=== PATIENT | female | born 1965 | race Caucasian/White ===

== ENCOUNTER 2016-04-16 12:09 | Emergency (ER) | payer MEDICAID ==
[~2016-04-16] VITALS: Ht 170.2 cm; Wt 92.0 kg
[~2016-04-16 12:09] MED LIST: ATEN50TA PO; ATOR20TA15 PO; CYCL25CA4 PO; DRON5CAP PO; LOSA25TA PO; MAGN400T2 PO; METF500T PO; METO5TAB PO; MYCO500T PO; ONDA1TAB17 PO; PANT40TA3 PO; PRED5TAB PO
[2016-04-16 12:17] VITALS: BP 141/94; PULSE 60; RESP 18; TEMP 97.4; O2SAT 96
[2016-04-16 13:40] LABS: BLOOD, URINE TRACE (NEG); GLUCOSE,URINE NEG (NEG); KETONE, URINE NEG (NEG); NITRITE,URINE NEG (NEG); PH, URINE 5.5 (5.0-8.5)
[2016-04-16 13:42] LABS: URINE COLOR YELLOW (YELLW/STRAW)
[2016-04-16 13:50] LABS: BACTERIA, URINE OCC /hpf; COMMENT (UR) CULT NOT INDICATED; CULTURE IF INDICATED CULT NOT INDICATED; MUCUS URINE OCC /lpf (OCC); RBC, URINE 0-3 /hpf (0-3); SQUAMOUS EPITHELIAL CELL URINE > 8 /hpf (0-5); WBC, URINE 0-2 /hpf (0-5)
[2016-04-16] MEDS ORDERED: SODIUM CHLOR 0.9% 1000 ML INJ 1,000 ML IV SCH (14:55)
[2016-04-16] MEDS ORDERED: ONDANSETRON HCL 4 MG/2 ML VIAL IVP ONE (15:00)
[2016-04-16] MEDS ORDERED: MORPHINE SULFATE 4 MG/ML INJ IV PUSH ONE (15:00)
[2016-04-16] MEDS ORDERED: SODIUM CHLORIDE 0.9% FLUSH 5 ML FLUSH IVF PRN (15:00)
--- NOTE | 2016-04-16 15:04 | PD ---
HPI Chief Complaint: Flank/Kidney Pain Time Seen by Provider: 14:47 Travel History International Travel<30 days: No Contact w/Intl Traveler<30days: No Traveled to known affect area: No History of Present Illness HPI 50-year-old female complains of right flank pain. Patient states the pain started last night. Patient states the pain sharp stabbing pain constant pain started the right flank area radiation to right upper quadrant of the abdomen. Patient denies any fever chills. Patient denies any coughing congestion. Patient states that she has intermittent nausea vomiting since last night. Patient denies dysuria or frequency. Patient denies any vaginal discharge or bleeding. Patient status post hysterectomy. Patient has history of renal failure status post kidney transplant, diabetes, GERD, anxiety panic attack, dyslipidemia, hypertension, lupus and gastroparesis. PFSH Past Medical History Arthritis: Yes Autoimmune Disease: Yes (LUPUS) Anxiety: Yes (PANIC ATTACKS) Depression: No Heart Rhythm Problems: No Cancer: Yes (SKIN) Cardiovascular Problems: No High Cholesterol: Yes Chemotherapy: No Chest Pain: No Congestive Heart Failure: No Cerebrovascular Accident: No Diabetes: Yes Patient Takes Glucophage: Yes Diminished Hearing: No Endocrine: Yes Gastrointestinal Disorders: Yes (GASTROPORESIS) GERD: Yes Genitourinary: Yes (KIDNEY TRANSPLANT: MAY [birth year] 1989 ON R SIDE. ) Headaches: No Hepatitis: No Hiatal Hernia: Yes Hypertension: Yes Immune Disorder: Yes Implanted Vascular Access Dvce: Yes (LUE shunt) Kidney Stones: Yes Medical other: No Musculoskeletal: Yes Neurologic: Yes Psychiatric: Yes Reproductive: No Respiratory: No Immunizations Current: Yes Migraines: Yes Radiation Therapy: No Renal Failure: Yes Seizures: No Thyroid Disease: No Ulcer: No Influenza Vaccination: No PNEUMOCCOCAL Vaccine (Year): 2 ?: Not Menopausal: Yes : 2 Para: 1 Miscarriage: 1 Past Surgical History Abdominal Surgery: Yes (INGUINAL HERNIA: RIGHT, GALLBLADDER REMOVED) AICD: No Arteriovenous Shunt: Yes (LEFT ARM FOR DIALYSIS IN 1989- NON FUNCTIONAL) Body Medical Devices: NONE Cardiac Surgery: No Section: Yes Cholecystectomy: Yes Ear Surgery: No Endocrine Surgery: No Eye Surgery: No Genitourinary Surgery: Yes (RKIDNEY TRANSPLANT / LEFT DIALYSIS SHUNT) Gynecologic Surgery: Yes (C SECTIONHYSTERECTOMY ) Hysterectomy: Yes Joint Replacement: No Neurologic Surgery: No Oral Surgery: No Pacemaker: No Thoracic Surgery: No Other Surgery: Yes (SKIN CANCER REMOVED RT THIGH 09/18) Social History Alcohol Use: No Tobacco Use: Yes (1 ppd) Substance Use: No Allergies-Medications (Allergen,Severity, Reaction): Coded Allergies: Adhesives (Verified Allergy, Severe, HIVES, 04/16/16) DISOLVABLE SUTURE MATERAL Levaquin (Verified Allergy, Intermediate, HIVES/ITCHING, 04/16/16) Keflex (Verified Adverse Reaction, Intermediate, HIVES/VOMITING, 04/16/16) Procardia (Verified Adverse Reaction, Intermediate, VOMITING, 04/16/16) *MDRO Multi-Drug Resistant Organism (Verified Adverse Reaction, Unknown, ) 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 MRSA PCR Screens negative 10/29/14 and 11/16/14. Uncoded Allergies: suture material (Adverse Reaction, Severe, SKIN INFECTION, 06/14/15) PT STATES DISSOLVING ONES [place] NOT DISSOLVE AND HAVE TO BE PHYSICALLY REMOVED Reported Meds & Prescriptions Reported Meds & Active Scripts Active Ondansetron (Ondansetron HCl) 8 Mg Tab 4 Mg PO TID Atorvastatin (Atorvastatin Calcium) 20 Mg Tab 20 Mg PO HS Metoclopramide (Metoclopramide HCl) 5 Mg Tab 5 Mg PO TIDAC Losartan (Losartan Potassium) 25 Mg Tab 25 Mg PO DAILY Metformin (Metformin HCl) 500 Mg Tab 500 Mg PO BIDPC With meals Pantoprazole (Pantoprazole Sodium) 40 Mg Tab 40 Mg PO DAILY Reported Dronabinol 5 Mg Cap 5 Mg PO BID Cyclosporine 25 Mg Cap 50 Mg PO BID Mycophenolate (Mycophenolate Mofetil) 500 Mg Tab 1,000 Mg PO BID Prednisone 5 Mg Tab 5 Mg PO DAILY Atenolol 50 Mg Tab 50 Mg PO DAILY Review of Systems General / Constitutional: No: Fever Eyes: No: Visual changes HENT: No: Headaches Cardiovascular: No: Chest Pain or Discomfort Respiratory: No: Shortness of Breath Gastrointestinal: Positive: Abdominal Pain Genitourinary: No: Dysuria Musculoskeletal: No: Pain Skin: No Rash Neurologic: No: Weakness Psychiatric: No: Depression Endocrine: No: Polydipsia Hematologic/Lymphatic: No: Easy Bruising Physical Exam Narrative GENERAL: Well-nourished, well-developed patient. SKIN: Warm and dry. HEAD: Normocephalic. EYES: No scleral icterus. No injection or drainage. NECK: Supple, trachea midline. No JVD or lymphadenopathy. CARDIOVASCULAR: Regular rate and rhythm without murmurs, gallops, or rubs. RESPIRATORY: Breath sounds equal bilaterally. No accessory muscle use. GASTROINTESTINAL: Abdomen soft, nondistended. Patient has moderate tenderness on palpation right upper quadrant of the abdomen. No rebound tenderness. No mass. MUSCULOSKELETAL: No cyanosis, or edema. BACK: Patient has moderate tenderness on palpation right flank area and right low quadrant of the abdomen. No rebound tenderness. No mass. Neurologic exam normal. Data Data Last Documented VS Vital Signs Date Time Temp Pulse Resp B/P Pulse Ox O2 Delivery O2 Flow Rate FiO2 04/16/16 16:34 96 Room Air 04/16/16 12:17 97.4 60 18 141/94 Orders Urinalysis - C+S If Indicated (04/16/16 13:15) Ed Urine Pregnancytest Poc (04/16/16 13:15) Complete Blood Count With Diff (04/16/16 14:55) Comprehensive Metabolic Panel (04/16/16 14:55) Lipase (04/16/16 14:55) Prothrombin Time / Inr (Pt) (04/16/16 14:55) Act Partial Throm Time (Ptt) (04/16/16 14:55) Ct Abd/Pel W/O Iv Contrast (04/16/16 14:55) Iv Access Insert/Monitor (04/16/16 14:55) Ecg Monitoring (04/16/16 14:55) Oximetry (04/16/16 14:55) Morphine Inj (Morphine Inj) (04/16/16 15:00) Ondansetron Inj (Zofran Inj) (04/16/16 15:00) Sodium Chlor 0.9% 1000 Ml Inj (Ns 1000 M (04/16/16 14:55) Sodium Chloride 0.9% Flush (Ns Flush) (04/16/16 15:00) Labs Laboratory Tests Test 04/16/16 04/16/16 13:16 15:14 Urine Color YELLOW Urine Turbidity HAZY Urine pH 5.5 Urine Specific [place] 1.017 Urine Protein NEG mg/dL Urine Glucose (UA) NEG mg/dL Urine Ketones NEG mg/dL Urine Occult Blood TRACE Urine Nitrite NEG Urine Bilirubin NEG Urine Leukocyte Esterase NEG Urine RBC 0-3 /hpf Urine WBC 0-2 /hpf Urine Squamous Epithelial > 8 /hpf Cells Urine Bacteria OCC /hpf Urine Mucus OCC /lpf Microscopic Urinalysis Comment CULT NOT INDICATED White Blood Count 7.9 TH/MM3 Red Blood Count 5.42 MIL/MM3 Hemoglobin 16.6 GM/DL Hematocrit 48.9 % Mean Corpuscular Volume 90.2 FL Mean Corpuscular Hemoglobin 30.7 PG Mean Corpuscular Hemoglobin 34.0 % Concent Red Cell Distribution Width 13.6 % Platelet Count 148 TH/MM3 Mean Platelet Volume 10.4 FL Neutrophils (%) (Auto) 60.0 % Lymphocytes (%) (Auto) 25.4 % Monocytes (%) (Auto) 10.7 % Eosinophils (%) (Auto) 3.2 % Basophils (%) (Auto) 0.7 % Neutrophils # (Auto) 4.7 TH/MM3 Lymphocytes # (Auto) 2.0 TH/MM3 Monocytes # (Auto) 0.8 TH/MM3 Eosinophils # (Auto) 0.3 TH/MM3 Basophils # (Auto) 0.1 TH/MM3 CBC Comment DIFF FINAL Differential Comment Prothrombin Time 10.7 SEC Prothromb Time International 1.0 RATIO Ratio Activated Partial 28.4 SEC Thromboplast Time Sodium Level 144 MEQ/L Potassium Level 3.6 MEQ/L Chloride Level 109 MEQ/L Carbon Dioxide Level 25.0 MEQ/L Anion Gap 10 MEQ/L Blood Urea Nitrogen 14 MG/DL Creatinine 1.20 MG/DL Estimat Glomerular Filtration 48 ML/MIN Rate Random Glucose 83 MG/DL Calcium Level 9.0 MG/DL Total Bilirubin 2.5 MG/DL Aspartate Amino Transf 17 U/L (AST/SGOT) Alanine Aminotransferase 18 U/L (ALT/SGPT) Alkaline Phosphatase 113 U/L Total Protein 7.0 GM/DL Albumin 3.3 GM/DL Lipase 51 U/L [facility] Medical Decision Making Medical Screen Exam Complete: Yes Emergency Medical Condition: Yes Interpretation(s) 1614 p.m. CBC within normal limit. Creatinine 1.2. Total bili 2.5. UA is negative. 1632 PM. Differential Diagnosis Differential diagnosis including musculoskeletal, nephrolithiasis, pyelonephritis, cholecystitis, colitis. Narrative Course 50-year-old female with right flank pain with radiation to right upper quadrant abdominal pain. Normal saline solution 1 25 cc an hour. Morphine 2 mg IV. Zofran 4 mg IV. I discussed with radiologist Dr. Richard about her results of CT. Patient had ultrasound kidney in the past which show hydronephrosis of the transplanted kidney in the past. Nothing new. Diagnosis Primary Impression: Right flank pain Patient Instructions: General Instructions Additional Instructions: Flexeril as needed for pain. Follow-up with personal physician. Return if persistent problem or worse. Med/Other Pt SpecificInfo: Prescription(s) given Scripts Cyclobenzaprine (Flexeril)10 Mg Tab10 Mg PO TID #60 TAB Ref 0 Prov:Carlton Bernard MD 04/16/16 Disposition: 01 DISCHARGE HOME Condition: Stable Carlton Bernard MD Apr 16, 2016 15:03
[2016-04-16 15:23] LABS: AUTOMATED NEUTROPHIL # 4.7 TH/MM3 (1.8-7.7); BASOPHIL # 0.1 TH/MM3 (0-0.2); BASOPHIL % 0.7 % (0.0-2.0); EOSINOPHIL # 0.3 TH/MM3 (0-0.4); EOSINOPHIL % 3.2 % (0.0-4.0); HEMATOCRIT 48.9 % (35.0-46.0); HEMO FLAGS DIFF FINAL; LYMPH % 25.4 % (9.0-44.0); MEAN CELL VOLUME 90.2 FL (80.0-100.0); MEAN CORPUSCULAR HEMOGLOBIN 30.7 PG (27.0-34.0); MONO % 10.7 % (0.0-8.0); PLATELET COUNT 148 TH/MM3 (150-450); RED BLOOD COUNT 5.42 MIL/MM3 (4.00-5.30); RED CELL DISTRIBUTION WIDTH 13.6 % (11.6-17.2); WHITE BLOOD COUNT 7.9 TH/MM3 (4.0-11.0)
[2016-04-16 15:31] LABS: CHLORIDE 109 MEQ/L (98-107); POTASSIUM 3.6 MEQ/L (3.5-5.1); SODIUM (NA) 144 MEQ/L (136-145)
[2016-04-16 15:35] LABS: ANION GAP 10 MEQ/L (5-15); BLOOD UREA NITROGEN 14 MG/DL (7-18)
[2016-04-16 15:38] LABS: ALT (GPT) 18 U/L (10-53); AST (GOT) 17 U/L (15-37); GLOMERULAR FILTRATION RATE 48 ML/MIN (>89)
[2016-04-16 15:39] LABS: TOTAL BILIRUBIN ADULT 2.5 MG/DL (0.2-1.0)
[2016-04-16 15:41] LABS: ALKALINE PHOSPHATASE 113 U/L (45-117)
[2016-04-16 15:43] LABS: APTT (PATIENT) 28.4 SEC (24.3-30.1); PROTHROMBIN TIME - PATIENT 10.7 SEC (9.8-11.6)
--- NOTE | 2016-04-16 16:15 | RADHPO ---
EXAM DATE/TIME: 04/16/2016 15:20 [facility] COMPARISON: CT ABDOMEN & PELVIS W/O CONTRAST, September 11, 2015, 13:59. INDICATIONS: Right flank pain. ORAL CONTRAST: No oral contrast ingested. RADIATION DOSE: 27.50 CTDIvol (mGy) MEDICAL HISTORY: Hypertension. Diabetes mellitus type 2. Lupus. SURGICAL HISTORY: Cholecystectomy. Tubal ligation. ENCOUNTER: Initial ACUITY: 1 day PAIN SCALE: 4/10 LOCATION: Right flank TECHNIQUE: Volumetric scanning of the abdomen and pelvis was performed. Using automated exposure control and adjustment of the mA and/or kV according to patient size, radiation dose was kept as low as reasonably achievable to obtain optimal diagnostic quality images. FINDINGS: Lung bases are clear. There is mild fatty replacement to the spleen. Liver is unremarkable. Surgic al clips are seen in the gallbladder fossa. Pancreas is unremarkable. Kidneys are small and shrunken. There is a renal transplant in the right lower quadrant without stone. There is a small emily-pelvic cyst evident. There is mild dilatation to the proximal ureter. CONCLUSION: 1. Right lower quadrant transplant without stone. 2. There is a 2 cm renal cyst evident. 3. There is mild dilatation of the proximal collecting system stable in the interval. 4. No other abnormality is appreciated. Krunal Richard MD FACR on April 16, 2016 at 16:03 Board Certified Radiologist. This report was verified electronically.
[2016-04-16 16:34] VITALS: O2SAT 96
[2016-04-16] MEDS ORDERED: CYCL1TAB29 PO (16:52)
[2016-04-16 17:06] VITALS: BP 135/78
[2016-05-25] MEDS ORDERED: ATOR20TA15 PO ×2 (14:04→15:35)
[2016-08-02] MEDS ORDERED: PROM12.54 PO (10:27)
[2016-08-02] MEDS ORDERED: WHEEMIS3 (10:53)
[2016-08-02] MEDS ORDERED: CLON.1 PO (11:04)
[2016-08-02] MEDS ORDERED: CLON0.1T PO (11:07)
[2016-08-17] MEDS ORDERED: ATOR10TA15 PO (11:07)
[2016-08-17] MEDS ORDERED: LOSA50TA PO (11:07)
== END 2016-04-16 17:11 | disposition home or self-care (01) ==
LOC: PHED 12:09
DX: R10.11 Right upper quadrant pain (principal); N28.1 Cyst of kidney, acquired; E78.00 Pure hypercholesterolemia, unspecified; E11.9 Type 2 diabetes mellitus without complications; I10 Essential (primary) hypertension; Z87.442 Personal history of urinary calculi; F17.210 Nicotine dependence, cigarettes, uncomplicated
CPT/HCPCS: 74176; 80053; 81001; 83690; 84703; 85025; 85610; 85730; 96361; 96374; 96375; 99284; J2270; J2405; J7030

== ENCOUNTER 2016-06-25 16:35 | Emergency (ER) | payer MEDICAID ==
[~2016-06-25] VITALS: Ht 170.2 cm; Wt 97.0 kg
[~2016-06-25 16:35] MED LIST changes: +CYCL1TAB29 PO; -MAGN400T2 PO
[2016-06-25 16:50] VITALS: BP 150/111; PULSE 66; RESP 16; TEMP 97.9; O2SAT 97
[2016-06-25] MEDS ORDERED: SODIUM CHLORIDE 0.9% FLUSH 10 ML FLUSH IV FLUSH PRN (17:00)
[2016-06-25] MEDS ORDERED: MAGN400T2 PO (17:04)
[2016-06-25 17:19] VITALS: O2SAT 96
[2016-06-25 17:21] LABS: AUTOMATED NEUTROPHIL # 4.3 TH/MM3 (1.8-7.7); BASOPHIL # 0.1 TH/MM3 (0-0.2); BASOPHIL % 0.7 % (0.0-2.0); EOSINOPHIL # 0.7 TH/MM3 (0-0.4); EOSINOPHIL % 8.2 % (0.0-4.0); HEMATOCRIT 48.2 % (35.0-46.0); HEMO FLAGS DIFF FINAL; LYMPH % 32.9 % (9.0-44.0); LYMPHOCYTE # 2.8 TH/MM3 (1.0-4.8); MEAN CELL VOLUME 90.6 FL (80.0-100.0); MEAN CORPUSCULAR HEMOGLOBIN 30.2 PG (27.0-34.0); MEAN CORPUSCULAR HGB CONC 33.4 % (32.0-36.0); MONO % 7.4 % (0.0-8.0); NEUT % 50.8 % (16.0-70.0); PLATELET COUNT 159 TH/MM3 (150-450); RED BLOOD COUNT 5.32 MIL/MM3 (4.00-5.30); RED CELL DISTRIBUTION WIDTH 13.5 % (11.6-17.2); WHITE BLOOD COUNT 8.5 TH/MM3 (4.0-11.0)
[2016-06-25 17:30] LABS: CHLORIDE 108 MEQ/L (98-107); POTASSIUM 3.9 MEQ/L (3.5-5.1); SODIUM (NA) 141 MEQ/L (136-145)
[2016-06-25] MEDS ORDERED: oxyCODONE/ACETAMINOPHEN 5 MG/325 MG TAB PO ONE (17:30)
[2016-06-25 17:34] LABS: ANION GAP 9 MEQ/L (5-15); BLOOD UREA NITROGEN 21 MG/DL (7-18)
[2016-06-25 17:37] LABS: ALT (GPT) 22 U/L (10-53); AST (GOT) 18 U/L (15-37); GLOMERULAR FILTRATION RATE 44 ML/MIN (>89)
[2016-06-25 17:38] LABS: TOTAL BILIRUBIN ADULT 1.7 MG/DL (0.2-1.0)
[2016-06-25 17:39] LABS: ALKALINE PHOSPHATASE 103 U/L (45-117)
--- NOTE | 2016-06-25 17:48 | PD ---
HPI Chief Complaint: Flank/Kidney Pain Time Seen by Provider: 17:19 Travel History International Travel<30 days: No Contact w/Intl Traveler<30days: No Traveled to known affect area: No History of Present Illness HPI 50-year-old female with a history of end-stage renal disease had been on dialysis in the past status post kidney transplant to the right side presents emergency Department with left lower back pain. Patient states she has a history of kidney stones but denies any dysuria. Patient states the pain radiates down into her buttock and left leg. Denies any saddle anesthesia denies. States worse when she is walking. States pain is been present for the past 4 days initially started as an aching pain but now has become sharp and fairly intense. PFSH Past Medical History Arthritis: Yes Autoimmune Disease: Yes (LUPUS) Anxiety: Yes (PANIC ATTACKS) Depression: No Heart Rhythm Problems: No Cancer: Yes (SKIN) Cardiovascular Problems: Yes (htn on meds) High Cholesterol: Yes Chemotherapy: No Chest Pain: No Congestive Heart Failure: No Cerebrovascular Accident: No Diabetes: Yes (type 2) Patient Takes Glucophage: Yes Diminished Hearing: No Endocrine: Yes Gastrointestinal Disorders: Yes (GASTROPORESIS) GERD: Yes Genitourinary: Yes (KIDNEY TRANSPLANT: MAY 13, 1987 ON R SIDE. ) Headaches: No Hepatitis: No Hiatal Hernia: Yes Hypertension: Yes Immune Disorder: Yes Implanted Vascular Access Dvce: Yes (LUE shunt) Kidney Stones: Yes Musculoskeletal: Yes Neurologic: Yes Psychiatric: Yes Reproductive: No Respiratory: No Immunizations Current: Yes Migraines: Yes Radiation Therapy: No Renal Failure: Yes Seizures: No Thyroid Disease: No Ulcer: No PNEUMOCCOCAL Vaccine (Year): 2 ?: Not Menopausal: Yes : 2 Para: 1 Miscarriage: 1 Past Surgical History Abdominal Surgery: Yes (INGUINAL HERNIA: RIGHT, GALLBLADDER REMOVED) AICD: No Arteriovenous Shunt: Yes (LEFT ARM FOR DIALYSIS IN 1989- NON FUNCTIONAL) Body Medical Devices: NONE Cardiac Surgery: No Section: Yes Cholecystectomy: Yes Ear Surgery: No Endocrine Surgery: No Eye Surgery: No Genitourinary Surgery: Yes (RKIDNEY TRANSPLANT / LEFT DIALYSIS SHUNT) Gynecologic Surgery: Yes (C SECTIONHYSTERECTOMY ) Hysterectomy: Yes Joint Replacement: No Neurologic Surgery: No Oral Surgery: No Pacemaker: No Thoracic Surgery: No Other Surgery: Yes (SKIN CANCER REMOVED RT THIGH 09/18) Social History Alcohol Use: No Tobacco Use: Yes (3-4 CIG/DAY) Substance Use: No Allergies-Medications (Allergen,Severity, Reaction): Coded Allergies: Adhesives (Verified Allergy, Severe, HIVES, 06/25/16) DISOLVABLE SUTURE MATERAL Levaquin (Verified Allergy, Intermediate, HIVES/ITCHING, 06/25/16) Keflex (Verified Adverse Reaction, Intermediate, HIVES/VOMITING, 06/25/16) Procardia (Verified Adverse Reaction, Intermediate, VOMITING, 06/25/16) *MDRO Multi-Drug Resistant Organism (Verified Adverse Reaction, Unknown, ) 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 MRSA PCR Screens negative 10/29/14 and 11/16/14. Uncoded Allergies: suture material (Adverse Reaction, Severe, SKIN INFECTION, 06/25/16) PT STATES DISSOLVING ONES [place] NOT DISSOLVE AND HAVE TO BE PHYSICALLY REMOVED. Reported Meds & Prescriptions Reported Meds & Active Scripts Active Ultram (Tramadol HCl) 50 Mg Tab 50 Mg PO Q6H PRN Atorvastatin (Atorvastatin Calcium) 20 Mg Tab 20 Mg PO HS Metoclopramide (Metoclopramide HCl) 5 Mg Tab 5 Mg PO TIDAC Losartan (Losartan Potassium) 25 Mg Tab 25 Mg PO DAILY Metformin (Metformin HCl) 500 Mg Tab 500 Mg PO BIDPC With meals Pantoprazole (Pantoprazole Sodium) 40 Mg Tab 40 Mg PO DAILY Reported Magnesium Oxide 400 Mg Tab 400 Mg PO BID Cyclosporine 25 Mg Cap 50 Mg PO BID Mycophenolate (Mycophenolate Mofetil) 500 Mg Tab 1,000 Mg PO BID Prednisone 5 Mg Tab 5 Mg PO DAILY Atenolol 50 Mg Tab 50 Mg PO DAILY Review of Systems Except as stated in HPI: all other systems reviewed are Neg Physical Exam Narrative GENERAL: Well-developed well-nourished, morbidly obese, appears somewhat uncomfortable. SKIN: Focused skin assessment warm/dry. HEAD: Atraumatic. Normocephalic. EYES: Pupils equal and round. No scleral icterus. No injection or drainage. ENT: No nasal bleeding or discharge. Mucous membranes pink and moist. NECK: Trachea midline. No JVD. CARDIOVASCULAR: Regular rate and rhythm. No murmur appreciated. RESPIRATORY: No accessory muscle use. Clear to auscultation. Breath sounds equal bilaterally. GASTROINTESTINAL: Abdomen soft, non-tender, nondistended. Hepatic and splenic margins not palpable. No CVA tenderness. No tenderness over the graft site. MUSCULOSKELETAL: No obvious deformities. No clubbing. No cyanosis. No edema. There is some tenderness to the left sacroiliac joint as well as the left buttock. No bruising no lacerations nor abrasions. There is no midline tenderness, CVA tenderness negative. Straight leg raise is positive. NEUROLOGICAL: Awake and alert. No obvious cranial nerve deficits. Motor grossly within normal limits. Normal speech. PSYCHIATRIC: Appropriate mood and affect; insight and judgment normal. Data Data Last Documented VS Vital Signs Date Time Temp Pulse Resp B/P Pulse Ox O2 Delivery O2 Flow Rate FiO2 06/25/16 19:38 70 18 97 06/25/16 19:29 132/80 Room Air 06/25/16 16:50 97.9 Orders Urinalysis - C+S If Indicated (06/25/16 16:57) Complete Blood Count With Diff (06/25/16 16:57) Comprehensive Metabolic Panel (06/25/16 16:57) Lipase (06/25/16 16:57) Iv Access Insert/Monitor (06/25/16 16:57) Ecg Monitoring (06/25/16 16:57) Oximetry (06/25/16 16:57) Sodium Chloride 0.9% Flush (Ns Flush) (06/25/16 17:00) Oxycodone-Acetamin 5-325 Mg (Percocet (06/25/16 17:30) Spine, Lumbar - Ltd (Ap & Lat) (06/25/16 ) Pelvis, Ap Only (Routine) (06/25/16 ) Labs Laboratory Tests Test 06/25/16 06/25/16 17:05 18:05 White Blood Count 8.5 TH/MM3 Red Blood Count 5.32 MIL/MM3 Hemoglobin 16.1 GM/DL Hematocrit 48.2 % Mean Corpuscular Volume 90.6 FL Mean Corpuscular Hemoglobin 30.2 PG Mean Corpuscular Hemoglobin 33.4 % Concent Red Cell Distribution Width 13.5 % Platelet Count 159 TH/MM3 Mean Platelet Volume 10.2 FL Neutrophils (%) (Auto) 50.8 % Lymphocytes (%) (Auto) 32.9 % Monocytes (%) (Auto) 7.4 % Eosinophils (%) (Auto) 8.2 % Basophils (%) (Auto) 0.7 % Neutrophils # (Auto) 4.3 TH/MM3 Lymphocytes # (Auto) 2.8 TH/MM3 Monocytes # (Auto) 0.6 TH/MM3 Eosinophils # (Auto) 0.7 TH/MM3 Basophils # (Auto) 0.1 TH/MM3 CBC Comment DIFF FINAL Differential Comment Sodium Level 141 MEQ/L Potassium Level 3.9 MEQ/L Chloride Level 108 MEQ/L Carbon Dioxide Level 24.0 MEQ/L Anion Gap 9 MEQ/L Blood Urea Nitrogen 21 MG/DL Creatinine 1.30 MG/DL Estimat Glomerular Filtration 44 ML/MIN Rate Random Glucose 88 MG/DL Calcium Level 9.0 MG/DL Total Bilirubin 1.7 MG/DL Aspartate Amino Transf 18 U/L (AST/SGOT) Alanine Aminotransferase 22 U/L (ALT/SGPT) Alkaline Phosphatase 103 U/L Total Protein 7.1 GM/DL Albumin 3.2 GM/DL Lipase 71 U/L Urine Color YELLOW Urine Turbidity CLEAR Urine pH 5.5 Urine Specific [place] 1.011 Urine Protein NEG mg/dL Urine Glucose (UA) NEG mg/dL Urine Ketones NEG mg/dL Urine Occult Blood NEG Urine Nitrite NEG Urine Bilirubin NEG Urine Leukocyte Esterase NEG Urine RBC 0-3 /hpf Urine WBC 0-2 /hpf Urine Squamous Epithelial 6-8 /hpf Cells Microscopic Urinalysis Comment CULT NOT INDICATED MDM Medical Decision Making Medical Screen Exam Complete: Yes Emergency Medical Condition: Yes Differential Diagnosis Low back pain, sacroiliitis, sciatica, degenerative distress disease, hip arthritis. Narrative Course Patient was roomed in the emergency department, she appears well. Her physical exam is strongly suggestive of musculoskeletal is cause of her pain. X-rays revealed multiple degenerative changes: Last 24 hours Impressions Pelvis X-Ray 06/25/16 0000 Signed Impressions: Service Date/Time: Saturday, June 25, 2016 18:19 - CONCLUSION: Intact pelvis. Severe left hip osteoarthritis. Seamus Maria MD Lumbar Spine X-Ray 06/25/16 0000 Signed Impressions: Service Date/Time: Saturday, June 25, 2016 18:21 - CONCLUSION: Degenerative disc disease, moderate at L1/L2 and severe at L2/L3. Grade 1 degenerative retrolisthesis at L2/L3. No fracture or acute appearing malalignment. Seamus Maria MD Labs show minimally elevated hemoglobin 16.1, otherwise counts within normal limits, patient's creatinine is 1.3 Which appears to be baseline. Mild hypoalbuminemia, mild hyperbilirubinemia. UA negative. Overall my impression of this patient is that her pain is from muscular skeletal cause and not from a kidney or internal cause. She was given Percocet and on revisit she is much more comfortable appearing. Discussed my impression with the patient symptomatically management and follow-up with her primary care physician and she is comfortable with this plan. Diagnosis Primary Impression: Back pain Qualified Code: M54.42 - Acute left-sided low back pain with left-sided sciatica Additional Instructions: Follow-up the primary care physician as well as your project scheduler. Med/Other Pt SpecificInfo: Prescription(s) given Scripts Tramadol (Ultram)50 Mg Tab50 Mg PO Q6H PRN (PAIN) #15 TAB Ref 0 Prov:Conrado Mckeon MD 06/25/16 Disposition: 01 DISCHARGE HOME Condition: Stable Conrado Mckeon MD Jun 25, 2016 17:48
[2016-06-25 18:13] VITALS: BP 138/82; PULSE 63; RESP 20; O2SAT 97
[2016-06-25 18:20] LABS: BLOOD, URINE NEG (NEG); GLUCOSE,URINE NEG (NEG); KETONE, URINE NEG (NEG); NITRITE,URINE NEG (NEG); PH, URINE 5.5 (5.0-8.5)
[2016-06-25 18:23] LABS: URINE COLOR YELLOW (YELLW/STRAW)
[2016-06-25 18:24] LABS: RBC, URINE 0-3 /hpf (0-3); WBC, URINE 0-2 /hpf (0-5)
[2016-06-25 18:25] LABS: COMMENT (UR) CULT NOT INDICATED; CULTURE IF INDICATED CULT NOT INDICATED
--- NOTE | 2016-06-25 18:48 | RADHPO ---
EXAM DATE/TIME: 06/25/2016 18:19 [facility] COMPARISON: No previous studies available for comparison. INDICATIONS : Lower back pain, no injury. MEDICAL HISTORY : None. SURGICAL HISTORY : Hysterectomy. ENCOUNTER: Initial ACUITY: 1 day PAIN SCORE: 10/10 LOCATION: Left lower back FINDINGS: The bony pelvis is intact and has normal morphology. There is severe osteoarthritis of the left hip. Right hip within normal limits. CONCLUSION: Intact pelvis. Severe left hip osteoarthritis. Seamus Maria MD on June 25, 2016 at 18:46 Board Certified Radiologist. This report was verified electronically.
--- NOTE | 2016-06-25 18:51 | RADHPO ---
EXAM DATE/TIME: 06/25/2016 18:21 [facility] COMPARISON: CT ABDOMEN & PELVIS W/O CONTRAST, April 16, 2016, 15:20. CHEST SINGLE AP, July 24, 2011, 16:28. INDICATIONS : Lower back pain, no injury. MEDICAL HISTORY : None. SURGICAL HISTORY : Hysterectomy. ENCOUNTER: Initial ACUITY: 1 day PAIN SCORE: 10/10 LOCATION: Left lower back FINDINGS: There is severe disc space narrowing, vacuum phenomena and chronic endplate changes with grade 1 dege nerative appearing retrolisthesis at L2/L3. Presence of vacuum phenomena mitigates against discitis. Moderate degenerative disc changes are seen at L1/L2. L3/L4, L4/L5 and L5/S1 discs have normal height . No fracture or acute appearing malalignment. CONCLUSION: Degenerative disc disease, moderate at L1/L2 and severe at L2/L3. Grade 1 degenerative retrolisthesis at L2/L3. No fracture or acute appearing malalignment. Seamus Maria MD on June 25, 2016 at 18:47 Board Certified Radiologist. This report was verified electronically.
[2016-06-25] MEDS ORDERED: ULTR50TA5 PO (19:09)
[2016-06-25 19:29] VITALS: BP 132/80; PULSE 66; RESP 18; O2SAT 97
[2016-08-02] MEDS ORDERED: PROM12.54 PO (10:27)
[2016-08-02] MEDS ORDERED: WHEEMIS3 (10:53)
[2016-08-02] MEDS ORDERED: CLON.1 PO (11:04)
[2016-08-02] MEDS ORDERED: CLON0.1T PO (11:07)
[2016-08-17] MEDS ORDERED: LOSA50TA PO (11:07)
[2016-08-17] MEDS ORDERED: ATOR10TA15 PO (11:07)
== END 2016-06-25 19:39 | disposition home or self-care (01) ==
LOC: PHED 16:35
DX: M54.9 Dorsalgia, unspecified (principal); E11.22 Type 2 diabetes mellitus with diabetic chronic kidney disease; I12.9 Hypertensive chronic kidney disease with stage 1 through stage 4 chronic kidney disease, or unspecified chronic kidney disease; E78.00 Pure hypercholesterolemia, unspecified; M32.9 Systemic lupus erythematosus, unspecified; Z79.4 Long term (current) use of insulin; Z94.0 Kidney transplant status; Z87.442 Personal history of urinary calculi
CPT/HCPCS: 72100; 72170; 80053; 81001; 83690; 85025; 99283

== ENCOUNTER 2016-06-26 23:28 | Emergency (ER) | payer MEDICAID ==
[~2016-06-26] VITALS: Ht 171.4 cm; Wt 96.5 kg
[~2016-06-26 23:28] MED LIST changes: -CYCL1TAB29 PO; -DRON5CAP PO; +MAGN400T2 PO; -ONDA1TAB17 PO; +ULTR50TA5 PO
[2016-06-26 23:45] VITALS: BP 141/104; PULSE 64; RESP 18; TEMP 98.2; O2SAT 98
[2016-06-27 02:41] LABS: BLOOD, URINE TRACE (NEG); GLUCOSE,URINE NEG (NEG); KETONE, URINE NEG (NEG); NITRITE,URINE NEG (NEG); PH, URINE 5.5 (5.0-8.5)
[2016-06-27 02:53] LABS: BACTERIA, URINE OCC /hpf; METHOD OF COLLECTION CLEAN CATCH; SQUAMOUS EPITHELIAL CELL URINE > 8 /hpf (0-5); URINE COLOR YELLOW (YELLW/STRAW); WBC, URINE 0-2 /hpf (0-5)
[2016-06-27 02:54] LABS: RBC, URINE 0-3 /hpf (0-3)
[2016-06-27 02:56] LABS: COMMENT (UR) CULT NOT INDICATED; CULTURE IF INDICATED CULT NOT INDICATED
[2016-06-27] MEDS ORDERED: SODIUM CHLOR 0.9% 1000 ML INJ 1,000 ML IV ONE (03:56)
[2016-06-27] MEDS ORDERED: SODIUM CHLORIDE 0.9% FLUSH 10 ML FLUSH IVF PRN (04:00)
[2016-06-27] MEDS ORDERED: oxyCODONE/ACETAMINOPHEN 5 MG/325 MG TAB PO ONE (04:00)
--- NOTE | 2016-06-27 04:02 | PD ---
HPI Chief Complaint: Flank/Kidney Pain Time Seen by Provider: 03:42 Travel History International Travel<30 days: No Contact w/Intl Traveler<30days: No Traveled to known affect area: No History of Present Illness HPI The patient is a 50-year-old female that complains of left flank pain for 12 hours. She is kidney transplant patient of [facility]. She is followed by Miguel Armendariz. She has a history of kidney stones as well as urinary tract infections. The pain is in her [place] kidney on the left. Her transplanted kidney is in her right pelvis. She denies any fever. She states her last CAT scan was about 2 years ago. She still has a shot but she does not get dialysis. Apparently, her renal insufficiency is very close to needing dialysis. She is on prednisone, cyclosporine and mycophenolate because of the transplanted kidney. She states that Dr. Miguel Armendariz often writes her Septra DS when she has a urine infection. PFSH Past Medical History Arthritis: Yes Autoimmune Disease: Yes (LUPUS) Anxiety: Yes (PANIC ATTACKS) Depression: No Heart Rhythm Problems: No Cancer: Yes (SKIN) Cardiovascular Problems: Yes (HTN) High Cholesterol: Yes Chemotherapy: No Chest Pain: No Congestive Heart Failure: No Cerebrovascular Accident: No Diabetes: Yes (TYPE 2) Patient Takes Glucophage: Yes (06/26/16) Diminished Hearing: No Endocrine: Yes Gastrointestinal Disorders: Yes (GASTROPORESIS) GERD: Yes Genitourinary: Yes (KIDNEY TRANSPLANT: [birth year] 1989 ON R SIDE. ) Headaches: No Hepatitis: No Hiatal Hernia: Yes Hypertension: Yes Immune Disorder: Yes Implanted Vascular Access Dvce: Yes (LUE SHUNT) Kidney Stones: Yes Musculoskeletal: Yes Neurologic: Yes Psychiatric: Yes Reproductive: No Respiratory: No Immunizations Current: Yes Migraines: Yes Radiation Therapy: No Renal Failure: Yes Seizures: No Thyroid Disease: No Ulcer: No Influenza Vaccination: No PNEUMOCCOCAL Vaccine (Year): 2 ?: Not Menopausal: Yes : 2 Para: 1 Miscarriage: 1 Past Surgical History Abdominal Surgery: Yes (INGUINAL HERNIA: RIGHT, GALLBLADDER REMOVED) AICD: No Arteriovenous Shunt: Yes (LEFT ARM FOR DIALYSIS IN 1989- NON FUNCTIONAL) Body Medical Devices: NONE Cardiac Surgery: No Section: Yes Cholecystectomy: Yes Ear Surgery: No Endocrine Surgery: No Eye Surgery: No Genitourinary Surgery: Yes (RKIDNEY TRANSPLANT / LEFT DIALYSIS SHUNT) Gynecologic Surgery: Yes (C SECTIONHYSTERECTOMY ) Hysterectomy: Yes Joint Replacement: No Neurologic Surgery: No Oral Surgery: No Pacemaker: No Thoracic Surgery: No Other Surgery: Yes (SKIN CANCER REMOVED RT THIGH 09/18) Social History Alcohol Use: No Tobacco Use: Yes (3-4 CIG/DAY) Substance Use: No Allergies-Medications (Allergen,Severity, Reaction): Coded Allergies: Adhesives (Verified Allergy, Severe, HIVES, 06/25/16) DISOLVABLE SUTURE MATERAL Levaquin (Verified Allergy, Intermediate, HIVES/ITCHING, 06/25/16) Keflex (Verified Adverse Reaction, Intermediate, HIVES/VOMITING, 06/25/16) Procardia (Verified Adverse Reaction, Intermediate, VOMITING, 06/25/16) *MDRO Multi-Drug Resistant Organism (Verified Adverse Reaction, Unknown, ) 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 MRSA PCR Screens negative 10/29/14 and 11/16/14. Uncoded Allergies: suture material (Adverse Reaction, Severe, SKIN INFECTION, 06/25/16) PT STATES DISSOLVING ONES [place] NOT DISSOLVE AND HAVE TO BE PHYSICALLY REMOVED. Reported Meds & Prescriptions Reported Meds & Active Scripts Active Bactrim DS (Sulfamethoxazole-Trimethoprim) 800-160 Mg Tab 1 Tab PO BID Ultram (Tramadol HCl) 50 Mg Tab 50 Mg PO Q6H PRN Atorvastatin (Atorvastatin Calcium) 20 Mg Tab 20 Mg PO HS Metoclopramide (Metoclopramide HCl) 5 Mg Tab 5 Mg PO TIDAC Losartan (Losartan Potassium) 25 Mg Tab 25 Mg PO DAILY Metformin (Metformin HCl) 500 Mg Tab 500 Mg PO BIDPC With meals Pantoprazole (Pantoprazole Sodium) 40 Mg Tab 40 Mg PO DAILY Reported Magnesium Oxide 400 Mg Tab 400 Mg PO BID Cyclosporine 25 Mg Cap 50 Mg PO BID Mycophenolate (Mycophenolate Mofetil) 500 Mg Tab 1,000 Mg PO BID Prednisone 5 Mg Tab 5 Mg PO DAILY Atenolol 50 Mg Tab 50 Mg PO DAILY Review of Systems Except as stated in HPI: all other systems reviewed are Neg Physical Exam Narrative GENERAL: The patient is alert, oriented 3 in moderate apparent distress with her left flank pain. Her vital signs show blood pressure 141/104 but otherwise normal. SKIN: Focused skin assessment warm/dry. HEAD: Atraumatic. Normocephalic. EYES: Pupils equal and round. No scleral icterus. No injection or drainage. ENT: No nasal bleeding or discharge. Mucous membranes pink and moist. NECK: Trachea midline. No JVD. CARDIOVASCULAR: Regular rate and rhythm. No murmur appreciated. RESPIRATORY: No accessory muscle use. Clear to auscultation. Breath sounds equal bilaterally. GASTROINTESTINAL: Abdomen soft, with tenderness to direct palpation over the left flank, nondistended. Hepatic and splenic margins not palpable. No guarding or rebound is present and there is no tenderness over the right kidney in the pelvis. MUSCULOSKELETAL: No obvious deformities. No clubbing. No cyanosis. No edema. NEUROLOGICAL: Awake and alert. No obvious cranial nerve deficits. Motor grossly within normal limits. Normal speech. PSYCHIATRIC: Appropriate mood and affect; insight and judgment normal. Data Data Last Documented VS Vital Signs Date Time Temp Pulse Resp B/P Pulse Ox O2 Delivery O2 Flow Rate FiO2 06/26/16 23:45 98.2 64 18 141/104 98 Room Air Orders Urinalysis - C+S If Indicated (06/27/16 02:03) Complete Blood Count With Diff (06/27/16 03:56) Comprehensive Metabolic Panel (06/27/16 03:56) Ct Abd/Pel W/O Iv Contrast (06/27/16 03:56) Ecg Monitoring (06/27/16 03:56) Iv Access Insert/Monitor (06/27/16 03:56) Oxycodone-Acetamin 5-325 Mg (Percocet (06/27/16 04:00) Sodium Chloride 0.9% Flush (Ns Flush) (06/27/16 04:00) Sodium Chlor 0.9% 1000 Ml Inj (Ns 1000 M (06/27/16 03:56) Sulfamet-Trimeth Ds 800-160 Mg (Bactrim (06/27/16 05:00) Labs Laboratory Tests Test 06/27/16 06/27/16 02:36 04:30 Urine Collection Type CLEAN CATCH Urine Color YELLOW Urine Turbidity CLEAR Urine pH 5.5 Urine Specific [place] 1.015 Urine Protein NEG mg/dL Urine Glucose (UA) NEG mg/dL Urine Ketones NEG mg/dL Urine Occult Blood TRACE Urine Nitrite NEG Urine Bilirubin NEG Urine Leukocyte Esterase NEG Urine RBC 0-3 /hpf Urine WBC 0-2 /hpf Urine Squamous Epithelial > 8 /hpf Cells Urine Amorphous Sediment SMALL Urine Bacteria OCC /hpf Microscopic Urinalysis Comment CULT NOT INDICATED White Blood Count 8.9 TH/MM3 Red Blood Count 5.24 MIL/MM3 Hemoglobin 15.6 GM/DL Hematocrit 47.9 % Mean Corpuscular Volume 91.4 FL Mean Corpuscular Hemoglobin 29.7 PG Mean Corpuscular Hemoglobin 32.5 % Concent Red Cell Distribution Width 14.3 % Platelet Count 188 TH/MM3 Mean Platelet Volume 10.9 FL Neutrophils (%) (Auto) 71.0 % Lymphocytes (%) (Auto) 17.7 % Monocytes (%) (Auto) 5.8 % Eosinophils (%) (Auto) 5.2 % Basophils (%) (Auto) 0.3 % Neutrophils # (Auto) 6.3 TH/MM3 Lymphocytes # (Auto) 1.6 TH/MM3 Monocytes # (Auto) 0.5 TH/MM3 Eosinophils # (Auto) 0.5 TH/MM3 Basophils # (Auto) 0.0 TH/MM3 CBC Comment DIFF FINAL Differential Comment Sodium Level 142 MEQ/L Potassium Level 4.4 MEQ/L Chloride Level 109 MEQ/L Carbon Dioxide Level 22.9 MEQ/L Anion Gap 10 MEQ/L Blood Urea Nitrogen 29 MG/DL Creatinine 1.20 MG/DL Estimat Glomerular Filtration 48 ML/MIN Rate Random Glucose 128 MG/DL Calcium Level 8.7 MG/DL Total Bilirubin 1.6 MG/DL Aspartate Amino Transf 14 U/L (AST/SGOT) Alanine Aminotransferase 27 U/L (ALT/SGPT) Alkaline Phosphatase 101 U/L Total Protein 7.1 GM/DL Albumin 3.3 GM/DL [facility] Medical Decision Making Medical Screen Exam Complete: Yes Emergency Medical Condition: Yes Medical Record Reviewed: Yes Interpretation(s) The urine shows trace occult blood with 0-3 red cells and 0-2 white cells and occasional bacteria and culture is not indicated. The CT abdomen pelvis shows no acute findings to explain the patient's pain. The [place] kidneys are atrophic and the patient is status post cholecystectomy. The complete metabolic profile shows a BUN of 29, creatinine 1.2, GFR 48 and total bilirubin of 1.6 and albumin of 3.3. The creatinine is about the same as previous values within the last 6 months. The CBC shows a hemoglobin of 15.6 and hematocrit of 47.9 with 71 percent neutrophils. Differential Diagnosis Pyelonephritis, rejection of [place] kidneys, cystitis, nephrolithiasis in the right [place] kidney, abdominal pain etiology undetermined Narrative Course It is possible that the patient, because of her immunosuppression, that she may not show expected number of white cells in the urine. Impression: Possible urinary tract infection Plan: The patient will be given Septra DS for 7 days and follow-up with Dr. Miguel Armendariz. Physician Communication Physician Communication As we discussed, follow-up with Dr. Miguel Armendariz. The antibiotic is one tablet twice daily for 7 days. Diagnosis Primary Impression: UTI (urinary tract infection) Additional Instructions: As we discussed, follow-up with Dr. Miguel Armendariz and give these values to him for his records. The Septra DDS is one tablet twice daily for 7 days. Med/Other Pt SpecificInfo: Prescription(s) given Scripts Sulfamethoxazole-Trimethoprim (Bactrim DS)800-160 Mg Tab1 Tab PO BID #14 TAB Ref 0 Prov:Chirag Damon MD 06/27/16 Disposition: 01 DISCHARGE HOME Condition: Stable Chirag Damon MD Jun 27, 2016 04:02
--- NOTE | 2016-06-27 04:40 | RADHPO ---
EXAM DATE/TIME: 06/27/2016 04:03 [place] COMPARISON: CT ABDOMEN & PELVIS W/O CONTRAST, April 16, 2016, 15:20. INDICATIONS : Right flank pain. ORAL CONTRAST: No oral contrast ingested. RADIATION DOSE: 21.01 CTDIvol (mGy) MEDICAL HISTORY : Hernia, inguinal. Renal failure, chronic. Gastroesophageal reflux disease.Diabetes. Hypertension. SURGICAL HISTORY : Inguinal hernia repair. Cholecystectomy. section.Hysterectomy. Right renal transplant. ENCOUNTER: Initial ACUITY: 1 day PAIN SCALE: 7/10 LOCATION: Right flank TECHNIQUE: Volumetric scanning of the abdomen and pelvis was performed. Using automated exposure control and ad justment of the mA and/or kV according to patient size, radiation dose was kept as low as reasonably achievable to obtain optimal diagnostic quality images. FINDINGS: LOWER LUNGS: The visualized lower lungs are clear. LIVER: Homogeneous density without lesion. There is no dilation of the biliary tree. Cholecystectomy clips. SPLEEN: Normal size without lesion. PANCREAS: Within normal limits. KIDNEYS: Atrophic [place] kidneys with a right renal transplant. Benign cysts of the right kidney. Extrarenal p bryan. ADRENAL GLANDS: Within normal limits. VASCULAR: There is no aortic aneurysm. BOWEL/MESENTERY: The stomach, small bowel, and colon demonstrate no acute abnormality. There is no free intraperitone al air or fluid. ABDOMINAL WALL: Within normal limits. RETROPERITONEUM: There is no lymphadenopathy. BLADDER: No wall thickening or mass. Tiny amount of air in the bladder may be related to recent catheterizatio n. REPRODUCTIVE: Within normal limits. INGUINAL: There is no lymphadenopathy or hernia. MUSCULOSKELETAL: Within normal limits for patient age. CONCLUSION: Atrophic [place] kidneys bilaterally. Right-sided renal transplant. No etiology for abdominal pain is identified. Status post cholecystectomy. Scott Ann MD on June 27, 2016 at 4:35 Board Certified Radiologist. This report was verified electronically.
[2016-06-27] MEDS ORDERED: BACT800T5 PO (04:55)
[2016-06-27 04:56] LABS: CHLORIDE 109 MEQ/L (98-107); POTASSIUM 4.4 MEQ/L (3.5-5.1); SODIUM (NA) 142 MEQ/L (136-145)
[2016-06-27 04:59] LABS: AUTOMATED NEUTROPHIL # 6.3 TH/MM3 (1.8-7.7); BASOPHIL % 0.3 % (0.0-2.0); EOSINOPHIL # 0.5 TH/MM3 (0-0.4); EOSINOPHIL % 5.2 % (0.0-4.0); HEMATOCRIT 47.9 % (35.0-46.0); HEMO FLAGS DIFF FINAL; LYMPH % 17.7 % (9.0-44.0); LYMPHOCYTE # 1.6 TH/MM3 (1.0-4.8); MEAN CELL VOLUME 91.4 FL (80.0-100.0); MEAN CORPUSCULAR HEMOGLOBIN 29.7 PG (27.0-34.0); MEAN CORPUSCULAR HGB CONC 32.5 % (32.0-36.0); MONO % 5.8 % (0.0-8.0); PLATELET COUNT 188 TH/MM3 (150-450); RED BLOOD COUNT 5.24 MIL/MM3 (4.00-5.30); RED CELL DISTRIBUTION WIDTH 14.3 % (11.6-17.2); WHITE BLOOD COUNT 8.9 TH/MM3 (4.0-11.0)
[2016-06-27 05:00] LABS: ANION GAP 10 MEQ/L (5-15); BICARBONATE 22.9 MEQ/L (21.0-32.0); BLOOD UREA NITROGEN 29 MG/DL (7-18)
[2016-06-27] MEDS ORDERED: SULFAMETHOXAZOLE-TRIMETHOPRIM DS 800-160 MG TAB PO ONE (05:00)
[2016-06-27 05:03] LABS: ALT (GPT) 27 U/L (10-53); AST (GOT) 14 U/L (15-37); GLOMERULAR FILTRATION RATE 48 ML/MIN (>89)
[2016-06-27 05:05] LABS: TOTAL BILIRUBIN ADULT 1.6 MG/DL (0.2-1.0)
[2016-06-27 05:06] LABS: ALKALINE PHOSPHATASE 101 U/L (45-117)
[2016-06-27] MEDS ORDERED: ZOFR4TAB PO (05:18)
[2016-06-27] MEDS ORDERED: SODIUM CHLOR 0.9% 1000 ML INJ 1,000 ML IV SCH (05:30)
[2016-06-27] MEDS ORDERED: ONDANSETRON HCL 4 MG/2 ML VIAL IV ONE (05:30)
[2016-06-27 05:35] VITALS: BP 137/72; PULSE 60; RESP 18; O2SAT 97
[2016-06-27 07:10] VITALS: BP 125/77
[2016-08-02] MEDS ORDERED: PROM12.54 PO (10:27)
[2016-08-02] MEDS ORDERED: WHEEMIS3 (10:53)
[2016-08-02] MEDS ORDERED: CLON.1 PO (11:04)
[2016-08-02] MEDS ORDERED: CLON0.1T PO (11:07)
[2016-08-17] MEDS ORDERED: ATOR10TA15 PO (11:07)
[2016-08-17] MEDS ORDERED: LOSA50TA PO (11:07)
== END 2016-06-27 07:18 | disposition home or self-care (01) ==
LOC: PHED 23:28
DX: N39.0 Urinary tract infection, site not specified (principal); Z94.0 Kidney transplant status; N28.9 Disorder of kidney and ureter, unspecified; M32.9 Systemic lupus erythematosus, unspecified; I10 Essential (primary) hypertension; E78.00 Pure hypercholesterolemia, unspecified; E11.9 Type 2 diabetes mellitus without complications; K21.9 Gastro-esophageal reflux disease without esophagitis
CPT/HCPCS: 74176; 80053; 81001; 85025; 96361; 96374; 99284; J2405; J7030

== ENCOUNTER 2016-06-30 20:58 | Emergency (ER) | payer MEDICAID ==
[~2016-06-30] VITALS: Ht 170.2 cm; Wt 96.4 kg
[~2016-06-30 20:58] MED LIST changes: +BACT800T5 PO; +ZOFR4TAB PO
[2016-06-30 21:05] VITALS: BP 123/79; PULSE 65; RESP 18; O2SAT 95
[2016-06-30] MEDS ORDERED: SODIUM CHLORIDE 0.9% FLUSH 10 ML FLUSH IV FLUSH PRN (22:00)
[2016-06-30] MEDS ORDERED: ONDANSETRON HCL 4 MG/2 ML VIAL IVP ONE (22:00)
[2016-06-30] MEDS ORDERED: HYDROmorphone HCL PF 2 MG/ML VIAL IVS ONE (22:00)
--- NOTE | 2016-06-30 22:15 | PD ---
HPI Chief Complaint: Pain: Acute or Chronic Time Seen by Provider: 21:54 Travel History International Travel<30 days: No Contact w/Intl Traveler<30days: No Traveled to known affect area: No History of Present Illness HPI 50-year-old female with history of renal failure status post renal transplant here with complaint of left-sided flank pain radiating in the abdomen. Patient was seen here on 06/26/16 with similar symptoms. At that time she had laboratory work including urinalysis that was questionable for possible infection and she was treated with Bactrim. CT scan was negative. Patient states that the flank pain has continued, she's having worsening pain and left lower quadrant of the abdomen. She has been compliant with her Bactrim. No nausea, vomiting, fevers or chills. Her urinary habits and bowel habits have been normal. Patient denies any history of pancreatitis or hepatobiliary pathology. Renal failure was due to describe stricture of the ureter per patient. Her graft is in the right lower quadrant of the abdomen and she has not had any pain within this region. PFSH Past Medical History Arthritis: Yes Autoimmune Disease: Yes (LUPUS) Anxiety: Yes (PANIC ATTACKS) Depression: No Heart Rhythm Problems: No Cancer: Yes (SKIN) Cardiovascular Problems: Yes (HTN) High Cholesterol: Yes Chemotherapy: No Chest Pain: No Congestive Heart Failure: No Cerebrovascular Accident: No Diabetes: Yes (TYPE 2) Patient Takes Glucophage: Yes (metformin ) Diminished Hearing: No Endocrine: Yes Gastrointestinal Disorders: Yes (GASTROPORESIS) GERD: Yes Genitourinary: Yes (KIDNEY TRANSPLANT: MAY 13, 1987 ON R SIDE. ) Headaches: No Hepatitis: No Hiatal Hernia: Yes Hypertension: Yes Immune Disorder: Yes Implanted Vascular Access Dvce: Yes (LUE SHUNT) Kidney Stones: Yes Musculoskeletal: Yes Neurologic: Yes Psychiatric: Yes Reproductive: No Respiratory: No Immunizations Current: Yes Migraines: Yes Radiation Therapy: No Renal Failure: Yes Seizures: No Thyroid Disease: No Ulcer: No PNEUMOCCOCAL Vaccine (Year): 2 ?: Not Menopausal: Yes : 2 Para: 1 Miscarriage: 1 Past Surgical History Abdominal Surgery: Yes (INGUINAL HERNIA: RIGHT, GALLBLADDER REMOVED) AICD: No Arteriovenous Shunt: Yes (LEFT ARM FOR DIALYSIS IN 1989- NON FUNCTIONAL) Body Medical Devices: NONE Cardiac Surgery: No Section: Yes Cholecystectomy: Yes Ear Surgery: No Endocrine Surgery: No Eye Surgery: No Genitourinary Surgery: Yes (RKIDNEY TRANSPLANT / LEFT DIALYSIS SHUNT) Gynecologic Surgery: Yes (C SECTIONHYSTERECTOMY ) Hysterectomy: Yes Joint Replacement: No Neurologic Surgery: No Oral Surgery: No Pacemaker: No Thoracic Surgery: No Other Surgery: Yes (SKIN CANCER REMOVED RT THIGH 09/18) Social History Alcohol Use: No Tobacco Use: Yes (3-4 CIG/DAY) Substance Use: No Allergies-Medications (Allergen,Severity, Reaction): Coded Allergies: Adhesives (Verified Allergy, Severe, HIVES, 06/25/16) DISOLVABLE SUTURE MATERAL Levaquin (Verified Allergy, Intermediate, HIVES/ITCHING, 06/25/16) Keflex (Verified Adverse Reaction, Intermediate, HIVES/VOMITING, 06/25/16) Procardia (Verified Adverse Reaction, Intermediate, VOMITING, 06/25/16) *MDRO Multi-Drug Resistant Organism (Verified Adverse Reaction, Unknown, ) 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 MRSA PCR Screens negative 10/29/14 and 11/16/14. Uncoded Allergies: suture material (Adverse Reaction, Severe, SKIN INFECTION, 06/25/16) PT STATES DISSOLVING ONES [place] NOT DISSOLVE AND HAVE TO BE PHYSICALLY REMOVED. Reported Meds & Prescriptions Reported Meds & Active Scripts Active Zofran (Ondansetron HCl) 4 Mg Tab 4 Mg PO Q6HR PRN Bactrim DS (Sulfamethoxazole-Trimethoprim) 800-160 Mg Tab 1 Tab PO BID Ultram (Tramadol HCl) 50 Mg Tab 50 Mg PO Q6H PRN Atorvastatin (Atorvastatin Calcium) 20 Mg Tab 20 Mg PO HS Metoclopramide (Metoclopramide HCl) 5 Mg Tab 5 Mg PO TIDAC Losartan (Losartan Potassium) 25 Mg Tab 25 Mg PO DAILY Metformin (Metformin HCl) 500 Mg Tab 500 Mg PO BIDPC With meals Reported Prednisone 10 Mg Tab 10 Mg PO DAILY Magnesium Oxide 400 Mg Tab 400 Mg PO BID Cyclosporine 25 Mg Cap 75 Mg PO BID Mycophenolate (Mycophenolate Mofetil) 500 Mg Tab 500 Mg PO BID Atenolol 50 Mg Tab 50 Mg PO DAILY Review of Systems Except as stated in HPI: all other systems reviewed are Neg Physical Exam Narrative GENERAL: Well-appearing adult female appearing older than stated age in mild distress SKIN: Focused skin assessment warm/dry. HEAD: Normocephalic. EYES: No scleral icterus. No injection or drainage. ENT: Mucous membranes pink and moist. NECK: Supple CARDIOVASCULAR: Regular rate and rhythm. No murmur appreciated. RESPIRATORY: No accessory muscle use. Clear to auscultation. Breath sounds equal bilaterally. GASTROINTESTINAL: Abdomen soft, obese, left-sided CVA tenderness and diffuse left-sided abdominal tenderness to palpation without rebound or guarding. Right lower quadrant renal graft without tenderness to palpation MUSCULOSKELETAL: Normal gait NEUROLOGICAL: Awake and alert. Motor grossly within normal limits. Normal speech. PSYCHIATRIC: Appropriate mood and affect; insight and judgment normal. Data Data Last Documented VS Vital Signs Date Time Temp Pulse Resp B/P Pulse Ox O2 Delivery O2 Flow Rate FiO2 06/30/16 22:42 97.9 06/30/16 21:05 65 18 123/79 95 Orders Complete Blood Count With Diff (06/30/16 21:59) Comprehensive Metabolic Panel (06/30/16 21:59) Lipase (06/30/16 21:59) Ua Includes Microscopic (06/30/16 21:59) Iv Access Insert/Monitor (06/30/16 21:59) Ecg Monitoring (06/30/16 21:59) Oximetry (06/30/16 21:59) Hydromorphone Pf Inj (Dilaudid Pf Inj) (06/30/16 22:00) Ondansetron Inj (Zofran Inj) (06/30/16 22:00) Sodium Chloride 0.9% Flush (Ns Flush) (06/30/16 22:00) Urine Culture (06/30/16 21:59) Ondansetron Inj (Zofran Inj) (06/30/16 22:30) Hydromorphone Pf Inj (Dilaudid Pf Inj) (06/30/16 22:30) Labs Laboratory Tests Test 06/30/16 06/30/16 22:25 23:41 Urine Color YELLOW Urine Turbidity CLEAR Urine pH 5.5 Urine Specific [place] 1.016 Urine Protein NEG mg/dL Urine Glucose (UA) NEG mg/dL Urine Ketones NEG mg/dL Urine Occult Blood NEG Urine Nitrite NEG Urine Bilirubin NEG Urine Urobilinogen LESS THAN 2.0 MG/DL Urine Leukocyte Esterase NEG Urine RBC 1 /hpf Urine WBC 1 /hpf Urine Squamous Epithelial 3 /hpf Cells Urine Bacteria RARE /hpf Sodium Level 139 MEQ/L Potassium Level 4.1 MEQ/L Chloride Level 105 MEQ/L Carbon Dioxide Level 25.9 MEQ/L Anion Gap 8 MEQ/L Blood Urea Nitrogen 15 MG/DL Creatinine 1.40 MG/DL Estimat Glomerular Filtration 40 ML/MIN Rate Random Glucose 85 MG/DL Calcium Level 9.1 MG/DL Total Bilirubin 1.8 MG/DL Aspartate Amino Transf 22 U/L (AST/SGOT) Alanine Aminotransferase 19 U/L (ALT/SGPT) Alkaline Phosphatase 98 U/L Total Protein 7.0 GM/DL Albumin 3.5 GM/DL Lipase 60 U/L White Blood Count 8.3 TH/MM3 Red Blood Count 5.00 MIL/MM3 Hemoglobin 15.4 GM/DL Hematocrit 45.7 % Mean Corpuscular Volume 91.3 FL Mean Corpuscular Hemoglobin 30.7 PG Mean Corpuscular Hemoglobin 33.6 % Concent Red Cell Distribution Width 14.6 % Platelet Count 153 TH/MM3 Mean Platelet Volume 10.2 FL Neutrophils (%) (Auto) 56.7 % Lymphocytes (%) (Auto) 26.0 % Monocytes (%) (Auto) 8.2 % Eosinophils (%) (Auto) 8.5 % Basophils (%) (Auto) 0.6 % Neutrophils # (Auto) 4.7 TH/MM3 Lymphocytes # (Auto) 2.2 TH/MM3 Monocytes # (Auto) 0.7 TH/MM3 Eosinophils # (Auto) 0.7 TH/MM3 Basophils # (Auto) 0.1 TH/MM3 CBC Comment DIFF FINAL Differential Comment MDM Medical Decision Making Medical Screen Exam Complete: Yes Emergency Medical Condition: Yes Medical Record Reviewed: Yes Differential Diagnosis 50-year-old female with history of renal failure status post transplant here with left-sided flank pain radiating to left abdomen. Differential includes UTI /pyelonephritis, ureterolithiasis, musculoskeletal back pain, pancreatitis, diverticulitis, and less likely hepatobiliary pathology. Per chart review patient was seen here also on 06/25 at that time with complaint of pain in the low back, had negative imaging for any fracture and has since had a CT scan as well without any evidence of fracture. Narrative Course patient placed on monitor, IV established and blood obtained. She was given 1 mg Dilaudid, 4 mg Zofran. CBC, CMP, lipase, UA/UC obtained and notable for baseline renal insufficiency. Only rare bacteria. We'll send for culture. Patient has had repeat CT scan imaging of the abdomen and pelvis and I do not think she warrants this to be repeated. That improved and will be discharged home. Diagnosis Primary Impression: Left flank pain Additional Impression: Left lateral abdominal pain Referrals: Primary Care Physician call for appointment Additional Instructions: Tylenol as needed for pain. Follow-up with primary care provider symptoms persist. CT scan from previous ER visit was normal. Laboratory and urine sample today were normal. Med/Other Pt SpecificInfo: No Change to Meds Disposition: 01 DISCHARGE HOME Condition: Stable Char Hook MD Jun 30, 2016 22:15
[2016-06-30] MEDS ORDERED: HYDROmorphone HCL PF 1 MG/ML VIAL IM ONE (22:30)
[2016-06-30] MEDS ORDERED: ONDANSETRON HCL 4 MG/2 ML VIAL IM ONE (22:30)
[2016-06-30 22:42] VITALS: TEMP 97.9
[2016-06-30] MEDS ORDERED: PRED10 PO (22:43)
[2016-06-30 23:16] LABS: BACTERIA, URINE RARE /hpf; BLOOD, URINE NEG (NEG); GLUCOSE,URINE NEG (NEG); KETONE, URINE NEG (NEG); NITRITE,URINE NEG (NEG); PH, URINE 5.5 (5.0-8.5); SQUAMOUS EPITHELIAL CELL URINE 3 /hpf (0-5); URINE COLOR YELLOW (YELLW/STRAW)
[2016-06-30 23:47] LABS: AUTOMATED NEUTROPHIL # 4.7 TH/MM3 (1.8-7.7); BASOPHIL # 0.1 TH/MM3 (0-0.2); BASOPHIL % 0.6 % (0.0-2.0); EOSINOPHIL # 0.7 TH/MM3 (0-0.4); EOSINOPHIL % 8.5 % (0.0-4.0); HEMATOCRIT 45.7 % (35.0-46.0); HEMO FLAGS DIFF FINAL; LYMPHOCYTE # 2.2 TH/MM3 (1.0-4.8); MEAN CELL VOLUME 91.3 FL (80.0-100.0); MEAN CORPUSCULAR HEMOGLOBIN 30.7 PG (27.0-34.0); MEAN CORPUSCULAR HGB CONC 33.6 % (32.0-36.0); MONO % 8.2 % (0.0-8.0); NEUT % 56.7 % (16.0-70.0); PLATELET COUNT 153 TH/MM3 (150-450); RED CELL DISTRIBUTION WIDTH 14.6 % (11.6-17.2); WHITE BLOOD COUNT 8.3 TH/MM3 (4.0-11.0)
[2016-06-30 23:56] LABS: ALKALINE PHOSPHATASE 98 U/L (45-117); TOTAL BILIRUBIN ADULT 1.8 MG/DL (0.2-1.0)
[2016-07-01 00:04] LABS: ALT (GPT) 19 U/L (10-53); ANION GAP 8 MEQ/L (5-15); AST (GOT) 22 U/L (15-37); BICARBONATE 25.9 MEQ/L (21.0-32.0); BLOOD UREA NITROGEN 15 MG/DL (7-18); CHLORIDE 105 MEQ/L (98-107); GLOMERULAR FILTRATION RATE 40 ML/MIN (>89); POTASSIUM 4.1 MEQ/L (3.5-5.1); SODIUM (NA) 139 MEQ/L (136-145)
[2016-07-02] MEDS ORDERED: METF500T PO (19:39)
[2016-07-02] MEDS ORDERED: ALBUAER3 INH (19:41)
[2016-07-02] MEDS ORDERED: PRED50 PO (21:03)
[2016-07-02] MEDS ORDERED: PERC5TAB12 PO (21:03)
[2016-08-02] MEDS ORDERED: PROM12.54 PO (10:27)
[2016-08-02] MEDS ORDERED: WHEEMIS3 (10:53)
[2016-08-02] MEDS ORDERED: CLON.1 PO (11:04)
[2016-08-02] MEDS ORDERED: CLON0.1T PO (11:07)
[2016-08-17] MEDS ORDERED: ATOR10TA15 PO (11:07)
[2016-08-17] MEDS ORDERED: LOSA50TA PO (11:07)
== END 2016-07-01 01:09 | disposition home or self-care (01) ==
LOC: NEPD 20:58
DX: R10.32 Left lower quadrant pain (principal); R10.9 Unspecified abdominal pain; E11.9 Type 2 diabetes mellitus without complications; I10 Essential (primary) hypertension; N19 Unspecified kidney failure; E78.00 Pure hypercholesterolemia, unspecified; Z94.0 Kidney transplant status; Z72.0 Tobacco use; Z79.84 Long term (current) use of oral hypoglycemic drugs; Z87.39 Personal history of other diseases of the musculoskeletal system and connective tissue; Z86.2 Personal history of diseases of the blood and blood-forming organs and certain disorders involving the immune mechanism; Z86.59 Personal history of other mental and behavioral disorders; Z86.79 Personal history of other diseases of the circulatory system; Z87.19 Personal history of other diseases of the digestive system; Z87.448 Personal history of other diseases of urinary system; Z86.69 Personal history of other diseases of the nervous system and sense organs; Z85.828 Personal history of other malignant neoplasm of skin
CPT/HCPCS: 80053; 81001; 83690; 85025; 87086; 96372; 99284; J1170; J2405

== ENCOUNTER 2016-07-02 19:12 | Emergency (ER) | payer MEDICAID ==
[~2016-07-02] VITALS: Ht 170.2 cm; Wt 99.0 kg
[~2016-07-02 19:12] MED LIST changes: -PANT40TA3 PO; +PRED10 PO; -PRED5TAB PO
[2016-07-02 19:22] VITALS: BP 158/101; PULSE 55; RESP 18; TEMP 97.7; O2SAT 96
[2016-07-02] MEDS ORDERED: METF500T PO (19:39)
[2016-07-02] MEDS ORDERED: ALBUAER3 INH (19:41)
[2016-07-02] MEDS ORDERED: oxyCODONE/ACETAMINOPHEN 5 MG/325 MG TAB PO ONE (21:00)
[2016-07-02] MEDS ORDERED: predniSONE 20 MG TAB PO ONE (21:00)
--- NOTE | 2016-07-02 21:02 | PD ---
HPI Chief Complaint: Pain: Acute or Chronic Time Seen by Provider: 19:55 Travel History International Travel<30 days: No Contact w/Intl Traveler<30days: No Traveled to known affect area: No History of Present Illness HPI 50-year-old female with history of renal failure in the past status post renal transplant on the right emergency department for the fourth time in 2 weeks for left hip and flank pain. Patient has had full workups for this in the past 2 weeks including x-rays of the back and pelvis and CT scan. Patient has no fever, chills, nausea, vomiting, or other abdominal symptoms. She states she is moving her bowels. It is worse with ambulation and bearing weight in the left hip. Patient states she called her primary care physician today he states that she needed to come to emergency department. Patient is on prednisone 10 mg twice a day for her renal transplant. She is unable to take NSAIDs. She was given Percocet on the which helped, but when she ran out she had pain that recurred. She was then given tramadol on her subsequent visits without much improvement. 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 She has multiple allergies including Keflex, Levaquin, Procardia, suture material, adhesives, and she has a history of MRSA. Patient is unable to take NSAIDs due to her renal transplant history. PFSH Past Medical History Arthritis: Yes Autoimmune Disease: Yes (LUPUS) Anxiety: Yes (PANIC ATTACKS) Depression: No Heart Rhythm Problems: No Cancer: Yes (SKIN) Cardiovascular Problems: Yes (HTN) High Cholesterol: Yes Chemotherapy: No Chest Pain: No Congestive Heart Failure: No Cerebrovascular Accident: No Diabetes: Yes Patient Takes Glucophage: Yes ([id number]) Diminished Hearing: No Endocrine: Yes Gastrointestinal Disorders: Yes (GASTROPORESIS) GERD: Yes Genitourinary: Yes (KIDNEY TRANSPLANT: MAY [birth year] 1989 ON R SIDE. ) Headaches: No Hepatitis: No Hiatal Hernia: Yes Hypertension: Yes Immune Disorder: Yes Implanted Vascular Access Dvce: Yes (LUE SHUNT port) Kidney Stones: Yes Musculoskeletal: Yes Neurologic: Yes Psychiatric: Yes Reproductive: No Respiratory: No Immunizations Current: Yes Migraines: Yes Radiation Therapy: No Renal Failure: Yes Seizures: No Thyroid Disease: No Ulcer: No Tetanus Vaccination: < 5 Years Influenza Vaccination: No PNEUMOCCOCAL Vaccine (Year): 2 ?: Not Menopausal: Yes : 2 Para: 1 Miscarriage: 1 Tubal Ligation: Yes Past Surgical History Abdominal Surgery: Yes (INGUINAL HERNIA: RIGHT, GALLBLADDER REMOVED) AICD: No Arteriovenous Shunt: Yes (LEFT ARM FOR DIALYSIS IN 1989- NON FUNCTIONAL) Body Medical Devices: port fistula Cardiac Surgery: No Section: Yes Cholecystectomy: Yes Ear Surgery: No Endocrine Surgery: No Eye Surgery: No Genitourinary Surgery: Yes (RKIDNEY TRANSPLANT / LEFT DIALYSIS SHUNT) Gynecologic Surgery: Yes (C SECTIONHYSTERECTOMY ) Hysterectomy: Yes Joint Replacement: No Neurologic Surgery: No Oral Surgery: No Pacemaker: No Thoracic Surgery: No Other Surgery: Yes (SKIN CANCER REMOVED RT THIGH 09/18) Social History Alcohol Use: No Tobacco Use: Yes (5 cigs daily) Substance Use: No Allergies-Medications (Allergen,Severity, Reaction): Coded Allergies: Adhesives (Verified Allergy, Severe, HIVES, 07/02/16) DISOLVABLE SUTURE MATERAL Levaquin (Verified Allergy, Intermediate, HIVES/ITCHING, 07/02/16) Keflex (Verified Adverse Reaction, Intermediate, HIVES/VOMITING, 07/02/16) Procardia (Verified Adverse Reaction, Intermediate, VOMITING, 07/02/16) *MDRO Multi-Drug Resistant Organism (Verified Adverse Reaction, Unknown, ) 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 MRSA PCR Screens negative 10/29/14 and 11/16/14. Uncoded Allergies: suture material (Adverse Reaction, Severe, SKIN INFECTION, 06/25/16) PT STATES DISSOLVING ONES [place] NOT DISSOLVE AND HAVE TO BE PHYSICALLY REMOVED. Reported Meds & Prescriptions Reported Meds & Active Scripts Active Percocet (Oxycodone-Acetaminophen) 5-325 mg Tab 1-2 Tab PO Q6H PRN Prednisone 50 Mg Tab 50 Mg PO DAILY Bactrim DS (Sulfamethoxazole-Trimethoprim) 800-160 Mg Tab 1 Tab PO BID Ultram (Tramadol HCl) 50 Mg Tab 50 Mg PO Q6H PRN Metoclopramide (Metoclopramide HCl) 5 Mg Tab 5 Mg PO TIDAC Losartan (Losartan Potassium) 25 Mg Tab 25 Mg PO DAILY Reported Proair Hfa 8.5 GM Inh (Albuterol Sulfate) 90 Mcg/Act Aer 2 Puff INH Q4-6H PRN 108 mcg/actuation Metformin (Metformin HCl) 500 Mg Tab 500 Mg PO DAILY With a meal Prednisone 10 Mg Tab 10 Mg PO DAILY Magnesium Oxide 400 Mg Tab 400 Mg PO BID Cyclosporine 25 Mg Cap 75 Mg PO BID Mycophenolate (Mycophenolate Mofetil) 500 Mg Tab 500 Mg PO BID Atenolol 50 Mg Tab 50 Mg PO DAILY Review of Systems Except as stated in HPI: all other systems reviewed are Neg General / Constitutional: No: Fever Eyes: No: Visual changes HENT: No: Headaches Cardiovascular: No: Chest Pain or Discomfort Respiratory: No: Shortness of Breath Gastrointestinal: No: Abdominal Pain Genitourinary: No: Dysuria Musculoskeletal: Positive: Arthralgias, Limited ROM, Pain (see history present illness.) Skin: No Rash Neurologic: No: Weakness Psychiatric: No: Depression Endocrine: No: Polydipsia Hematologic/Lymphatic: No: Easy Bruising Physical Exam Narrative GENERAL: Patient appears in no obvious distress. SKIN: Warm and dry. Patient has dry appearing skin. Normal turgor. Eyes of infection. HEAD: Atraumatic. Normocephalic. EYES: Pupils equal and round. No scleral icterus. No injection or drainage. ENT: No nasal bleeding or discharge. Mucous membranes pink and moist. Pharynx is clear. Airway is patent. NECK: Trachea midline. Neck is supple nontender. CARDIOVASCULAR: Regular rate and rhythm. RESPIRATORY: No accessory muscle use. Clear to auscultation. Breath sounds equal bilaterally. GASTROINTESTINAL: Abdomen soft, non-tender, nondistended. Hepatic and splenic margins not palpable. No CVA tenderness. MUSCULOSKELETAL: Extremities without clubbing, cyanosis, or edema. No obvious deformities. Pain is localized to the left lateral hip trochanter and sacroiliac region. She has no straight leg raise pain suggestive of sciatica. Patient has limited rotation of the left hip consistent with her history of arthritis. Movement of the left hip in this manner reproduces the pain that the patient is here for. NEUROLOGICAL: Awake and alert. No obvious cranial nerve deficits. Motor grossly within normal limits. Five out of 5 muscle strength in the arms and legs. Normal speech. PSYCHIATRIC: Appropriate mood and affect; insight and judgment normal. Data Data Last Documented VS Vital Signs Date Time Temp Pulse Resp B/P Pulse Ox O2 Delivery O2 Flow Rate FiO2 07/02/16 19:22 97.7 55 18 158/101 96 Orders Oxycodone-Acetamin 5-325 Mg (Percocet (07/02/16 21:00) Prednisone (Deltasone) (07/02/16 21:00) [facility] Medical Decision Making Medical Screen Exam Complete: Yes Emergency Medical Condition: Yes Medical Record Reviewed: Yes Differential Diagnosis Recurrent hip pain. Osteoarthritis. Sacroiliitis. Narrative Course Patient is felt to be medically stable at time of exam. Patient is reviewed with and examined with Dr. Trevizo who feels further medical workup was not warranted as the patient has no acute findings significantly different from her previous 3 visits. Is felt the patient is suffering from severe osteoarthritis of the left hip and sacroiliitis. Patient is given 60 mg prednisone by mouth now, as well as one Percocet 5/325. Patient will be continued on prednisone 50 mg daily for 5 days. Patient is given a prescription for Percocet 5/325 one every 6 hours when necessary pain #20. Is felt the patient requires orthopedic evaluation, and follow-up with her primary care physician for further pain medication. Diagnosis Primary Impression: Unilateral primary osteoarthritis, left hip Additional Impressions: Sacroiliitis History of kidney transplant Referrals: Orthopaedic Surgeon Primary Care Physician Patient Instructions: Arthritis (ED), General Instructions, Narcotic given in the ED, Sacroiliitis (ED) Additional Instructions: Patient is reviewed with and examined with Dr. Trevizo who feels further medical workup was not warranted as the patient has no acute findings significantly different from her previous 3 visits. Is felt the patient is suffering from severe osteoarthritis of the left hip and sacroiliitis. Patient is given 60 mg prednisone by mouth now, as well as one Percocet 5/325. Patient will be continued on prednisone 50 mg daily for 5 days. Patient is given a prescription for Percocet 5/325 one every 6 hours when necessary pain #20. Is felt the patient requires orthopedic evaluation, and follow-up with her primary care physician for further pain medication. Scripts Oxycodone-Acetaminophen (Percocet)5-325 mg Tab1-2 Tab PO Q6H PRN (PAIN) #20 TAB Ref 0 Prov:Sherry Trevizo MD 07/02/16 Prednisone 50 Mg Tab50 Mg PO DAILY #5 TAB Ref 0 Prov:Sherry Trevizo MD 07/02/16 Disposition: 01 DISCHARGE HOME Condition: Stable Bimal Nicholas Jul 02, 2016 21:02
[2016-07-02] MEDS ORDERED: PRED50 PO (21:03)
[2016-07-02] MEDS ORDERED: PERC5TAB12 PO (21:03)
[2016-08-02] MEDS ORDERED: PROM12.54 PO (10:27)
[2016-08-02] MEDS ORDERED: WHEEMIS3 (10:53)
[2016-08-02] MEDS ORDERED: CLON.1 PO (11:04)
[2016-08-02] MEDS ORDERED: CLON0.1T PO (11:07)
[2016-08-17] MEDS ORDERED: LOSA50TA PO (11:07)
[2016-08-17] MEDS ORDERED: ATOR10TA15 PO (11:07)
== END 2016-07-02 21:41 | disposition home or self-care (01) ==
LOC: PHEFT 19:12
DX: M16.12 Unilateral primary osteoarthritis, left hip (principal); R10.9 Unspecified abdominal pain; M46.1 Sacroiliitis, not elsewhere classified; Z94.0 Kidney transplant status; E11.9 Type 2 diabetes mellitus without complications; I10 Essential (primary) hypertension; Z72.0 Tobacco use
CPT/HCPCS: 99283; J7512

== ENCOUNTER 2016-07-08 16:25 | Emergency (ER) | payer MEDICAID ==
[~2016-07-08] VITALS: Ht 170.2 cm; Wt 99.0 kg
[~2016-07-08 16:25] MED LIST changes: +ALBUAER3 INH; -ATOR20TA15 PO; +PERC5TAB12 PO; +PRED50 PO; -ZOFR4TAB PO
[2016-07-08 16:41] VITALS: BP 178/126; PULSE 60; RESP 17; TEMP 97.7; O2SAT 98
[2016-07-08] MEDS ORDERED: SODIUM CHLOR 0.9% 1000 ML INJ 1,000 ML IV SCH (18:05)
[2016-07-08] MEDS ORDERED: PANT40TA3 PO (18:06)
[2016-07-08] MEDS ORDERED: BACT800T5 PO (18:06)
[2016-07-08 18:14] VITALS: O2SAT 98
[2016-07-08] MEDS ORDERED: SODIUM CHLORIDE 0.9% FLUSH 10 ML FLUSH IV FLUSH PRN (18:15)
[2016-07-08] MEDS ORDERED: ONDANSETRON HCL 4 MG/2 ML VIAL IVP ONE (18:15)
[2016-07-08 18:23] LABS: BLOOD, URINE NEG (NEG); GLUCOSE,URINE NEG (NEG); KETONE, URINE NEG (NEG)
[2016-07-08 18:24] LABS: NITRITE,URINE POS (NEG)
--- NOTE | 2016-07-08 18:39 | PD ---
HPI Chief Complaint: Abdominal Pain Time Seen by Provider: 17:59 Travel History International Travel<30 days: No Contact w/Intl Traveler<30days: No Traveled to known affect area: No History of Present Illness HPI 50-year-old female has had several days of nausea vomiting diarrhea. She has pain radiates in the left flank to the left groin. It's worse with palpation. It's constant. She's been here 4 times last 30 days or essentially same complaint. She states that today's presentation is new because there is some radiation to the suprapubic abdomen. PFSH Past Medical History Arthritis: Yes Autoimmune Disease: Yes (LUPUS) Anxiety: Yes (PANIC ATTACKS) Depression: No Heart Rhythm Problems: No Cancer: Yes (SKIN) Cardiovascular Problems: Yes (HTN) High Cholesterol: Yes Chemotherapy: No Chest Pain: No Congestive Heart Failure: No Cerebrovascular Accident: No Diabetes: Yes Patient Takes Glucophage: Yes Diminished Hearing: No Endocrine: Yes Gastrointestinal Disorders: Yes (GASTROPORESIS) GERD: Yes Genitourinary: Yes (KIDNEY TRANSPLANT: MAY 13, 1987 ON R SIDE. 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 Menopausal: Yes : 2 Para: 1 Miscarriage: 1 Tubal Ligation: Yes Past Surgical History Abdominal Surgery: Yes (INGUINAL HERNIA: RIGHT, GALLBLADDER REMOVED) AICD: No Arteriovenous Shunt: Yes (LEFT ARM FOR DIALYSIS IN 1989- NON FUNCTIONAL) Body Medical Devices: port fistula Cardiac Surgery: No Section: Yes Cholecystectomy: Yes Ear Surgery: No Endocrine Surgery: No Eye Surgery: No Genitourinary Surgery: Yes (RKIDNEY TRANSPLANT / LEFT DIALYSIS SHUNT) Gynecologic Surgery: Yes (C SECTIONHYSTERECTOMY ) Hysterectomy: Yes Joint Replacement: No Neurologic Surgery: No Oral Surgery: No Pacemaker: No Thoracic Surgery: No Other Surgery: Yes (SKIN CANCER REMOVED RT THIGH 09/18) Social History Alcohol Use: No Tobacco Use: Yes (5 cigs daily) Substance Use: No Allergies-Medications (Allergen,Severity, Reaction): Coded Allergies: Adhesives (Verified Allergy, Severe, HIVES, 07/08/16) DISOLVABLE SUTURE MATERAL Levaquin (Verified Allergy, Intermediate, HIVES/ITCHING, 07/08/16) Keflex (Verified Adverse Reaction, Intermediate, HIVES/VOMITING, 07/08/16) Procardia (Verified Adverse Reaction, Intermediate, VOMITING, 07/08/16) *MDRO Multi-Drug Resistant Organism (Verified Adverse Reaction, Unknown, ) 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 MRSA PCR Screens negative 10/29/14 and 11/16/14. Uncoded Allergies: suture material (Adverse Reaction, Severe, SKIN INFECTION, 06/25/16) PT STATES DISSOLVING ONES [place] NOT DISSOLVE AND HAVE TO BE PHYSICALLY REMOVED. Reported Meds & Prescriptions Reported Meds & Active Scripts Active Phenergan Supp (Promethazine HCl) 25 Mg Supp 25 Mg RECTAL Q6H PRN Phenergan (Promethazine HCl) 25 Mg Tab 25 Mg PO Q6H PRN Macrobid (Nitrofurantoin Monoh/Nitrofur Macro) 100 Mg Cap 100 Mg PO BID 5 Days Bactrim DS (Sulfamethoxazole-Trimethoprim) 800-160 Mg Tab 1 Tab PO BID Ultram (Tramadol HCl) 50 Mg Tab 50 Mg PO Q6H PRN Metoclopramide (Metoclopramide HCl) 5 Mg Tab 5 Mg PO TIDAC Losartan (Losartan Potassium) 25 Mg Tab 25 Mg PO DAILY Reported Bactrim DS (Sulfamethoxazole-Trimethoprim) 800-160 Mg Tab 0.5 Tab PO MOWEFR Pantoprazole (Pantoprazole Sodium) 40 Mg Tab 40 Mg PO DAILY Proair Hfa 8.5 GM Inh (Albuterol Sulfate) 90 Mcg/Act Aer 2 Puff INH Q4-6H PRN 108 mcg/actuation Metformin (Metformin HCl) 500 Mg Tab 500 Mg PO DAILY With a meal Prednisone 10 Mg Tab 10 Mg PO DAILY Magnesium Oxide 400 Mg Tab 400 Mg PO BID Cyclosporine 25 Mg Cap 75 Mg PO BID Mycophenolate (Mycophenolate Mofetil) 500 Mg Tab 500 Mg PO BID Atenolol 50 Mg Tab 50 Mg PO DAILY Review of Systems Except as stated in HPI: all other systems reviewed are Neg Physical Exam Narrative GENERAL: 50 yo F, WNWD, NAD SKIN: Warm and dry. HEAD: Atraumatic. Normocephalic. EYES: Pupils equal and round. No scleral icterus. No injection or drainage. ENT: No nasal bleeding or discharge. Mucous membranes pink and moist. NECK: Trachea midline. No JVD. CARDIOVASCULAR: Regular rate and rhythm. RESPIRATORY: No accessory muscle use. Clear to auscultation. Breath sounds equal bilaterally. GASTROINTESTINAL: Soft. Diffuse nonspecific TTP. MUSCULOSKELETAL: Extremities without clubbing, cyanosis, or edema. No obvious deformities. NEUROLOGICAL: Awake and alert. No obvious cranial nerve deficits. Motor grossly within normal limits. Five out of 5 muscle strength in the arms and legs. Normal speech. PSYCHIATRIC: Appropriate mood and affect; insight and judgment normal. Data Data Last Documented VS Vital Signs Date Time Temp Pulse Resp B/P Pulse Ox O2 Delivery O2 Flow Rate FiO2 07/08/16 19:11 98.0 65 20 173/100 98 07/08/16 18:14 Room Air VS reviewed Orders Complete Blood Count With Diff (07/08/16 18:05) Comprehensive Metabolic Panel (07/08/16 18:05) Lipase (07/08/16 18:05) Urinalysis - C+S If Indicated (07/08/16 18:05) Iv Access Insert/Monitor (07/08/16 18:05) Ecg Monitoring (07/08/16 18:05) Oximetry (07/08/16 18:05) Ondansetron Inj (Zofran Inj) (07/08/16 18:15) Sodium Chlor 0.9% 1000 Ml Inj (Ns 1000 M (07/08/16 18:05) Sodium Chloride 0.9% Flush (Ns Flush) (07/08/16 18:15) Ed Urine Pregnancytest Poc (07/08/16 18:15) Nitrofurantoin Monohyd Macrocr (Macrobid (07/08/16 19:00) Urine Culture (07/08/16 18:10) Labs Laboratory Tests Test 07/08/16 07/08/16 18:10 18:20 Urine Collection Type CLEAN CATCH Urine Color YELLOW Urine Turbidity SLIGHT Urine pH 6.0 Urine Specific [place] 1.018 Urine Protein NEG mg/dL Urine Glucose (UA) NEG mg/dL Urine Ketones NEG mg/dL Urine Occult Blood NEG Urine Nitrite POS Urine Bilirubin NEG Urine Leukocyte Esterase NEG Urine WBC 9-14 /hpf Urine Squamous Epithelial > 8 /hpf Cells Urine Amorphous Sediment MOD Urine Bacteria MOD /hpf Microscopic Urinalysis Comment CULTURE INDICATED Urine Collection Time 1810 White Blood Count 8.1 TH/MM3 Red Blood Count 5.56 MIL/MM3 Hemoglobin 16.5 GM/DL Hematocrit 50.9 % Mean Corpuscular Volume 91.5 FL Mean Corpuscular Hemoglobin 29.6 PG Mean Corpuscular Hemoglobin 32.3 % Concent Red Cell Distribution Width 14.2 % Platelet Count 148 TH/MM3 Mean Platelet Volume 10.5 FL Neutrophils (%) (Auto) 63.3 % Lymphocytes (%) (Auto) 26.6 % Monocytes (%) (Auto) 7.9 % Eosinophils (%) (Auto) 2.0 % Basophils (%) (Auto) 0.2 % Neutrophils # (Auto) 5.1 TH/MM3 Lymphocytes # (Auto) 2.2 TH/MM3 Monocytes # (Auto) 0.6 TH/MM3 Eosinophils # (Auto) 0.2 TH/MM3 Basophils # (Auto) 0.0 TH/MM3 CBC Comment DIFF FINAL Differential Comment Sodium Level 144 MEQ/L Potassium Level 3.9 MEQ/L Chloride Level 105 MEQ/L Carbon Dioxide Level 30.5 MEQ/L Anion Gap 9 MEQ/L Blood Urea Nitrogen 28 MG/DL Creatinine 1.40 MG/DL Estimat Glomerular Filtration 40 ML/MIN Rate Random Glucose 96 MG/DL Calcium Level 8.7 MG/DL Total Bilirubin 1.8 MG/DL Aspartate Amino Transf 28 U/L (AST/SGOT) Alanine Aminotransferase 36 U/L (ALT/SGPT) Alkaline Phosphatase 97 U/L Total Protein 6.7 GM/DL Albumin 3.2 GM/DL Lipase 84 U/L [facility] Medical Decision Making Medical Screen Exam Complete: Yes Emergency Medical Condition: Yes Medical Record Reviewed: Yes Differential Diagnosis Constipation, Gastritis, Acute Cholecystitis, Biliary Colic, Pancreatitis, DANIELS , Hepatitis, Bowel Obstruction, Cystitis, Mesenteric Ischemia, AAA, Appendicitis , Renal Stone/Hydronephrosis, GERD, perforated viscous Narrative Course Prior microbiology isolates sensitive to Macrobid. Procedures Procedure Narrative Aseptic technique, linear probe, right antecubital fossa, 20-gauge IV placed with good flush. She tolerated well. Diagnosis Primary Impression: Cystitis Referrals: Yanique Alfonso MD 2 days Additional Instructions: You have a choice when it comes to health care, and we are glad that you chose [facility]. Hopefully, we have met your expectations on today's visit. You are welcome to return to [facility] at any time, as we are committed to meeting the health care needs of our community. Med/Other Pt SpecificInfo: Prescription(s) given Scripts Promethazine Supp (Phenergan Supp)25 Mg Supp25 Mg RECTAL Q6H PRN (NAUSEA OR VOMITING) #10 SUPP Ref 0 Prov:Baltazar Reyes MD 07/08/16 Promethazine (Phenergan)25 Mg Tab25 Mg PO Q6H PRN (Nausea/Vomiting) #10 TAB Ref 0 Prov:Baltazar Reyes MD 07/08/16 Nitrofurantoin Monohydrate Macrocrystals (Macrobid)100 Mg [id number] Mg PO BID 5 Days Ref 0 Prov:Baltazar Reyes MD 07/08/16 Disposition: 01 DISCHARGE HOME Condition: Stable Baltazar Reyes MD Jul 08, 2016 18:39
[2016-07-08 18:42] LABS: AUTOMATED NEUTROPHIL # 5.1 TH/MM3 (1.8-7.7); BASOPHIL % 0.2 % (0.0-2.0); EOSINOPHIL # 0.2 TH/MM3 (0-0.4); HEMATOCRIT 50.9 % (35.0-46.0); HEMO FLAGS DIFF FINAL; LYMPH % 26.6 % (9.0-44.0); LYMPHOCYTE # 2.2 TH/MM3 (1.0-4.8); MEAN CELL VOLUME 91.5 FL (80.0-100.0); MEAN CORPUSCULAR HEMOGLOBIN 29.6 PG (27.0-34.0); MEAN CORPUSCULAR HGB CONC 32.3 % (32.0-36.0); MONO % 7.9 % (0.0-8.0); NEUT % 63.3 % (16.0-70.0); PLATELET COUNT 148 TH/MM3 (150-450); RED BLOOD COUNT 5.56 MIL/MM3 (4.00-5.30); RED CELL DISTRIBUTION WIDTH 14.2 % (11.6-17.2); WHITE BLOOD COUNT 8.1 TH/MM3 (4.0-11.0)
[2016-07-08 18:49] LABS: METHOD OF COLLECTION CLEAN CATCH; URINE COLOR YELLOW (YELLW/STRAW)
[2016-07-08 18:50] LABS: CHLORIDE 105 MEQ/L (98-107); POTASSIUM 3.9 MEQ/L (3.5-5.1); SODIUM (NA) 144 MEQ/L (136-145)
[2016-07-08 18:50] LABS: BACTERIA, URINE MOD /hpf; COMMENT (UR) CULTURE INDICATED; CULTURE IF INDICATED CULTURE INDICATED; SQUAMOUS EPITHELIAL CELL URINE > 8 /hpf (0-5)
[2016-07-08 18:54] LABS: ANION GAP 9 MEQ/L (5-15); BICARBONATE 30.5 MEQ/L (21.0-32.0); BLOOD UREA NITROGEN 28 MG/DL (7-18)
[2016-07-08 18:57] LABS: ALT (GPT) 36 U/L (10-53); AST (GOT) 28 U/L (15-37); GLOMERULAR FILTRATION RATE 40 ML/MIN (>89)
[2016-07-08 18:58] LABS: TOTAL BILIRUBIN ADULT 1.8 MG/DL (0.2-1.0)
[2016-07-08 18:59] LABS: ALKALINE PHOSPHATASE 97 U/L (45-117)
[2016-07-08] MEDS ORDERED: NITROFURANTOIN MONOHYD MACROCR 100 MG CAP PO ONE (19:00)
[2016-07-08] MEDS ORDERED: PROM25TA5 PO (19:06)
[2016-07-08] MEDS ORDERED: PROM1SUP7 RECTAL (19:06)
[2016-07-08] MEDS ORDERED: MACR100C2 PO (19:06)
[2016-07-08 19:11] VITALS: BP 173/100; TEMP 98
[2016-08-02] MEDS ORDERED: PROM12.54 PO (10:27)
[2016-08-02] MEDS ORDERED: WHEEMIS3 (10:53)
[2016-08-02] MEDS ORDERED: CLON.1 PO (11:04)
[2016-08-02] MEDS ORDERED: CLON0.1T PO (11:07)
[2016-08-17] MEDS ORDERED: LOSA50TA PO (11:07)
[2016-08-17] MEDS ORDERED: ATOR10TA15 PO (11:07)
== END 2016-07-08 19:36 | disposition home or self-care (01) ==
LOC: PHED 16:25
DX: N30.90 Cystitis, unspecified without hematuria (principal); I12.9 Hypertensive chronic kidney disease with stage 1 through stage 4 chronic kidney disease, or unspecified chronic kidney disease; E11.22 Type 2 diabetes mellitus with diabetic chronic kidney disease; B95.1 Streptococcus, group B, as the cause of diseases classified elsewhere; N18.9 Chronic kidney disease, unspecified; E78.00 Pure hypercholesterolemia, unspecified; M32.9 Systemic lupus erythematosus, unspecified; M19.90 Unspecified osteoarthritis, unspecified site; Z99.2 Dependence on renal dialysis; Z94.0 Kidney transplant status; Z79.4 Long term (current) use of insulin
CPT/HCPCS: 80053; 81001; 83690; 84703; 85025; 86403; 87086; 96361; 96374; 99284; J2405; J7030

== ENCOUNTER 2016-07-10 10:51 | Emergency (ER) | payer MEDICAID ==
[~2016-07-10] VITALS: Ht 170.2 cm; Wt 99.0 kg
[~2016-07-10 10:51] MED LIST changes: +MACR100C2 PO; +PANT40TA3 PO; -PERC5TAB12 PO; -PRED50 PO; +PROM1SUP7 RECTAL; +PROM25TA5 PO
--- NOTE | 2016-07-10 10:59 | PD ---
HPI Chief Complaint: Abdominal Pain Time Seen by Provider: 10:59 Travel History International Travel<30 days: No Contact w/Intl Traveler<30days: No Traveled to known affect area: No History of Present Illness HPI 50-year-old female the emergency room with severe lower abdominal pain. She has been in the ER multiple times for abdominal pain and other complaints. She was here 2 weeks ago for abdominal pain when workup including CAT scan was done and everything was within normal limit. Patient is holding an emesis bag and retching loudly there is no vomitus in the bag. She is extremely anxious and crying in pain. Vital signs were suggestive of hypertension. Difficult to get much more history out of this patient. [facility] Past Medical History Narrative Medical List of her past medical, surgical, social and family history was reviewed from the nursing note. Arthritis: Yes Autoimmune Disease: Yes (LUPUS) Anxiety: Yes (PANIC ATTACKS) Depression: No Heart Rhythm Problems: No Cancer: Yes (SKIN) Cardiovascular Problems: Yes (HTN) High Cholesterol: Yes Chemotherapy: No Chest Pain: No Congestive Heart Failure: No Cerebrovascular Accident: No Diabetes: Yes Diminished Hearing: No Endocrine: Yes Gastrointestinal Disorders: Yes (GASTROPORESIS) GERD: Yes Genitourinary: Yes (KIDNEY TRANSPLANT: MAY [birth year] 1989 ON R SIDE. ) Headaches: No Hepatitis: No Hiatal Hernia: Yes Hypertension: Yes Immune Disorder: Yes Implanted Vascular Access Dvce: Yes (LUE SHUNT port) Kidney Stones: Yes Musculoskeletal: Yes Neurologic: Yes Psychiatric: Yes Reproductive: No Respiratory: No Immunizations Current: Yes Migraines: Yes Radiation Therapy: No Renal Failure: Yes Seizures: No Thyroid Disease: No Ulcer: No PNEUMOCCOCAL Vaccine (Year): 2 Menopausal: Yes : 2 Para: 1 Miscarriage: 1 Tubal Ligation: Yes Past Surgical History Abdominal Surgery: Yes (INGUINAL HERNIA: RIGHT, GALLBLADDER REMOVED) AICD: No Arteriovenous Shunt: Yes (LEFT ARM FOR DIALYSIS IN 1989- NON FUNCTIONAL) Body Medical Devices: port fistula Cardiac Surgery: No Section: Yes Cholecystectomy: Yes Ear Surgery: No Endocrine Surgery: No Eye Surgery: No Genitourinary Surgery: Yes (RKIDNEY TRANSPLANT / LEFT DIALYSIS SHUNT) Gynecologic Surgery: Yes (C SECTIONHYSTERECTOMY ) Hysterectomy: Yes Joint Replacement: No Neurologic Surgery: No Oral Surgery: No Pacemaker: No Thoracic Surgery: No Other Surgery: Yes (SKIN CANCER REMOVED RT THIGH 09/18) Social History Alcohol Use: No Tobacco Use: Yes (5 cigs daily) Substance Use: No Allergies-Medications (Allergen,Severity, Reaction): Coded Allergies: Adhesives (Verified Allergy, Severe, HIVES, 07/08/16) DISOLVABLE SUTURE MATERAL Levaquin (Verified Allergy, Intermediate, HIVES/ITCHING, 07/08/16) Keflex (Verified Adverse Reaction, Intermediate, HIVES/VOMITING, 07/08/16) Procardia (Verified Adverse Reaction, Intermediate, VOMITING, 07/08/16) *MDRO Multi-Drug Resistant Organism (Verified Adverse Reaction, Unknown, ) 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 MRSA PCR Screens negative 10/29/14 and 11/16/14. Uncoded Allergies: suture material (Adverse Reaction, Severe, SKIN INFECTION, 06/25/16) PT STATES DISSOLVING ONES [place] NOT DISSOLVE AND HAVE TO BE PHYSICALLY REMOVED. Comments List of her allergies reviewed from the nursing note. Reported Meds & Prescriptions Reported Meds & Active Scripts Active Zofran Odt (Ondansetron Odt) 4 Mg Tab 4 Mg SL Q6HR PRN Macrobid (Nitrofurantoin Monoh/Nitrofur Macro) 100 Mg Cap 100 Mg PO BID 5 Days Phenergan Supp (Promethazine HCl) 25 Mg Supp 25 Mg RECTAL Q6H PRN Phenergan (Promethazine HCl) 25 Mg Tab 25 Mg PO Q6H PRN Macrobid (Nitrofurantoin Monoh/Nitrofur Macro) 100 Mg Cap 100 Mg PO BID 5 Days Bactrim DS (Sulfamethoxazole-Trimethoprim) 800-160 Mg Tab 1 Tab PO BID Ultram (Tramadol HCl) 50 Mg Tab 50 Mg PO Q6H PRN Metoclopramide (Metoclopramide HCl) 5 Mg Tab 5 Mg PO TIDAC Losartan (Losartan Potassium) 25 Mg Tab 25 Mg PO DAILY Reported Bactrim DS (Sulfamethoxazole-Trimethoprim) 800-160 Mg Tab 0.5 Tab PO MOWEFR Pantoprazole (Pantoprazole Sodium) 40 Mg Tab 40 Mg PO DAILY Proair Hfa 8.5 GM Inh (Albuterol Sulfate) 90 Mcg/Act Aer 2 Puff INH Q4-6H PRN 108 mcg/actuation Metformin (Metformin HCl) 500 Mg Tab 500 Mg PO DAILY With a meal Prednisone 10 Mg Tab 10 Mg PO DAILY Magnesium Oxide 400 Mg Tab 400 Mg PO BID Cyclosporine 25 Mg Cap 75 Mg PO BID Mycophenolate (Mycophenolate Mofetil) 500 Mg Tab 500 Mg PO BID Atenolol 50 Mg Tab 50 Mg PO DAILY Narrative Medication List of her home medications reviewed from the nursing note. Review of Systems Except as stated in HPI: all other systems reviewed are Neg Physical Exam Narrative GENERAL: Awake, alert, obese, extremely anxious, moderate distress SKIN: Focused skin assessment warm/dry. Skin of keratosis and acanthosis HEAD: Atraumatic. Normocephalic. EYES: Pupils equal and round. No scleral icterus. No injection or drainage. ENT: No nasal bleeding or discharge. Mucous membranes pink and moist. NECK: Trachea midline. No JVD. CARDIOVASCULAR: Regular rate and rhythm. No murmur appreciated. RESPIRATORY: No accessory muscle use. Clear to auscultation. Breath sounds equal bilaterally. GASTROINTESTINAL: Abdomen soft, non-tender, nondistended. Hepatic and splenic margins not palpable. MUSCULOSKELETAL: No obvious deformities. No clubbing. No cyanosis. No edema. NEUROLOGICAL: Awake and alert. No obvious cranial nerve deficits. Motor grossly within normal limits. Normal speech. PSYCHIATRIC: Appropriate mood and affect; insight and judgment normal. Data Data Last Documented VS Vital Signs Date Time Temp Pulse Resp B/P Pulse Ox O2 Delivery O2 Flow Rate FiO2 07/10/16 12:40 64 153/88 100 07/10/16 11:54 18 Room Air 07/10/16 11:03 98.1 Orders Complete Blood Count With Diff (07/10/16 11:11) Comprehensive Metabolic Panel (07/10/16 11:11) Lipase (07/10/16 11:11) Urinalysis - C+S If Indicated (07/10/16 11:11) Ct Abd/Pel W/O Iv Contrast (07/10/16 11:11) Iv Access Insert/Monitor (07/10/16 11:11) Ecg Monitoring (07/10/16 11:11) Oximetry (07/10/16 11:11) Sodium Chloride 0.9% Flush (Ns Flush) (07/10/16 11:15) Ondansetron Inj (Zofran Inj) (07/10/16 11:15) Ketorolac Inj (Toradol Inj) (07/10/16 11:15) Urine Culture (07/10/16 11:20) ^ Other Nursing Orders (07/10/16 12:03) Labs Laboratory Tests Test 07/10/16 07/10/16 11:20 11:26 Urine Collection Type CLEAN CATCH Urine Color YELLOW Urine Turbidity CLEAR Urine pH 5.5 Urine Specific [place] 1.025 Urine Protein NEG mg/dL Urine Glucose (UA) NEG mg/dL Urine Ketones NEG mg/dL Urine Occult Blood TRACE Urine Nitrite NEG Urine Bilirubin NEG Urine Leukocyte Esterase NEG Urine RBC 0-3 /hpf Urine WBC 3-5 /hpf Urine Squamous Epithelial > 8 /hpf Cells Urine Bacteria MOD /hpf Microscopic Urinalysis Comment CULTURE INDICATED Urine Collection Time 11:20 White Blood Count 7.8 TH/MM3 Red Blood Count 5.73 MIL/MM3 Hemoglobin 17.0 GM/DL Hematocrit 53.2 % Mean Corpuscular Volume 92.7 FL Mean Corpuscular Hemoglobin 29.7 PG Mean Corpuscular Hemoglobin 32.0 % Concent Red Cell Distribution Width 14.9 % Platelet Count 139 TH/MM3 Mean Platelet Volume 10.7 FL Neutrophils (%) (Auto) 63.4 % Lymphocytes (%) (Auto) 23.4 % Monocytes (%) (Auto) 7.3 % Eosinophils (%) (Auto) 5.4 % Basophils (%) (Auto) 0.5 % Neutrophils # (Auto) 5.0 TH/MM3 Lymphocytes # (Auto) 1.8 TH/MM3 Monocytes # (Auto) 0.6 TH/MM3 Eosinophils # (Auto) 0.4 TH/MM3 Basophils # (Auto) 0.0 TH/MM3 CBC Comment DIFF FINAL Differential Comment Sodium Level 145 MEQ/L Potassium Level 4.0 MEQ/L Chloride Level 107 MEQ/L Carbon Dioxide Level 26.5 MEQ/L Anion Gap 12 MEQ/L Blood Urea Nitrogen 26 MG/DL Creatinine 1.30 MG/DL Estimat Glomerular Filtration 44 ML/MIN Rate Random Glucose 97 MG/DL Calcium Level 8.7 MG/DL Total Bilirubin 1.9 MG/DL Aspartate Amino Transf 37 U/L (AST/SGOT) Alanine Aminotransferase 64 U/L (ALT/SGPT) Alkaline Phosphatase 121 U/L Total Protein 6.8 GM/DL Albumin 3.2 GM/DL Lipase 136 U/L [facility] Medical Decision Making Medical Screen Exam Complete: Yes Emergency Medical Condition: Yes Medical Record Reviewed: Yes Differential Diagnosis UTI, renal colic, abdominal pain NOS Narrative Course 12:07 PM patient is dehydrated to some extent. I was told by the nurses that she has history of difficult stick and often requires ultrasound-guided IVs. I asked the nurse to send blood work and ordered IM pain medication and nausea medicine. Blood work came back and is suggestive of hemoconcentration with elevated hemoglobin. Renal function is slightly off but unchanged from the last one. I've ordered for by mouth fluid. Patient will be discharged home otherwise. CT scan did not show any cause for acute abdominal pain. Procedures EKG Prior to Arrival: No Diagnosis Primary Impression: acute on chronic abdominal pain Additional Impression: Cystitis Referrals: Primary Care Physician 2 days Additional Instructions: Please return to the ER if the condition worsens or any other concerns. Otherwise follow-up with your primary care. Take the medications as per the prescription direction. Med/Other Pt SpecificInfo: Prescription(s) given Scripts Ondansetron Odt (Zofran Odt)4 Mg Tab4 Mg SL Q6HR PRN (Nausea/Vomiting) #15 TAB Ref 0 Prov:Pravin Barrow MD 07/10/16 Nitrofurantoin Monohydrate Macrocrystals (Macrobid)100 Mg [id number] Mg PO BID 5 Days Ref 0 Prov:Pravin Barrow MD 07/10/16 Disposition: 01 DISCHARGE HOME Condition: Stable Pravin Barrow MD July 10, 2016 10:59
[2016-07-10 11:03] VITALS: BP 220/107; PULSE 76; RESP 20; TEMP 98.1; O2SAT 100
[2016-07-10] MEDS ORDERED: ONDANSETRON HCL 4 MG/2 ML VIAL IM ONE (11:15)
[2016-07-10] MEDS ORDERED: KETOROLAC TROMETHAMINE 60 MG/2 ML (IM) VIAL IM ONE (11:15)
[2016-07-10] MEDS ORDERED: SODIUM CHLORIDE 0.9% FLUSH 10 ML FLUSH IV FLUSH PRN (11:15)
[2016-07-10 11:24] LABS: BLOOD, URINE TRACE (NEG); GLUCOSE,URINE NEG (NEG); KETONE, URINE NEG (NEG); NITRITE,URINE NEG (NEG); PH, URINE 5.5 (5.0-8.5)
[2016-07-10 11:29] LABS: METHOD OF COLLECTION CLEAN CATCH
[2016-07-10 11:30] LABS: BACTERIA, URINE MOD /hpf; COMMENT (UR) CULTURE INDICATED; CULTURE IF INDICATED CULTURE INDICATED; RBC, URINE 0-3 /hpf (0-3); SQUAMOUS EPITHELIAL CELL URINE > 8 /hpf (0-5); URINE COLOR YELLOW (YELLW/STRAW)
[2016-07-10 11:37] LABS: BASOPHIL % 0.5 % (0.0-2.0); EOSINOPHIL # 0.4 TH/MM3 (0-0.4); EOSINOPHIL % 5.4 % (0.0-4.0); HEMATOCRIT 53.2 % (35.0-46.0); HEMO FLAGS DIFF FINAL; LYMPH % 23.4 % (9.0-44.0); LYMPHOCYTE # 1.8 TH/MM3 (1.0-4.8); MEAN CELL VOLUME 92.7 FL (80.0-100.0); MEAN CORPUSCULAR HEMOGLOBIN 29.7 PG (27.0-34.0); MONO % 7.3 % (0.0-8.0); NEUT % 63.4 % (16.0-70.0); PLATELET COUNT 139 TH/MM3 (150-450); RED BLOOD COUNT 5.73 MIL/MM3 (4.00-5.30); RED CELL DISTRIBUTION WIDTH 14.9 % (11.6-17.2); WHITE BLOOD COUNT 7.8 TH/MM3 (4.0-11.0)
[2016-07-10 11:43] LABS: CHLORIDE 107 MEQ/L (98-107); SODIUM (NA) 145 MEQ/L (136-145)
[2016-07-10 11:47] LABS: ANION GAP 12 MEQ/L (5-15); BICARBONATE 26.5 MEQ/L (21.0-32.0); BLOOD UREA NITROGEN 26 MG/DL (7-18)
[2016-07-10 11:50] LABS: ALT (GPT) 64 U/L (10-53); AST (GOT) 37 U/L (15-37); GLOMERULAR FILTRATION RATE 44 ML/MIN (>89)
[2016-07-10 11:51] LABS: TOTAL BILIRUBIN ADULT 1.9 MG/DL (0.2-1.0)
[2016-07-10 11:53] VITALS: BP 170/107; PULSE 70; RESP 16; O2SAT 98
[2016-07-10 11:53] LABS: ALKALINE PHOSPHATASE 121 U/L (45-117)
[2016-07-10 11:54] VITALS: RESP 18; O2SAT 98
--- NOTE | 2016-07-10 11:56 | RADHPO ---
EXAM DATE/TIME: 07/10/2016 11:34 [place] COMPARISON: CT ABDOMEN & PELVIS W/O CONTRAST, June 27, 2016, 4:03. INDICATIONS : Left lower abdominal pain with nausea and vomiting. ORAL CONTRAST: No oral contrast ingested. RADIATION DOSE: 25.21 CTDIvol (mGy) MEDICAL HISTORY : Gastroesophageal reflux disease. Lupus. Hypertension.Diabetes. hiatal hernia. SURGICAL HISTORY : section. Hysterectomy.Kidney transplant ENCOUNTER: Initial ACUITY: 2 days PAIN SCALE: 10/10 LOCATION: Left lower quadrant TECHNIQUE: Volumetric scanning of the abdomen and pelvis was performed. Using automated exposure control and ad justment of the mA and/or kV according to patient size, radiation dose was kept as low as reasonably achievable to obtain optimal diagnostic quality images. FINDINGS: LOWER LUNGS: The visualized lower lungs are clear. LIVER: Homogeneous density without lesion. There is no dilation of the biliary tree. Gallbladder is surgica lly absent. SPLEEN: Normal size without lesion. PANCREAS: Within normal limits. KIDNEYS: The [place] kidneys are extremely atrophic. A right renal transplant is observed. This contains a 1.9 cm cyst involving the lower pleural. No hydronephrosis. No perinephric fluid collection. ADRENAL GLANDS: Within normal limits. VASCULAR: There is no aortic aneurysm. BOWEL/MESENTERY: The stomach, small bowel, and colon demonstrate no acute abnormality. There is no free intraperitone al air or fluid. ABDOMINAL WALL: Within normal limits. RETROPERITONEUM: There is no lymphadenopathy. BLADDER: No wall thickening or mass. REPRODUCTIVE: Within normal limits. INGUINAL: There is no lymphadenopathy or hernia. MUSCULOSKELETAL: Within normal limits for patient age. CONCLUSION: 1. No acute abnormality. 2. Atrophic [place] kidneys with right renal transplant. 3. Prior cholecystectomy. Denton Zapata Jr., MD on July 10, 2016 at 11:51 Board Certified Radiologist. This report was verified electronically.
[2016-07-10] MEDS ORDERED: MACR100C2 PO (12:09)
[2016-07-10] MEDS ORDERED: ZOFR4TAB3 SL (12:10)
[2016-07-10 12:40] VITALS: BP 153/88; PULSE 64; O2SAT 100
[2016-08-02] MEDS ORDERED: PROM12.54 PO (10:27)
[2016-08-02] MEDS ORDERED: WHEEMIS3 (10:53)
[2016-08-02] MEDS ORDERED: CLON.1 PO (11:04)
[2016-08-02] MEDS ORDERED: CLON0.1T PO (11:07)
[2016-08-17] MEDS ORDERED: ATOR10TA15 PO (11:07)
[2016-08-17] MEDS ORDERED: LOSA50TA PO (11:07)
== END 2016-07-10 13:11 | disposition home or self-care (01) ==
LOC: PHED 10:51
DX: R10.9 Unspecified abdominal pain (principal); N30.90 Cystitis, unspecified without hematuria; M32.9 Systemic lupus erythematosus, unspecified; N18.9 Chronic kidney disease, unspecified; E11.22 Type 2 diabetes mellitus with diabetic chronic kidney disease; E86.0 Dehydration; I12.9 Hypertensive chronic kidney disease with stage 1 through stage 4 chronic kidney disease, or unspecified chronic kidney disease; F41.0 Panic disorder [episodic paroxysmal anxiety]; E78.00 Pure hypercholesterolemia, unspecified; Z94.0 Kidney transplant status; Z99.2 Dependence on renal dialysis; Z79.4 Long term (current) use of insulin
CPT/HCPCS: 74176; 80053; 81001; 83690; 85025; 87086; 96372; 99284; J1885; J2405

== ENCOUNTER 2016-07-19 10:03 | Emergency (ER) | payer MEDICAID ==
[~2016-07-19] VITALS: Ht 170.2 cm; Wt 94.5 kg
[~2016-07-19 10:03] MED LIST changes: -BACT800T5 PO; -MACR100C2 PO; -PANT40TA3 PO; -ULTR50TA5 PO; +ZOFR4TAB3 SL
[2016-07-19 10:08] VITALS: BP 157/120; PULSE 65; RESP 16; TEMP 97.9; O2SAT 99
[2016-07-19 10:35] VITALS: BP 188/77; PULSE 61; RESP 18; O2SAT 99
[2016-07-19] MEDS ORDERED: LOSA25TA PO (11:09)
[2016-07-19] MEDS ORDERED: SODIUM CHLORIDE 0.9% FLUSH 10 ML FLUSH IV FLUSH PRN (11:15)
[2016-07-19] MEDS ORDERED: HYDROmorphone HCL PF 1 MG/ML VIAL IVS ONE (11:15)
[2016-07-19] MEDS ORDERED: ONDANSETRON HCL 4 MG/2 ML VIAL IVP ONE (11:15)
[2016-07-19 11:59] VITALS: BP 183/87; PULSE 60; RESP 20; O2SAT 99
[2016-07-19 11:59] LABS: BLOOD, URINE TRACE (NEG); GLUCOSE,URINE NEG (NEG); KETONE, URINE NEG (NEG); NITRITE,URINE NEG (NEG); PH, URINE 5.5 (5.0-8.5)
[2016-07-19 12:01] LABS: AUTOMATED NEUTROPHIL # 5.6 TH/MM3 (1.8-7.7); BASOPHIL # 0.2 TH/MM3 (0-0.2); BASOPHIL % 2.5 % (0.0-2.0); EOSINOPHIL # 0.5 TH/MM3 (0-0.4); EOSINOPHIL % 5.4 % (0.0-4.0); HEMATOCRIT 52.4 % (35.0-46.0); HEMO FLAGS DIFF FINAL; LYMPH % 23.2 % (9.0-44.0); LYMPHOCYTE # 2.1 TH/MM3 (1.0-4.8); MEAN CELL VOLUME 91.3 FL (80.0-100.0); MEAN CORPUSCULAR HEMOGLOBIN 30.9 PG (27.0-34.0); MEAN CORPUSCULAR HGB CONC 33.9 % (32.0-36.0); MONO % 6.8 % (0.0-8.0); NEUT % 62.1 % (16.0-70.0); PLATELET COUNT 160 TH/MM3 (150-450); RED BLOOD COUNT 5.74 MIL/MM3 (4.00-5.30); RED CELL DISTRIBUTION WIDTH 13.8 % (11.6-17.2)
[2016-07-19 12:13] LABS: METHOD OF COLLECTION CLEAN CATCH; URINE COLOR YELLOW (YELLW/STRAW)
[2016-07-19 12:14] LABS: BACTERIA, URINE OCC /hpf; COMMENT (UR) CULTURE INDICATED; CULTURE IF INDICATED CULTURE INDICATED; RBC, URINE 0-3 /hpf (0-3); SQUAMOUS EPITHELIAL CELL URINE > 8 /hpf (0-5)
[2016-07-19] MEDS ORDERED: HYDROmorphone HCL PF 1 MG/ML VIAL IM ONE (12:15)
[2016-07-19] MEDS ORDERED: ONDANSETRON HCL 4 MG/2 ML VIAL IM ONE (12:15)
[2016-07-19 12:19] LABS: CHLORIDE 113 MEQ/L (98-107); POTASSIUM 4.2 MEQ/L (3.5-5.1); SODIUM (NA) 146 MEQ/L (136-145)
[2016-07-19 12:23] LABS: ANION GAP 11 MEQ/L (5-15); BICARBONATE 22.3 MEQ/L (21.0-32.0); BLOOD UREA NITROGEN 30 MG/DL (7-18)
[2016-07-19 12:26] LABS: ALT (GPT) 21 U/L (10-53); AST (GOT) 16 U/L (15-37); GLOMERULAR FILTRATION RATE 37 ML/MIN (>89)
[2016-07-19 12:28] LABS: TOTAL BILIRUBIN ADULT 1.7 MG/DL (0.2-1.0)
[2016-07-19 12:29] LABS: ALKALINE PHOSPHATASE 113 U/L (45-117)
[2016-07-19 12:49] VITALS: BP 152/88; PULSE 66; RESP 18; O2SAT 100
[2016-07-19] MEDS ORDERED: MACR100C2 PO (13:04)
[2016-07-19] MEDS ORDERED: PROM25TA5 PO (13:04)
[2016-07-19] MEDS ORDERED: DICY10 PO (13:04)
--- NOTE | 2016-07-19 13:04 | PD ---
HPI Chief Complaint: Hypertension Time Seen by Provider: 11:03 Travel History International Travel<30 days: No Contact w/Intl Traveler<30days: No Traveled to known affect area: No History of Present Illness HPI 50-year-old female with history of multiple medical issues, status post renal transplant, history of gastroparesis and chronic abdominal pains, seen several days ago for abdominal pain with negative CAT scan, presents to the ER today for ongoing abdominal pain which she states is the same for 3 weeks now and has not changed. She still having intermittent vomiting. She states that she is here because her blood pressures have been elevated today 290 systolic. She states that she had been seen a primary care physician clinic yesterday and had been given a dose of blood pressure medications for elevated blood pressure and then released. She denies any chest pains, trouble breathing, headaches, neurological symptoms, or any other issues. She states her abdominal pain is just an 8 out of 10 currently. Modifying Factors: None Associated Signs & Symptoms: Nausea intermittently vomiting, abdominal pain, elevated blood pressures Risk Factors: History of chronic abdominal pains, renal transplant, hypertension PFSH Past Medical History Arthritis: Yes Autoimmune Disease: Yes (LUPUS) Anxiety: Yes (PANIC ATTACKS) Depression: No Heart Rhythm Problems: No Cancer: Yes (SKIN) Cardiovascular Problems: Yes (HTN) High Cholesterol: Yes Chemotherapy: No Chest Pain: No Congestive Heart Failure: No Cerebrovascular Accident: No Diabetes: Yes Patient Takes Glucophage: Yes Diminished Hearing: No Endocrine: Yes Gastrointestinal Disorders: Yes (GASTROPORESIS) GERD: Yes Genitourinary: Yes (KIDNEY TRANSPLANT: MAY 13, 1987 ON R SIDE. ) Headaches: No Hepatitis: No Hiatal Hernia: Yes Hypertension: Yes Immune Disorder: Yes Implanted Vascular Access Dvce: Yes (LUE SHUNT port) Kidney Stones: Yes Musculoskeletal: Yes Neurologic: Yes Psychiatric: Yes Reproductive: No Respiratory: No Immunizations Current: Yes Migraines: Yes Radiation Therapy: No Renal Failure: Yes Seizures: No Thyroid Disease: No Ulcer: No Tetanus Vaccination: < 5 Years Influenza Vaccination: No PNEUMOCCOCAL Vaccine (Year): 2 ?: Not Menopausal: Yes : 2 Para: 1 Miscarriage: 1 Tubal Ligation: Yes Past Surgical History Abdominal Surgery: Yes (INGUINAL HERNIA: RIGHT, GALLBLADDER REMOVED) AICD: No Arteriovenous Shunt: Yes (LEFT ARM FOR DIALYSIS IN 1989- NON FUNCTIONAL) Body Medical Devices: port fistula Cardiac Surgery: No Section: Yes Cholecystectomy: Yes Ear Surgery: No Endocrine Surgery: No Eye Surgery: No Genitourinary Surgery: Yes (RKIDNEY TRANSPLANT / LEFT DIALYSIS SHUNT) Gynecologic Surgery: Yes (C SECTIONHYSTERECTOMY ) Hysterectomy: Yes Joint Replacement: No Neurologic Surgery: No Oral Surgery: No Pacemaker: No Thoracic Surgery: No Other Surgery: Yes (SKIN CANCER REMOVED RT THIGH 09/18) Social History Alcohol Use: No Tobacco Use: Yes (5 cigs daily) Substance Use: No Allergies-Medications (Allergen,Severity, Reaction): Coded Allergies: Adhesives (Verified Allergy, Severe, HIVES, 07/19/16) DISOLVABLE SUTURE MATERAL Levaquin (Verified Allergy, Intermediate, HIVES/ITCHING, 07/19/16) Keflex (Verified Adverse Reaction, Intermediate, HIVES/VOMITING, 07/19/16) Procardia (Verified Adverse Reaction, Intermediate, VOMITING, 07/19/16) *MDRO Multi-Drug Resistant Organism (Verified Adverse Reaction, Unknown, ) 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 MRSA PCR Screens negative 10/29/14 and 11/16/14. Uncoded Allergies: suture material (Adverse Reaction, Severe, SKIN INFECTION, 07/19/16) PT STATES DISSOLVING ONES [place] NOT DISSOLVE AND HAVE TO BE PHYSICALLY REMOVED.. Reported Meds & Prescriptions Reported Meds & Active Scripts Active Zofran Odt (Ondansetron Odt) 4 Mg Tab 4 Mg SL Q6HR PRN Phenergan Supp (Promethazine HCl) 25 Mg Supp 25 Mg RECTAL Q6H PRN Phenergan (Promethazine HCl) 25 Mg Tab 25 Mg PO Q6H PRN Metoclopramide (Metoclopramide HCl) 5 Mg Tab 5 Mg PO TIDAC Reported Losartan (Losartan Potassium) 25 Mg Tab 50 Mg PO DAILY Metformin (Metformin HCl) 500 Mg Tab 500 Mg PO HS With a meal Prednisone 10 Mg Tab 10 Mg PO HS Magnesium Oxide 400 Mg Tab 400 Mg PO BID Cyclosporine 25 Mg Cap 75 Mg PO BID Mycophenolate (Mycophenolate Mofetil) 500 Mg Tab 500 Mg PO BID Atenolol 50 Mg Tab 50 Mg PO HS Review of Systems Except as stated in HPI: all other systems reviewed are Neg Physical Exam Narrative GENERAL: Middle age well-developed female patient currently in mild distress. Awake and oriented 3. SKIN: Focused skin assessment warm/dry. HEAD: Atraumatic. Normocephalic. EYES: Pupils equal and round. No scleral icterus. No injection or drainage. ENT: No nasal bleeding or discharge. Mucous membranes pink and moist. NECK: Trachea midline. No JVD. CARDIOVASCULAR: Regular rate and rhythm. No murmur appreciated. RESPIRATORY: No accessory muscle use. Clear to auscultation. Breath sounds equal bilaterally. GASTROINTESTINAL: Abdomen soft, mild left lower quadrant tenderness without guarding or rebound, nondistended. Hepatic and splenic margins not palpable. MUSCULOSKELETAL: No obvious deformities. No clubbing. No cyanosis. No edema. NEUROLOGICAL: Awake and alert. No obvious cranial nerve deficits. Motor grossly within normal limits. Normal speech. PSYCHIATRIC: Appropriate mood and affect; insight and judgment normal. Data Data Last Documented VS Vital Signs Date Time Temp Pulse Resp B/P Pulse Ox O2 Delivery O2 Flow Rate FiO2 07/19/16 12:49 18 07/19/16 12:49 66 152/88 100 Room Air 07/19/16 10:08 97.9 Orders Complete Blood Count With Diff (07/19/16 11:03) Comprehensive Metabolic Panel (07/19/16 11:03) Lipase (07/19/16 11:03) Urinalysis - C+S If Indicated (07/19/16 11:03) Iv Access Insert/Monitor (07/19/16 11:03) Ecg Monitoring (07/19/16 11:03) Oximetry (07/19/16 11:03) Ondansetron Inj (Zofran Inj) (07/19/16 11:15) Sodium Chloride 0.9% Flush (Ns Flush) (07/19/16 11:15) Hydromorphone Pf Inj (Dilaudid Pf Inj) (07/19/16 11:15) Hydromorphone Pf Inj (Dilaudid Pf Inj) (07/19/16 12:15) Ondansetron Inj (Zofran Inj) (07/19/16 12:15) Urine Culture (07/19/16 11:50) Labs Laboratory Tests Test 07/19/16 07/19/16 11:45 11:50 White Blood Count 9.0 TH/MM3 Red Blood Count 5.74 MIL/MM3 Hemoglobin 17.8 GM/DL Hematocrit 52.4 % Mean Corpuscular Volume 91.3 FL Mean Corpuscular Hemoglobin 30.9 PG Mean Corpuscular Hemoglobin 33.9 % Concent Red Cell Distribution Width 13.8 % Platelet Count 160 TH/MM3 Mean Platelet Volume 10.7 FL Neutrophils (%) (Auto) 62.1 % Lymphocytes (%) (Auto) 23.2 % Monocytes (%) (Auto) 6.8 % Eosinophils (%) (Auto) 5.4 % Basophils (%) (Auto) 2.5 % Neutrophils # (Auto) 5.6 TH/MM3 Lymphocytes # (Auto) 2.1 TH/MM3 Monocytes # (Auto) 0.6 TH/MM3 Eosinophils # (Auto) 0.5 TH/MM3 Basophils # (Auto) 0.2 TH/MM3 CBC Comment DIFF FINAL Differential Comment Sodium Level 146 MEQ/L Potassium Level 4.2 MEQ/L Chloride Level 113 MEQ/L Carbon Dioxide Level 22.3 MEQ/L Anion Gap 11 MEQ/L Blood Urea Nitrogen 30 MG/DL Creatinine 1.50 MG/DL Estimat Glomerular Filtration 37 ML/MIN Rate Random Glucose 83 MG/DL Calcium Level 9.6 MG/DL Total Bilirubin 1.7 MG/DL Aspartate Amino Transf 16 U/L (AST/SGOT) Alanine Aminotransferase 21 U/L (ALT/SGPT) Alkaline Phosphatase 113 U/L Total Protein 7.3 GM/DL Albumin 3.7 GM/DL Lipase 258 U/L Urine Collection Type CLEAN CATCH Urine Color YELLOW Urine Turbidity CLEAR Urine pH 5.5 Urine Specific [place] 1.017 Urine Protein TRACE mg/dL Urine Glucose (UA) NEG mg/dL Urine Ketones NEG mg/dL Urine Occult Blood TRACE Urine Nitrite NEG Urine Bilirubin NEG Urine Leukocyte Esterase NEG Urine RBC 0-3 /hpf Urine WBC 9-14 /hpf Urine Squamous Epithelial > 8 /hpf Cells Urine Bacteria OCC /hpf Microscopic Urinalysis Comment CULTURE INDICATED Urine Collection Time 11:50 MDM Medical Decision Making Medical Screen Exam Complete: Yes Emergency Medical Condition: Yes Medical Record Reviewed: Yes Interpretation(s) Laboratory Tests Test 07/19/16 07/19/16 11:45 11:50 Red Blood Count 5.74 MIL/MM3 (4.00-5.30) Hemoglobin 17.8 GM/DL (11.6-15.3) Hematocrit 52.4 % (35.0-46.0) Eosinophils (%) (Auto) 5.4 % (0.0-4.0) Basophils (%) (Auto) 2.5 % (0.0-2.0) Eosinophils # (Auto) 0.5 TH/MM3 (0-0.4) Sodium Level 146 MEQ/L (136-145) Chloride Level 113 MEQ/L (98-107) Blood Urea Nitrogen 30 MG/DL (7-18) Creatinine 1.50 MG/DL (0.50-1.00) Estimat Glomerular Filtration 37 ML/MIN (>89) Rate Total Bilirubin 1.7 MG/DL (0.2-1.0) Urine Occult Blood TRACE (NEG) Urine WBC 9-14 /hpf (0-5) Urine Squamous Epithelial > 8 /hpf (0-5) Cells Urine Bacteria OCC /hpf (NONE) Differential Diagnosis Nausea, vomiting, abdominal pains, elevated blood pressureshypertensive urgency versus pain related hypertension versus anxiety versus chronic hypertension which is poorly controlled versus electrolyte abnormalities versus dehydration versus acute intra-abdominal processes. Narrative Course Patient states that the abdominal pain has not changed. She had a workup done recently which is unremarkable. She is mildly tender left lower quadrant. She has had a cholecystectomy at this point and her lab work shows no signs of acute dehydration, metabolic issues, or other signs of acute processes. She has no leukocytosis. She does have a UA which may be causing some symptoms. My plan would be to treat her UTI. She was given pain medication and nausea medications in the ER. On reevaluation at 1 PM, her blood pressure had improved on its own. Patient had taken her own morning medications. At this point, my plan would be to release the patient would follow-up to primary care physician for chronic hypertension treatment. We will give her some symptomatic treatment for abdominal pains. Return for any worsening in symptoms as necessary. The plan has discussed with her and she states understanding. Diagnosis Primary Impression: Urinary tract infection Additional Impressions: Chronic abdominal pain Hypertension Med/Other Pt SpecificInfo: Prescription(s) given Scripts Promethazine (Phenergan)25 Mg Tab25 Mg PO Q6H PRN (Nausea/Vomiting) #10 TAB Ref 0 Prov:Maureen Campos MD 07/19/16 Nitrofurantoin Monohydrate Macrocrystals (Macrobid)100 Mg [id number] Mg PO BID 7 Days Ref 0 Prov:Maureen Campos MD 07/19/16 Dicyclomine (Bentyl)10 Mg Cap10 Mg PO TID PRN (Bowel Management) #15 CAP Ref 0 Prov:Maureen Campos MD 07/19/16 Disposition: 01 DISCHARGE HOME Condition: Stable Maureen Campos MD July 19, 2016 13:04
[2016-08-02] MEDS ORDERED: PROM12.54 PO (10:27)
[2016-08-02] MEDS ORDERED: WHEEMIS3 (10:53)
[2016-08-02] MEDS ORDERED: CLON.1 PO (11:04)
[2016-08-02] MEDS ORDERED: CLON0.1T PO (11:07)
[2016-08-17] MEDS ORDERED: LOSA50TA PO (11:07)
[2016-08-17] MEDS ORDERED: ATOR10TA15 PO (11:07)
== END 2016-07-19 13:17 | disposition home or self-care (01) ==
LOC: PHED 10:03
DX: N39.0 Urinary tract infection, site not specified (principal); R10.32 Left lower quadrant pain; I10 Essential (primary) hypertension; M32.9 Systemic lupus erythematosus, unspecified; K21.9 Gastro-esophageal reflux disease without esophagitis; E11.9 Type 2 diabetes mellitus without complications; F41.9 Anxiety disorder, unspecified; Z79.899 Other long term (current) drug therapy; Z94.0 Kidney transplant status
CPT/HCPCS: 80053; 81001; 83690; 85025; 87086; 96372; 99284; J1170; J2405

== ENCOUNTER 2016-07-23 13:02 | Emergency (ER) | payer MEDICAID ==
[~2016-07-23] VITALS: Ht 170.2 cm; Wt 96.5 kg
[~2016-07-23 13:02] MED LIST changes: -ALBUAER3 INH; +DICY10 PO; +MACR100C2 PO
[2016-07-23 13:06] VITALS: PULSE 115; RESP 20; TEMP 97.6; O2SAT 96
[2016-07-23] MEDS ORDERED: ONDANSETRON HCL 4 MG/2 ML VIAL IM ONE (13:45)
[2016-07-23] MEDS ORDERED: HYDROmorphone HCL PF 2 MG/ML VIAL IM ONE (13:45)
--- NOTE | 2016-07-23 13:59 | PD ---
HPI Chief Complaint: Flank/Kidney Pain Time Seen by Provider: 13:17 Travel History International Travel<30 days: No Contact w/Intl Traveler<30days: No Traveled to known affect area: No History of Present Illness HPI The patient was seen and examined in the presence of the nurse. At no point in time was I in the room without the nurse present. When into the room she is tearful and sobbing. This patient has chronic pain. She is come here approximately 7 times in the last month for the same thing. She has chronic left-sided pain over at least the last 8 months. She has chronic abdominal pain. She saw her primary physician 6 days ago and was referred to pain management but the referral has not happened yet. She was seen here 4 days ago and had extensive workup which was negative. No acute injury. No fever. She has history of renal transplant. Patient is wheelchair dependent for any distance due to chronic back pain. duration of symptoms is chronic over 8 months PFSH Past Medical History Arthritis: Yes Autoimmune Disease: Yes (LUPUS) Anxiety: Yes (PANIC ATTACKS) Depression: No Heart Rhythm Problems: No Cancer: Yes (SKIN) Cardiovascular Problems: Yes (HTN) High Cholesterol: Yes Chemotherapy: No Chest Pain: No Congestive Heart Failure: No Cerebrovascular Accident: No Diabetes: Yes Patient Takes Glucophage: No Diminished Hearing: No Endocrine: Yes Gastrointestinal Disorders: Yes (GASTROPORESIS) GERD: Yes Genitourinary: Yes (KIDNEY TRANSPLANT: MAY 13, 1987 ON R SIDE. ) Headaches: No Hepatitis: No Hiatal Hernia: Yes Hypertension: Yes Immune Disorder: Yes Implanted Vascular Access Dvce: Yes (LUE SHUNT port) Kidney Stones: Yes Musculoskeletal: Yes Neurologic: Yes Psychiatric: Yes Reproductive: No Respiratory: No Immunizations Current: Yes Migraines: Yes Radiation Therapy: No Renal Failure: Yes Seizures: No Thyroid Disease: No Ulcer: No PNEUMOCCOCAL Vaccine (Year): 2 ?: Not Menopausal: Yes : 2 Para: 1 Miscarriage: 1 Tubal Ligation: Yes Past Surgical History Abdominal Surgery: Yes (INGUINAL HERNIA: RIGHT, GALLBLADDER REMOVED) AICD: No Arteriovenous Shunt: Yes (LEFT ARM FOR DIALYSIS IN 1989- NON FUNCTIONAL) Body Medical Devices: port fistula Cardiac Surgery: No Section: Yes Cholecystectomy: Yes Ear Surgery: No Endocrine Surgery: No Eye Surgery: No Genitourinary Surgery: Yes (RKIDNEY TRANSPLANT / LEFT DIALYSIS SHUNT) Gynecologic Surgery: Yes (C SECTIONHYSTERECTOMY ) Hysterectomy: Yes Joint Replacement: No Neurologic Surgery: No Oral Surgery: No Pacemaker: No Thoracic Surgery: No Other Surgery: Yes (SKIN CANCER REMOVED RT THIGH 09/18) Social History Alcohol Use: No Tobacco Use: Yes (5 cigs daily) Substance Use: No Allergies-Medications (Allergen,Severity, Reaction): Coded Allergies: Adhesives (Verified Allergy, Severe, HIVES, 07/23/16) DISOLVABLE SUTURE MATERAL Levaquin (Verified Allergy, Intermediate, HIVES/ITCHING, 07/23/16) Keflex (Verified Adverse Reaction, Intermediate, HIVES/VOMITING, 07/23/16) Procardia (Verified Adverse Reaction, Intermediate, VOMITING, 07/23/16) *MDRO Multi-Drug Resistant Organism (Verified Adverse Reaction, Unknown, ) 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 MRSA PCR Screens negative 10/29/14 and 11/16/14. Uncoded Allergies: suture material (Adverse Reaction, Severe, SKIN INFECTION, 07/19/16) PT STATES DISSOLVING ONES [place]MON[place] NOT DISSOLVE AND HAVE TO BE PHYSICALLY REMOVED.. Reported Meds & Prescriptions Reported Meds & Active Scripts Active Phenergan (Promethazine HCl) 25 Mg Tab 25 Mg PO Q6H PRN Macrobid (Nitrofurantoin Monoh/Nitrofur Macro) 100 Mg Cap 100 Mg PO BID 7 Days Bentyl (Dicyclomine HCl) 10 Mg Cap 10 Mg PO TID PRN Zofran Odt (Ondansetron Odt) 4 Mg Tab 4 Mg SL Q6HR PRN Phenergan Supp (Promethazine HCl) 25 Mg Supp 25 Mg RECTAL Q6H PRN Phenergan (Promethazine HCl) 25 Mg Tab 25 Mg PO Q6H PRN Metoclopramide (Metoclopramide HCl) 5 Mg Tab 5 Mg PO TIDAC Reported Losartan (Losartan Potassium) 25 Mg Tab 50 Mg PO DAILY Metformin (Metformin HCl) 500 Mg Tab 500 Mg PO HS With a meal Prednisone 10 Mg Tab 10 Mg PO HS Magnesium Oxide 400 Mg Tab 400 Mg PO BID Cyclosporine 25 Mg Cap 75 Mg PO BID Mycophenolate (Mycophenolate Mofetil) 500 Mg Tab 500 Mg PO BID Atenolol 50 Mg Tab 50 Mg PO HS Review of Systems General / Constitutional: No: Fever HENT: No: Headaches Cardiovascular: No: Chest Pain or Discomfort (home brother) Respiratory: No: Cough Musculoskeletal: Positive: Pain Physical Exam Narrative Gen.: Disheveled female in a position moaning and crying and tearful She is very Challenging to evaluate Basically anywhere I touch she screams in pain. SKIN: Focused skin assessment reveals no rash or ulcers. Skin is warm and dry. Palpation shows no induration or nodules. GASTROINTESTINAL: Abdomen soft, but tender everywhere. Positive bowel sounds. No hepato-splenomegaly, or palpable masses. No guarding. Data Data Last Documented VS Vital Signs Date Time Temp Pulse Resp B/P Pulse Ox O2 Delivery O2 Flow Rate FiO2 07/23/16 13:06 97.6 115 20 96 Orders Ondansetron Inj (Zofran Inj) (07/23/16 13:45) Hydromorphone Pf Inj (Dilaudid Pf Inj) (07/23/16 13:45) MDM Medical Decision Making Medical Screen Exam Complete: Yes Emergency Medical Condition: Yes Medical Record Reviewed: Yes Differential Diagnosis Chronic pain syndrome, psychosis, narcotic withdrawal Narrative Course I have reviewed the patient's electronic medical record. Reviewed her visit from 4 days ago which was negative including urine culture and lab studies Patient is a 14 CTs of abdomen and pelvis since 2007 Last one was negative for any problem acutely Has noted, this patient is very challenging to take care of. She describes up and moans and cries and wants pain medicine. I put a lot of thought into what type of workup might be appropriate but I don't think repeating the same things over and over again is going to change any management. Her doctor would like to get her to pain management which seems appropriate at this time. I don't have any clinical suspicion of something truly emergent happening here. I think there are some emotional/psychiatric factors going on here. I gave her 1 injection of Dilaudid and Zofran for symptom relief I believe she should follow-up with her primary care physician and lead inspector and pain management physician. Possibly psychiatry evaluation would be helpful Diagnosis Primary Impression: Chronic abdominal pain Additional Impression: Back pain Qualified Code: M54.5 - Chronic low back pain without sciatica, unspecified back pain laterality Additional Instructions: The patient was advised to follow up with primary care physician and lead inspector and pain management referral Med/Other Pt SpecificInfo: Other Disposition: 01 DISCHARGE HOME Condition: Stable César Galan MD July 23, 2016 13:59
[2016-07-23 14:25] VITALS: BP 147/81; PULSE 94; RESP 16; O2SAT 94
[2016-08-02] MEDS ORDERED: PROM12.54 PO (10:27)
[2016-08-02] MEDS ORDERED: WHEEMIS3 (10:53)
[2016-08-02] MEDS ORDERED: CLON.1 PO (11:04)
[2016-08-02] MEDS ORDERED: CLON0.1T PO (11:07)
[2016-08-17] MEDS ORDERED: LOSA50TA PO (11:07)
[2016-08-17] MEDS ORDERED: ATOR10TA15 PO (11:07)
== END 2016-07-23 14:30 | disposition home or self-care (01) ==
LOC: PHED 13:02
DX: R10.9 Unspecified abdominal pain (principal); G89.29 Other chronic pain; M54.9 Dorsalgia, unspecified; E11.9 Type 2 diabetes mellitus without complications; I10 Essential (primary) hypertension; K21.9 Gastro-esophageal reflux disease without esophagitis; M32.9 Systemic lupus erythematosus, unspecified; M19.90 Unspecified osteoarthritis, unspecified site; F17.210 Nicotine dependence, cigarettes, uncomplicated
CPT/HCPCS: 96372; 99283; J1170; J2405

== ENCOUNTER 2016-07-27 12:01 | Emergency (ER) | payer MEDICAID ==
[~2016-07-27] VITALS: Ht 170.2 cm; Wt 95.9 kg
[2016-07-27 12:07] VITALS: BP 174/127; PULSE 103; RESP 20; O2SAT 96
[2016-07-27 13:00] LABS: AUTOMATED NEUTROPHIL # 5.1 TH/MM3 (1.8-7.7); BASOPHIL # 0.1 TH/MM3 (0-0.2); BASOPHIL % 0.7 % (0.0-2.0); EOSINOPHIL # 1.2 TH/MM3 (0-0.4); EOSINOPHIL % 12.9 % (0.0-4.0); HEMO FLAGS DIFF FINAL; LYMPH % 24.6 % (9.0-44.0); LYMPHOCYTE # 2.3 TH/MM3 (1.0-4.8); MEAN CELL VOLUME 91.5 FL (80.0-100.0); MEAN CORPUSCULAR HEMOGLOBIN 30.2 PG (27.0-34.0); MONO % 7.8 % (0.0-8.0); PLATELET COUNT 164 TH/MM3 (150-450); RED BLOOD COUNT 5.68 MIL/MM3 (4.00-5.30); RED CELL DISTRIBUTION WIDTH 14.3 % (11.6-17.2); WHITE BLOOD COUNT 9.4 TH/MM3 (4.0-11.0)
[2016-07-27] MEDS ORDERED: ONDANSETRON HCL 4 MG/2 ML VIAL IV ONE ×2 (13:00→14:15)
[2016-07-27 13:12] VITALS: BP 168/98; PULSE 94; RESP 18; TEMP 97.9; O2SAT 96
[2016-07-27 13:19] LABS: BICARBONATE 21.3 MEQ/L (21.0-32.0); POTASSIUM 3.2 MEQ/L (3.5-5.1)
--- NOTE | 2016-07-27 13:19 | PD ---
HPI Chief Complaint: Abdominal Pain Time Seen by Provider: 12:17 Travel History International Travel<30 days: No Contact w/Intl Traveler<30days: No Traveled to known affect area: No History of Present Illness HPI The patient was seen and examined in the presence of the nurse. This patient complains of abdominal pain. She has had chronic abdominal pain for 8-9 months. I saw her 4 days ago for the same thing. Had multiple extensive workups in this emergency room as well as from her physician. She is resistant of attempts of her primary physician to send her to pain management so she comes to the emergency room seeking a diagnosis. Complains of some nausea. No fever. Symptoms severity is moderate. It is chronic over 9 months. No alleviating factors PFSH Past Medical History Arthritis: Yes Autoimmune Disease: Yes (LUPUS) Anxiety: Yes (PANIC ATTACKS) Depression: No Heart Rhythm Problems: No Cancer: Yes (SKIN) Cardiovascular Problems: Yes (HTN) High Cholesterol: Yes Chemotherapy: No Chest Pain: No Congestive Heart Failure: No Cerebrovascular Accident: No Diabetes: Yes (METFORMIN) Patient Takes Glucophage: Yes Diminished Hearing: No Endocrine: Yes Gastrointestinal Disorders: Yes (GASTROPORESIS) GERD: Yes Genitourinary: Yes (KIDNEY TRANSPLANT: MAY 13, 1987 ON R SIDE. ) Headaches: No Hepatitis: No Hiatal Hernia: Yes Hypertension: Yes Immune Disorder: Yes Implanted Vascular Access Dvce: Yes (LUE SHUNT port) Kidney Stones: Yes Musculoskeletal: Yes Neurologic: Yes Psychiatric: Yes Reproductive: No Respiratory: No Immunizations Current: Yes Migraines: Yes Radiation Therapy: No Renal Failure: Yes Seizures: No Thyroid Disease: No Ulcer: No PNEUMOCCOCAL Vaccine (Year): 2 ?: Not Menopausal: Yes : 2 Para: 1 Miscarriage: 1 Tubal Ligation: Yes Past Surgical History Abdominal Surgery: Yes (INGUINAL HERNIA: RIGHT) AICD: No Arteriovenous Shunt: Yes (LEFT ARM FOR DIALYSIS IN 1989- NON FUNCTIONAL) Body Medical Devices: port fistula Cardiac Surgery: No Section: Yes Cholecystectomy: Yes Ear Surgery: No Endocrine Surgery: No Eye Surgery: No Genitourinary Surgery: Yes (KIDNEY TRANSPLANT / LEFT DIALYSIS SHUNT) Gynecologic Surgery: Yes Hysterectomy: Yes Joint Replacement: No Neurologic Surgery: No Oral Surgery: No Pacemaker: No Thoracic Surgery: No Other Surgery: Yes (SKIN CANCER REMOVED RT THIGH 09/18) Social History Alcohol Use: No Tobacco Use: Yes (5 cigs daily) Substance Use: No Allergies-Medications (Allergen,Severity, Reaction): Coded Allergies: Adhesives (Verified Allergy, Severe, HIVES, 07/27/16) DISOLVABLE SUTURE MATERAL Levaquin (Verified Allergy, Intermediate, HIVES/ITCHING, 07/27/16) Keflex (Verified Adverse Reaction, Intermediate, HIVES/VOMITING, 07/27/16) Procardia (Verified Adverse Reaction, Intermediate, VOMITING, 07/27/16) *MDRO Multi-Drug Resistant Organism (Verified Adverse Reaction, Unknown, ) 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 MRSA PCR Screens negative 10/29/14 and 11/16/14. Uncoded Allergies: suture material (Adverse Reaction, Severe, SKIN INFECTION, 07/19/16) PT STATES DISSOLVING ONES [place] NOT DISSOLVE AND HAVE TO BE PHYSICALLY REMOVED.. Reported Meds & Prescriptions Reported Meds & Active Scripts Active Phenergan (Promethazine HCl) 25 Mg Tab 25 Mg PO Q6H PRN Macrobid (Nitrofurantoin Monoh/Nitrofur Macro) 100 Mg Cap 100 Mg PO BID 7 Days Bentyl (Dicyclomine HCl) 10 Mg Cap 10 Mg PO TID PRN Zofran Odt (Ondansetron Odt) 4 Mg Tab 4 Mg SL Q6HR PRN Phenergan Supp (Promethazine HCl) 25 Mg Supp 25 Mg RECTAL Q6H PRN Phenergan (Promethazine HCl) 25 Mg Tab 25 Mg PO Q6H PRN Metoclopramide (Metoclopramide HCl) 5 Mg Tab 5 Mg PO TIDAC Reported Losartan (Losartan Potassium) 25 Mg Tab 50 Mg PO DAILY Metformin (Metformin HCl) 500 Mg Tab 500 Mg PO HS With a meal Prednisone 10 Mg Tab 10 Mg PO HS Magnesium Oxide 400 Mg Tab 400 Mg PO BID Cyclosporine 25 Mg Cap 75 Mg PO BID Mycophenolate (Mycophenolate Mofetil) 500 Mg Tab 500 Mg PO BID Atenolol 50 Mg Tab 50 Mg PO HS Review of Systems General / Constitutional: No: Fever Eyes: No: Visual changes HENT: No: Headaches Cardiovascular: No: Chest Pain or Discomfort Respiratory: No: Shortness of Breath Gastrointestinal: Positive: Nausea, Abdominal Pain Genitourinary: No: Dysuria Musculoskeletal: No: Pain Skin: No Rash Neurologic: No: Weakness Psychiatric: No: Depression Endocrine: No: Polydipsia Hematologic/Lymphatic: No: Easy Bruising Physical Exam Narrative GENERAL: Well-nourished, well-developed patient in no apparent distress. SKIN: Focused skin assessment reveals erythematous macular rash on the anterior chest without nodules. Skin is Warm and dry. HEAD: Atraumatic. Normocephalic. EYES: Pupils equal and round. No scleral icterus. No injection or drainage. ENT: No nasal bleeding or discharge. Mucous membranes pink and moist. NECK: Trachea midline. No JVD. CARDIOVASCULAR: Regular rate and rhythm. No murmur appreciated. RESPIRATORY: No accessory muscle use. Clear to auscultation. Breath sounds equal bilaterally. GASTROINTESTINAL: Abdomen soft, non-tender, nondistended. Hepatic and splenic margins not palpable. MUSCULOSKELETAL: No obvious deformities. No clubbing. No cyanosis. No edema. NEUROLOGICAL: Awake and alert. No obvious cranial nerve deficits. Motor grossly within normal limits. Normal speech. PSYCHIATRIC: Appropriate mood and affect; insight and judgment normal. Data Data Last Documented VS Vital Signs Date Time Temp Pulse Resp B/P Pulse Ox O2 Delivery O2 Flow Rate FiO2 07/27/16 14:55 111 18 168/80 97 Room Air 07/27/16 13:12 97.9 Orders Complete Blood Count With Diff (07/27/16 12:46) Basic Metabolic Panel (Bmp) (07/27/16 12:46) Iv Access Insert/Monitor (07/27/16 12:46) Ondansetron Inj (Zofran Inj) (07/27/16 13:00) Ondansetron Inj (Zofran Inj) (07/27/16 14:15) Prochlorperazine Inj (Compazine Inj) (07/27/16 14:15) Labs Laboratory Tests Test 07/27/16 07/27/16 12:40 12:46 Sodium Level 143 MEQ/L Potassium Level 3.2 MEQ/L Chloride Level 110 MEQ/L Carbon Dioxide Level 21.3 MEQ/L Anion Gap 12 MEQ/L Blood Urea Nitrogen 12 MG/DL Creatinine 1.20 MG/DL Estimat Glomerular Filtration 48 ML/MIN Rate Random Glucose 89 MG/DL Calcium Level 9.3 MG/DL White Blood Count 9.4 TH/MM3 Red Blood Count 5.68 MIL/MM3 Hemoglobin 17.2 GM/DL Hematocrit 52.0 % Mean Corpuscular Volume 91.5 FL Mean Corpuscular Hemoglobin 30.2 PG Mean Corpuscular Hemoglobin 33.0 % Concent Red Cell Distribution Width 14.3 % Platelet Count 164 TH/MM3 Mean Platelet Volume 10.7 FL Neutrophils (%) (Auto) 54.0 % Lymphocytes (%) (Auto) 24.6 % Monocytes (%) (Auto) 7.8 % Eosinophils (%) (Auto) 12.9 % Basophils (%) (Auto) 0.7 % Neutrophils # (Auto) 5.1 TH/MM3 Lymphocytes # (Auto) 2.3 TH/MM3 Monocytes # (Auto) 0.7 TH/MM3 Eosinophils # (Auto) 1.2 TH/MM3 Basophils # (Auto) 0.1 TH/MM3 CBC Comment DIFF FINAL Differential Comment MDM Medical Decision Making Medical Screen Exam Complete: Yes Emergency Medical Condition: Yes Medical Record Reviewed: Yes Differential Diagnosis Chronic abdominal pain, malingering, narcotic seeking behavior Narrative Course I have reviewed the patient's electronic medical record. Reviewed her visit from 4 days ago. Reviewed her last CT scan which was negative. IV placed CBC is normal Metabolic profile reasonably normal I gave her IV Zofran Her abdomen is soft and benign and nontender. No clinical suspicion of emergent intra-abdominal process. Gave her additional Zofran and Compazine for nausea Prescription for Phenergan provided Stable for outpatient follow-up. She says she has referral to GI Diagnosis Primary Impression: Chronic abdominal pain Additional Impression: Nausea vomiting and diarrhea Additional Instructions: The patient was advised to follow up with their physician and return if they worsen. The patient was warned about potential sedation for the medications they will receive on prescription. I have recommended clear liquids for 24 hours, then gradually advance as tolerated. Med/Other Pt SpecificInfo: Prescription(s) given Scripts Promethazine (Phenergan)25 Mg Tab25 Mg PO Q6H PRN (Nausea/Vomiting) #10 TAB Ref 0 Prov:César Galan MD 07/27/16 Disposition: 01 DISCHARGE HOME Condition: Stable César Galan MD July 27, 2016 13:19
[2016-07-27] MEDS ORDERED: PROCHLORPERAZINE INJ 10 MG/2 ML VIAL IV PUSH ONE (14:15)
[2016-07-27 14:55] VITALS: BP 168/80; PULSE 111; RESP 18; O2SAT 97
[2016-07-27] MEDS ORDERED: PROM25TA5 PO (14:56)
[2016-08-02] MEDS ORDERED: PROM12.54 PO (10:27)
[2016-08-02] MEDS ORDERED: WHEEMIS3 (10:53)
[2016-08-02] MEDS ORDERED: CLON.1 PO (11:04)
[2016-08-02] MEDS ORDERED: CLON0.1T PO (11:07)
[2016-08-17] MEDS ORDERED: ATOR10TA15 PO (11:07)
[2016-08-17] MEDS ORDERED: LOSA50TA PO (11:07)
== END 2016-07-27 15:31 | disposition home or self-care (01) ==
LOC: NEPE 12:01
DX: R10.9 Unspecified abdominal pain (principal); G89.29 Other chronic pain; R19.7 Diarrhea, unspecified; R11.2 Nausea with vomiting, unspecified; I10 Essential (primary) hypertension; E11.9 Type 2 diabetes mellitus without complications; Z72.0 Tobacco use
CPT/HCPCS: 80048; 85025; 96374; 96375; 96376; 99284; J0780; J2405

== ENCOUNTER 2016-09-12 07:59 | Observation (INO) | payer MEDICAID ==
[~2016-09-12] VITALS: Ht 170.2 cm; Wt 96.0 kg
[2016-09-12] VITALS (7 sets, daily range): BP systolic 106–185; BP diastolic 77–120; PULSE 66–84; RESP 16–18; TEMP 97.5–98.7; O2SAT 92–98
[~2016-09-12 07:59] MED LIST changes: +ATOR10TA15 PO; +CLON0.1T PO; -LOSA25TA PO; +LOSA50TA PO; -MACR100C2 PO; +PROM12.54 PO; -PROM25TA5 PO; +WHEEMIS3
[2016-09-12] MEDS ORDERED: SODIUM CHLOR 0.9% 1000 ML INJ 1,000 ML IV SCH (08:21)
--- NOTE | 2016-09-12 08:28 | PD ---
HPI Chief Complaint: Abdominal Pain Time Seen by Provider: 08:16 Travel History International Travel<30 days: No Contact w/Intl Traveler<30days: No Traveled to known affect area: No History of Present Illness HPI 50yo F presents to the ED with c/o lower abdominal pain for 3 days. States pain is constant, more on left lower abdomen and associated with NBNB vomiting. States she had episodes of gush of bright red blood from rectum yesterday and today. Denies any fever, chest pain, sob, dysuria, hematuria. Pt states she had endoscopy over 10 years ago and told she had gastritis. Never had colonoscopy and has not followed up with GI. Pt has history of chronic abdominal pain has per our record. Had renal transplant, , cholecystectomy. PFSH Past Medical History Arthritis: Yes Autoimmune Disease: Yes (LUPUS) Anxiety: Yes (PANIC ATTACKS) Depression: No Heart Rhythm Problems: No Cancer: Yes (SKIN) Cardiovascular Problems: Yes (HTN) High Cholesterol: Yes Chemotherapy: No Chest Pain: No Congestive Heart Failure: No Cerebrovascular Accident: No Diabetes: Yes Patient Takes Glucophage: Yes (METFORMIN 09/11/16) Diminished Hearing: No Endocrine: Yes Gastrointestinal Disorders: Yes (GASTROPORESIS) GERD: Yes Genitourinary: Yes (KIDNEY TRANSPLANT: MAY 13, 1989 ON R SIDE. ) Headaches: No Hepatitis: No Hiatal Hernia: Yes Hypertension: Yes Immune Disorder: Yes Implanted Vascular Access Dvce: Yes (LUE SHUNT port) Kidney Stones: Yes Musculoskeletal: Yes Neurologic: Yes Psychiatric: Yes Reproductive: No Respiratory: No Immunizations Current: Yes Migraines: Yes Radiation Therapy: No Renal Failure: Yes Seizures: No Thyroid Disease: No Ulcer: No PNEUMOCCOCAL Vaccine (Year): 2 ?: Not Menopausal: Yes : 2 Para: 1 Miscarriage: 1 Tubal Ligation: Yes Past Surgical History Abdominal Surgery: Yes (INGUINAL HERNIA: RIGHT) AICD: No Arteriovenous Shunt: Yes (LEFT ARM FOR DIALYSIS IN 1989- NON FUNCTIONAL) Body Medical Devices: AV SHUNT TO LEFT ARM Cardiac Surgery: No Section: Yes Cholecystectomy: Yes Ear Surgery: No Endocrine Surgery: No Eye Surgery: No Genitourinary Surgery: Yes (KIDNEY TRANSPLANT / LEFT DIALYSIS SHUNT) Gynecologic Surgery: Yes Hysterectomy: Yes Joint Replacement: No Neurologic Surgery: No Oral Surgery: No Pacemaker: No Thoracic Surgery: No Other Surgery: Yes (SKIN CANCER REMOVED RT THIGH 09/18) Social History Alcohol Use: No Tobacco Use: Yes (1/2 PPD) Substance Use: No Allergies-Medications (Allergen,Severity, Reaction): Coded Allergies: Adhesives (Verified Allergy, Severe, HIVES, 09/12/16) DISOLVABLE SUTURE MATERAL Levaquin (Verified Allergy, Intermediate, HIVES/ITCHING, 09/12/16) Keflex (Verified Adverse Reaction, Intermediate, HIVES/VOMITING, 09/12/16) Procardia (Verified Adverse Reaction, Intermediate, VOMITING, 09/12/16) *MDRO Multi-Drug Resistant Organism (Verified Adverse Reaction, Unknown, ) 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 MRSA PCR Screens negative 10/29/14 and 11/16/14. Uncoded Allergies: suture material (Adverse Reaction, Severe, SKIN INFECTION, 07/19/16) PT STATES DISSOLVING ONES [place]MON[place] NOT DISSOLVE AND HAVE TO BE PHYSICALLY REMOVED.. Reported Meds & Prescriptions Reported Meds & Active Scripts Active Losartan (Losartan Potassium) 50 Mg Tab 50 Mg PO DAILY Atorvastatin (Atorvastatin Calcium) 10 Mg Tab 10 Mg PO HS Clonidine (Clonidine HCl) 0.1 Mg Tab 0.1 Mg PO BID PRN Bentyl (Dicyclomine HCl) 10 Mg Cap 10 Mg PO TID PRN Zofran Odt (Ondansetron Odt) 4 Mg Tab 4 Mg SL Q6HR PRN Phenergan Supp (Promethazine HCl) 25 Mg Supp 25 Mg RECTAL Q6H PRN Metoclopramide (Metoclopramide HCl) 5 Mg Tab 5 Mg PO TIDAC Reported Promethazine (Promethazine HCl) 12.5 Mg Tab 25 Mg PO Q4H PRN Metformin (Metformin HCl) 500 Mg Tab 500 Mg PO HS With a meal Prednisone 10 Mg Tab 10 Mg PO HS Magnesium Oxide 400 Mg Tab 400 Mg PO BID Cyclosporine 25 Mg Cap 75 Mg PO BID Mycophenolate (Mycophenolate Mofetil) 500 Mg Tab 500 Mg PO BID Atenolol 50 Mg Tab 50 Mg PO HS Review of Systems Except as stated in HPI: all other systems reviewed are Neg Physical Exam Narrative GENERAL: 50yo F in moderate distress. SKIN: Focused skin assessment warm/dry. HEAD: Atraumatic. Normocephalic. CARDIOVASCULAR: Regular rate and rhythm. No murmur appreciated. RESPIRATORY: No accessory muscle use. Clear to auscultation. Breath sounds equal bilaterally. GASTROINTESTINAL: Abdomen soft, +TTP suprapubic and LLQ. No rebound tenderness or guarding. MUSCULOSKELETAL: No obvious deformities. No clubbing. No cyanosis. No edema. NEUROLOGICAL: Awake and alert. No obvious cranial nerve deficits. Motor grossly within normal limits. Normal speech. PSYCHIATRIC: Appropriate mood and affect; insight and judgment normal. Data Data Last Documented VS Vital Signs Date Time Temp Pulse Resp B/P Pulse Ox O2 Delivery O2 Flow Rate FiO2 09/12/16 11:30 78 16 132/77 97 Room Air 09/12/16 08:00 97.5 Orders Complete Blood Count With Diff (09/12/16 08:21) Comprehensive Metabolic Panel (09/12/16 08:21) Lipase (09/12/16 08:21) Prothrombin Time / Inr (Pt) (09/12/16 08:21) Act Partial Throm Time (Ptt) (09/12/16 08:21) Urinalysis - C+S If Indicated (09/12/16 08:21) Iv Access Insert/Monitor (09/12/16 08:21) Ecg Monitoring (09/12/16 08:21) Oximetry (09/12/16 08:21) Sodium Chlor 0.9% 1000 Ml Inj (Ns 1000 M (09/12/16 08:21) Sodium Chloride 0.9% Flush (Ns Flush) (09/12/16 08:30) Electrocardiogram (09/12/16 08:21) Bhcg Screen Qualitative (09/12/16 08:21) Ondansetron Inj (Zofran Inj) (09/12/16 08:30) Morphine Inj (Morphine Inj) (09/12/16 08:30) Type And Screen (09/12/16 08:21) Vascular Access Team Consult/P PRN (09/12/16 08:21) Vascular Poc Ultrasound (09/12/16 ) Pantoprazole Inj (Protonix Inj) (09/12/16 11:00) Pantoprazole Inj (Protonix Inj) (09/12/16 11:00) Consult Gastroenterology (09/12/16 ) Ct Abd/Pel W/O Iv Contrast (09/12/16 ) (Hub Use Only)Inp Phy Cons/Ref (09/12/16 ) Admit Order (Ed Use Only) (09/12/16 13:14) Labs Laboratory Tests Test 09/12/16 09/12/16 09:52 11:16 White Blood Count 6.5 TH/MM3 Red Blood Count 5.20 MIL/MM3 Hemoglobin 16.2 GM/DL Hematocrit 49.2 % Mean Corpuscular Volume 94.5 FL Mean Corpuscular Hemoglobin 31.1 PG Mean Corpuscular Hemoglobin 32.9 % Concent Red Cell Distribution Width 16.9 % Platelet Count 149 TH/MM3 Mean Platelet Volume 10.0 FL Neutrophils (%) (Auto) 55.3 % Lymphocytes (%) (Auto) 33.4 % Monocytes (%) (Auto) 10.2 % Eosinophils (%) (Auto) 0.6 % Basophils (%) (Auto) 0.5 % Neutrophils # (Auto) 3.6 TH/MM3 Lymphocytes # (Auto) 2.2 TH/MM3 Monocytes # (Auto) 0.7 TH/MM3 Eosinophils # (Auto) 0.0 TH/MM3 Basophils # (Auto) 0.0 TH/MM3 CBC Comment DIFF FINAL Differential Comment Prothrombin Time 10.2 SEC Prothromb Time International 0.9 RATIO Ratio Activated Partial 25.6 SEC Thromboplast Time Sodium Level 140 MEQ/L Potassium Level 3.9 MEQ/L Chloride Level 105 MEQ/L Carbon Dioxide Level 26.6 MEQ/L Anion Gap 8 MEQ/L Blood Urea Nitrogen 31 MG/DL Creatinine 1.06 MG/DL Estimat Glomerular Filtration 55 ML/MIN Rate Random Glucose 93 MG/DL Calcium Level 10.1 MG/DL Total Bilirubin 1.2 MG/DL Aspartate Amino Transf 20 U/L (AST/SGOT) Alanine Aminotransferase 33 U/L (ALT/SGPT) Alkaline Phosphatase 76 U/L Troponin I 0.07 NG/ML Total Protein 6.5 GM/DL Albumin 3.3 GM/DL Lipase 111 U/L Beta HCG, Qualitative 9 MIU/ML Blood Type O NEGATIVE Antibody Screen NEGATIVE Urine Color YELLOW Urine Turbidity CLEAR Urine pH 5.5 Urine Specific [place] 1.017 Urine Protein NEG mg/dL Urine Glucose (UA) NEG mg/dL Urine Ketones NEG mg/dL Urine Occult Blood TRACE Urine Nitrite NEG Urine Bilirubin NEG Urine Urobilinogen LESS THAN 2.0 MG/DL Urine Leukocyte Esterase NEG Urine RBC 1 /hpf Urine WBC LESS THAN 1 /hpf Urine Squamous Epithelial 1 /hpf Cells Urine Mucus FEW /lpf Microscopic Urinalysis Comment CULT NOT INDICATED MDM Medical Decision Making Medical Screen Exam Complete: Yes Emergency Medical Condition: Yes Interpretation(s) EKG: NSR 71bpm. Normal axis. TWI I, aVL. Differential Diagnosis Diverticulitis vs. cystitis vs. nephrolithiasis vs. chronic abdominal pain vs. IBS Narrative Course 50yo F with abdominal pain as well as episodes of bright red blood per rectum since yesterday. Pt had an episode of bleeding in the ED. It is bright red with small clot. Labs reviewed, no leukocytosis. H/H 16.2/49.2. BUN elevated at 31, likely secondary to GI bleed. bHCG is 9 but pt states she had hysterectomy, and has not had menstruation in 15 years. Pt states she followed up with Dr. rPado and had cancerous cyst in labia before. Will have pt follow up. UA showed no leukocyte. culture not indicated. I discussed with Dr. Kang who states pt can follow up as an outpatient. Pt given protonix. CTa/p showed stable CT compared to prior. No new or significant changes. Pt reevaluated at bedside and states she is uncomfortable with follow up as outpatient since she is actively bleeding. Pt is feeling generalized weakness and states she cant walk because of how weak she is. Discussed with resident physician and will admit for observation or GI bleed and monitor H/H. HemaPrompt Point of Care Internal Pos. & Neg. Controls: Passed Fecal Specimen Occult Blood: Positive Diagnosis Primary Impression: GI bleed Qualified Code: K92.2 - Gastrointestinal hemorrhage, unspecified gastrointestinal hemorrhage type Admitting Information Admitting Physician Requests: Observation Rabia Mosher DO Sep 12, 2016 08:28
[2016-09-12] MEDS ORDERED: MORPHINE SULFATE 4 MG/ML INJ IV PUSH ONE (08:30)
[2016-09-12] MEDS ORDERED: ONDANSETRON HCL 4 MG/2 ML VIAL IV PUSH ONE (08:30)
[2016-09-12] MEDS ORDERED: SODIUM CHLORIDE 0.9% FLUSH 10 ML FLUSH IV FLUSH PRN ×2 (08:30→13:45)
[2016-09-12 10:18] LABS: AUTOMATED NEUTROPHIL # 3.6 TH/MM3 (1.8-7.7); BASOPHIL % 0.5 % (0.0-2.0); EOSINOPHIL % 0.6 % (0.0-4.0); HEMATOCRIT 49.2 % (35.0-46.0); HEMO FLAGS DIFF FINAL; LYMPH % 33.4 % (9.0-44.0); LYMPHOCYTE # 2.2 TH/MM3 (1.0-4.8); MEAN CELL VOLUME 94.5 FL (80.0-100.0); MEAN CORPUSCULAR HEMOGLOBIN 31.1 PG (27.0-34.0); MEAN CORPUSCULAR HGB CONC 32.9 % (32.0-36.0); MONO % 10.2 % (0.0-8.0); NEUT % 55.3 % (16.0-70.0); PLATELET COUNT 149 TH/MM3 (150-450); RED CELL DISTRIBUTION WIDTH 16.9 % (11.6-17.2); WHITE BLOOD COUNT 6.5 TH/MM3 (4.0-11.0)
[2016-09-12 10:31] LABS: APTT (PATIENT) 25.6 SEC (24.3-30.1); INTERNATIONAL NORMALIZED RATIO 0.9 RATIO; PROTHROMBIN TIME - PATIENT 10.2 SEC (9.8-11.6)
[2016-09-12 10:38] LABS: ALT (GPT) 33 U/L (10-53)
[2016-09-12 10:39] LABS: ANION GAP 8 MEQ/L (5-15); AST (GOT) 20 U/L (15-37); BICARBONATE 26.6 MEQ/L (21.0-32.0); BLOOD UREA NITROGEN 31 MG/DL (7-18); CHLORIDE 105 MEQ/L (98-107); GLOMERULAR FILTRATION RATE 55 ML/MIN (>89); POTASSIUM 3.9 MEQ/L (3.5-5.1); SODIUM (NA) 140 MEQ/L (136-145)
[2016-09-12 10:43] LABS: ALKALINE PHOSPHATASE 76 U/L (45-117); TOTAL BILIRUBIN ADULT 1.2 MG/DL (0.2-1.0)
[2016-09-12 10:45] LABS: BHCG SCREEN QUALITATIVE 9 MIU/ML (0-5)
--- NOTE | 2016-09-12 10:53 | EKG ---
Date Performed: 09/12/2016 Time Performed: 08:31:26 PTAGE: 50 years EKG: Sinus rhythm LEFT VENTRICULAR HYPERTROPHY AND ST-T CHANGE ABNORMAL ECG PREVIOUS TRACING : 12/07/2014 05.24 DOCTOR: Scott Melgar Interpretating Date/Time 09/12/2016 10:52:22
[2016-09-12] MEDS ORDERED: PANTOPRAZOLE INJ 80 MG in SODIUM CHLORIDE 0.9% INJ 100 ML IV SCH (11:00)
[2016-09-12] MEDS ORDERED: PANTOPRAZOLE INJ 80 MG in SODIUM CHLORIDE 0.9% INJ 35 ML IV ONE (11:00)
--- NOTE | 2016-09-12 11:36 | RADRPT ---
EXAM DATE/TIME: 09/12/2016 11:02 [facility] COMPARISON: CT ABDOMEN & PELVIS W/O CONTRAST, July 10, 2016, 11:34. INDICATIONS : Rectal bleeding. ORAL CONTRAST: No oral contrast ingested. RADIATION DOSE: 16.78 CTDIvol (mGy) MEDICAL HISTORY : Cardiovascular disease. Hypertension. Renal failure, chronic. SURGICAL HISTORY : Renal transplant, hysterectomy ENCOUNTER: Initial ACUITY: 1 day PAIN SCALE: 3/10 LOCATION: pelvis TECHNIQUE: Volumetric scanning of the abdomen and pelvis was performed. Using automated exposure control and ad justment of the mA and/or kV according to patient size, radiation dose was kept as low as reasonably achievable to obtain optimal diagnostic quality images. DICOM format image data is available electro nically for review and comparison. The lack of IV contrast limits the diagnosis for certain organ pat hology. FINDINGS: LOWER LUNGS: The visualized lower lungs are clear. LIVER: Homogeneous density without lesion. There is no dilation of the biliary tree. No gallbladder, surgi hernesto removed. SPLEEN: Normal size without lesion. PANCREAS: Within normal limits. KIDNEYS: The kidneys are atrophic bilaterally. No hydronephrosis. No significant change. There is a stable rig ht transplanted pelvic kidney. There is a stable 2 cm cyst in the lower pole. No calcified renal ston es. No hydronephrosis. ADRENAL GLANDS: Within normal limits. VASCULAR: There is no aortic aneurysm. BOWEL/MESENTERY: The stomach, small bowel, and colon demonstrate no acute abnormality. There is no free intraperitone al air or fluid. No inflammatory changes are demonstrated. There stool in the colon. ABDOMINAL WALL: Within normal limits. RETROPERITONEUM: There is no lymphadenopathy. BLADDER: No wall thickening or mass. REPRODUCTIVE: Within normal limits. INGUINAL: There is no lymphadenopathy or hernia. MUSCULOSKELETAL: Within normal limits for patient age. No new or significant changes compared to the prior examination. CONCLUSION: 1. Stable CT scan of the abdomen/pelvis compared to the prior examination. No new or significant flood ges are demonstrated. 2. Status post cholecystectomy. 3. Stable right pelvic transplant kidney. Jeff Britton MD on September 12, 2016 at 11:28 Board Certified Radiologist. This report was verified electronically.
[2016-09-12 11:44] LABS: BLOOD, URINE TRACE (NEG); GLUCOSE,URINE NEG (NEG); KETONE, URINE NEG (NEG); MUCUS URINE FEW /lpf (OCC); NITRITE,URINE NEG (NEG); PH, URINE 5.5 (5.0-8.5); SQUAMOUS EPITHELIAL CELL URINE 1 /hpf (0-5); URINE COLOR YELLOW (YELLW/STRAW)
[2016-09-12 11:50] LABS: COMMENT (UR) CULT NOT INDICATED; CULTURE IF INDICATED CULT NOT INDICATED
[2016-09-12] MEDS: PANTOPRAZOLE INJ 80 MG in SODIUM CHLORIDE 0.9% INJ 100 ML IV SCH ×2 (13:25→23:30)
[2016-09-12] MEDS: SODIUM CHLORIDE 0.9% FLUSH 10 ML FLUSH IV FLUSH SCH ×2 (13:45→22:06)
[2016-09-12] MEDS ORDERED: ACETAMINOPHEN/HYDROcodone 325 MG/5 MG TAB PO ONE (14:15)
--- NOTE | 2016-09-12 14:16 | HHI.HP ---
[facility] Service Family Medicine Primary Care Physician Yanique Alfonso MD Admission Diagnosis GI bleed Diagnoses: Chief Complaint: GI bleed International Travel<30 Days: No Contact w/Intl Traveler<30days: No Known Affected Area: No History of Present Illness Patient is a 50 y/o F w/PMH of HTN, lupus, kidney transplant, and GERD who presents with lower GI bleed. Since 4 am this morning, patient noted her first incident of bright, red blood per rectum that occurred upon standing from bed. Patient denies diarrhea or melena. Endorses left, lower quadrant abdominal pain radiating to her lower back that has progressively worsening for 2 months. Is currently a stabbing, constant 9/10 pain. States her abdomen "feels hard." States the pain has improved with a glass of milk and/her tums in addition to her GERD medication. Pain is aggravated with spicy food and associated with nausea and vomiting of food. Follows with her PCP, who ordered an MRI of abdomen , which was done 6 days ago in [place]. Has not recieved results. No hx of MO, chest pain, shortness of breath, lightheaded. Does not take NSAIDs, blood thinner. Takes tylenol for pain. Had a cancerous cyst removed from her labia last year. Patient has never had a colonoscopy. Has a hx of lupus diagnosed 5/6 years ago. Has associated nausea and vomiting, stomach cramps. However, these new symptoms are different. Patient had a kidney transplant in 1989. Taking prednisone, cyclosporine, and mycophenolate since then for it. Has DM. Last sugar was 88. Takes metformin for it regularly. (Yenny Esquivel MD R1) Review of Systems Constitutional: DENIES: Fever, Dizziness, Change in appetite Endocrine: DENIES: Heat/cold intolerance, Polyuria, Polyphagia Eyes: DENIES: Vision loss, Photosensitivity, Double Vision Ears, nose, mouth, throat: DENIES: Hearing loss, Throat pain, Epistaxis Respiratory: DENIES: Cough, Hemoptysis, Shortness of breath Cardiovascular: DENIES: Chest pain, Palpitations, Syncope Gastrointestinal: COMPLAINS OF: Bloody stools, DENIES: Constipation, Diarrhea Genitourinary: DENIES: Abnormal vaginal bleeding, Urgency, Hematuria Musculoskeletal: COMPLAINS OF: Back pain, DENIES: Muscle aches, Stiffness Integumentary: DENIES: Abnormal pigmentation, Rash, Nail changes Hematologic/lymphatic: DENIES: Bruising Neurologic: DENIES: Headache, Paresthesias, Seizures Psychiatric: DENIES: Anxiety, Confusion, Depression (Yenny Esquivel MD R1) Past Family Social History Past Medical History HTN, lupus, diabetes, GERD, kidney transplant. Past Surgical History hysterectomy,1999 , 1984 cholecystectomy,1996 hernia repair, 1996 kidney transplant Reported Medications Atenolol, cyclosporine, dicyclomine, losartan, magnesium oxide, metformin, metoclopramide, mycophenolate, ondansetron, prednisone, promethazine. (Yenny Esquivel MD R1) Allergies: Coded Allergies: Adhesives (Verified Allergy, Severe, HIVES, 09/12/16) DISOLVABLE SUTURE MATERAL Levaquin (Verified Allergy, Intermediate, HIVES/ITCHING, 09/12/16) Keflex (Verified Adverse Reaction, Intermediate, HIVES/VOMITING, 09/12/16) Procardia (Verified Adverse Reaction, Intermediate, VOMITING, 09/12/16) *MDRO Multi-Drug Resistant Organism (Verified Adverse Reaction, Unknown, ) 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 MRSA PCR Screens negative 10/29/14 and 11/16/14. Uncoded Allergies: suture material (Adverse Reaction, Severe, SKIN INFECTION, 07/19/16) PT STATES DISSOLVING ONES [place] NOT DISSOLVE AND HAVE TO BE PHYSICALLY REMOVED.. Family History Dad: age 75, heart disease, polyps Mom: age 65, heart disease, HTN Social History Smoking for 3 pack years. No ETOH or drugs. (Yenny Esquivel MD R1) Physical Exam Vital Signs Vital Signs Date Time Temp Pulse Resp B/P Pulse Ox O2 Delivery O2 Flow Rate FiO2 09/12/16 11:30 78 16 132/77 97 Room Air 09/12/16 08:00 97.5 84 18 185/91 98 Room Air Physical Exam GENERAL: This is a obese, well-developed patient who appears in mild distress SKIN: seborrheic dermatitis observed on the flexor regions of the upper extremities. Cool and dry. HEAD: Atraumatic. Normocephalic. EYES: Pupils equal round and reactive. Extraocular motions intact. No scleral icterus. No injection or drainage. ENT: Throat without erythema, tonsillar hypertrophy or exudate. Uvula midline. Airway patent. NECK: Trachea midline. No JVD. CARDIOVASCULAR: Regular rate and rhythm without murmurs, gallops, or rubs. RESPIRATORY: Clear to auscultation. Breath sounds equal bilaterally. No wheezes , rales, or rhonchi. GASTROINTESTINAL: Abdomen soft and nondistended. No hepato-splenomegaly, or palpable masses. Tenderness to palpation in the left quadrants, significantly increased in the lower quadrant with firmness of the abdomen observed as well. MUSCULOSKELETAL: Extremities without clubbing, cyanosis, or edema. NEUROLOGICAL: Awake and alert. No focal deficits. Normal speech. Laboratory Laboratory Tests Test 09/12/16 09/12/16 09:52 11:16 White Blood Count 6.5 Red Blood Count 5.20 Hemoglobin 16.2 Hematocrit 49.2 Mean Corpuscular Volume 94.5 Mean Corpuscular Hemoglobin 31.1 Mean Corpuscular Hemoglobin 32.9 Concent Red Cell Distribution Width 16.9 Platelet Count 149 Mean Platelet Volume 10.0 Neutrophils (%) (Auto) 55.3 Lymphocytes (%) (Auto) 33.4 Monocytes (%) (Auto) 10.2 Eosinophils (%) (Auto) 0.6 Basophils (%) (Auto) 0.5 Neutrophils # (Auto) 3.6 Lymphocytes # (Auto) 2.2 Monocytes # (Auto) 0.7 Eosinophils # (Auto) 0.0 Basophils # (Auto) 0.0 CBC Comment DIFF FINAL Differential Comment Prothrombin Time 10.2 Prothromb Time International 0.9 Ratio Activated Partial 25.6 Thromboplast Time Sodium Level 140 Potassium Level 3.9 Chloride Level 105 Carbon Dioxide Level 26.6 Anion Gap 8 Blood Urea Nitrogen 31 Creatinine 1.06 Estimat Glomerular Filtration 55 Rate Random Glucose 93 Calcium Level 10.1 Total Bilirubin 1.2 Aspartate Amino Transf 20 (AST/SGOT) Alanine Aminotransferase 33 (ALT/SGPT) Alkaline Phosphatase 76 Total Protein 6.5 Albumin 3.3 Lipase 111 Beta HCG, Qualitative 9 Blood Type O NEGATIVE Antibody Screen NEGATIVE Urine Color YELLOW Urine Turbidity CLEAR Urine pH 5.5 Urine Specific [place] 1.017 Urine Protein NEG Urine Glucose (UA) NEG Urine Ketones NEG Urine Occult Blood TRACE Urine Nitrite NEG Urine Bilirubin NEG Urine Urobilinogen LESS THAN 2.0 Urine Leukocyte Esterase NEG Urine RBC 1 Urine WBC LESS THAN 1 Urine Squamous Epithelial 1 Cells Urine Mucus FEW Microscopic Urinalysis Comment CULT NOT INDICATED (Yenny Esquivel MD R1) Result Diagram: 09/12/16 0952 09/12/16 0952 Imaging Last Impressions Abdomen/Pelvis CT 09/12/16 0000 Signed Impressions: Service Date/Time: Monday, September 12, 2016 11:02 - CONCLUSION: 1. Stable CT scan of the abdomen/pelvis compared to the prior examination. No new or significant changes are demonstrated. 2. Status post cholecystectomy. 3. Stable right pelvic transplant kidney. Jeff Britton MD (Yenny Esquivel MD R1) Assessment and Plan Assessment and Plan Patient is a 50 y/o F w/PMH of HTN, GERD, lupus, DM, and hx of kidney transplant presents with bright red bleeding per rectum. Admitted for work-up of lower GI bleeding. Differential: diverticulosis v diverticulitis v colitis v cancer v PUD Code Status FULL Discussed Condition With Patient (Yenny Esquivel MD R1) Attending Attestation Patient seen and examined, discussed with resident team. I agree with assessment and management as documented and discussed with me. Corrected documentation: Patient is admitted under OBSERVATION. Please disregard attestation in resident H&P. Mercy Pena is a 50 yo lady with complicated medical history including renal transplant admitted for bright red blood per rectum starting early this morning. On exam, in addition, pt found to have bright red blood at rectum. Normal appearing vulva without lesions (exam performed with RN manager adult). Additional diagnosis: Thrombocytopenia: Mild. 149. Will monitor and transfuse if indicated. Appreciate GI, who recommended bleeding scan. Bleeding scan WNL. Anticipate scope in morning. Trend troponins / ekgs for abnormal ekg. Will hold off on medical management as patient asymptomatic (denies chest pain) and with GI bleeding (no antiplatelet therapy). (Geneva Russell MD) Problem List: (1) Acute lower gastrointestinal bleeding Status: Acute Plan: - bright red blood per rectum, likely due to lower GI bleeding. - vitals stable - first episode this morning. No prior episode since - hx of GERD - consulted GI - placed on clear liquid diet, NPO at midnight in anticipation for possible GI procedure - Protonix drip 40 mg IV - monitoring Hgb and Hct Q6H. If Hgb below 10 in active bleeding, will consider transfusion 2 units. (2) Chronic abdominal pain Status: Acute Plan: - patient describes LLQ pain as going on for months, 11/18. Seems to correlate w/patient's GERD sx - ordered dilaudid Q4H for pain - patient on clear liquid diet for now, NPO at midnight for GI procedure - consulted GI (3) SHELTON (acute kidney injury) Status: Acute Plan: - likely prerenal due to dehydration: BUN/Cr ratio >20. GFR 55, elevated hemoglobin of 16.2 - NS IV 140mls/hr maintenance fluids - will continue to monitor with CMP tomorrow (4) Abnormal ECG Status: Acute Plan: - on admission, ECG showed inverted T waves in leads 1 and Avl - trending troponins. 1st was 0.08. - Ordered repeat ECG, pending results - if ECG raises suspicion of MO, consider cardiac cath (patient w/ lower GI bleed, cannot take aspirin) (5) Lupus Status: Chronic Plan: - 5-6 year hx, symptoms controlled - continued patient home med mycophenolate - will assess as to whether patient is regularly following with rheumatology (6) Diabetes mellitus Status: Acute Plan: - controlled on Metformin. Last BG 88. - will discon't for now due to SHELTON - Novolog SSI (7) History of kidney transplant Status: Acute Plan: - done in - taking cyclosporine and prednisone since. - holding prednisone for now due to increased risk for PUD (8) Hypertension Status: Acute Plan: - last BP in the ED 140/90. Patient states she did not take her BP meds this morning - will continue home med (atenolol) - will continue to monitor vitals FEN: IVF Diet: NPO after midnight Code: FULL (Yenny Esquivel MD R1) Physician Certification 2 Midnight Certification Type: Admission for Inpatient Services Order for Inpatient Services The services are ordered in accordance with Medicare regulations or non- Medicare payer requirements, as applicable. In the case of services not specified as inpatient-only, they are appropriately provided as inpatient services in accordance with the 2-midnight benchmark. Estimated LOS (days): 2 days is the estimated time the patient will need to remain in the hospital, assuming treatment plan goals are met and no additional complications. Post-Hospital Plan: Home (Yenny Esquivel MD R1) Yenny Esquivel MD R1 Sep 12, 2016 14:16 Geneva Russell MD Sep 12, 2016 21:29
[2016-09-12] MEDS: SODIUM CHLOR 0.9% 1000 ML INJ 1,000 ML IV SCH ×3 (14:27→23:28)
[2016-09-12] MEDS ORDERED: MORPHINE SULFATE 4 MG/ML INJ IV PRN (14:45)
[2016-09-12] MEDS ORDERED: NALOXONE HCL 0.4 MG/ML AMP IV PRN (14:45)
[2016-09-12] MEDS ORDERED: ACETAMINOPHEN 325 MG TAB PO PRN (14:45)
[2016-09-12] MEDS ORDERED: LOSA50TA PO (14:59)
[2016-09-12] MEDS: cycloSPORINE 25 MG CAP PO SCH ×2 (15:00→22:04)
[2016-09-12] MEDS ORDERED: DICYCLOMINE HCL 10 MG CAP PO PRN (15:00)
--- NOTE | 2016-09-12 15:35 | PD.CONS ---
HPI History of Present Illness This is a 50 year old female w/ hx gastroparesis, HTN, lupus, DM, GERD, s/p kidney transplant who presented to ER for rectal bleeding, n/v, LLQ pain. Rectal bleeding started this morning and was profuse, bright red. She says she has been bleeding throughout the day, independently of stool. N/v started this morning as well. She is also having severe LLQ abd pain and she says firmness. The pain started 2 weeks ago, has worsened. The pain is constant, stabbing, burning, 9/10. Milk helps the pain. Spicy food exacerbates it. Never had this before. She admits weight gain of 11 lbs in 6 months, says her weight fluctuates. Denies change in bowel movements, constipation, diarrhea, weight loss, black tarry stools. Never colonoscopy. Has had EGD [address] Fortune , finding of GERD. She has mild nausea currently, tolerating sips vandana alysha currently. PFSH Past Medical History HTN Lupus DM gastroparesis s/p kidney transplant (congential kidney disorder) GERD Past Surgical History kidney transplant c- section hysterectomy cholecystectomy hernia repair Coded Allergies: Adhesives (Verified Allergy, Severe, HIVES, 09/12/16) DISOLVABLE SUTURE MATERAL Levaquin (Verified Allergy, Intermediate, HIVES/ITCHING, 09/12/16) Keflex (Verified Adverse Reaction, Intermediate, HIVES/VOMITING, 09/12/16) Procardia (Verified Adverse Reaction, Intermediate, VOMITING, 09/12/16) *MDRO Multi-Drug Resistant Organism (Verified Adverse Reaction, Unknown, ) 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 MRSA PCR Screens negative 10/29/14 and 11/16/14. Uncoded Allergies: suture material (Adverse Reaction, Severe, SKIN INFECTION, 07/19/16) PT STATES DISSOLVING ONES [place] NOT DISSOLVE AND HAVE TO BE PHYSICALLY REMOVED.. Family History HTN Social History no etoh smokes 4 cigarettes daily no drugs Review of Systems Constitutional: DENIES: Fever Eyes: DENIES: Blurred vision Ears, nose, mouth, throat: DENIES: Hearing loss Respiratory: DENIES: Cough Cardiovascular: DENIES: Chest pain Gastrointestinal: COMPLAINS OF: Abdominal pain, Bloody stools, Nausea, Vomiting , DENIES: Black stools, Constipation, Diarrhea, Hematemesis Genitourinary: DENIES: Hematuria Musculoskeletal: DENIES: Joint Swelling Integumentary: DENIES: Jaundice Hematologic/lymphatic: DENIES: Bruising Neurologic: DENIES: Headache Psychiatric: DENIES: Confusion GI Exam Vitals I&O Vital Signs Date Time Temp Pulse Resp B/P Pulse Ox O2 Delivery O2 Flow Rate FiO2 09/12/16 15:20 97.7 66 16 141/90 09/12/16 11:30 78 16 132/77 97 Room Air 09/12/16 08:00 97.5 84 18 185/91 98 Room Air I/O 09/11/16 09/11/16 09/11/16 09/12/16 09/12/16 09/12/16 07:00 15:00 23:00 07:00 15:00 23:00 # Voids 1 Imaging Last Impressions Abdomen/Pelvis CT 09/12/16 0000 Signed Impressions: Service Date/Time: Monday, September 12, 2016 11:02 - CONCLUSION: 1. Stable CT scan of the abdomen/pelvis compared to the prior examination. No new or significant changes are demonstrated. 2. Status post cholecystectomy. 3. Stable right pelvic transplant kidney. Jeff Britton MD Laboratory Test 09/12/16 09/12/16 09:52 11:16 White Blood Count 6.5 TH/MM3 Red Blood Count 5.20 MIL/MM3 Hemoglobin 16.2 GM/DL Hematocrit 49.2 % Mean Corpuscular Volume 94.5 FL Mean Corpuscular Hemoglobin 31.1 PG Mean Corpuscular Hemoglobin 32.9 % Concent Red Cell Distribution Width 16.9 % Platelet Count 149 TH/MM3 Mean Platelet Volume 10.0 FL Neutrophils (%) (Auto) 55.3 % Lymphocytes (%) (Auto) 33.4 % Monocytes (%) (Auto) 10.2 % Eosinophils (%) (Auto) 0.6 % Basophils (%) (Auto) 0.5 % Neutrophils # (Auto) 3.6 TH/MM3 Lymphocytes # (Auto) 2.2 TH/MM3 Monocytes # (Auto) 0.7 TH/MM3 Eosinophils # (Auto) 0.0 TH/MM3 Basophils # (Auto) 0.0 TH/MM3 CBC Comment DIFF FINAL Differential Comment Prothrombin Time 10.2 SEC Prothromb Time International 0.9 RATIO Ratio Activated Partial 25.6 SEC Thromboplast Time Sodium Level 140 MEQ/L Potassium Level 3.9 MEQ/L Chloride Level 105 MEQ/L Carbon Dioxide Level 26.6 MEQ/L Anion Gap 8 MEQ/L Blood Urea Nitrogen 31 MG/DL Creatinine 1.06 MG/DL Estimat Glomerular Filtration 55 ML/MIN Rate Random Glucose 93 MG/DL Calcium Level 10.1 MG/DL Total Bilirubin 1.2 MG/DL Aspartate Amino Transf 20 U/L (AST/SGOT) Alanine Aminotransferase 33 U/L (ALT/SGPT) Alkaline Phosphatase 76 U/L Total Protein 6.5 GM/DL Albumin 3.3 GM/DL Lipase 111 U/L Beta HCG, Qualitative 9 MIU/ML Blood Type O NEGATIVE Antibody Screen NEGATIVE Urine Color YELLOW Urine Turbidity CLEAR Urine pH 5.5 Urine Specific [place] 1.017 Urine Protein NEG mg/dL Urine Glucose (UA) NEG mg/dL Urine Ketones NEG mg/dL Urine Occult Blood TRACE Urine Nitrite NEG Urine Bilirubin NEG Urine Urobilinogen LESS THAN 2.0 MG/DL Urine Leukocyte Esterase NEG Urine RBC 1 /hpf Urine WBC LESS THAN 1 /hpf Urine Squamous Epithelial 1 /hpf Cells Urine Mucus FEW /lpf Microscopic Urinalysis Comment CULT NOT INDICATED Physical Examination HEENT: PERRL; normocephalic; atraumatic; no jaundice. CHEST: CTA CARDIAC: RRR ABDOMEN: dried blood and scant red blood visualized per rectum. Soft, obese, LLQ TTP; no hepatosplenomegaly; bowel sounds are present in all four quadrants. EXTREMITIES: No clubbing, cyanosis, or edema. SKIN: Normal; no rash; no jaundice. SOURCING INTERN: No focal deficits; alert and oriented times three. Assessment and Plan Plan ASSESSMENT - BRBPR - profuse bright red bleeding starting this morning and ongoing. No anemia currently. never had before. never had colonoscopy - n/v - onset this morning, non bloody. hx gastroparesis. - LLQ pain - unclear etiology, onset 2 weeks ago. milk alleviates, spicy food exacerbates. no indication of source from CT. PLAN - stat bleeding scan - tentatively EGD/colonoscopy saturday depending on bleeding scan - monitor HH - transfuse as necessary - clears - supportive care - further recommendations to follow This pt seen by myself and Dr Gomez and this note is written on his behalf Nicolasa Mathias Sep 12, 2016 15:35
[2016-09-12 16:34] LABS: HEMATOCRIT 48.5 % (35.0-46.0); REVIEW FLAG FINAL
--- NOTE | 2016-09-12 19:18 | RADRPT ---
EXAM DATE/TIME: 09/12/2016 16:41 [facility] COMPARISON: No previous studies available for comparison. INDICATIONS : Rectal bleeding for two days. DOSE: 21 mCi Tc99m Ultratag labeled red blood cells IV IMAGIN hrs MEDICAL HISTORY : Hypertension. Diabetes mellitus type 2. Gastroesophageal reflux disease. Lupus. SURGICAL HISTORY : Hysterectomy. Cholecystectomy. section. Kidney transplant and hernia repair. ENCOUNTER: Initial ACUITY: 2 days PAIN SCALE: 0/10 LOCATION: Abdomen. TECHNIQUE: Following the modified in vitro labeling of autologous red cells, dynamic continuous images were acqu ired for the specified interval. FINDINGS: BIODISTRIBUTION: There is a very good labeling of red cells without significant uptake in the gastric wall. There is good delineation of the blood pool of the spleen and abdominal vessels. BLEEDING: No episodes of active GI bleeding are observed during specified interval of continuous observation. CONCLUSION: Normal examination. Neville Townsend MD on September 12, 2016 at 19:12 Board Certified Radiologist. This report was verified electronically.
[2016-09-12] MEDS ORDERED: GLUCAGON 1 MG/ML VIAL OTHER PRN (20:00)
[2016-09-12] MEDS ORDERED: DEXTROSE 50% IN WATER 50 ML VIAL(D50) IV PRN (20:00)
[2016-09-12 20:23] LABS: REVIEW FLAG FINAL
[2016-09-12] MEDS: ATENOLOL 50 MG TAB PO SCH (21:00)
[2016-09-12] MEDS: INSULIN ASPART SUPPLEMENTAL SCALE SQ SCH (21:00)
[2016-09-12] MEDS: MYCOPHENOLATE MOFETIL 500 MG TAB PO SCH (22:05)
[2016-09-12] MEDS: MORPHINE SULFATE 4 MG/ML INJ IV PRN (22:33)
[2016-09-12] MEDS: ONDANSETRON HCL 4 MG/2 ML VIAL IV PRN (22:34)
[2016-09-13] VITALS (8 sets, daily range): BP systolic 87–157; BP diastolic 64–87; PULSE 66–89; RESP 18–20; TEMP 97.9–99.9; O2SAT 91–94
[2016-09-13] MEDS: SODIUM CHLOR 0.9% 1000 ML INJ 1,000 ML IV SCH ×2 (03:08→10:20)
[2016-09-13] MEDS: PANTOPRAZOLE INJ 80 MG in SODIUM CHLORIDE 0.9% INJ 100 ML IV SCH (03:08)
[2016-09-13 04:20] LABS: AUTOMATED NEUTROPHIL # 2.9 TH/MM3 (1.8-7.7); BASOPHIL % 0.3 % (0.0-2.0); EOSINOPHIL # 0.1 TH/MM3 (0-0.4); EOSINOPHIL % 1.3 % (0.0-4.0); HEMATOCRIT 48.1 % (35.0-46.0); HEMO FLAGS DIFF FINAL; LYMPH % 35.1 % (9.0-44.0); MEAN CORPUSCULAR HEMOGLOBIN 31.2 PG (27.0-34.0); MEAN CORPUSCULAR HGB CONC 32.9 % (32.0-36.0); MONO % 10.9 % (0.0-8.0); NEUT % 52.4 % (16.0-70.0); PLATELET COUNT 138 TH/MM3 (150-450); RED BLOOD COUNT 5.06 MIL/MM3 (4.00-5.30); RED CELL DISTRIBUTION WIDTH 16.6 % (11.6-17.2); WHITE BLOOD COUNT 5.6 TH/MM3 (4.0-11.0)
[2016-09-13 05:06] LABS: BICARBONATE 24.6 MEQ/L (21.0-32.0); POTASSIUM 4.1 MEQ/L (3.5-5.1)
[2016-09-13] MEDS: INSULIN ASPART SUPPLEMENTAL SCALE SQ SCH ×4 (07:00→19:34)
[2016-09-13] MEDS: ONDANSETRON HCL 4 MG/2 ML VIAL IV PRN ×2 (07:01→13:46)
[2016-09-13] MEDS: MYCOPHENOLATE MOFETIL 500 MG TAB PO SCH ×2 (07:57→19:32)
[2016-09-13] MEDS: SODIUM CHLORIDE 0.9% FLUSH 10 ML FLUSH IV FLUSH SCH ×2 (07:57→19:35)
[2016-09-13] MEDS: cycloSPORINE 25 MG CAP PO SCH ×2 (07:57→19:34)
--- NOTE | 2016-09-13 08:54 | HHI.GIFU ---
Subjective Remarks Patient reports ongoing lower abdominal pain. Less bleeding. Bleeding scan yesterday was negative. She will be prepped today for EGD and Colonoscopy tomorrow. Objective Vitals I&O Vital Signs Date Time Temp Pulse Resp B/P Pulse Ox O2 Delivery O2 Flow Rate FiO2 09/13/16 08:13 97.9 68 18 123/80 92 09/13/16 03:32 98.2 66 18 157/87 93 09/12/16 23:47 98.7 72 16 146/78 92 09/12/16 23:26 18 09/12/16 20:44 180/120 09/12/16 20:40 180/87 09/12/16 19:35 97.7 73 16 106/104 92 09/12/16 15:20 97.7 66 16 141/90 09/12/16 11:30 78 16 132/77 97 Room Air I/O 09/12/16 09/12/16 09/12/16 09/13/16 09/13/16 09/13/16 07:00 15:00 23:00 07:00 15:00 23:00 Intake Total 760 ml Output Total 450 ml 200 ml Balance 310 ml -200 ml Intake Oral 760 ml Output Urine Total 300 ml 200 ml Emesis 150 ml # Voids 1 5 1 # Bowel Movements 0 Laboratory Laboratory Tests Test 09/12/16 09/12/16 09/12/16 09/12/16 09:52 11:16 16:15 19:54 White Blood Count 6.5 Red Blood Count 5.20 Hemoglobin 16.2 15.8 15.3 Hematocrit 49.2 48.5 46.0 Mean Corpuscular Volume 94.5 Mean Corpuscular Hemoglobin 31.1 Mean Corpuscular Hemoglobin 32.9 Concent Red Cell Distribution Width 16.9 Platelet Count 149 Mean Platelet Volume 10.0 Neutrophils (%) (Auto) 55.3 Lymphocytes (%) (Auto) 33.4 Monocytes (%) (Auto) 10.2 Eosinophils (%) (Auto) 0.6 Basophils (%) (Auto) 0.5 Neutrophils # (Auto) 3.6 Lymphocytes # (Auto) 2.2 Monocytes # (Auto) 0.7 Eosinophils # (Auto) 0.0 Basophils # (Auto) 0.0 CBC Comment DIFF FINAL Differential Comment Prothrombin Time 10.2 Prothromb Time International 0.9 Ratio Activated Partial 25.6 Thromboplast Time Sodium Level 140 Potassium Level 3.9 Chloride Level 105 Carbon Dioxide Level 26.6 Anion Gap 8 Blood Urea Nitrogen 31 Creatinine 1.06 Estimat Glomerular Filtration 55 Rate Random Glucose 93 Calcium Level 10.1 Total Bilirubin 1.2 Aspartate Amino Transf 20 (AST/SGOT) Alanine Aminotransferase 33 (ALT/SGPT) Alkaline Phosphatase 76 Troponin I 0.07 0.08 Total Protein 6.5 Albumin 3.3 Lipase 111 Beta HCG, Qualitative 9 Blood Type O NEGATIVE Antibody Screen NEGATIVE Urine Color YELLOW Urine Turbidity CLEAR Urine pH 5.5 Urine Specific [place] 1.017 Urine Protein NEG Urine Glucose (UA) NEG Urine Ketones NEG Urine Occult Blood TRACE Urine Nitrite NEG Urine Bilirubin NEG Urine Urobilinogen LESS THAN 2.0 Urine Leukocyte Esterase NEG Urine RBC 1 Urine WBC LESS THAN 1 Urine Squamous Epithelial 1 Cells Urine Mucus FEW Microscopic Urinalysis Comment CULT NOT INDICATED Total Creatine Kinase 71 Test 09/13/16 04:10 White Blood Count 5.6 Red Blood Count 5.06 Hemoglobin 15.8 Hematocrit 48.1 Mean Corpuscular Volume 95.0 Mean Corpuscular Hemoglobin 31.2 Mean Corpuscular Hemoglobin 32.9 Concent Red Cell Distribution Width 16.6 Platelet Count 138 Mean Platelet Volume 9.3 Neutrophils (%) (Auto) 52.4 Lymphocytes (%) (Auto) 35.1 Monocytes (%) (Auto) 10.9 Eosinophils (%) (Auto) 1.3 Basophils (%) (Auto) 0.3 Neutrophils # (Auto) 2.9 Lymphocytes # (Auto) 2.0 Monocytes # (Auto) 0.6 Eosinophils # (Auto) 0.1 Basophils # (Auto) 0.0 CBC Comment DIFF FINAL Differential Comment Sodium Level 142 Potassium Level 4.1 Chloride Level 109 Carbon Dioxide Level 24.6 Anion Gap 8 Blood Urea Nitrogen 18 Creatinine 0.98 Estimat Glomerular Filtration 61 Rate Random Glucose 85 Calcium Level 8.2 Troponin I 0.08 Human Chorionic Gonadotropin, 7 Quant Physical Exam HEENT: Pupils round and reactive to light; normocephalic; atraumatic; no jaundice. Throat is clear. NECK: Neck is supple, no JVD, no lymphadenopathy. CHEST: Chest is clear to auscultation and percussion. CARDIAC: Regular rate and rhythm with no murmur gallop or rubs. ABDOMEN: Soft, nondistended, mildly tender; no hepatosplenomegaly; bowel sounds are present in all four quadrants. EXTREMITIES: No clubbing, cyanosis, or edema. SKIN: Normal; no rash; no jaundice. NURSING TECH: No focal deficits; alert and oriented times three. Assessment and Plan Plan ASSESSMENT - BRBPR - profuse bright red bleeding starting this morning and ongoing. No anemia currently. never had before. never had colonoscopy - n/v - onset this morning, non bloody. hx gastroparesis. - LLQ pain - unclear etiology, onset 2 weeks ago. milk alleviates, spicy food exacerbates. no indication of source from CT. PLAN - EGD and colonoscopy tomorrow. - Prep with miralax today - monitor HH - transfuse as necessary - clears - supportive care - further recommendations to follow This pt seen by myself and Dr Gomez and this note is written on his behalf Christophe Gomez MD Sep 13, 2016 08:54
[2016-09-13] MEDS ORDERED: PANTOPRAZOLE SODIUM 40 MG VIAL IV SCH (09:00)
[2016-09-13 09:05] LABS: HEMATOCRIT 47.2 % (35.0-46.0); REVIEW FLAG FINAL
--- NOTE | 2016-09-13 09:43 | HHI.FPPN ---
Subjective Remarks No acute events overnight. Except for some mild HTN with bp ranging from 123-157 /78-87 and low pulse ox ranging from 92-94% on RA, AFVSS overnight. Pt reports vomiting, abdominal pain overnight. Pt reports two episodes of vomiting since last night. She reports that her emesis was green, which she attributed to the medicine she is taking. She has eaten no food in two days. She reports only a little bleeding, not like it was yesterday. However, there is still BRBPR. She reports that the rectal bleeding comes out on its own, not when she is trying to have a BM. She reports abdominal pain of 5/10 severity still in LLQ. Discussed plan of care with patient. Pt met with GI Dr. Gomez this morning. EGD and colonoscopy planned for tomorrow. (Yahir Díaz MD R1) Objective Vitals Vital Signs Date Time Temp Pulse Resp B/P Pulse Ox O2 Delivery O2 Flow Rate FiO2 09/13/16 08:13 97.9 68 18 123/80 92 09/13/16 03:32 98.2 66 18 157/87 93 09/12/16 23:47 98.7 72 16 146/78 92 09/12/16 23:26 18 09/12/16 20:44 180/120 09/12/16 20:40 180/87 09/12/16 19:35 97.7 73 16 106/104 92 09/12/16 15:20 97.7 66 16 141/90 09/12/16 11:30 78 16 132/77 97 Room Air I/O 09/12/16 09/12/16 09/12/16 09/13/16 09/13/16 09/13/16 06:59 14:59 22:59 06:59 14:59 22:59 Intake Total 760 ml Output Total 450 ml 200 ml Balance 310 ml -200 ml Intake Oral 760 ml Output Urine Total 300 ml 200 ml Emesis 150 ml # Voids 1 5 1 # Bowel Movements 0 (Yahir Díaz MD R1) Result Diagram: 09/13/16 0818 09/13/16 0410 Imaging Last Impressions GI Bleed Scan Nuclear Medicine 09/12/16 1546 Signed Impressions: Service Date/Time: Monday, September 12, 2016 16:41 - CONCLUSION: Normal examination. Neville Townesnd MD Abdomen/Pelvis CT 09/12/16 0000 Signed Impressions: Service Date/Time: Monday, September 12, 2016 11:02 - CONCLUSION: 1. Stable CT scan of the abdomen/pelvis compared to the prior examination. No new or significant changes are demonstrated. 2. Status post cholecystectomy. 3. Stable right pelvic transplant kidney. Jeff Britton MD Objective Remarks GENERAL: This is a well-nourished, well-developed patient, in no apparent distress. SKIN: No rashes, ecchymoses or lesions. Cool and dry. HEAD: Atraumatic. Normocephalic. EYES: Pupils equal round and reactive. Extraocular motions intact. No scleral icterus. No injection or drainage. ENT: Nose without bleeding, purulent drainage or septal hematoma. Throat without erythema, tonsillar hypertrophy or exudate. Uvula midline. Airway patent. NECK: Trachea midline. No JVD or lymphadenopathy. Supple, nontender, no meningeal signs. CARDIOVASCULAR: Regular rate and rhythm without murmurs, gallops, or rubs. RESPIRATORY: Clear to auscultation. Breath sounds equal bilaterally. No wheezes , rales, or rhonchi. GASTROINTESTINAL: Abdomen obese. Absent bowel sounds. Abdomen tender to palpation of left side. Abdomen otherwise non-tender, nondistended. No guarding. MUSCULOSKELETAL: Extremities without clubbing, cyanosis, or edema. No joint tenderness, effusion, or edema noted. No calf tenderness. NEUROLOGICAL: Awake and alert. Cranial nerves II through XII intact. Motor and sensory grossly within normal limits. Five out of 5 muscle strength in all muscle groups. Normal speech. (Yahir Díaz MD R1) A/P Assessment and Plan Patient is a 50 y/o F w/PMH of HTN, GERD, lupus, DM, and hx of kidney transplant presents with bright red bleeding per rectum. Admitted for work-up of lower GI bleeding. Differential: diverticulosis v diverticulitis v colitis v cancer v PUD (Yahir Díaz MD R1) Attending Attestation Patient seen, examined, and discussed with resident team. I agree with assessment and management as documented and discussed with me. Pt reports continued mild Left sided abdominal pain. Continued BRBPR. Await scope, which will be tomorrow per GI. Hemoglobin stable. (Geneva Russell MD) Problem List: (1) Acute lower gastrointestinal bleeding Status: Acute Plan: - h/o GERD, SLE with GI sx's, no prior episodes of rectal bleeding. pt c/ o bright red blood per rectum, likely due to lower GI bleeding. occult stool +. bleeding scan, CT abdomen negative for acute pathology. - vitals stable, H&H stable. discontinued H&H monitoring because BRBPR is improved per patient. will monitor qd rather than q6h. - consulted GI: plan for bowel prep tonight and upper and lower endoscopy tomorrow - placed on clear liquid diet, NPO at midnight in anticipation for GI procedure tomorrow - Protonix drip stopped; transitioned to Protonix 40 mg IV bid - holding pt's home prednisone (2) Chronic abdominal pain Status: Acute Plan: - patient describes LLQ pain as going on for months, 11/18. not c/w SLE pain - ordered dilaudid Q4H for pain - patient on clear liquid diet for now, NPO at midnight for GI procedure tomorrow - consulted GI - in combination with bilious emesis and absent bowel sounds, will get abdominal x-ray today to rule out SBO. (3) SHELTON (acute kidney injury) Status: Acute Plan: - likely prerenal due to dehydration: BUN/Cr ratio >20. GFR 55, elevated hemoglobin of 16.2 c/w hemoconcentration and dehydration - NS IV 140mls/hr maintenance fluids - will continue to monitor with CMP tomorrow (4) Abnormal ECG Status: Resolved Plan: - on admission, ECG showed inverted T waves in leads 1 and Avl - Troponins trended: 0.07, 0.08, 0.08. EKG's reassuring. (5) Lupus Status: Chronic Plan: - 5-6 year hx, symptoms controlled - continued patient home med mycophenolate and cyclosporine - will assess as to whether patient is regularly following with rheumatology (6) Diabetes mellitus Status: Acute Plan: - controlled on Metformin. Last BG 88. - will discontinue metformin for now due to SHELTON and possible need for contrast study - Novolog SSI (7) History of kidney transplant Status: Acute Plan: - done in - taking cyclosporine, mycophenolate, and prednisone since. - holding prednisone for now due to increased risk for PUD (8) Hypertension Status: Acute Plan: Except for some mild HTN with bp ranging from 123-157/78-87, AFVSS overnight. - will continue home med (atenolol) - will continue to monitor vitals Fluids: IVF Electrolytes: CTM Nutrition/Diet: clear liquids, NPO after midnight Code: FULL DVT ppx: contraindicated because of suspected GI bleed GI ppx: Protonix as above (Yahir Díaz MD R1) Yahir Díaz MD R1 Sep 13, 2016 09:43 Geneva Russell MD Sep 13, 2016 15:06
[2016-09-13] MEDS: MORPHINE SULFATE 4 MG/ML INJ IV PRN ×2 (10:21→15:02)
[2016-09-13] MEDS ORDERED: POLYETHYLENE GLYCOL 17 GM PKG PO ONE (13:00)
--- NOTE | 2016-09-13 13:45 | RADRPT ---
EXAM DATE/TIME: 09/13/2016 13:27 [facility] COMPARISON: CT ABDOMEN & PELVIS W/O CONTRAST, September 12, 2016, 11:02. INDICATIONS : Abdominal pain for 4 months and rectal bleeding for 3 weeks. MEDICAL HISTORY : Gastroesophageal reflux disease. Gastroparesis. Diabetes mellitus type I. Cardiovascular disease. Hypertension. Renal failure, chronic. Lupus. SURGICAL HISTORY : Tubal ligation. Inguinal hernia repair. Cholecystectomy. Renal transplant. Hysterectomy. Dialysis marin nt. ENCOUNTER: Subsequent ACUITY: 3 weeks PAIN SCORE: 10/10 LOCATION: Bilateral abdomen. FINDINGS: Air and stool is noted in the colon. There is in general a paucity of small bowel gas. No significant air-fluid levels or dilated loops of bowel. Multiple phleboliths in the pelvis. Surgical clips in th e right upper quadrant. Degenerative changes of the lumbar spine and left hip. CONCLUSION: 1. Nonobstructive bowel gas pattern. Manan Correa MD on September 13, 2016 at 13:40 Board Certified Radiologist. This report was verified electronically.
[2016-09-13] MEDS: PANTOPRAZOLE SODIUM 40 MG VIAL IV PUSH SCH (13:47)
--- NOTE | 2016-09-13 18:06 | EKG ---
Date Performed: 09/12/2016 Time Performed: 21:43:59 PTAGE: 50 years EKG: Sinus rhythm WITH OCCASIONAL SUPRAVENTRICULAR PREMATURE COMPLEXES ST DEVIATION AND MODERATE T-WAVE ABNORMALITY, C ONSIDER LATERAL ISCHEMIA ABNORMAL ECG PREVIOUS TRACING : 09/12/2016 15.33 Compared to prior tracing no significant change DOCTOR: Lida Mckinnon Interpretating Date/Time 09/13/2016 18:05:57
--- NOTE | 2016-09-13 18:06 | EKG ---
Date Performed: 09/12/2016 Time Performed: 15:33:48 PTAGE: 50 years EKG: Sinus rhythm ST DEVIATION AND MODERATE T-WAVE ABNORMALITY, CONSIDER LATERAL ISCHEMIA ABNORMAL ECG PREVIOUS TRACING : 09/12/2016 08.31 Compared to prior tracing no significant change DOCTOR: Lida Mckinnon Interpretating Date/Time 09/13/2016 18:05:46
--- NOTE | 2016-09-13 18:07 | EKG ---
Date Performed: 09/13/2016 Time Performed: 01:46:26 PTAGE: 50 years EKG: Sinus rhythm LEFT VENTRICULAR HYPERTROPHY AND ST-T CHANGE ABNORMAL ECG PREVIOUS TRACING : 09/12/2016 21.43 Compared to prior tracing no significant change DOCTOR: Lida Mckinnon Interpretating Date/Time 09/13/2016 18:06:07
[2016-09-13] MEDS: ATENOLOL 50 MG TAB PO SCH (19:34)
[2016-09-14] MEDS: PANTOPRAZOLE SODIUM 40 MG VIAL IV PUSH SCH ×2 (00:06→16:23)
[2016-09-14] MEDS: SODIUM CHLOR 0.9% 1000 ML INJ 1,000 ML IV SCH ×4 (00:07→22:56)
[2016-09-14] MEDS: MORPHINE SULFATE 4 MG/ML INJ IV PRN ×4 (00:08→23:28)
[2016-09-14 03:42] VITALS: BP 126/77; PULSE 74; RESP 18; TEMP 98.1; O2SAT 92
[2016-09-14] MEDS: INSULIN ASPART SUPPLEMENTAL SCALE SQ SCH ×4 (05:39→21:00)
[2016-09-14 07:16] LABS: HEMATOCRIT 46.8 % (35.0-46.0); MEAN CELL VOLUME 94.8 FL (80.0-100.0); MEAN CORPUSCULAR HEMOGLOBIN 31.3 PG (27.0-34.0); PLATELET COUNT 132 TH/MM3 (150-450); RED BLOOD COUNT 4.93 MIL/MM3 (4.00-5.30); RED CELL DISTRIBUTION WIDTH 16.9 % (11.6-17.2); REVIEW FLAG FINAL; WHITE BLOOD COUNT 5.2 TH/MM3 (4.0-11.0)
[2016-09-14 07:19] LABS: BICARBONATE 25.4 MEQ/L (21.0-32.0); POTASSIUM 3.9 MEQ/L (3.5-5.1)
[2016-09-14 08:00] VITALS: BP 126/75; PULSE 64; RESP 20; TEMP 98.3; O2SAT 95
[2016-09-14] MEDS: SODIUM CHLORIDE 0.9% FLUSH 10 ML FLUSH IV FLUSH SCH ×2 (09:00→21:18)
[2016-09-14] MEDS: MYCOPHENOLATE MOFETIL 500 MG TAB PO SCH ×2 (09:00→21:16)
[2016-09-14] MEDS: cycloSPORINE 25 MG CAP PO SCH ×2 (09:00→21:45)
--- NOTE | 2016-09-14 12:36 | HHI.GIFU ---
Subjective Remarks Immediate postop note: EGD with biopsy and incomplete colonoscopy with biopsy Indication: Abdominal pain, blood in stool Meds: GET anesthesia Findings: Esophagus Normal Stomach: mild gastritis. Biopsy taken Duodenum: normal Colonoscopy incomplete due to poor prep. Solid stool present in left colon. Scope advanced to descending colon 50cm. Could not be advanced further. Small polyp at 30cm removed with cold forceps. Rectum: hemorrhoids. Objective Vitals I&O Vital Signs Date Time Temp Pulse Resp B/P Pulse Ox O2 Delivery O2 Flow Rate FiO2 09/14/16 08:00 98.3 64 20 126/75 95 09/14/16 07:47 17 09/14/16 03:42 98.1 74 18 126/77 92 09/13/16 23:43 98.4 68 18 117/69 91 09/13/16 22:48 93 09/13/16 20:31 98.3 71 18 120/71 92 09/13/16 18:09 97.9 89 18 119/71 92 09/13/16 17:32 99.9 84 20 87/64 92 I/O 09/13/16 09/13/16 09/13/16 09/14/16 09/14/16 09/14/16 07:00 15:00 23:00 07:00 15:00 23:00 Intake Total 900 ml Output Total 200 ml Balance -200 ml 900 ml IV Total 900 ml Output Urine Total 200 ml # Voids 1 Laboratory Laboratory Tests Test 09/14/16 06:18 White Blood Count 5.2 Red Blood Count 4.93 Hemoglobin 15.4 Hematocrit 46.8 Mean Corpuscular Volume 94.8 Mean Corpuscular Hemoglobin 31.3 Mean Corpuscular Hemoglobin 33.0 Concent Red Cell Distribution Width 16.9 Platelet Count 132 Mean Platelet Volume 9.9 Sodium Level 139 Potassium Level 3.9 Chloride Level 107 Carbon Dioxide Level 25.4 Anion Gap 7 Blood Urea Nitrogen 12 Creatinine 0.96 Estimat Glomerular Filtration 62 Rate Random Glucose 87 Calcium Level 8.7 Physical Exam HEENT: Pupils round and reactive to light; normocephalic; atraumatic; no jaundice. Throat is clear. NECK: Neck is supple, no JVD, no lymphadenopathy. CHEST: Chest is clear to auscultation and percussion. CARDIAC: Regular rate and rhythm with no murmur gallop or rubs. ABDOMEN: Soft, nondistended, mildly tender; no hepatosplenomegaly; bowel sounds are present in all four quadrants. EXTREMITIES: No clubbing, cyanosis, or edema. SKIN: Normal; no rash; no jaundice. PROCEDURE RN: No focal deficits; alert and oriented times three. Assessment and Plan Plan ASSESSMENT - BRBPR - profuse bright red bleeding starting this morning and ongoing. No anemia currently. never had before. never had colonoscopy - n/v - onset this morning, non bloody. hx gastroparesis. - LLQ pain - unclear etiology, onset 2 weeks ago. milk alleviates, spicy food exacerbates. no indication of source from CT. PLAN - EGD and colonoscopy on 09/14 showed mild gastritis. Single small polyp in colon at 30cm removed. Inadequate prep with solid stool present. Could not advance beyond descending colon - Re prep with miralax today - monitor HH - transfuse as necessary - clears - supportive care - Repeat colonoscopy tomorrow Christophe Gomez MD Sep 14, 2016 12:36
[2016-09-14] MEDS ORDERED: DO NOT ADM ANY ANTICOAGULANT DRUGS PRN (12:43)
[2016-09-14] MEDS ORDERED: PROPOFOL 200 MG/20 ML AMP IV ONE (13:31)
--- NOTE | 2016-09-14 14:10 | HHI.FPPN ---
Subjective Remarks No acute events overnight. Patient NPO since midnight for GI procedures today ( egd and colonoscopy). Continues to endorse abdominal pain but is satisfied with current pain meds. Reports a "little bit" of blood with wiping. No bowel movements however. Patient did not undergo bowel prep. Denies chest pain, shortness of breath, nausea/vomiting. (Yenny Esquivel MD R1) Objective Vitals Vital Signs Date Time Temp Pulse Resp B/P Pulse Ox O2 Delivery O2 Flow Rate FiO2 09/14/16 13:10 79 14 121/74 93 Room Air 09/14/16 12:55 79 14 120/73 93 Room Air 09/14/16 12:40 98.0 79 14 117/75 93 Room Air 09/14/16 08:00 98.3 64 20 126/75 95 09/14/16 07:47 17 09/14/16 03:42 98.1 74 18 126/77 92 09/13/16 23:43 98.4 68 18 117/69 91 09/13/16 22:48 93 09/13/16 20:31 98.3 71 18 120/71 92 09/13/16 18:09 97.9 89 18 119/71 92 09/13/16 17:32 99.9 84 20 87/64 92 I/O 09/13/16 09/13/16 09/13/16 09/14/16 09/14/16 09/14/16 07:00 15:00 23:00 07:00 15:00 23:00 Intake Total 900 ml 100 ml Output Total 200 ml 0 ml Balance -200 ml 900 ml 100 ml IV Total 900 ml Other 100 ml Output Urine Total 200 ml 0 ml Estimated Blood Loss 0 ml # Voids 1 (Yenny Esquivel MD R1) Result Diagram: 09/14/1618 09/14/1618 Other Results Objective Remarks GENERAL: This is a well-nourished, well-developed patient, in no apparent distress. SKIN: Appearance of seborrheic dermatitis on upper extremities. Cool and dry. HEAD: Atraumatic. Normocephalic. EYES: Extraocular motions intact. No scleral icterus. No injection or drainage. CARDIOVASCULAR: Regular rate and rhythm without murmurs, gallops, or rubs. RESPIRATORY: Clear to auscultation. Breath sounds equal bilaterally. No wheezes , rales, or rhonchi. GASTROINTESTINAL: Abdomen obese. Bowel sounds diminished. Abdomen tender to palpation of left side. Abdomen otherwise non-tender, nondistended. No guarding. MUSCULOSKELETAL: Extremities without clubbing, cyanosis, or edema. No joint tenderness, effusion, or edema noted. No calf tenderness. NEUROLOGICAL: Awake and alert. No focal deficits. (Yenny Esquivel MD R1) A/P Assessment and Plan Patient is a 50 y/o F w/PMH of HTN, GERD, lupus, DM, and hx of kidney transplant presents with bright red bleeding per rectum. Admitted for work-up of lower GI bleeding. Differential: diverticulosis v diverticulitis v colitis v cancer v PUD Discharge Planning D/C likely tomorrow. (Yenny Esquivel MD R1) Attending Attestation Patient seen and examined, discussed with resident team. I agree with assessment and management as documented and discussed with me. Pt seen in PACU after panendoscopy. She is sleepy but feels hungry. Discussed results of endoscopy and need for repeat colonoscopy tomorrow. Anticipate discharge tomorrow after colonoscopy. (Geneva Russell MD) Problem List: (1) Acute lower gastrointestinal bleeding Status: Acute Plan: - h/o GERD, SLE with GI sx's,IBS, no prior episodes of rectal bleeding. CT abdomen negative for acute pathology. Diff: internal hemorrhoids v gastric ulcer v colon cancer v diverticulosis/itis - vitals stable, hemoglobin stable - per GI: EGD showed mild gastritis. Complete colonoscopy compromised by incomplete bowel prep, single small polyp in colon (30 cm) was visualized at 30cm and removed - will resume home med prednisone - bowel prep repeated today with miralax, repeat colonoscopy scheduled for tomorrow - con't Protonix 40 mg IV bid - (2) Chronic abdominal pain Status: Acute Plan: - stable - hx of lupus w/abdominal pain and nausea may be contributory - patient satisfied with current pain medication regimen - abdominal CT and XR showed no abnormalities - bowel prep today for colonoscopy tomorrow (3) SHELTON (acute kidney injury) Status: Resolved Plan: - NS IV 140mls/hr maintenance fluids (4) Lupus Status: Chronic Plan: - 5-6 year hx, symptoms controlled - continued patient home med mycophenolate and cyclosporine (5) Diabetes mellitus Status: Chronic Plan: - controlled on Metformin. Last BG 88. - currently Novolog SSI - metformin d/c'd. Will resume on discharge (6) History of kidney transplant Status: Acute Plan: - done in - taking cyclosporine, mycophenolate - resumed prednisone today (7) Hypertension Status: Resolved Plan: - home med (atenolol) Fluids: IVF Electrolytes: CTM Nutrition/Diet: Bowel prep today. NPO after midnight Code: FULL DVT ppx: contraindicated because of suspected GI bleed GI ppx: Protonix as above (Yenny Esquivel MD R1) Yenny Esquivel MD R1 Sep 14, 2016 14:10 Geneva Russell MD Sep 14, 2016 20:14
[2016-09-14 15:12] VITALS: BP 149/95; PULSE 83; RESP 20; TEMP 98; O2SAT 91
[2016-09-14] MEDS ORDERED: POLYETHYLENE GLYCOL POWDER 255 GM BTL PO SCH (15:15)
[2016-09-14] MEDS ORDERED: POLYETHYLENE GLYCOL 17 GM PKG PO SCH (18:12)
[2016-09-14] MEDS: ONDANSETRON HCL 4 MG/2 ML VIAL IV PRN (18:21)
[2016-09-14] MEDS ORDERED: BISACODYL EC 5 MG TABEC PO ONE (19:00)
[2016-09-14 19:22] VITALS: O2SAT 95
[2016-09-14] MEDS ORDERED: PEG (High)/E-LYTE SOLN 4000 ML BTL PO ONE (21:00)
[2016-09-14] MEDS: ATENOLOL 50 MG TAB PO SCH (21:00)
[2016-09-14] MEDS ORDERED: POLYETHYLENE GLYCOL 17 GM PKG PO ONE (21:00)
[2016-09-14] MEDS: predniSONE 10 MG TAB PO SCH (21:17)
[2016-09-14 21:44] VITALS: BP 137/78; PULSE 98; RESP 20; TEMP 97.8; O2SAT 97
[2016-09-15] VITALS (7 sets, daily range): BP systolic 130–161; BP diastolic 80–97; PULSE 76–91; RESP 16–20; TEMP 98–99; O2SAT 92–96
[2016-09-15] MEDS: PANTOPRAZOLE SODIUM 40 MG VIAL IV PUSH SCH ×2 (01:31→15:41)
[2016-09-15] MEDS: ONDANSETRON HCL 4 MG/2 ML VIAL IV PRN ×3 (01:39→20:07)
[2016-09-15] MEDS: SODIUM CHLOR 0.9% 1000 ML INJ 1,000 ML IV SCH ×3 (05:52→20:08)
[2016-09-15] MEDS: INSULIN ASPART SUPPLEMENTAL SCALE SQ SCH ×4 (06:45→20:14)
[2016-09-15] MEDS: MYCOPHENOLATE MOFETIL 500 MG TAB PO SCH ×2 (09:20→20:07)
[2016-09-15] MEDS: ACETAMINOPHEN/HYDROcodone 325 MG/5 MG TAB PO PRN ×2 (09:20→22:08)
[2016-09-15] MEDS: cycloSPORINE 25 MG CAP PO SCH ×2 (09:20→20:07)
[2016-09-15] MEDS: SODIUM CHLORIDE 0.9% FLUSH 10 ML FLUSH IV FLUSH SCH ×2 (09:21→20:06)
--- NOTE | 2016-09-15 10:14 | HHI.FPPN ---
Subjective Remarks No acute events overnight. Afebrile and vital signs stable overnight. Patient complains of vomiting and abdominal pains morning. She reports that her abdominal pain is in the same location in the left lower quadrant. She also reports that the vomit is yellow. She reports excessively completing the bowel prep, which induced light brown bowel movements without any blood noted. She denied any bright red blood per rectum. She also reports acute worsening of her chronic low back pain. Patient also reports bright yellow urine without any associated dysuria or fever. (Yahir Díaz MD R1) Objective Vitals Vital Signs Date Time Temp Pulse Resp B/P Pulse Ox O2 Delivery O2 Flow Rate FiO2 09/15/16 08:00 98.3 86 20 142/85 93 09/15/16 04:55 98.3 84 17 130/84 93 09/15/16 02:17 98.0 87 18 135/80 96 09/14/16 21:44 97.8 98 20 137/78 97 09/14/16 19:22 95 21 09/14/16 18:35 22 09/14/16 15:12 98.0 83 20 149/95 91 09/14/16 13:10 79 14 121/74 93 Room Air 09/14/16 12:55 79 14 120/73 93 Room Air 09/14/16 12:40 98.0 79 14 117/75 93 Room Air I/O 09/14/16 09/14/16 09/14/16 09/15/16 09/15/16 09/15/16 07:00 15:00 23:00 07:00 15:00 23:00 Intake Total 100 ml 1650 ml Output Total 0 ml 2 ml Balance 100 ml 1648 ml Intake Oral 650 ml IV Total 1000 ml Other 100 ml Output Urine Total 0 ml Stool Total 2 ml Estimated Blood Loss 0 ml # Voids 1 2 (Yahir Díaz MD R1) Result Diagram: 09/14/16 0618 09/14/16 0618 Imaging Last Impressions Abdomen X-Ray 09/13/16 1257 Signed Impressions: Service Date/Time: September 13:27 - CONCLUSION: 1. Nonobstructive bowel gas pattern. Manan Correa MD GI Bleed Scan Nuclear Medicine 09/12/16 1546 Signed Impressions: Service Date/Time: Monday, September 12, 2016 16:41 - CONCLUSION: Normal examination. Neville Townsend MD Abdomen/Pelvis CT 09/12/16 0000 Signed Impressions: Service Date/Time: Monday, September 12, 2016 11:02 - CONCLUSION: 1. Stable CT scan of the abdomen/pelvis compared to the prior examination. No new or significant changes are demonstrated. 2. Status post cholecystectomy. 3. Stable right pelvic transplant kidney. Jeff Britton MD Objective Remarks GENERAL: This is a well-nourished, well-developed patient, in no apparent distress. SKIN: Appearance of seborrheic dermatitis on upper extremities. Cool and dry. HEAD: Atraumatic. Normocephalic. EYES: Extraocular motions intact. No scleral icterus. No injection or drainage. CARDIOVASCULAR: Regular rate and rhythm without murmurs, gallops, or rubs. RESPIRATORY: Clear to auscultation. Breath sounds equal bilaterally. No wheezes , rales, or rhonchi. GASTROINTESTINAL: Abdomen obese. Bowel sounds diminished. Abdomen tender to palpation of left side. Abdomen otherwise non-tender, nondistended. No guarding. MUSCULOSKELETAL: Extremities without clubbing, cyanosis, or edema. No joint tenderness, effusion, or edema noted. No calf tenderness. BACK: No CVA tenderness bilaterally. However, there is pain to palpation over the SI joints. NEUROLOGICAL: Awake and alert. No focal deficits. (Yahir Díaz MD R1) A/P Assessment and Plan Patient is a 50 y/o F w/PMH of HTN, GERD, lupus, DM, and hx of kidney transplant presents with bright red bleeding per rectum. Admitted for work-up of lower GI bleeding. Differential: diverticulosis v diverticulitis v colitis v cancer v PUD v hemorrhoids. Discharge Planning D/C likely tomorrow. (Yahir Díaz MD R1) Attending Attestation Patient seen and examined, discussed with Dr. Díaz. I agree with assessment and management as documented and discussed with me. Anticipate discharge today, pending results of colonoscopy. (Geneva Russell MD) Problem List: (1) Acute lower gastrointestinal bleeding Status: Acute Plan: - h/o GERD, SLE with GI sx's, IBS, no prior episodes of rectal bleeding. CT abdomen negative for acute pathology. Diff: internal hemorrhoids v gastric ulcer v colon cancer v diverticulosis/itis - vitals stable, hemoglobin stable - per GI: EGD showed mild gastritis. Complete colonoscopy compromised by incomplete bowel prep, single small polyp in colon (30 cm) was visualized at 30cm and removed. Patient completed another bowel prep last night. Planning for colonoscopy today. - will resume home medication prednisone - con't Protonix 40 mg IV bid - will d/c home on PPI with instructions to follow up with GI (2) Chronic abdominal pain Status: Acute Plan: abdominal pain stable since admission. - hx of lupus w/ abdominal pain and nausea may be contributory - patient satisfied with current pain medication regimen - abdominal CT and XR showed no abnormalities - will f/u colonoscopy today (3) Back pain Status: Acute Plan: Patient complains of back pain. Urinalysis negative for signs of infection Dilaudid 1 (4) SHELTON (acute kidney injury) Status: Resolved Plan: - NS IV at 140mls/hr maintenance fluids because patient NPO (5) Lupus Status: Chronic Plan: - 5-6 year hx, symptoms controlled - pt on immunosuppression (6) Diabetes mellitus Status: Chronic Plan: - controlled on Metformin. Last BG 88. - currently Novolog SSI - metformin d/c'd. Will resume on discharge (7) History of kidney transplant Status: Acute Plan: - done in - taking cyclosporine, mycophenolate, prednisone (8) Hypertension Status: Resolved Plan: - home med (atenolol) Fluids: IVF Electrolytes: CTM Nutrition/Diet: NPO for colonscopy, then advance as tolerated Code: FULL DVT ppx: SCD's, chemical ppx contraindicated because of suspected GI bleed GI ppx: Protonix as above (Yahir Díaz MD R1) Yahir Díaz MD R1 Sep 15, 2016 10:14 Geneva Russell MD Sep 15, 2016 14:25
[2016-09-15] MEDS ORDERED: HYDROmorphone HCL PF 1 MG/ML VIAL IV PUSH ONE (10:15)
[2016-09-15] MEDS ORDERED: PROT40TA PO (12:06)
--- NOTE | 2016-09-15 12:10 | HHI.DCPOC ---
Discharge Care Plan Diagnosis: (1) Left lateral abdominal pain (2) Nausea & vomiting (3) Gastritis Goals to Promote Your Health * To prevent worsening of your condition and complications, please take medications as prescribed and follow up with doctors as instructed. * To maintain your health at the optimal level, please lose weight. Directions to Meet Your Goals Take your medications as prescribed Follow your dietary instruction Follow activity as directed Keep your appointments as scheduled Take your immunizations and boosters as scheduled If your symptoms worsen call your PCP, if no PCP go to Urgent Care Center or Emergency Room Smoking is Dangerous to Your Health. Avoid second hand smoke Call the 24-hour hour crisis hotline for domestic abuse at Yahir Díaz MD R1 Sep 15, 2016 12:10
[2016-09-15] MEDS ORDERED: ZOFR4TAB3 SL (12:12)
[2016-09-15] MEDS ORDERED: HYDR-3516 PO (12:12)
[2016-09-15 12:50] LABS: BACTERIA, URINE OCC /hpf; BLOOD, URINE SMALL (NEG); COMMENT (UR) CULT NOT INDICATED; CULTURE IF INDICATED CULT NOT INDICATED; GLUCOSE,URINE NEG (NEG); KETONE, URINE 10 mg/dL (NEG); MUCUS URINE FEW /lpf (OCC); NITRITE,URINE NEG (NEG); SQUAMOUS EPITHELIAL CELL URINE 7 /hpf (0-5); URINE COLOR YELLOW (YELLW/STRAW)
[2016-09-15] MEDS ORDERED: PROPOFOL 200 MG/20 ML AMP IV ONE (13:44)
[2016-09-15] MEDS ORDERED: DO NOT ADM ANY ANTICOAGULANT DRUGS PRN (14:15)
--- NOTE | 2016-09-15 14:26 | GIPROC ---
[facility] [address] [facility]. [facility], [address] COLONOSCOPY PROCEDURE REPORT EXAM DATE: 09/15/2016 PATIENT NAME: Mercy Pena MR #: [id number] BIRTHDATE: 1965 ENDOSCOPIST: Nia Johnson MD ORDER #: [id number] STULL INSTALLER: Gm Frankel and Don Johnson STATUS: inpatient INDICATIONS: The patient is a 50 yr old female here for a colonoscopy due to gi bleeding PROCEDURE PERFORMED: Colonoscopy with polypectomy MEDICATIONS: Per Anesthesia and None. PREP QUALITY: 20 % obscured PREP TYPE:GoLytely ESTIMATED BLOOD LOSS: None CONSENT: The patient understands the risks and benefits of the procedure and understands that these risks include, but are not limited to: sedation, allergic reaction, infection, perforation and/or bleeding. Alternative means of evaluation and treatment include, among others: physical exam, x-rays, and/or surgical intervention. The patient elects to proceed with this endoscopic procedure. medical equipment was checked for proper function. Hand hygiene and appropriate measures for infection prevention was taken. After the risks, benefits and alternatives of the procedure were thoroughly explained, Informed consent was verified, confirmed and timeout was successfully executed by the treatment team. A digital exam perianal lesion, soft with small ulceration, possible previously thrombosed hemorrhoids, possible source of bleeding The Pentax [id number] endoscope was introduced through the anus and advanced to the cecum, which was identified by both the appendix and ileocecal valve. The instrument was then slowly withdrawn as the colon was fully examined. COLON FINDINGS: Two polyps hepatic flexure -5 mm, 9 mm-hot snare polypectomy with complete removal. Retroflexed views revealed internal hemorrhoids and Retroflexed views revealed medium internal hemorrhoids The scope was then completely withdrawn from the patient and the procedure terminated. PROCEDURE WITHDRAWAL TIME:8minutes ADVERSE EVENTS: There were no complications. IMPRESSIONS: 1. Two polyps hepatic flexure -5 mm, 9 mm-hot snare polypectomy with complete removal 2. Retroflexed views revealed internal hemorrhoids 3. Retroflexed views revealed medium internal hemorrhoids 4. Perianal lesion, soft with small ulceration, possible previously thrombosed hemorrhoids, possible source of bleeding RECOMMENDATIONS: 1. Await biopsy results. Biopsy results will not be ready for 7-10 days. If you don't hear from us in two weeks, call our office for results. 2. Benefiber 2 tsp daily 3. Avoid NSAIDS and Aspirin 4. Probiotics from any [facility] or health food store 5. Yearly rectal exams RECALL: Colonoscopy, pending biopsy results Nia Johnson MD eSigned: Nia Johnson MD 09/15/2016 2:26 PM cc:
[2016-09-15] MEDS ORDERED: WHEA1POW13 PO (14:47)
[2016-09-15] MEDS ORDERED: LACTCAP8 PO (14:47)
--- NOTE | 2016-09-15 19:53 | MR ---
cc: GENEVA BINGHAM MD,CHRISTOPHE Barajas JR., MD DATE: 09/14/2016. PROCEDURE PERFORMED: Esophagogastroduodenoscopy with biopsy and incomplete colonoscopy with biopsy. REFERRING PHYSICIAN: Dr. Geneva Bingham. ENDOSCOPIST: Christophe Gomez MD. INDICATIONS FOR THE PROCEDURE: Abdominal pain and blood in the stool. DESCRIPTION OF THE PROCEDURE IN DETAIL: After informed consent was obtained, the patient was placed in the supine position. General endotracheal anesthesia was administered. She was then turned up onto her left side. After adequate sedation was achieved, the Pentax videoscope was inserted in the oropharynx and advanced through the esophagus, stomach and duodenum. This was then slowly withdrawn examining the mucosal surfaces carefully. A retroflexed exam was performed in the fundus and cardia. Biopsies were obtained from the gastric antrum. The scope was then withdrawn slowly through the esophagus and the procedure was terminated. A colonoscopy was then performed. Digital rectal examination was normal. The Pentax videoscope was inserted in the anal canal and advanced through the colon reaching 250 cm which was probably in the descending colon. At that level, there was solid stool that prevented further passage of the scope. The scope was then withdrawn examining as carefully as possible with residual solid stool present. At 30 cm, there was a small polyp removed with cold forceps technique. A retroflexed exam was performed in the rectum demonstrating hemorrhoids. The scope was then straightened and pulled through the anal canal and the procedure was terminated. She tolerated the procedure well and was returned to the recovery area in good condition. FINDINGS: 1. The esophagus was normal. 2. The stomach showed mild gastritis and a biopsy was taken. 3. The duodenum was normal. 4. The colonoscopy was incomplete due to a poor prep. There was solid stool present in the left colon. 5. The scope could only be advanced to the descending colon at 50 cm. It could not be advanced to the right colon because of solid stool. 6. A small polyp at 30 cm was removed with cold forceps. 7. There was no blood present on the examination. 8. In the rectum, there were some internal hemorrhoids. IMPRESSION: 1. Mild gastritis. 2. Inadequate prep that did not allow passage of the scope to the cecum. 3. No blood seen on this examination. 4. Solid stool in the left colon. 5. No significant diverticulosis was seen. 6. Small polyp removed at 30 cm. 7. Hemorrhoids. RECOMMENDATIONS: 1. She should be re-prepped for colonoscopy tomorrow. 2. We will keep her on a clear liquid diet today. Christophe Gomez MD [facility] /12:53 PM /7:46 PM
[2016-09-15] MEDS: predniSONE 10 MG TAB PO SCH (20:07)
[2016-09-15] MEDS: ATENOLOL 50 MG TAB PO SCH (20:07)
[2016-09-16 00:31] VITALS: BP 143/93; PULSE 70; RESP 19; TEMP 98.2; O2SAT 91
[2016-09-16] MEDS: PANTOPRAZOLE SODIUM 40 MG VIAL IV PUSH SCH (01:00)
[2016-09-16] MEDS: SODIUM CHLOR 0.9% 1000 ML INJ 1,000 ML IV SCH (04:15)
[2016-09-16 05:18] VITALS: BP 145/78; PULSE 64; RESP 18; TEMP 97.9; O2SAT 94
[2016-09-16] MEDS: INSULIN ASPART SUPPLEMENTAL SCALE SQ SCH (05:45)
[2016-09-16 08:10] VITALS: BP 152/104; PULSE 73; RESP 19; TEMP 98; O2SAT 93
[2016-09-16] MEDS: MYCOPHENOLATE MOFETIL 500 MG TAB PO SCH (08:45)
[2016-09-16] MEDS: ONDANSETRON HCL 4 MG/2 ML VIAL IV PRN (08:45)
[2016-09-16] MEDS: cycloSPORINE 25 MG CAP PO SCH (08:45)
[2016-09-16] MEDS: SODIUM CHLORIDE 0.9% FLUSH 10 ML FLUSH IV FLUSH SCH (08:45)
--- NOTE | 2016-09-16 09:35 | HHI.FPPN ---
Subjective Remarks Patient is a 50 y/o F w/PMH of HTN, GERD, lupus, DM, and hx of kidney transplant presents with bright red bleeding per rectum. Admitted for work-up of lower GI bleeding. Patient states her pain is controlled w/current medications. Continued LLQ abdominal pain of stabbing quality and a low back pain that is tolerable. Endorses small episodes of emesis since yesterday. Was able to eat yesterday, no problems w/bowel movements or urination. Denies chest pain, shortness of breath, or constipation. Objective Vitals Vital Signs Date Time Temp Pulse Resp B/P Pulse Ox O2 Delivery O2 Flow Rate FiO2 09/16/16 08:10 98.0 73 19 152/104 93 09/16/16 05:18 97.9 64 18 145/78 94 09/16/16 00:31 98.2 70 19 143/93 91 09/15/16 19:51 93 09/15/16 19:22 99.0 91 16 160/83 93 09/15/16 15:53 98.4 76 18 147/89 92 09/15/16 14:50 72 16 133/84 96 09/15/16 14:30 70 12 130/73 98 Nasal Cannula 2 09/15/16 14:25 97.9 69 12 130/73 97 09/15/16 12:07 98.0 90 20 161/97 92 09/15/16 10:30 19 I/O 09/15/16 09/15/16 09/15/16 09/16/16 09/16/16 09/16/16 07:00 15:00 23:00 07:00 15:00 23:00 Intake Total 1650 ml 500 ml 1400 ml Output Total 2 ml 1150 ml Balance 1648 ml 500 ml 250 ml Intake Oral 650 ml 400 ml IV Total 1000 ml 1000 ml Other 500 ml Output Urine Total 1150 ml Stool Total 2 ml # Voids 2 5 Result Diagram: 09/14/1661709/14/16617 Objective Remarks GENERAL: This is a well-nourished, well-developed patient, in no apparent distress. SKIN: Appearance of seborrheic dermatitis on upper extremities. Cool and dry. HEAD: Atraumatic. Normocephalic. EYES: Extraocular motions intact. No scleral icterus. No injection or drainage. CARDIOVASCULAR: Regular rate and rhythm without murmurs, gallops, or rubs. RESPIRATORY: Clear to auscultation. Breath sounds equal bilaterally. No wheezes , rales, or rhonchi. GASTROINTESTINAL: Abdomen obese. No tenderness to palpation of left side. Site of past hernia repair was palpated. No lesions, nodules, protrusions from scar noted. No erythema, drainage, swelling, or tenderness to palpation noted. Abdomen otherwise nondistended. No guarding. MUSCULOSKELETAL: Extremities without clubbing, cyanosis, or edema. BACK: No CVA tenderness bilaterally. However, there is pain to palpation over the SI joints. NEUROLOGICAL: Awake and alert. No focal deficits. A/P Assessment and Plan Patient is a 50 y/o F w/PMH of HTN, GERD, lupus, DM, and hx of kidney transplant presents with bright red bleeding per rectum. Admitted for work-up of lower GI bleeding. CT abdomen negative for significant findings. Colonoscopy identified 3 polyps ( subsequently removed), internal hemorrhoids, and perianal lesion w/ulceration and some thrombosis. Cause is likely bleeding of internal hemorrhoids. EGD showed mild gastritis, no ulcers or lesions visualized. Patient should continue proper prophylaxis for her GERD and f/u w/PCP, in addition to increasing fiber intake, probiotics, and yearly rectal exam. Discharge Planning D/C today Problem List: (1) Acute lower gastrointestinal bleeding Status: Acute Plan: - h/o GERD, SLE with GI sx's, IBS, no prior episodes of rectal bleeding. Colonoscopy visualized internal hemorrhoids, suspected to be likely source of bleeding. - Likely a thrombosed hemorrhoid, plan to treat w/fiber supplementation - con't Protonix 40 mg IV BID - will d/c home on PPI with instructions to follow up with GI (2) Chronic abdominal pain Status: Acute Plan: New abdominal pain for a week in addition to chronic pain - hx of lupus w/ abdominal pain and nausea may be contributory - patient satisfied with current pain medication regimen - abdominal CT and XR showed no abnormalities - will f/u colonoscopy today (3) Internal hemorrhoids Status: Acute Plan: Stable - visualized on colonoscopy, suspected to have recently bled - f/u outpatient for treatment options, screenings, and rectal exams - fiber and probiotics (4) Back pain Status: Chronic Plan: Patient complains of back pain and tenderness to palpation over sacroiliac joint. Urinalysis negative have patient f/u w/PCP or pain management (5) Lupus Status: Chronic Plan: - 5-6 year hx, symptoms controlled - pt on immunosuppression (6) Diabetes mellitus Status: Chronic Plan: - controlled on Metformin. Last BG 88. - currently Novolog SSI - metformin d/c'd. Will resume on discharge (7) History of kidney transplant Status: Acute Plan: - done in - taking cyclosporine, mycophenolate, prednisone (8) Hypertension Status: Resolved Plan: - home med (atenolol) Fluids: IVF Electrolytes: CTM Nutrition/Diet: NPO for colonscopy, then advance as tolerated Code: FULL DVT ppx: SCD's, chemical ppx contraindicated because of suspected GI bleed GI ppx: Protonix as above Yenny Esquivel MD R1 Sep 16, 2016 09:35 Yenny Esquivel MD R1 Sep 16, 2016 09:35
--- NOTE | 2016-09-16 09:59 | HHI.DS ---
Discharge Summary Admission Date Sep 12, 2016 at 13:16 Discharge Date: Sep 16, 2016 Admitting Diagnosis GI bleed (1) Acute lower gastrointestinal bleeding Diagnosis: Principal Plan: - h/o GERD, SLE with GI sx's, IBS, no prior episodes of rectal bleeding. Colonoscopy visualized internal hemorrhoids, suspected to be likely source of bleeding. - Likely a thrombosed hemorrhoid, plan to treat w/fiber supplementation - con't Protonix 40 mg IV BID - will d/c home on PPI with instructions to follow up with GI (2) Chronic abdominal pain Diagnosis: Secondary Plan: New abdominal pain for a week - hx of lupus w/ abdominal pain and nausea may be contributory - patient satisfied with current pain medication regimen - abdominal CT and XR showed no abnormalities - s/p colonoscopy, see procedure note (3) Back pain Plan: Patient complains of back pain and tenderness to palpation over sacroiliac joint. Urinalysis negative have patient f/u w/PCP or pain management (4) Lupus Plan: - 5-6 year hx, symptoms controlled - pt on immunosuppression (5) Diabetes mellitus Plan: - controlled on Metformin. Last BG 88. - currently Novolog SSI - metformin d/c'd. Will resume on discharge (6) History of kidney transplant Plan: - done in - taking cyclosporine, mycophenolate, prednisone (7) Hypertension Plan: - home med (atenolol) Fluids: IVF Electrolytes: CTM Nutrition/Diet: NPO for colonscopy, then advance as tolerated Code: FULL DVT ppx: SCD's, chemical ppx contraindicated because of suspected GI bleed GI ppx: Protonix as above Consultants GI Brief History Patient is a 50 y/o F w/PMH of HTN, lupus, kidney transplant, and GERD who presents with lower GI bleed. Since 4 am this morning, patient noted her first incident of bright, red blood per rectum that occurred upon standing from bed. Patient denies diarrhea or melena. Endorses left, lower quadrant abdominal pain radiating to her lower back that has progressively worsening for 2 months. Is currently a stabbing, constant 9/10 pain. States her abdomen "feels hard." States the pain has improved with a glass of milk and/her tums in addition to her GERD medication. Pain is aggravated with spicy food and associated with nausea and vomiting of food. Follows with her PCP, who ordered an MRI of abdomen , which was done 6 days ago in [place]. Has not recieved results. No hx of OH, chest pain, shortness of breath, lightheaded. Does not take NSAIDs, blood thinner. Takes tylenol for pain. Had a cancerous cyst removed from her labia last year. Patient has never had a colonoscopy. Has a hx of lupus diagnosed 5/6 years ago. Has associated nausea and vomiting, stomach cramps. However, these new symptoms are different. Patient had a kidney transplant in 1989. Taking prednisone, cyclosporine, and mycophenolate since then for it. Has DM. Last sugar was 88. Takes metformin for it regularly. CBC/BMP: 09/14/16 0618 09/14/16 0618 Significant Findings Laboratory Tests Test 09/14/16 09/15/16 06:18 12:00 Hemoglobin 15.4 GM/DL (11.6-15.3) Hematocrit 46.8 % (35.0-46.0) Platelet Count 132 TH/MM3 (150-450) Estimat Glomerular Filtration 62 ML/MIN (>89) Rate Urine Turbidity HAZY (CLEAR) Urine Ketones 10 mg/dL (NEG) Urine Occult Blood SMALL (NEG) Urine Bacteria OCC /hpf (NONE) Urine Mucus FEW /lpf (OCC) Imaging Abdomen X-Ray 09/13/16 1257 Signed Impressions: Service Date/Time: September 13:27 - CONCLUSION: 1. Nonobstructive bowel gas pattern. Manan Correa MD PE at Discharge GENERAL: This is a well-nourished, well-developed patient, in no apparent distress. SKIN: Appearance of seborrheic dermatitis on upper extremities. Cool and dry. HEAD: Atraumatic. Normocephalic. EYES: Extraocular motions intact. No scleral icterus. No injection or drainage. CARDIOVASCULAR: Regular rate and rhythm without murmurs, gallops, or rubs. RESPIRATORY: Clear to auscultation. Breath sounds equal bilaterally. No wheezes , rales, or rhonchi. GASTROINTESTINAL: Abdomen obese. No tenderness to palpation of left side. Site of past hernia repair was palpated. No protrusions, lesions, or nodules at scar site. No erythema, drainage, swelling, or tenderness to palpation noted. Abdomen otherwise nondistended. No guarding. MUSCULOSKELETAL: Extremities without clubbing, cyanosis, or edema. BACK: No CVA tenderness bilaterally. However, there is pain to palpation over the SI joints. NEUROLOGICAL: Awake and alert. No focal deficits. Hospital Course Patient is a 50 y/o F w/hx of GERD, SLE w/GI sx, IBS, hx of kidney transplant presents w/an episode of bright red blood per rectum and LLQ abdominal pain. Patient was placed on IV PPI, prednisone was held, and patient underwent abdominal imaging. No significant findings on abdominal XR or CT. She was placed on IVF. She was also given norco and morphine to control abdominal pain which was successful. GI was consulted, patient underwent EGD and colonoscopy. Prednisone was resumed. Mild gastritis seen on EGD and bx taken. Three polyps were removed and internal hemorrhoids were viewed. Suspicions that internal hemorrhoids were the cause of bleeding was communicated to patient, told to follow up with PCP and GI. Patient was also instructed to take 2 tsps fiber Qdaily, probiotics, yearly rectal exams, avoid NSAIDs and aspirin, and await or call about biopsy results. Pt Condition on Discharge: Good Discharge Disposition: Discharge Home Discharge Instructions DIET: Follow Instructions for: As Tolerated, No Restrictions (Renal diet for transplant hx) Activities you can perform: Regular-No Restrictions Follow up Referrals: Gastroenterology - 2 Weeks PCP Follow-up - 1 Week New Medications: Lactobacillus Acidophilus (Probiotic) 1 Cap Cap 1 CAP PO TIDAC Nutritional Supplement #90 Ref 0 CAP Ondansetron Odt (Zofran Odt) 4 Mg Tab 4 MG SL Q6HR PRN Nausea/Vomiting #30 Ref 0 TAB Pantoprazole (Protonix) 40 Mg Tab 40 MG PO DAILY Ulcer Prevention #30 Ref 0 TAB Wheat Dextrin (Benefiber) 152 Gm Powder 10 GM PO DAILY Hemorrhoids #1 Ref 11 BOTTLE Hydrocodone-Acetaminophen (Hydrocodone-Acetaminophen) 5-325 mg Tab 1 TAB PO Q4H PRN PAIN SCALE 3 TO 5 #30 TAB Continued Medications: Atenolol (Atenolol) 50 Mg Tab 50 MG PO HS Blood Pressure Management #30 Ref 0 TAB Atorvastatin (Atorvastatin) 10 Mg Tab 10 MG PO HS Cholesterol Management #30 Ref 2 TAB Clonidine (Clonidine) 0.1 Mg Tab 0.1 MG PO BID PRN for BP greater than 145/95 #30 Ref 3 TAB Cyclosporine (Cyclosporine) 25 Mg Cap 75 MG PO BID Ref 0 CAP Dicyclomine (Bentyl) 10 Mg Cap 10 MG PO TID PRN Bowel Management #15 Ref 0 CAP Losartan (Losartan) 50 Mg Tab 50 MG PO DAILY Blood Pressure Management #30 Ref 2 TAB Magnesium Oxide (Magnesium Oxide) 400 Mg Tab 400 MG PO BID Nutritional Supplement Ref 0 TAB Metformin (Metformin) 500 Mg Tab 500 MG PO HS With a meal Blood Sugar Management #30 Ref 0 TAB Metoclopramide (Metoclopramide) 5 Mg Tab 5 MG PO TIDAC #90 Ref 2 TAB Mycophenolate (Mycophenolate) 500 Mg Tab 500 MG PO BID Immunosuppression #120 Ref 0 TAB Ondansetron Odt (Zofran Odt) 4 Mg Tab 4 MG SL Q6HR PRN Nausea/Vomiting #15 Ref 0 TAB Prednisone (Prednisone) 10 Mg Tab 10 MG PO HS Ref 0 TAB Promethazine (Promethazine) 12.5 Mg Tab 25 MG PO Q4H PRN NAUSEA OR VOMITING Ref 0 TAB Promethazine Supp (Phenergan Supp) 25 Mg Supp 25 MG RECTAL Q6H PRN NAUSEA OR VOMITING #10 Ref 0 SUPP Yenny Esquivel MD R1 Sep 16, 2016 09:59 Yenny Esquivel MD R1 Sep 16, 2016 09:59
== END 2016-09-16 11:20 | disposition home or self-care (01) ==
LOC: NEPC 07:59 → NEDA 13:16 → NEPFCDU 14:35
PROVIDERS: ADMIT Family Medicine; ATTEND Family Medicine
DX: K92.1 Melena (principal); K29.70 Gastritis, unspecified, without bleeding; R10.32 Left lower quadrant pain; G89.29 Other chronic pain; D12.5 Benign neoplasm of sigmoid colon; K64.8 Other hemorrhoids; N26.1 Atrophy of kidney (terminal); N28.1 Cyst of kidney, acquired; N17.9 Acute kidney failure, unspecified; E86.0 Dehydration; R11.2 Nausea with vomiting, unspecified; M54.9 Dorsalgia, unspecified; L21.9 Seborrheic dermatitis, unspecified; D69.6 Thrombocytopenia, unspecified; R94.31 Abnormal electrocardiogram [ECG] [EKG]; I11.0 Hypertensive heart disease with heart failure; I51.7 Cardiomegaly; E78.00 Pure hypercholesterolemia, unspecified; E11.43 Type 2 diabetes mellitus with diabetic autonomic (poly)neuropathy; K31.84 Gastroparesis; K21.9 Gastro-esophageal reflux disease without esophagitis; M32.9 Systemic lupus erythematosus, unspecified; F41.0 Panic disorder [episodic paroxysmal anxiety]; M19.90 Unspecified osteoarthritis, unspecified site; F17.210 Nicotine dependence, cigarettes, uncomplicated; E66.9 Obesity, unspecified; Z79.84 Long term (current) use of oral hypoglycemic drugs; Z79.899 Other long term (current) drug therapy; Z85.44 Personal history of malignant neoplasm of other female genital organs; Z94.0 Kidney transplant status
CPT/HCPCS: 00740; 00810; 43239; 45380; 45385; 74020; 74176; 76937; 78278; 80048; 80053; 81001; 82550; 82948; 83690; 84484; 84702; 84703; 85014; 85018; 85025; 85027; 85610; 85730; 86850; 86900; 86901; 88305; 93005; 96361; 96365; 96375; 99285; A9560; C9113; G0378; J1170; J2270; J2405; J7030; J7512; J7515; J7517

== ENCOUNTER 2017-03-19 11:00 | Inpatient (IN) | payer MEDICAID ==
[~2017-03-19] VITALS: Ht 170.2 cm; Wt 93.7 kg
[2017-03-19] VITALS (7 sets, daily range): BP systolic 103–164; BP diastolic 60–75; PULSE 72–115; RESP 16–20; TEMP 98–100.3; O2SAT 94–98
[~2017-03-19 11:00] MED LIST changes: +HYDR-3516 PO; +LACTCAP8 PO; +PROT40TA PO; +WHEA1POW13 PO; -WHEEMIS3
--- NOTE | 2017-03-19 11:22 | PD ---
HPI Chief Complaint: GI Complaint Time Seen by Provider: 11:14 Travel History International Travel<30 days: No Contact w/Intl Traveler<30days: No Traveled to known affect area: No History of Present Illness HPI This 51-year-old female is complaining of vomiting. She says she started vomiting yesterday and has been fairly persistent. She has had trouble like this in the past attributed to gastritis. She is also had some diarrhea. She says she's had 3 episodes of diarrhea. She has a history of a kidney transplant in 1989. She has had a cholecystectomy. She has been diagnosed as having gastroparesis in the past. PFSH Past Medical History Arthritis: Yes Autoimmune Disease: Yes (LUPUS) Anxiety: No Depression: No Heart Rhythm Problems: No Cancer: Yes (skin) Cardiovascular Problems: Yes High Cholesterol: Yes Chemotherapy: No Chest Pain: No Congestive Heart Failure: No Cerebrovascular Accident: No Diabetes: Yes Diminished Hearing: No Endocrine: No Gastrointestinal Disorders: Yes (GASTROPORESIS) GERD: Yes Genitourinary: Yes (kidney transplant 1989) Headaches: No Hepatitis: No Hiatal Hernia: Yes Hypertension: Yes Immune Disorder: No Implanted Vascular Access Dvce: Yes (LUE SHUNT port) Kidney Stones: Yes Musculoskeletal: No Neurologic: Yes Psychiatric: No Reproductive: No Respiratory: No Immunizations Current: Yes Migraines: Yes Radiation Therapy: No Renal Failure: Yes Seizures: No Thyroid Disease: No Ulcer: No PNEUMOCCOCAL Vaccine (Year): 2 ?: Not Menopausal: Yes : 2 Para: 1 Miscarriage: 1 Tubal Ligation: Yes Past Surgical History Abdominal Surgery: Yes (INGUINAL HERNIA: RIGHT) AICD: No Arteriovenous Shunt: Yes (LEFT ARM FOR DIALYSIS IN 1989- NON FUNCTIONAL) Body Medical Devices: AV SHUNT TO LEFT ARM Cardiac Surgery: No Section: Yes Cholecystectomy: Yes Ear Surgery: No Endocrine Surgery: No Eye Surgery: No Genitourinary Surgery: Yes (KIDNEY TRANSPLANT / LEFT DIALYSIS SHUNT) Gynecologic Surgery: Yes Hysterectomy: Yes Joint Replacement: No Neurologic Surgery: No Oral Surgery: No Pacemaker: No Thoracic Surgery: No Other Surgery: Yes (SKIN CANCER REMOVED RT THIGH 09/18) Social History Alcohol Use: No Tobacco Use: Yes (03/12 PPD) Substance Use: No Allergies-Medications (Allergen,Severity, Reaction): Coded Allergies: adhesive (Unverified Allergy, Severe, HIVES, 03/19/17) DISOLVABLE SUTURE MATERAL levofloxacin (Unverified Allergy, Intermediate, HIVES/ITCHING, 03/19/17) cephalexin (Unverified Adverse Reaction, Intermediate, HIVES/VOMITING, 03/19) nifedipine (Unverified Adverse Reaction, Intermediate, VOMITING, 03/19/17) *MDRO Multi-Drug Resistant Organism (Verified Adverse Reaction, Unknown, ) 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 MRSA PCR Screens negative 10/29/14 and 11/16/14. Uncoded Allergies: suture material (Adverse Reaction, Severe, SKIN INFECTION, 07/19/16) PT STATES DISSOLVING ONES [place] NOT DISSOLVE AND HAVE TO BE PHYSICALLY REMOVED.. Reported Meds & Prescriptions Reported Meds & Active Scripts Active Losartan (Losartan Potassium) 50 Mg Tab 25 Mg PO DAILY Atorvastatin (Atorvastatin Calcium) 10 Mg Tab 10 Mg PO HS Benefiber (Wheat Dextrin) 152 Gm Powder 10 Gm PO DAILY Probiotic (Lactobacillus Acidophilus) 1 Cap Cap 1 Cap PO TIDAC Zofran Odt (Ondansetron Odt) 4 Mg Tab 4 Mg SL Q6HR PRN Hydrocodone-Acetaminophen 5-325 mg Tab 1 Tab PO Q4H PRN Protonix (Pantoprazole Sodium) 40 Mg Tab 40 Mg PO DAILY Clonidine (Clonidine HCl) 0.1 Mg Tab 0.1 Mg PO BID PRN Bentyl (Dicyclomine HCl) 10 Mg Cap 10 Mg PO TID PRN Zofran Odt (Ondansetron Odt) 4 Mg Tab 4 Mg SL Q6HR PRN Phenergan Supp (Promethazine HCl) 25 Mg Supp 25 Mg RECTAL Q6H PRN Metoclopramide (Metoclopramide HCl) 5 Mg Tab 5 Mg PO TIDAC Reported Promethazine (Promethazine HCl) 12.5 Mg Tab 25 Mg PO Q4H PRN Metformin (Metformin HCl) 500 Mg Tab 500 Mg PO HS With a meal Prednisone 10 Mg Tab 10 Mg PO HS Magnesium Oxide 400 Mg Tab 400 Mg PO BID Cyclosporine 25 Mg Cap 75 Mg PO BID Mycophenolate (Mycophenolate Mofetil) 500 Mg Tab 500 Mg PO BID Atenolol 50 Mg Tab 50 Mg PO HS Review of Systems General / Constitutional: No: Fever, Chills Eyes: No: Diploplia, Blurred Vision HENT: No: Headaches, Vertigo Cardiovascular: No: Chest Pain or Discomfort Respiratory: No: Cough, Shortness of Breath Gastrointestinal: Positive: Nausea, Vomiting, Abdominal Pain Genitourinary: No: Urgency, Frequency Musculoskeletal: No: Myalgias Skin: No Rash Neurologic: Positive: Weakness Hematologic/Lymphatic: No: Easy Bruising Physical Exam Narrative GENERAL: Patient is vomiting on arrival SKIN: Focused skin assessment warm/dry. HEAD: Atraumatic. Normocephalic. EYES: Pupils equal and round. No scleral icterus. No injection or drainage. ENT: No nasal bleeding or discharge. Mucous membranes pink and moist. NECK: Trachea midline. No JVD. CARDIOVASCULAR: Regular rate and rhythm. No murmur appreciated. RESPIRATORY: No accessory muscle use. Clear to auscultation. Breath sounds equal bilaterally. GASTROINTESTINAL: Abdomen soft, there is epigastric tenderness, nondistended. Hepatic and splenic margins not palpable. MUSCULOSKELETAL: No obvious deformities. No clubbing. No cyanosis. No edema. NEUROLOGICAL: Awake and alert. No obvious cranial nerve deficits. Motor grossly within normal limits. Normal speech. PSYCHIATRIC: Appropriate mood and affect; insight and judgment normal. Data Data Last Documented VS Vital Signs Date Time Temp Pulse Resp B/P (MAP) Pulse Ox O2 Delivery O2 Flow Rate FiO2 03/19/17 12:36 100 20 161/68 (99) 94 Room Air 03/19/17 12:15 100.3 Orders Orders Complete Blood Count With Diff (03/19/17 11:20) Comprehensive Metabolic Panel (03/19/17 11:20) Lipase (03/19/17 11:20) Urinalysis - C+S If Indicated (03/19/17 11:20) Sodium Chlor 0.9% 1000 Ml Inj (Ns 1000 M (03/19/17 11:30) Ondansetron Inj (Zofran Inj) (03/19/17 11:30) Acetaminophen (Tylenol) (03/19/17 12:30) Ns + Kcl 40 Meq Inj (Ns + Kcl 40 Meq Inj (03/19/17 13:15) Ct Abd/Pel W/O Iv Contrast (03/19/17 ) Labs Laboratory Tests Test 03/19/17 11:50 White Blood Count 11.0 TH/MM3 Red Blood Count 5.66 MIL/MM3 Hemoglobin 16.8 GM/DL Hematocrit 51.5 % Mean Corpuscular Volume 90.9 FL Mean Corpuscular Hemoglobin 29.7 PG Mean Corpuscular Hemoglobin Concent 32.7 % Red Cell Distribution Width 13.0 % Platelet Count 127 TH/MM3 Mean Platelet Volume 10.8 FL Neutrophils (%) (Auto) 70.1 % Lymphocytes (%) (Auto) 15.7 % Monocytes (%) (Auto) 13.1 % Eosinophils (%) (Auto) 0.4 % Basophils (%) (Auto) 0.7 % Neutrophils # (Auto) 7.8 TH/MM3 Lymphocytes # (Auto) 1.7 TH/MM3 Monocytes # (Auto) 1.4 TH/MM3 Eosinophils # (Auto) 0.0 TH/MM3 Basophils # (Auto) 0.1 TH/MM3 CBC Comment DIFF FINAL Differential Comment Blood Urea Nitrogen 14 MG/DL Creatinine 1.50 MG/DL Random Glucose 111 MG/DL Total Protein 7.4 GM/DL Albumin 3.2 GM/DL Calcium Level 9.6 MG/DL Alkaline Phosphatase 108 U/L Aspartate Amino Transf (AST/SGOT) 54 U/L Alanine Aminotransferase (ALT/SGPT) 46 U/L Total Bilirubin 6.9 MG/DL Sodium Level 135 MEQ/L Potassium Level 3.1 MEQ/L Chloride Level 100 MEQ/L Carbon Dioxide Level 24.9 MEQ/L Anion Gap 10 MEQ/L Estimat Glomerular Filtration Rate 37 ML/MIN Lipase 42 U/L MDM Medical Decision Making Medical Screen Exam Complete: Yes Emergency Medical Condition: Yes Medical Record Reviewed: Yes Differential Diagnosis Differential includes gastroparesis, dehydration, gastroenteritis Narrative Course Patient has been given IV fluids and Zofran with some improvement in her vomiting. Her hemoglobin is 16.8 with a white count of 11,000. Sodium is 135 potassium 3.1. Her creatinine level was 1.5. Total bilirubin level was unexpectedly elevated at 6.9. The remainder of her liver function tests are fairly normal. Her albumin is slightly low. A CT scan has been ordered Flaco Lagunas MD Mar 19, 2017 11:22
[2017-03-19] MEDS ORDERED: SODIUM CHLOR 0.9% 1000 ML INJ 1,000 ML IV ONE (11:30)
[2017-03-19] MEDS ORDERED: ONDANSETRON HCL 4 MG/2 ML VIAL IV PUSH ONE (11:30)
[2017-03-19 12:02] LABS: AUTOMATED NEUTROPHIL # 7.8 TH/MM3 (1.8-7.7); BASOPHIL # 0.1 TH/MM3 (0-0.2); BASOPHIL % 0.7 % (0.0-2.0); EOSINOPHIL % 0.4 % (0.0-4.0); HEMATOCRIT 51.5 % (35.0-46.0); HEMOGLOBIN 16.8 GM/DL (11.6-15.3); LYMPH % 15.7 % (9.0-44.0); LYMPHOCYTE # 1.7 TH/MM3 (1.0-4.8); MEAN CELL VOLUME 90.9 FL (80.0-100.0); MEAN CORPUSCULAR HEMOGLOBIN 29.7 PG (27.0-34.0); MEAN CORPUSCULAR HGB CONC 32.7 % (32.0-36.0); MEAN PLATELET VOLUME 10.8 FL (7.0-11.0); MONO % 13.1 % (0.0-8.0); MONOCYTE # 1.4 TH/MM3 (0-0.9); NEUT % 70.1 % (16.0-70.0); PLATELET COUNT 127 TH/MM3 (150-450); RED BLOOD COUNT 5.66 MIL/MM3 (4.00-5.30)
[2017-03-19 12:06] LABS: CHLORIDE 100 MEQ/L (98-107); SODIUM (NA) 135 MEQ/L (136-145)
[2017-03-19 12:09] LABS: CALCIUM 9.6 MG/DL (8.5-10.1)
[2017-03-19 12:10] LABS: ALBUMIN 3.2 GM/DL (3.4-5.0); BICARBONATE 24.9 MEQ/L (21.0-32.0); BLOOD UREA NITROGEN 14 MG/DL (7-18); GLUCOSE,RANDOM 111 MG/DL (74-106); LIPASE 42 U/L (73-393)
[2017-03-19 12:13] LABS: ALT (GPT) 46 U/L (10-53); AST (GOT) 54 U/L (15-37); GLOMERULAR FILTRATION RATE 37 ML/MIN (>89)
[2017-03-19 12:14] LABS: TOTAL BILIRUBIN ADULT 6.9 MG/DL (0.2-1.0); TOTAL PROTEIN 7.4 GM/DL (6.4-8.2)
[2017-03-19 12:16] LABS: ALKALINE PHOSPHATASE 108 U/L (45-117)
[2017-03-19] MEDS ORDERED: ACETAMINOPHEN 500 MG CPLT PO ONE (12:30)
[2017-03-19] MEDS ORDERED: NS + KCL 40 MEQ INJ 1,000 ML IV ONE (13:15)
--- NOTE | 2017-03-19 14:01 | RADRPT ---
EXAM DATE/TIME: 03/19/2017 13:27 [facility] COMPARISON: No previous studies available for comparison. INDICATIONS : Nausea and vomiting. ORAL CONTRAST: No oral contrast ingested. RADIATION DOSE: 22.17 CTDIvol (mGy) MEDICAL HISTORY : Hypercholesterolemia. Gastroparesis. Gastroesophageal reflux disease.Hypertension. SURGICAL HISTORY : Cholecystectomy. Inguinal hernia repair.Hysterectomy.Renal transplant. ENCOUNTER: Initial ACUITY: 2 days PAIN SCALE: 0/10 LOCATION: pelvis abdomen TECHNIQUE: Volumetric scanning of the abdomen and pelvis was performed. Using automated exposure control and ad justment of the mA and/or kV according to patient size, radiation dose was kept as low as reasonably achievable to obtain optimal diagnostic quality images. DICOM format image data is available electro nically for review and comparison. FINDINGS: LOWER LUNGS: The visualized lower lungs are clear. LIVER: Homogeneous density without lesion. There is no dilation of the biliary tree. Gallbladder surgically absent.. SPLEEN: Normal size without lesion. PANCREAS: Within normal limits. KIDNEYS: Atrophic [place] kidneys. Right pelvic transplant kidney notable for several small cortical cysts. Mil d dilatation of the renal pelvis. ADRENAL GLANDS: Within normal limits. VASCULAR: There is no aortic aneurysm. BOWEL/MESENTERY: The stomach, small bowel, and colon demonstrate no acute abnormality. There is no free intraperitone al air or fluid. ABDOMINAL WALL: Within normal limits. RETROPERITONEUM: There is no lymphadenopathy. BLADDER: No wall thickening or mass. REPRODUCTIVE: Uterus surgically absent. No evidence of pelvic mass or free fluid. INGUINAL: There is no lymphadenopathy or hernia. MUSCULOSKELETAL: Within normal limits for patient age. CONCLUSION: Mild dilatation of the renal transplant collecting system. Otherwise focally unremarkable CT appearance of the abdomen and pelvis. Seamus De La Cruz MD on March 19, 2017 at 13:56 Board Certified Radiologist. This report was verified electronically.
--- NOTE | 2017-03-19 16:37 | HHI.HP ---
[facility] Service [facility] Primary Care Physician Yanique Alfonso MD Admission Diagnosis INTRACTABLE VOMITING, DEHYDRATION, JAUNDICE Diagnoses: Chief Complaint: vomiting Travel History International Travel<30 Days: No Contact w/Intl Traveler <30 Da: No Traveled to Known Affected Are: No History of Present Illness 51-year-old white female being admitted for intractable nausea vomiting. Patient was in her usual state of health until yesterday at some point during the day while she was watching television when she experienced a sudden bout of nausea followed by refractory vomiting. She says she has been vomiting since then and has tried Zofran to no avail. She says that she tried taking her pills last night and vomited all her pills. She says that she has tried drinking water and within 1-2 minutes vomit water now as well. She says this has happened to her once before but cannot remember the outcome or the conclusion from that. She does report having some loose stools. Neither her emesis nor her stools are bloody. Patient reports feeling a subjective fever but otherwise denies any chills. She does report having some mild abdominal pain which followed the vomiting. In the emergency room she was hydrated but also noted to have an elevated bilirubin of 6.9. Remaining LFTs unremarkable. Review of Systems Except as stated in HPI: all other systems reviewed are Neg Past Family Social History Past Medical History transplanted kidney, gastroparesis, htn Past Surgical History , hysterectomy, cholecystectomy, kidney transportation Allergies: Coded Allergies: adhesive (Unverified Allergy, Severe, HIVES, 03/19/17) DISOLVABLE SUTURE MATERAL levofloxacin (Unverified Allergy, Intermediate, HIVES/ITCHING, 03/19/17) cephalexin (Unverified Adverse Reaction, Intermediate, HIVES/VOMITING, 03/19) nifedipine (Unverified Adverse Reaction, Intermediate, VOMITING, 03/19/17) *MDRO Multi-Drug Resistant Organism (Verified Adverse Reaction, Unknown, ) 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 MRSA PCR Screens negative 10/29/14 and 11/16/14. Uncoded Allergies: suture material (Adverse Reaction, Severe, SKIN INFECTION, 07/19/16) PT STATES DISSOLVING ONES [place] NOT DISSOLVE AND HAVE TO BE PHYSICALLY REMOVED.. Family History No family history of colorectal cancer Social History Says she smokes cigarettes daily; denies alcohol usage and denies any illicit drug use Physical Exam Vital Signs Vital Signs Date Time Temp Pulse Resp B/P (MAP) Pulse Ox O2 Delivery O2 Flow Rate FiO2 03/19/17 16:21 03/19/17 15:09 99.1 79 16 164/68 (100) 95 Room Air 03/19/17 14:16 99.1 100 16 164/75 (104) 96 Room Air 03/19/17 12:36 100 20 161/68 (99) 94 Room Air 03/19/17 12:15 100.3 03/19/17 11:10 99.9 115 20 116/70 (85) 96 Physical Exam VS: afebrile GENERAL: Middle-aged white female, obese, lying in bed, no acute distress SKIN: Warm and dry. EYES: No scleral icterus. No injection or drainage. ENT: No nasal bleeding or discharge. Mucous membranes pink and moist. Hyperemic oropharynx CARDIOVASCULAR: Regular rate and rhythm. no murmurs RESPIRATORY: No accessory muscle use. Clear to auscultation. Breath sounds equal bilaterally. GASTROINTESTINAL: Abdomen soft, obese, no masses palpated, mildly sore all over Extremities: No clubbing, cyanosis, or edema. No obvious deformities. MUSCULOSKELETAL: grossly intact ROM with 5/5 strength in upper and lower extremities proximally; adequate muscle bulk and tone for age and habitus NEUROLOGICAL: Awake and alert. No obvious cranial nerve deficits. No facial droop nor slurred speech noted. PSYCHIATRIC: Appropriate mood and affect; insight and judgment normal. Laboratory Laboratory Tests Test 03/19/17 11:50 White Blood Count 11.0 Red Blood Count 5.66 Hemoglobin 16.8 Hematocrit 51.5 Mean Corpuscular Volume 90.9 Mean Corpuscular Hemoglobin 29.7 Mean Corpuscular Hemoglobin Concent 32.7 Red Cell Distribution Width 13.0 Platelet Count 127 Mean Platelet Volume 10.8 Neutrophils (%) (Auto) 70.1 Lymphocytes (%) (Auto) 15.7 Monocytes (%) (Auto) 13.1 Eosinophils (%) (Auto) 0.4 Basophils (%) (Auto) 0.7 Neutrophils # (Auto) 7.8 Lymphocytes # (Auto) 1.7 Monocytes # (Auto) 1.4 Eosinophils # (Auto) 0.0 Basophils # (Auto) 0.1 CBC Comment DIFF FINAL Differential Comment Blood Urea Nitrogen 14 Creatinine 1.50 Random Glucose 111 Total Protein 7.4 Albumin 3.2 Calcium Level 9.6 Alkaline Phosphatase 108 Aspartate Amino Transf (AST/SGOT) 54 Alanine Aminotransferase (ALT/SGPT) 46 Total Bilirubin 6.9 Sodium Level 135 Potassium Level 3.1 Chloride Level 100 Carbon Dioxide Level 24.9 Anion Gap 10 Estimat Glomerular Filtration Rate 37 Lipase 42 Result Diagram: 03/19/17 1150 03/19/17 1150 Imaging Last Impressions Abdomen/Pelvis CT 03/19/17 0000 Signed Impressions: Service Date/Time: Sunday, March 19, 2017 13:27 - CONCLUSION: Mild dilatation of the renal transplant collecting system. Otherwise focally unremarkable CT appearance of the abdomen and pelvis. MD Claire Mock VTE Risk Assessment Caprini VTE Risk Assessment: No/Low Risk (score <= 1) Caprini Risk Assessment Model Point Value = 1 Point Value = 2 Point Value = 3 Point Value = 5 Age 41-60 Minor surgery BMI > 25 kg/m2 Swollen legs Varicose veins or History of unexplained or recurrent spontaneous Oral contraceptives or hormone replacement Sepsis (< 1 month) Serious lung disease, including pneumonia (< 1 month) Abnormal pulmonary function Acute myocardial infarction Congestive heart failure (< 1 month) History of inflammatory bowel disease Medical patient at bed rest Age 61-74 Arthroscopic surgery Major open surgery (> 45 min) Laparoscopic surgery (> 45 min) Malignancy Confined to bed (> 72 hours) Immobilizing plaster cast Central venous access Age >= 75 History of VTE Family history of VTE Factor V Leiden Prothrombin [id number] Lupus anticoagulant Anticardiolipin antibodies Elevated serum homocysteine Heparin-induced thrombocytopenia Other congenital or acquired thrombophilia Stroke (< 1 month) Elective arthroplasty Hip, pelvis, or leg fracture Acute spinal cord injury (< 1 month) Prophylaxis Regimen Total Risk Factor Score Risk Level Prophylaxis Regimen 0-1 Low Early ambulation 2 Moderate Order ONE of the following: *Sequential Compression Device (SCD) *Heparin 5000 units SQ BID 3-4 Higher Order ONE of the following medications: *Heparin 5000 units SQ TID *Enoxaparin/Lovenox 40 mg SQ daily (WT < 150 kg, CrCl > 30 mL/min) *Enoxaparin/Lovenox 30 mg SQ daily (WT < 150 kg, CrCl > 10-29 mL/min) *Enoxaparin/Lovenox 30 mg SQ BID (WT < 150 kg, CrCl > 30 mL/min) AND/OR *Sequential Compression Device (SCD) 5 or more Highest Order ONE of the following medications: *Heparin 5000 units SQ TID (Preferred with Epidurals) *Enoxaparin/Lovenox 40 mg SQ daily (WT < 150 kg, CrCl > 30 mL/min) *Enoxaparin/Lovenox 30 mg SQ daily (WT < 150 kg, CrCl > 10-29 mL/min) *Enoxaparin/Lovenox 30 mg SQ BID (WT < 150 kg, CrCl > 30 mL/min) AND *Sequential Compression Device (SCD) Assessment and Plan Assessment and Plan 51-year-old white female being in with intractable nausea vomiting Intractable nausea vomiting - Based upon presentation sounds like gastroenteritis so we'll treat with supportive care and antiemetics. chronic gastroparesis so will monitor to see if home reglan dose may need to be increased. - We'll obtain drug screen to rule out marijuana cyclical and is vomiting syndrome - CT scan is unremarkable including a component of her that says mild dilatation of renal collecting system which is likely due to the patient's multiple kidneys (2 [place] and one transplant) - clear liquid diet as tolerated [place] - 2/2 n/v leading to dehydration, see above Hyperbilirubinemia - Unclear etiology at this time as patient is postcholecystectomy - Monitor Transplant kidney - Continue home medications of cyclosporine and mycophenolate and prednisone Continue home chronic pain medications and blood pressure medications. SCDs Physician Certification 2 Midnight Certification Type: Admission for Inpatient Services Order for Inpatient Services The services are ordered in accordance with Medicare regulations or non- Medicare payer requirements, as applicable. In the case of services not specified as inpatient-only, they are appropriately provided as inpatient services in accordance with the 2-midnight benchmark. Estimated LOS (days): 2 2 days is the estimated time the patient will need to remain in the hospital, assuming treatment plan goals are met and no additional complications. Post-Hospital Plan: Home Reinaldo Fuller MD Mar 19, 2017 16:37
[2017-03-19] MEDS ORDERED: PROMETHAZINE INJ 25 MG/ML VIAL IM PRN (17:00)
[2017-03-19] MEDS ORDERED: GLUCAGON 1 MG/ML VIAL OTHER PRN (17:00)
[2017-03-19] MEDS ORDERED: DEXTROSE 50% IN WATER 50 ML VIAL(D50) IV PUSH PRN (17:00)
[2017-03-19] MEDS: METOCLOPRAMIDE HCL 10 MG TAB PO SCH (17:00)
[2017-03-19] MEDS: INSULIN ASPART SUPPLEMENTAL SCALE SQ SCH ×2 (17:28→21:00)
[2017-03-19] MEDS ORDERED: DICYCLOMINE HCL 10 MG CAP PO PRN (18:00)
[2017-03-19] MEDS: SODIUM CHLOR 0.9% 1000 ML INJ 1,000 ML IV SCH (18:01)
[2017-03-19] MEDS ORDERED: predniSONE 10 MG TAB PO SCH (21:00)
[2017-03-19] MEDS ORDERED: ATENOLOL 50 MG TAB PO SCH (21:00)
[2017-03-19] MEDS ORDERED: ATORVASTATIN 10 MG TAB PO SCH (21:00)
[2017-03-19 21:01] LABS: BILIRUBIN, URINE NEG (NEG); BLOOD, URINE MOD (NEG); GLUCOSE,URINE NEG (NEG); KETONE, URINE 15 mg/dL (NEG); NITRITE,URINE POS (NEG); URINE LEUKOCYTE ESTERASE MOD (NEG)
[2017-03-19 21:07] LABS: URINE COLOR AMBER (YELLW/STRAW)
[2017-03-19] MEDS: MAGNESIUM OXIDE 400 MG TAB PO SCH (21:08)
[2017-03-19] MEDS: MYCOPHENOLATE MOFETIL 500 MG TAB PO SCH (21:08)
[2017-03-19 21:09] LABS: BACTERIA, URINE MANY /hpf; SQUAMOUS EPITHELIAL CELL URINE 0-5 /hpf (0-5)
[2017-03-19] MEDS: cycloSPORINE 25 MG CAP PO SCH (21:26)
[2017-03-19] MEDS: ONDANSETRON HCL 4 MG/2 ML VIAL IV PUSH PRN (22:35)
[2017-03-20] VITALS: BP 120/68; PULSE 88; RESP 18; TEMP 98.7; O2SAT 96
[2017-03-20] MEDS: SODIUM CHLOR 0.9% 1000 ML INJ 1,000 ML IV SCH ×2 (05:00→11:52)
[2017-03-20 06:15] LABS: ALBUMIN 2.6 GM/DL (3.4-5.0); ALKALINE PHOSPHATASE 100 U/L (45-117); ALT (GPT) 51 U/L (10-53); AST (GOT) 52 U/L (15-37); BICARBONATE 20.8 MEQ/L (21.0-32.0); BLOOD UREA NITROGEN 13 MG/DL (7-18); CALCIUM 8.8 MG/DL (8.5-10.1); CHLORIDE 109 MEQ/L (98-107); GLOMERULAR FILTRATION RATE 53 ML/MIN (>89); GLUCOSE,RANDOM 116 MG/DL (74-106); SODIUM (NA) 141 MEQ/L (136-145); TOTAL BILIRUBIN ADULT 4.7 MG/DL (0.2-1.0); TOTAL PROTEIN 6.5 GM/DL (6.4-8.2)
[2017-03-20 07:30] VITALS: BP 139/79; PULSE 70; RESP 20; TEMP 97.8; O2SAT 95
[2017-03-20] MEDS: INSULIN ASPART SUPPLEMENTAL SCALE SQ SCH ×3 (08:00→16:11)
[2017-03-20 08:23] LABS: AUTOMATED NEUTROPHIL # 4.9 TH/MM3 (1.8-7.7); BASOPHIL % 0.1 % (0.0-2.0); EOSINOPHIL % 0.1 % (0.0-4.0); HEMATOCRIT 48.1 % (35.0-46.0); HEMOGLOBIN 15.4 GM/DL (11.6-15.3); LYMPH % 12.6 % (9.0-44.0); LYMPHOCYTE # 0.8 TH/MM3 (1.0-4.8); MEAN CELL VOLUME 92.5 FL (80.0-100.0); MEAN CORPUSCULAR HEMOGLOBIN 29.7 PG (27.0-34.0); MEAN CORPUSCULAR HGB CONC 32.1 % (32.0-36.0); MEAN PLATELET VOLUME 11.4 FL (7.0-11.0); MONO % 6.2 % (0.0-8.0); MONOCYTE # 0.4 TH/MM3 (0-0.9); PLATELET COUNT 116 TH/MM3 (150-450); RED BLOOD COUNT 5.21 MIL/MM3 (4.00-5.30); WHITE BLOOD COUNT 6.1 TH/MM3 (4.0-11.0)
[2017-03-20] MEDS ORDERED: WHEAT DEXTRIN PO SCH (09:00)
[2017-03-20] MEDS ORDERED: PANTOPRAZOLE SOD 40 MG DELAYED RELEASE TAB PO SCH (09:00)
[2017-03-20] MEDS: cycloSPORINE 25 MG CAP PO SCH (11:11)
[2017-03-20] MEDS: MYCOPHENOLATE MOFETIL 500 MG TAB PO SCH (11:11)
[2017-03-20] MEDS: METOCLOPRAMIDE HCL 10 MG TAB PO SCH ×3 (11:12→16:10)
[2017-03-20] MEDS: MAGNESIUM OXIDE 400 MG TAB PO SCH (11:12)
[2017-03-20] MEDS: ACETAMINOPHEN/HYDROcodone 325 MG/5 MG TAB PO PRN ×2 (11:27→16:10)
[2017-03-20] MEDS: ONDANSETRON HCL 4 MG/2 ML VIAL IV PUSH PRN (11:27)
[2017-03-20 11:30] VITALS: BP 123/85; PULSE 75; RESP 20; TEMP 97.7; O2SAT 95
[2017-03-20 15:00] VITALS: BP 94/54; PULSE 70; RESP 20; TEMP 97.8; O2SAT 94
--- NOTE | 2017-03-20 17:30 | HHI.PR ---
Subjective Remarks Patient follow-up for intractable nausea and vomiting. Patient seen and examined. Patient states that she needs to go home to help her daughter, states she is feeling much better today last bout of emesis was last evening. Patient has been tolerating regular diet. Denies any nausea or vomiting. Has been afebrile. Vital signs stable. Objective Vitals Vital Signs Date Time Temp Pulse Resp B/P (MAP) Pulse Ox O2 Delivery O2 Flow Rate FiO2 03/20/17 15:00 97.8 70 20 94/54 (67) 94 03/20/17 13:33 20 03/20/17 11:30 97.7 75 20 123/85 (98) 95 03/20/17 07:30 97.8 70 20 139/79 (99) 95 03/20/17 00:00 98.7 88 18 120/68 (85) 96 03/19/17 20:00 98.0 92 20 118/61 (80) 96 I/O 03/19/17 03/19/17 03/19/17 03/20/17 03/20/17 03/20/17 07:00 15:00 23:00 07:00 15:00 23:00 Intake Total 1000 ml 1120 ml 2400 ml Balance 1000 ml 1120 ml 2400 ml Intake Oral 120 ml IV Total 1000 ml 1000 ml 2400 ml # Bowel Movements 2 Result Diagram: 03/20/17 0508 03/20/17 0508 Imaging Last Impressions Abdomen/Pelvis CT 03/19/17 0000 Signed Impressions: Service Date/Time: Sunday, March 19, 2017 13:27 - CONCLUSION: Mild dilatation of the renal transplant collecting system. Otherwise focally unremarkable CT appearance of the abdomen and pelvis. Seamus De La Cruz MD Objective Remarks GENERAL: Middle-aged white female, obese, lying in bed, no acute distress SKIN: Warm and dry. EYES: No scleral icterus. No injection or drainage. ENT: No nasal bleeding or discharge. Mucous membranes pink and moist. Hyperemic oropharynx CARDIOVASCULAR: Regular rate and rhythm. no murmurs RESPIRATORY: No accessory muscle use. Clear to auscultation. Breath sounds equal bilaterally. GASTROINTESTINAL: Abdomen soft, obese, no masses palpated. Extremities: No clubbing, cyanosis, or edema. No obvious deformities. MUSCULOSKELETAL: grossly intact ROM with 5/5 strength in upper and lower extremities proximally; adequate muscle bulk and tone for age and habitus NEUROLOGICAL: Awake and alert. No obvious cranial nerve deficits. No facial droop nor slurred speech noted. PSYCHIATRIC: Appropriate mood and affect; insight and judgment normal. A/P Assessment and Plan 51-year-old white female being in with intractable nausea vomiting Intractable nausea vomiting Most likely marijuana cyclical. Tox screen positive for Cannibis. Supportive care and antiemetics. Chronic gastroparesis. - CT scan is unremarkable including a component of her that says mild dilatation of renal collecting system which is likely due to the patient's multiple kidneys (2 [place] and one transplant) - Tolerating regular diet now. Will continue Zofran upon discharge. SHEL[place] improving - 2/2 n/v leading to dehydration, see above Hyperbilirubinemia - Unclear etiology at this time as patient is postcholecystectomy Recommendations for follow-up with GI in the outpatient setting. Patient is understanding and agreeable to the plan. Transplant kidney - Continue home medications of cyclosporine and mycophenolate and prednisone Continue home chronic pain medications and blood pressure medications. Marilu Ordonez Mar 20, 2017 17:30
[2017-03-20 17:37] VITALS: RESP 20
--- NOTE | 2017-03-20 18:37 | HHI.DCPOC ---
Discharge Care Plan Diagnosis: (1) Nausea & vomiting (2) Elevated liver enzymes Goals to Promote Your Health * To prevent worsening of your condition and complications * To maintain your health at the optimal level Directions to Meet Your Goals Take your medications as prescribed Follow your dietary instruction Follow activity as directed Keep your appointments as scheduled Take your immunizations and boosters as scheduled If your symptoms worsen call your PCP, if no PCP go to Urgent Care Center or Emergency Room Smoking is Dangerous to Your Health. Avoid second hand smoke Call the 24-hour hour crisis hotline for domestic abuse at Marilu Gomes Mar 20, 2017 18:37
[2017-03-20] MEDS ORDERED: DOXY100C PO (18:46)
[2017-03-20] MEDS ORDERED: RESP: ALBUTEROL 2.5 MG/IPRATROPIUM 0.5 MG NEB (SCH) NEB PRN (19:00)
[2017-03-20] MEDS ORDERED: cefTRIAXone INJ 1,000 MG in SODIUM CHLORIDE 0.9% INJ 100 ML IV SCH (20:00)
[2017-03-20] MEDS ORDERED: INSULIN ASPART SUPPLEMENTAL SCALE SQ SCH (21:00)
== END 2017-03-20 19:03 | disposition home or self-care (01) | DRG 392 ==
LOC: PHED 11:00 → PHEDA 14:13 → PH3A 16:15
PROVIDERS: ADMIT Hospitalist; ATTEND Hospitalist
DX: K52.9 Noninfective gastroenteritis and colitis, unspecified (principal); N17.9 Acute kidney failure, unspecified; K31.84 Gastroparesis; E11.43 Type 2 diabetes mellitus with diabetic autonomic (poly)neuropathy; R17 Unspecified jaundice; Z94.0 Kidney transplant status; E86.0 Dehydration; Z79.84 Long term (current) use of oral hypoglycemic drugs; F17.210 Nicotine dependence, cigarettes, uncomplicated; Z87.442 Personal history of urinary calculi; Z90.710 Acquired absence of both cervix and uterus; K21.9 Gastro-esophageal reflux disease without esophagitis; I10 Essential (primary) hypertension; E78.00 Pure hypercholesterolemia, unspecified; T40.7X1A Poisoning by cannabis (derivatives), accidental (unintentional), initial encounter
CPT/HCPCS: 74176; 80053; 80307; 81001; 82948; 83690; 85025; 87077; 87086; 87186; 96361; 96365; 96375; J2405; J2550; J3480; J7030; J7512; J7515; J7517

== ENCOUNTER 2017-04-18 18:03 | Inpatient (IN) | payer MEDICAID ==
[2017-04-18] VITALS (11 sets, daily range): BP systolic 55–150; BP diastolic 37–88; PULSE 91–107; RESP 16–20; TEMP 98.7–102.7; O2SAT 94–97
[~2017-04-18] VITALS: Ht 170.2 cm; Wt 97.0 kg
[~2017-04-18 18:03] MED LIST changes: -DICY10 PO; -PROM1SUP7 RECTAL
[2017-04-18] MEDS ORDERED: SODIUM CHLOR 0.9% 1000 ML INJ 1,000 ML IV SCH (18:20)
--- NOTE | 2017-04-18 18:24 | PD ---
HPI Chief Complaint: Altered Mental Status Time Seen by Provider: 18:12 Travel History International Travel<30 days: No Contact w/Intl Traveler<30days: No History of Present Illness HPI Patient is a 51-year-old female presents emergency department for evaluation of altered mental status. According to EMS her daughter called 9 1 today because she had been entered out of consciousness having some diarrhea for the past 2 days and fevers. The patient's only complaint to me is "I feel like she had". She is unable to provide any further details, she is following commands and appears to be protecting her airway but will not provide any history. She has multiple visits to this emergency department for chronic abdominal pain. Most of her ER visits result in discharge. Attempts to reach her daughter by phone yielded a wrong number. PFSH Past Medical History Arthritis: Yes Autoimmune Disease: Yes (LUPUS) Anxiety: No Depression: No Heart Rhythm Problems: No Cancer: Yes (skin) Cardiovascular Problems: Yes High Cholesterol: Yes Chemotherapy: No Chest Pain: No Congestive Heart Failure: No Cerebrovascular Accident: No Diabetes: Yes Diminished Hearing: No Endocrine: Yes Gastrointestinal Disorders: Yes (GASTROPORESIS) GERD: Yes Genitourinary: Yes (kidney transplant 1989) Headaches: No Hepatitis: No Hiatal Hernia: Yes Hypertension: Yes Immune Disorder: No Implanted Vascular Access Dvce: Yes (LUE SHUNT port) Kidney Stones: Yes Musculoskeletal: No Neurologic: Yes Psychiatric: No Reproductive: No Respiratory: No Immunizations Current: Yes Migraines: Yes Radiation Therapy: No Renal Failure: Yes Seizures: No Thyroid Disease: No Ulcer: No PNEUMOCCOCAL Vaccine (Year): 2 Menopausal: Yes : 2 Para: 1 Miscarriage: 1 Tubal Ligation: Yes Past Surgical History Abdominal Surgery: Yes (INGUINAL HERNIA: RIGHT) AICD: No Arteriovenous Shunt: Yes (LEFT ARM FOR DIALYSIS IN 1989- NON FUNCTIONAL) Body Medical Devices: AV SHUNT TO LEFT ARM Cardiac Surgery: No Section: Yes Cholecystectomy: Yes Ear Surgery: No Endocrine Surgery: No Eye Surgery: No Genitourinary Surgery: Yes (KIDNEY TRANSPLANT / LEFT DIALYSIS SHUNT) Gynecologic Surgery: Yes Hysterectomy: Yes Joint Replacement: No Neurologic Surgery: No Oral Surgery: No Pacemaker: No Thoracic Surgery: No Other Surgery: Yes (SKIN CANCER REMOVED RT THIGH 09/18) Social History Alcohol Use: No Tobacco Use: Yes (2 PPD) Substance Use: No Allergies-Medications (Allergen,Severity, Reaction): Coded Allergies: adhesive (Verified Allergy, Severe, HIVES, 03/28/17) DISOLVABLE SUTURE MATERAL levofloxacin (Verified Allergy, Intermediate, HIVES/ITCHING, 03/28/17) cephalexin (Verified Adverse Reaction, Intermediate, HIVES/VOMITING, ) nifedipine (Verified Adverse Reaction, Intermediate, VOMITING, 03/28/17) *MDRO Multi-Drug Resistant Organism (Verified Adverse Reaction, Unknown, ) 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 MRSA PCR Screens negative 10/29/14 and 11/16/14. Uncoded Allergies: suture material (Adverse Reaction, Severe, SKIN INFECTION, 07/19/16) PT STATES DISSOLVING ONES [place] NOT DISSOLVE AND HAVE TO BE PHYSICALLY REMOVED.. Reported Meds & Prescriptions Reported Meds & Active Scripts Active Losartan (Losartan Potassium) 50 Mg Tab 25 Mg PO DAILY Atorvastatin (Atorvastatin Calcium) 10 Mg Tab 10 Mg PO HS Protonix (Pantoprazole Sodium) 40 Mg Tab 40 Mg PO DAILY Clonidine (Clonidine HCl) 0.1 Mg Tab 0.1 Mg PO BID PRN Metformin (Metformin HCl) 500 Mg Tab 500 Mg PO HS With a meal Atenolol 50 Mg Tab 50 Mg PO HS Benefiber (Wheat Dextrin) 152 Gm Powder 10 Gm PO DAILY Probiotic (Lactobacillus Acidophilus) 1 Cap Cap 1 Cap PO TIDAC Zofran Odt (Ondansetron Odt) 4 Mg Tab 4 Mg SL Q6HR PRN Hydrocodone-Acetaminophen 5-325 mg Tab 1 Tab PO Q4H PRN Metoclopramide (Metoclopramide HCl) 5 Mg Tab 5 Mg PO TIDAC Reported Promethazine (Promethazine HCl) 12.5 Mg Tab 25 Mg PO Q4H PRN Prednisone 10 Mg Tab 10 Mg PO HS Magnesium Oxide 400 Mg Tab 400 Mg PO BID Cyclosporine 25 Mg Cap 50 Mg PO BID Mycophenolate (Mycophenolate Mofetil) 500 Mg Tab 500 Mg PO BID Review of Systems ROS Limitations: Altered Mental Status Physical Exam Exam Limitations: Altered Mental Status Narrative GENERAL: Well-developed morbidly obese lying on her side, obviously altered SKIN: Focused skin assessment warm/dry. HEAD: Atraumatic. Normocephalic. EYES: Pupils equal and round. No scleral icterus. No injection or drainage. ENT: No nasal bleeding or discharge. Mucous membranes pink and moist. TMs clear bilaterally, oropharynx examination limited by patient cooperation. Airway appears to be patent, no obvious erythema. NECK: Trachea midline. No JVD. CARDIOVASCULAR: Regular rate and rhythm. No murmur appreciated. RESPIRATORY: No accessory muscle use. Clear to auscultation. Breath sounds equal bilaterally. GASTROINTESTINAL: Abdomen soft, non-tender, nondistended. Hepatic and splenic margins not palpable. MUSCULOSKELETAL: No obvious deformities. No clubbing. No cyanosis. No edema. NEUROLOGICAL: Awake and alert. GCS of 13 [id number]. She will follow commands in all 4 extremities, cranial nerves appear to be intact. PSYCHIATRIC: Unable to assess. Data Data Last Documented VS Vital Signs Date Time Temp Pulse Resp B/P (MAP) Pulse Ox O2 Delivery O2 Flow Rate FiO2 04/18/17 18:40 97 Nasal Cannula 2.00 04/18/17 18:21 102.7 102 18 150/88 (108) Orders Orders Electrocardiogram (04/18/17 18:20) Ammonia (04/18/17 18:20) Complete Blood Count With Diff (04/18/17 18:20) Comprehensive Metabolic Panel (04/18/17 18:20) Creatine Kinase (Cpk) (04/18/17 18:20) Prothrombin Time / Inr (Pt) (04/18/17 18:20) Act Partial Throm Time (Ptt) (04/18/17 18:20) Troponin I (04/18/17 18:20) Thyroid Stimulating Hormone (04/18/17 18:20) Urinalysis - C+S If Indicated (04/18/17 18:20) Lactic Acid Sepsis Protocol (04/18/17 18:20) Blood Culture (04/18/17 18:20) Chest, Single Ap (04/18/17 18:20) Ct Brain W/O Iv Contrast(Rout) (04/18/17 18:20) Blood Glucose (04/18/17 18:20) Ecg Monitoring (04/18/17 18:20) Iv Access Insert/Monitor (04/18/17 18:20) Oximetry (04/18/17 18:20) Sodium Chloride 0.9% Flush (Ns Flush) (04/18/17 18:30) Sodium Chlor 0.9% 1000 Ml Inj (Ns 1000 M (04/18/17 18:20) Drug Screen, Random Urine (04/18/17 18:20) Alcohol (Ethanol) (04/18/17 18:20) Tylenol (Acetaminophen) (04/18/17 18:20) Salicylates (Aspirin) (04/18/17 18:20) Vancomycin Inj (Vancomycin Inj) (04/18/17 18:30) Piperacil-Tazo 4.5 Gm Premix (Zosyn 4.5 (04/18/17 18:30) Acetaminophen Supp (Tylenol Supp) (04/18/17 18:45) Ketamine Inj (Ketalar Inj) (04/18/17 19:15) Sodium Chlor 0.9% 1000 Ml Inj (Ns 1000 M (04/18/17 19:15) Sodium Chlor 0.9% 1000 Ml Inj (Ns 1000 M (04/18/17 19:15) CKMB (04/18/17 18:30) CKMB% (04/18/17 18:30) Cath For Specimen (04/18/17 19:35) Acyclovir Inj (Zovirax Inj) (04/18/17 19:45) Admit Order (Ed Use Only) (04/18/17 ) Influenzae A/B Antigen (04/18/17 19:43) Blood Gas Venous (Vbg) (04/18/17 19:40) Magnesium (Mg) (04/18/17 18:30) Phosphorus (Po4) (04/18/17 18:30) Labs Laboratory Tests Test 04/18/17 18:30 04/18/17 19:32 White Blood Count 9.8 TH/MM3 Red Blood Count 5.70 MIL/MM3 Hemoglobin 17.1 GM/DL Hematocrit 51.5 % Mean Corpuscular Volume 90.3 FL Mean Corpuscular Hemoglobin 30.0 PG Mean Corpuscular Hemoglobin Concent 33.2 % Red Cell Distribution Width 13.8 % Platelet Count 124 TH/MM3 Mean Platelet Volume 11.1 FL Neutrophils (%) (Auto) 74.4 % Lymphocytes (%) (Auto) 14.0 % Monocytes (%) (Auto) 11.1 % Eosinophils (%) (Auto) 0.0 % Basophils (%) (Auto) 0.5 % Neutrophils # (Auto) 7.2 TH/MM3 Lymphocytes # (Auto) 1.4 TH/MM3 Monocytes # (Auto) 1.1 TH/MM3 Eosinophils # (Auto) 0.0 TH/MM3 Basophils # (Auto) 0.0 TH/MM3 CBC Comment AUTO DIFF Differential Comment AUTO DIFF CONFIRMED Prothrombin Time 12.0 SEC Prothromb Time International Ratio 1.2 RATIO Activated Partial Thromboplast Time 32.2 SEC Blood Urea Nitrogen 18 MG/DL Creatinine 2.00 MG/DL Random Glucose 81 MG/DL Total Protein 7.8 GM/DL Albumin 3.6 GM/DL Calcium Level 9.0 MG/DL Alkaline Phosphatase 99 U/L Aspartate Amino Transf (AST/SGOT) 59 U/L Alanine Aminotransferase (ALT/SGPT) 43 U/L Total Bilirubin 3.4 MG/DL Sodium Level 133 MEQ/L Potassium Level 2.8 MEQ/L Chloride Level 98 MEQ/L Carbon Dioxide Level 24.4 MEQ/L Anion Gap 11 MEQ/L Estimat Glomerular Filtration Rate 26 ML/MIN Lactic Acid Level 2.5 mmol/L Ammonia 11 MCMOL/L Total Creatine Kinase 609 U/L Creatine Kinase MB 2.4 NG/ML Creatine Kinase MB % 0.4 % Troponin I 0.54 NG/ML Thyroid Stimulating Hormone 3rd Gen 4.230 uIU/ML Salicylates Level LESS THAN 1.7 MG/DL Ethyl Alcohol Level LESS THAN 3 MG/DL Blood Gas Puncture Site L ARM Blood Gas Patient Temperature 98.6 Venous Blood pH 7.34 Venous Blood Partial Pressure CO2 35 mmHg Venous Blood Partial Pressure O2 30 mmHg Venous Blood HCO3 18 mmol/L Venous Blood Oxygen Saturation 48 % Venous Blood Oxygen Content 8.4 Vol % Venous Blood Base Excess -6.4 mmol/L Oxygen Delivery Device NASAL CANNULA Blood Gas Liter Flow 2 L/M MDM Medical Decision Making Medical Screen Exam Complete: Yes Emergency Medical Condition: Yes Differential Diagnosis Fever, altered mental status, dementia, meningitis, encephalopathy, sepsis, dehydration, electrolyte abnormality, dehydration. Narrative Course Patient roomed in the emergency department, she is unknown to me but I had the nurse who is seen her before evaluate the patient and states this is a change from baseline, given her fever and altered mental status my first concern is for meningitis in this patient, unfortunately no history is really available on this patient. The patient underwent CAT scan of her head showing no acute abnormality, chest x-ray does show significant pleural effusion and possibly pneumonia of the left lung. Under emergent nature of the patient was sedated using ketamine and an LP was attempted unsuccessfully. The patient was started on vancomycin and Zosyn and acyclovir, fluid resuscitation ordered of 3000 cc bolus. Lactic acid is elevated at 2.5, potassium 2.8, the patient's total CK is elevated to 609 and troponin elevated at 0.54. The changes in creatinine and troponin are new for her indicating some endorgan damage from sepsis which would qualify her for severe sepsis. The patient's blood pressure has been in the 120 systolic since arrival, she does have elevations of hemoglobin and hematocrit indicating significant dehydration, white blood cell count is actually normal but there is a left shift 74.4%. The patient at the end of procedure did become hypertensive once during sedation to 180 systolic. This was transient. After Sedation become transiently hypotensive with maps as low as 58. Responded to fluid bolus. Influenza testing pending at this time, potassium replacement has been ordered. Patient was discussed with Dr. Dwyer for admission. He agrees with the management thus far and we will move the patient from [place] to the [facility] for further evaluation Critical Care Narrative Aggregate critical care time was 65 minutes. Time to perform other separately billable procedures was not included in the critical care time. My time did not include minutes spent treating any other patients simultaneously or on activities that did not directly contribute to the patient's treatment. The services I provided to this patient were to treat and/or prevent clinically significant deterioration that could result in: , disability, organ failure I provided critical care services requiring my management, as noted below: Chart data review, documentation time, medication orders and management, vital sign assessments/reviewing monitor data, ordering and reviewing lab tests, ordering and interpreting/reviewing x-rays and diagnostic studies, care of the patient and discussion of the patient with the admitting physicians. Procedures Procedure Narrative LUMBAR PUNCTURE: The patient was placed in the left lateral decubitus position. The lumbar area of the back was prepped with Betadine and sterilely draped. The L4-L5 interspace was entered with a 20-gauge LP needle, the needle was felt passing through the intervertebral space however no fluid could be obtained. Her sedation wearing off, the procedure was terminated after several attempts at readjusting position all of which did not yield cerebrospinal fluid. MODERATE SEDATION: The patient was placed on a coil builder and pulse oximetry. An ambu bag and suction was immediately available at bedside. Respiratory therapy at bedside, end-tidal CO2 was monitored. The patient was monitored by the nurse. Oxygen saturation, heart rate and blood pressure were monitored. Procedural sedation was acheived using ketamine 100mg. The patient was observed until awake and alert. Procedural Sedation time in attendance was 10 minutes. Diagnosis Primary Impression: Severe sepsis Additional Impressions: PNA (pneumonia) Elevated troponin Encephalopathy, toxic Diarrhea Dehydration Hypokalemia Admitting Information Admitting Physician Requests: Admit Condition: Critical Conrado Mckeon MD Apr 18, 2017 18:24
[2017-04-18] MEDS ORDERED: PIPERACIL-TAZO 4.5 GM PREMIX 100 ML IV ONE (18:30)
[2017-04-18] MEDS ORDERED: VANCOMYCIN INJ 1,000 MG in SODIUM CHLOR 0.9% 250 ML INJ 250 ML IV ONE (18:30)
[2017-04-18] MEDS ORDERED: SODIUM CHLORIDE 0.9% FLUSH 10 ML FLUSH IV FLUSH PRN (18:30)
[2017-04-18] MEDS ORDERED: ACETAMINOPHEN 650 MG SUPP RECTAL ONE (18:45)
--- NOTE | 2017-04-18 18:50 | RADRPT ---
EXAM DATE/TIME: 04/18/2017 18:24 [facility] COMPARISON: CHEST SINGLE AP, January 05, 2015, 10:27. INDICATIONS : Chest pain. MEDICAL HISTORY : Hypercholesterolemia. Gastroparesis. Gastroesophageal reflux disease. Hypertension. SURGICAL HISTORY : Cholecystectomy. Inguinal hernia repair. Hysterectomy. Renal transplant. ENCOUNTER: Initial ACUITY: 1 day PAIN SCORE: 5/10 LOCATION: Bilateral chest FINDINGS: Mild hazy infiltrates seen left lung, diffusely. A posteriorly layering pleural effusion would be con ceivable. Right lung reasonably clear. No pneumothorax. Heart size stable, then normal limits. CONCLUSION: Mild diffuse infiltrate and/or small pleural effusion on the left. Seamus Maria MD on April 18, 2017 at 18:47 Board Certified Radiologist. This report was verified electronically.
[2017-04-18 18:57] LABS: AUTOMATED NEUTROPHIL # 7.2 TH/MM3 (1.8-7.7); BASOPHIL % 0.5 % (0.0-2.0); HEMATOCRIT 51.5 % (35.0-46.0); HEMOGLOBIN 17.1 GM/DL (11.6-15.3); LYMPHOCYTE # 1.4 TH/MM3 (1.0-4.8); MEAN CELL VOLUME 90.3 FL (80.0-100.0); MEAN CORPUSCULAR HGB CONC 33.2 % (32.0-36.0); MEAN PLATELET VOLUME 11.1 FL (7.0-11.0); MONO % 11.1 % (0.0-8.0); MONOCYTE # 1.1 TH/MM3 (0-0.9); NEUT % 74.4 % (16.0-70.0); PLATELET COUNT 124 TH/MM3 (150-450); RED CELL DISTRIBUTION WIDTH 13.8 % (11.6-17.2); WHITE BLOOD COUNT 9.8 TH/MM3 (4.0-11.0)
--- NOTE | 2017-04-18 19:09 | RADRPT ---
EXAM DATE/TIME: 04/18/2017 18:51 [facility] COMPARISON: No previous studies available for comparison. INDICATIONS : Altered mental status. RADIATION DOSE: 62.90 CTDIvol (mGy) MEDICAL HISTORY : Non-responsive. SURGICAL HISTORY : Non-responsive. ENCOUNTER: Initial ACUITY: 1 day PAIN SCALE: Non-responsive LOCATION: cranial TECHNIQUE: Multiple contiguous axial images were obtained of the head. Using automated exposure control and adj ustment of the mA and/or kV according to patient size, radiation dose was kept as low as reasonably a chievable to obtain optimal diagnostic quality images. DICOM format image data is available electro nically for review and comparison. FINDINGS: CEREBRUM: The ventricles are normal for age. No evidence of midline shift, mass lesion, hemorrhage or acute in farction. No extra-axial fluid collections are seen. POSTERIOR FOSSA: The cerebellum and brainstem are intact. The 4th ventricle is midline. The cerebellopontine angle i s unremarkable. EXTRACRANIAL: 16 mm smooth, nonspecific subcutaneous nodule right lateral cheek. Please correlate clinically. SKULL: The calvaria is intact. No evidence of skull fracture. CONCLUSION: No intracranial abnormality demonstrated. Seamus Maria MD on April 18, 2017 at 19:06 Board Certified Radiologist. This report was verified electronically.
[2017-04-18 19:12] LABS: INTERNATIONAL NORMALIZED RATIO 1.2 RATIO
[2017-04-18 19:15] LABS: LACTIC ACID SEPSIS PROTOCOL 2.5 mmol/L (0.4-2.0)
[2017-04-18] MEDS ORDERED: SODIUM CHLOR 0.9% 1000 ML INJ 1,000 ML IV ONE ×3 (19:15→19:45)
[2017-04-18] MEDS ORDERED: KETAMINE HCL 500 MG/10 ML VIAL OTHER ONE (19:15)
[2017-04-18 19:25] LABS: ALBUMIN 3.6 GM/DL (3.4-5.0); ALKALINE PHOSPHATASE 99 U/L (45-117); ALT (GPT) 43 U/L (10-53); AST (GOT) 59 U/L (15-37); BICARBONATE 24.4 MEQ/L (21.0-32.0); BLOOD UREA NITROGEN 18 MG/DL (7-18); CHLORIDE 98 MEQ/L (98-107); GLOMERULAR FILTRATION RATE 26 ML/MIN (>89); GLUCOSE,RANDOM 81 MG/DL (74-106); SODIUM (NA) 133 MEQ/L (136-145); TOTAL BILIRUBIN ADULT 3.4 MG/DL (0.2-1.0); TOTAL PROTEIN 7.8 GM/DL (6.4-8.2); TROPONIN I 0.54 NG/ML (0.02-0.05)
[2017-04-18] MEDS ORDERED: ACYCLOVIR INJ 500 MG in SODIUM CHLORIDE 0.9% INJ 100 ML IV ONE (19:45)
[2017-04-18] MEDS: POTASSIUM CHLOR 20 MEQ PREMIX 100 ML IV SCH (20:27)
[2017-04-18 20:33] LABS: ACETAMINOPHEN LESS THAN 2.0 MCG/ML (10.0-30.0); MAGNESIUM 1.4 MG/DL (1.5-2.5)
--- NOTE | 2017-04-18 20:46 | HHI.HP ---
HPI Service Critical Care Medicine Primary Care Physician Yanique Alfonso MD Admission Diagnosis Fever/Altered mental status/PNA. Diagnosis: Travel History International Travel<30 Days: No Contact w/Intl Traveler <30 Da: No Traveled to Known Affected Are: No History of Present Illness 51-year-old female with multiple medical problems including systemic lupus erythematosus, status post renal transplant, presents for evaluation of altered mental status. According to medical record her daughter called 911 today because she had been altered, having some diarrhea for the past 2 days and fevers. The patient's only complaint in the emergency department was "I feel like sh...". Up in my evaluation she is still extremely lethargic, she knows she is at the [facility] but is unable to provide any further details, she is following commands and appears to be protecting her airway but will not provide any history. 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 MRSA PCR Screens negative 10/29/14 and 11/16/14. Uncoded Allergies: suture material (Adverse Reaction, Severe, SKIN INFECTION, 07/19/16) PT STATES DISSOLVING ONES [place]MON[place] NOT DISSOLVE AND HAVE TO BE PHYSICALLY REMOVED.. Past Medical History HTN, lupus, diabetes, GERD, kidney transplant. Past Surgical History hysterectomy,1999 , 1984 cholecystectomy,1996 hernia repair, 1996 kidney transplant Reported Medications Reported Meds & Active Scripts Active Losartan (Losartan Potassium) 50 Mg Tab 25 Mg PO DAILY Atorvastatin (Atorvastatin Calcium) 10 Mg Tab 10 Mg PO HS Protonix (Pantoprazole Sodium) 40 Mg Tab 40 Mg PO DAILY Clonidine (Clonidine HCl) 0.1 Mg Tab 0.1 Mg PO BID PRN Metformin (Metformin HCl) 500 Mg Tab 500 Mg PO HS With a meal Atenolol 50 Mg Tab 50 Mg PO HS Benefiber (Wheat Dextrin) 152 Gm Powder 10 Gm PO DAILY Probiotic (Lactobacillus Acidophilus) 1 Cap Cap 1 Cap PO TIDAC Zofran Odt (Ondansetron Odt) 4 Mg Tab 4 Mg SL Q6HR PRN Hydrocodone-Acetaminophen 5-325 mg Tab 1 Tab PO Q4H PRN Metoclopramide (Metoclopramide HCl) 5 Mg Tab 5 Mg PO TIDAC Reported Promethazine (Promethazine HCl) 12.5 Mg Tab 25 Mg PO Q4H PRN Prednisone 10 Mg Tab 10 Mg PO HS Magnesium Oxide 400 Mg Tab 400 Mg PO BID Cyclosporine 25 Mg Cap 50 Mg PO BID Mycophenolate (Mycophenolate Mofetil) 500 Mg Tab 500 Mg PO BID Active Ordered Medications Current Medications Medications (Trade) Dose Ordered Sig/Sagrario Route PRN Reason Start Time Stop Time Status Last Admin Dose Admin Sodium Chloride (NS Flush) 2 ml UNSCH PRN IV FLUSH FLUSH AFTER USING IV ACCESS 04/18/17 18:30 Atorvastatin Calcium (Lipitor) 10 mg HS PO 04/19/17 21:00 Cyclosporine (SandIMMUNE) 50 mg BID@0600,1800 PO 04/19/17 06:00 Metoclopramide HCl (Reglan) 5 mg TIDAC PO 04/19/17 08:00 Mycophenolate Mofetil (Cellcept) 500 mg BID@0600,1800 PO 04/19/17 06:00 Prednisone (Deltasone) 10 mg HS PO 04/19/17 21:00 Promethazine HCl (Phenergan) 25 mg Q4H PRN PO N/V 04/19/17 00:30 04/19/17 01:03 Dextrose (D50w (Vial) Inj) 50 ml UNSCH PRN IV PUSH HYPOGLYCEMIA-SEE COMMENTS 04/19/17 00:30 Glucagon (Glucagon Inj) 1 mg UNSCH PRN OTHER HYPOGLYCEMIA-SEE COMMENTS 04/19/17 00:30 Insulin Aspart (NovoLOG SUPPLEMENTAL SCALE) 1 ACHS SLIDING SCALE SQ 04/19/17 08:00 Potassium Chloride 100 ml @ 50 mls/hr Q2H PRN IV For Potassium 2.8 - 3.2 mEq/L 04/19/17 00:30 Potassium Chloride 100 ml @ 50 mls/hr Q2H PRN IV For Potassium 2.8 - 3.2 mEq/L 04/19/17 00:30 Potassium Bicarb/ Potassium Chloride (K-Lyte Cl Eff) 50 meq UNSCH PRN PO For Potassium 3.3 - 3.5 mEq/L 04/19/17 00:30 Potassium Chloride 100 ml @ 25 mls/hr UNSCH PRN IV For Potassium 3.3 - 3.5 mEq/L 04/19/17 00:30 Potassium Chloride 100 ml @ 50 mls/hr Q2H PRN IV For Potassium 3.3 - 3.5 mEq/L 04/19/17 00:30 Magnesium Sulfate 4 gm/Sodium Chloride 100 ml @ 50 mls/hr UNSCH PRN IV For Magnesium 0.9 - 1.1 mg/dL 04/19/17 00:30 Magnesium Oxide (Mag-Ox) 800 mg UNSCH PRN PO For Magnesium 1.2 - 1.6 mg/dL 04/19/17 00:30 Magnesium Sulfate 2 gm/Sodium Chloride 100 ml @ 50 mls/hr UNSCH PRN IV For Magnesium 1.2 - 1.6 mg/dL 04/19/17 00:30 Potassium Phosphate (K-Phos) 2,000 mg Q4H PRN PO For Phosphorus < 2.5 mg/dL 04/19/17 00:30 Sodium Phosphate 30 mmol/Sodium Chloride 250 ml @ 42 mls/hr UNSCH PRN IV For Phosphorus < 2.5 mg/dL 04/19/17 00:30 Potassium Phosphate (K-Phos) 2,000 mg UNSCH PRN PO/TUBE SEE LABEL COMMENTS 04/19/17 00:30 Potassium Phosphate 30 mmol/ Sodium Chloride 260 ml @ 42 mls/hr UNSCH PRN IV SEE LABEL COMMENTS 04/19/17 00:30 Sodium Chloride 1,000 ml @ 125 mls/hr Q8H IV 04/19/17 00:23 04/19/17 00:50 Sodium Chloride (NS Flush) 2 ml UNSCH PRN IV FLUSH FLUSH AFTER USING IV ACCESS 04/19/17 00:30 Sodium Chloride (NS Flush) 2 ml BID IV FLUSH 04/19/17 09:00 Hydrocortisone Sodium Succinate (SoluCORTEF INJ) 50 mg Q6HR IV PUSH 04/19/17 00:45 04/19/17 00:53 Famotidine (Pepcid Inj) 10 mg Q12HR IV PUSH 04/19/17 09:00 Albuterol/ Ipratropium (Duoneb Neb) 1 ampule Q2HR NEB PRN NEB WHEEZING 04/19/17 01:00 Heparin Sodium (Porcine) (Heparin Inj) 5,000 units Q8HR SQ 04/19/17 06:00 Pharmacy Profile Note 0 ml @ 0 mls/hr UNSCH OTHER 04/19/17 00:30 Miscellaneous Information 1 Q361D XX 04/19/17 00:30 04/19/17 00:30 Chlorhexidine Gluconate (Chlorhexidine 2% Cloth) 3 pack Taper DAILY@04 TOP 04/19/17 04:00 04/15/18 03:59 04/19/17 00:47 Chlorhexidine Gluconate (Chlorhexidine 2% Cloth) 3 pack UNSCH PRN TOP HYGIENIC CARE 04/19/17 00:30 Norepinephrine Bitartrate 4 mg/ Sodium Chloride 250 ml @ 7.5 mls/hr TITRATE PRN IV Blood pressure management 04/19/17 00:30 Terbutaline Sulfate (Brethine Inj) 1 mg UNSCH PRN SQ For Extravasation 04/19/17 00:30 Miscellaneous (Pill Splitter) 1 ea UNSCH PRN OTHER SEE LABEL COMMENTS 04/19/17 00:30 Oseltamivir Phosphate (Tamiflu) 75 mg BID PO 04/19/17 00:30 04/19/17 01:45 Piperacillin Sod/ Tazobactam Sod 50 ml @ 100 mls/hr Q6H IV 04/19/17 02:00 Vancomycin HCl 1600 mg/Sodium Chloride 516 ml @ 250 mls/hr Q24H IV 04/19/17 09:00 Miscellaneous Information SPECIFIC LAB TO BE DRAWN:VANCOMYCIN TROUGH DATE TO... ONCE ONCE .XX 04/21/17 08:45 04/21/17 08:46 Family History Dad: age 75, heart disease, polyps Mom: age 65, heart disease, HTN Social History Smoker No ETOH or drugs Physical Exam Vital Signs Vital Signs Date Time Temp Pulse Resp B/P (MAP) Pulse Ox O2 Delivery O2 Flow Rate FiO2 04/18/17 18:40 97 Nasal Cannula 2.00 04/18/17 18:30 98 2.00 04/18/17 18:21 102.7 102 18 150/88 (108) Physical Exam GENERAL: Well-nourished, well-developed patient. Lethargic and altered SKIN: Warm and dry. HEAD: Normocephalic. EYES: No scleral icterus. No injection or drainage. NECK: Supple, trachea midline. No JVD or lymphadenopathy. CARDIOVASCULAR: Regular rate and rhythm without murmurs, gallops, or rubs. RESPIRATORY: Breath sounds equal bilaterally. No accessory muscle use. GASTROINTESTINAL: Abdomen soft, non-tender, nondistended. MUSCULOSKELETAL: No cyanosis, or edema. BACK: Nontender without obvious deformity. NEURO EXAM: GCS: 14 Mental Status: The patient is alert and oriented to person, place, and time with slow speech. Laboratory Laboratory Tests Test 04/18/17 18:30 04/18/17 19:32 White Blood Count 9.8 Red Blood Count 5.70 Hemoglobin 17.1 Hematocrit 51.5 Mean Corpuscular Volume 90.3 Mean Corpuscular Hemoglobin 30.0 Mean Corpuscular Hemoglobin Concent 33.2 Red Cell Distribution Width 13.8 Platelet Count 124 Mean Platelet Volume 11.1 Neutrophils (%) (Auto) 74.4 Lymphocytes (%) (Auto) 14.0 Monocytes (%) (Auto) 11.1 Eosinophils (%) (Auto) 0.0 Basophils (%) (Auto) 0.5 Neutrophils # (Auto) 7.2 Lymphocytes # (Auto) 1.4 Monocytes # (Auto) 1.1 Eosinophils # (Auto) 0.0 Basophils # (Auto) 0.0 CBC Comment AUTO DIFF Differential Comment AUTO DIFF CONFIRMED Prothrombin Time 12.0 Prothromb Time International Ratio 1.2 Activated Partial Thromboplast Time 32.2 Blood Urea Nitrogen 18 Creatinine 2.00 Random Glucose 81 Total Protein 7.8 Albumin 3.6 Calcium Level 9.0 Phosphorus Level 3.0 Magnesium Level 1.4 Alkaline Phosphatase 99 Aspartate Amino Transf (AST/SGOT) 59 Alanine Aminotransferase (ALT/SGPT) 43 Total Bilirubin 3.4 Sodium Level 133 Potassium Level 2.8 Chloride Level 98 Carbon Dioxide Level 24.4 Anion Gap 11 Estimat Glomerular Filtration Rate 26 Lactic Acid Level 2.5 Ammonia 11 Total Creatine Kinase 609 Creatine Kinase MB 2.4 Creatine Kinase MB % 0.4 Troponin I 0.54 Thyroid Stimulating Hormone 3rd Gen 4.230 Salicylates Level LESS THAN 1.7 Acetaminophen Level LESS THAN 2.0 Ethyl Alcohol Level LESS THAN 3 Blood Gas Puncture Site L ARM Blood Gas Patient Temperature 98.6 Venous Blood pH 7.34 Venous Blood Partial Pressure CO2 35 Venous Blood Partial Pressure O2 30 Venous Blood HCO3 18 Venous Blood Oxygen Saturation 48 Venous Blood Oxygen Content 8.4 Venous Blood Base Excess -6.4 Oxygen Delivery Device NASAL CANNULA Blood Gas Liter Flow 2 Date/Time Source Procedure Growth Status 04/18/17 18:40 Blood Peripheral Aerobic Blood Culture Pending Received 04/18/17 18:40 Blood Peripheral Anaerobic Blood Culture Pending Received 04/18/17 19:48 Nasal Washing Influenza Types A,B Antigen (KIA) - Final Positive For Flu A Antigen Complete Result Diagram: 04/18/17182904/18/171829 Imaging Last [address] 04/18/171819 Signed Impressions: Service Date/Time: April 18:51 - CONCLUSION: No intracranial abnormality demonstrated. Seamus Maria MD Chest X-Ray 04/18/171819 Signed Impressions: Service Date/Time: April 18:24 - CONCLUSION: Mild diffuse infiltrate and/or small pleural effusion on the left. Seamus Maria MD Septic Shock Reassessment Septic shock perfusion: reassessment completed Caprini VTE Risk Assessment Caprini VTE Risk Assessment: Mod/High Risk (score >= 2) Caprini Risk Assessment Model Point Value = 1 Point Value = 2 Point Value = 3 Point Value = 5 Age 41-60 Minor surgery BMI > 25 kg/m2 Swollen legs Varicose veins or History of unexplained or recurrent spontaneous Oral contraceptives or hormone replacement Sepsis (< 1 month) Serious lung disease, including pneumonia (< 1 month) Abnormal pulmonary function Acute myocardial infarction Congestive heart failure (< 1 month) History of inflammatory bowel disease Medical patient at bed rest Age 61-74 Arthroscopic surgery Major open surgery (> 45 min) Laparoscopic surgery (> 45 min) Malignancy Confined to bed (> 72 hours) Immobilizing plaster cast Central venous access Age >= 75 History of VTE Family history of VTE Factor V Leiden Prothrombin 63184I Lupus anticoagulant Anticardiolipin antibodies Elevated serum homocysteine Heparin-induced thrombocytopenia Other congenital or acquired thrombophilia Stroke (< 1 month) Elective arthroplasty Hip, pelvis, or leg fracture Acute spinal cord injury (< 1 month) Prophylaxis Regimen Total Risk Factor Score Risk Level Prophylaxis Regimen 0-1 Low Early ambulation 2 Moderate Order ONE of the following: *Sequential Compression Device (SCD) *Heparin 5000 units SQ BID 3-4 Higher Order ONE of the following medications: *Heparin 5000 units SQ TID *Enoxaparin/Lovenox 40 mg SQ daily (WT < 150 kg, CrCl > 30 mL/min) *Enoxaparin/Lovenox 30 mg SQ daily (WT < 150 kg, CrCl > 10-29 mL/min) *Enoxaparin/Lovenox 30 mg SQ BID (WT < 150 kg, CrCl > 30 mL/min) AND/OR *Sequential Compression Device (SCD) 5 or more Highest Order ONE of the following medications: *Heparin 5000 units SQ TID (Preferred with Epidurals) *Enoxaparin/Lovenox 40 mg SQ daily (WT < 150 kg, CrCl > 30 mL/min) *Enoxaparin/Lovenox 30 mg SQ daily (WT < 150 kg, CrCl > 10-29 mL/min) *Enoxaparin/Lovenox 30 mg SQ BID (WT < 150 kg, CrCl > 30 mL/min) AND *Sequential Compression Device (SCD) Assessment and Plan Assessment and Plan Altered mental status - CT head negative - LP analysis pending - SIRS/sepsis - Panculture - Broad-spectrum antibiotics - Infectious disease consultation for sepsis of immunocompromise patient Renal failure - Dehydration - Strict I's and O's - Aggressive IV fluids resuscitation - Monitor creatinine level - Nephrology consultation if no improvement Hypertension - We will hold all antihypertensive meds in the picture of sepsis - Resume when indicated GERD - IV Pepcid Renal transplant - Continue Cyclosporine and Mycophenolate DVT GI prophylaxis - Teds SCDs - Subcutaneous heparin - Pepcid Critical Care: The total critical care time was 35 minutes. Time to perform other separately billable procedures was not included in the critical care time. Keith Dwyer MD Apr 18, 2017 8:46 pm
[2017-04-18] MEDS ORDERED: NOREPINEPHRINE INJ 4 MG in SODIUM CHLOR 0.9% 250 ML INJ 246 ML IV PRN (22:15)
[2017-04-18] MEDS ORDERED: TERBUTALINE INJ 1 MG/ML AMP SQ PRN (22:15)
[2017-04-18] MEDS ORDERED: NOREPINEPHRINE-DEXTROSE DRIP 250 ML IV PRN (22:15)
[2017-04-19] VITALS (16 sets, daily range): BP systolic 91–161; BP diastolic 44–70; PULSE 75–103; RESP 14–16; TEMP 98.6–101.3; O2SAT 94–100
[2017-04-19] MEDS ORDERED: SODIUM CHLOR 0.9% 1000 ML INJ 100 ML IV ONE (00:23)
[2017-04-19] MEDS ORDERED: SODIUM CHLOR 0.9% 1000 ML INJ 1,000 ML IV ONE ×4 (00:23→04:15)
[2017-04-19] MEDS ORDERED: TERBUTALINE INJ 1 MG/ML AMP SQ PRN (00:30)
[2017-04-19] MEDS ORDERED: PIPERACIL-TAZO 4.5 GM PREMIX 100 ML IV SCH (00:30)
[2017-04-19] MEDS ORDERED: GLUCAGON 1 MG/ML VIAL OTHER PRN (00:30)
[2017-04-19] MEDS ORDERED: Vancomycin Consult Pharmacy 1 EA OTHER SCH (00:30)
[2017-04-19] MEDS ORDERED: PILL SPLITTER OTHER PRN (00:30)
[2017-04-19] MEDS ORDERED: POTASSIUM CHLOR 20 MEQ PREMIX 100 ML IV PRN ×2 (00:30)
[2017-04-19] MEDS ORDERED: MAGNESIUM SULFATE INJ 2 GM in SODIUM CHLORIDE 0.9% INJ 96 ML IV PRN (00:30)
[2017-04-19] MEDS ORDERED: MISCELLANEOUS NURSING INFORMATION XX SCH (00:30)
[2017-04-19] MEDS ORDERED: POTASSIUM CHLORIDE 25 MEQ EFFERVESCENT TAB PO PRN (00:30)
[2017-04-19] MEDS ORDERED: POTASSIUM PHOSPHATE MONOBASIC 500 MG TAB PO PRN (00:30)
[2017-04-19] MEDS ORDERED: SODIUM CHLORIDE 0.9% FLUSH 10 ML FLUSH IV FLUSH PRN (00:30)
[2017-04-19] MEDS ORDERED: NOREPINEPHRINE INJ 4 MG in SODIUM CHLOR 0.9% 250 ML INJ 246 ML IV PRN (00:30)
[2017-04-19] MEDS ORDERED: POTASSIUM PHOSPHATE INJ 30 MMOL in SODIUM CHLOR 0.9% 250 ML INJ 250 ML IV PRN (00:30)
[2017-04-19] MEDS ORDERED: SODIUM PHOSPHATE INJ 30 MMOL in SODIUM CHLOR 0.9% 250 ML INJ 240 ML IV PRN (00:30)
[2017-04-19] MEDS ORDERED: CHLORHEXIDINE GLUCONATE 2 % 1 PACK (2 CLOTHS) TOP PRN (00:30)
[2017-04-19] MEDS ORDERED: MAGNESIUM SULFATE INJ 4 GM in SODIUM CHLORIDE 0.9% INJ 92 ML IV PRN (00:30)
[2017-04-19] MEDS ORDERED: POTASSIUM CHLOR 40 MEQ PREMIX 100 ML IV PRN ×2 (00:30)
[2017-04-19] MEDS ORDERED: MAGNESIUM OXIDE 400 MG TAB PO PRN (00:30)
[2017-04-19] MEDS ORDERED: DEXTROSE 50% IN WATER 50 ML VIAL(D50) IV PUSH PRN (00:30)
[2017-04-19] MEDS ORDERED: POTASSIUM PHOSPHATE MONOBASIC 500 MG TAB PO/TUBE PRN (00:30)
[2017-04-19] MEDS ORDERED: MIDAZOLAM HCL 2 MG/2 ML VIAL IV PUSH ONE (00:45)
[2017-04-19] MEDS: CHLORHEXIDINE GLUCONATE 2 % 1 PACK (2 CLOTHS) TOP SCH (00:47)
[2017-04-19] MEDS: SODIUM CHLOR 0.9% 1000 ML INJ 1,000 ML IV SCH ×2 (00:50→10:37)
[2017-04-19] MEDS: POTASSIUM CHLOR 20 MEQ PREMIX 100 ML IV SCH (00:51)
[2017-04-19] MEDS: HYDROCORTISONE SOD SUCCINATE 100 MG VIAL IV PUSH SCH ×4 (00:53→17:39)
[2017-04-19] MEDS ORDERED: RESP: ALBUTEROL 2.5 MG/IPRATROPIUM 0.5 MG NEB (PRN) NEB (01:00)
[2017-04-19] MEDS: PROMETHAZINE HCL 25 MG TAB PO PRN (01:03)
[2017-04-19 01:33] LABS: AUTOMATED NEUTROPHIL # 5.8 TH/MM3 (1.8-7.7); BASOPHIL % 0.2 % (0.0-2.0); HEMATOCRIT 45.9 % (35.0-46.0); HEMOGLOBIN 15.8 GM/DL (11.6-15.3); LYMPH % 15.8 % (9.0-44.0); LYMPHOCYTE # 1.3 TH/MM3 (1.0-4.8); MEAN CELL VOLUME 92.4 FL (80.0-100.0); MEAN CORPUSCULAR HEMOGLOBIN 31.7 PG (27.0-34.0); MEAN CORPUSCULAR HGB CONC 34.4 % (32.0-36.0); MONO % 11.5 % (0.0-8.0); MONOCYTE # 0.9 TH/MM3 (0-0.9); NEUT % 72.5 % (16.0-70.0); PLATELET COUNT 82 TH/MM3 (150-450); RED BLOOD COUNT 4.96 MIL/MM3 (4.00-5.30); RED CELL DISTRIBUTION WIDTH 14.6 % (11.6-17.2)
[2017-04-19] MEDS: OSELTAMIVIR PHOSPHATE 75 MG CAP PO SCH ×3 (01:45→20:28)
[2017-04-19 01:48] LABS: LACTIC ACID SEPSIS PROTOCOL 2.4 mmol/L (0.4-2.0)
--- NOTE | 2017-04-19 01:50 | PD.PROCEDR ---
Procedure Note Procedure Lumbar puncture A time-out was completed verifying correct patient, procedure, site, positioning , and special equipment if applicable. The patient was placed in the left lateral decubitus position in a semi- position with help from the nursing staff. The area was cleansed and draped in usual sterile fashion. 1% lidocaine was used anesthetize the surrounding skin area. A 20-gauge 3.5-inch spinal needle was placed in the L3-L4 interspace. Clear cerebral spinal fluid was obtained and the opening pressure was noted to be 23. Four tubes were filled with 4 mL of CSF. These were sent for the usual tests, including 1 tube to be held for further analysis if needed. The closing pressure was noted to be 16. Estimated Blood Loss: 1 mL The patient tolerated the procedure well and there were no complications. Keith wDyer MD Apr 19, 2017 1:50 am
[2017-04-19 01:55] LABS: ALBUMIN 2.6 GM/DL (3.4-5.0); BICARBONATE 23.7 MEQ/L (21.0-32.0); CALCIUM 7.3 MG/DL (8.5-10.1); CREATININE 2.21 MG/DL (0.50-1.00); TOTAL BILIRUBIN ADULT 2.8 MG/DL (0.2-1.0); TOTAL PROTEIN 5.8 GM/DL (6.4-8.2)
[2017-04-19] MEDS ORDERED: PIPERACIL-TAZO 2.25 GM PREMIX 50 ML IV SCH (02:00)
[2017-04-19 02:35] LABS: BANDS 10 % (0-6); BASOPHILS 2 % (0-2); LYMPHOCYTES 11 % (9-44); METAMYELOCYTES 2 % (0-1); MONOCYTES 12 % (0-8); POLYS (SEG NEUTROPHILS) 63 % (16-70)
[2017-04-19 02:36] LABS: TOXIC VACUOLATION PRESENT (NONE SEEN)
[2017-04-19 02:42] LABS: TOTAL PROTEIN,CSF 26.9 MG/DL (15.0-45.0)
[2017-04-19 02:46] LABS: CSF LYMPHOCYTES 94 %; CSF MONOCYTES 1 %; CSF NEUTROPHILS 5 %
[2017-04-19 02:50] LABS: SUPERNATE COLOR TUBE #1 CLEAR (CLEAR); VOLUME TUBE # 1 0.5 ML
[2017-04-19 02:51] LABS: RBC TUBE #4 945 /MM3; WBC TUBE #4 76 /MM3 (0-10)
[2017-04-19 03:02] LABS: BACTERIA, URINE MANY /hpf; BILIRUBIN, URINE NEG (NEG); BLOOD, URINE MOD (NEG); GLUCOSE,URINE NEG (NEG); KETONE, URINE NEG (NEG); NITRITE,URINE POS (NEG); RENAL EPITHELIAL CELLS <1 /hpf; SQUAMOUS EPITHELIAL CELL URINE <1 /hpf (0-5); URINE COLOR YELLOW (YELLW/STRAW); URINE LEUKOCYTE ESTERASE LARGE (NEG); WHITE BLOOD CELL CLUMPS MANY
[2017-04-19] MEDS: ACETAMINOPHEN 1000 MG/100 ML 100 ML IV PRN (04:20)
[2017-04-19] MEDS: cycloSPORINE 25 MG CAP PO SCH ×2 (05:03→17:53)
[2017-04-19] MEDS: MYCOPHENOLATE MOFETIL 500 MG TAB PO SCH ×2 (05:03→17:54)
[2017-04-19] MEDS ORDERED: HEPARIN SODIUM - SQ 10,000 UNITS/ML VIAL SQ SCH (06:00)
[2017-04-19] MEDS ORDERED: INSULIN ASPART SUPPLEMENTAL SCALE SQ SCH (08:00)
--- NOTE | 2017-04-19 08:59 | PD.ID.CON ---
History of Present Illness Service ID Consult Requested By Reason for Consult Evaluation and Mment of Sepsis in an IC patient. Primary Care Physician Yanique Alfonso MD Diagnoses: History of Present Illness is a 51 y/o CF with PMHx of CKD, s/p Kidney transplant on immune suppressants, Lupus who presents to the hospital with Altered Mental Status. According to medical records it appears that the daughter called 911 because patient was altered mental status having some diarrhea and fevers for the last 2 days prior to admission. Patient reports to me she has had nausea vomiting diarrhea, myalgia approximately 2 days prior to admission. Reportedly patient was lethargic with altered mental status on examination by critical care physician. Patient had fever as well as tachycardia on admission along with hypotension and elevated lactic acid meeting criteria for severe sepsis. With this background patient was admitted to the ICU under the care of pipe changer for sepsis in an immunocompromised patient. Patient underwent a lumbar puncture overnight studies are not overtly convincing for any meningitis-like picture. Flu antigen test was done which was positive. Sepsis workup was initiated including blood cultures, chest x-ray, lactic acid. Flu antigen was positive and patient has been started on Tamiflu. Patient was also started on empiric antibiotics to cover for possible healthcare associated pneumonia and infections. Infectious disease is consulted for evaluation and management of sepsis in an immune compromised patient. Review of Systems ROS Limitations: Poor Historian Constitutional: DENIES: Diaphoretic episodes, Fatigue, Fever, Weight gain, Weight loss, Chills, Dizziness, Change in appetite, Night Sweats Endocrine: DENIES: Abnorml menstrual pattern, Heat/cold intolerance, Polydipsia , Polyuria, Polyphagia Eyes: DENIES: Blurred vision, Diplopia, Eye inflammation, Eye pain, Vision loss , Photosensitivity, Double Vision Ears, nose, mouth, throat: DENIES: Tinnitus, Hearing loss, Vertigo, Nasal discharge, Oral lesions, Throat pain, Hoarseness, Ear Pain, Running Nose, Epistaxis, Sinus Pain, Toothache, Odynophagia Respiratory: DENIES: Apneas, Cough, Snoring, Wheezing, Hemoptysis, Sputum production, Shortness of breath Cardiovascular: DENIES: Chest pain, Palpitations, Syncope, Dyspnea on Exertion , PND, Lower Extremity Edema, Orthopnea, Claudication Gastrointestinal: COMPLAINS OF: Diarrhea, Nausea, Vomiting, DENIES: Abdominal pain, Black stools, Bloody stools, Constipation, Difficulty Swallowing, Anorexia Genitourinary: DENIES: Abnormal vaginal bleeding, Dysmenorrhea, Dyspareunia, Sexual dysfunction, Urinary frequency, Urinary incontinence, Urgency, Hematuria , Dysuria, Nocturia, Vaginal discharge Musculoskeletal: COMPLAINS OF: Muscle aches, DENIES: Joint pain, Stiffness, Joint Swelling, Back pain, Neck pain Integumentary: DENIES: Abnormal pigmentation, Pruritus, Rash, Nail changes, Breast masses, Breast skin changes, Nipple discharge Hematologic/lymphatic: DENIES: Bruising, Lymphadenopathy Immunologic/allergic: DENIES: Eczema, Urticaria Neurologic: DENIES: Abnormal gait, Headache, Localized weakness, Paresthesias, Seizures, Speech Problems, Tremor, Poor Balance Psychiatric: DENIES: Anxiety, Confusion, Mood changes, Depression, Hallucinations, Agitation, Suicidal Ideation, Homicidal Ideation, Delusions Except as stated in HPI: all other systems reviewed are Neg Past Family Social History Allergies: Coded Allergies: adhesive (Verified Allergy, Severe, HIVES, 03/28/17) DISOLVABLE SUTURE MATERAL levofloxacin (Verified Allergy, Intermediate, HIVES/ITCHING, 03/28/17) cephalexin (Verified Adverse Reaction, Intermediate, HIVES/VOMITING, ) nifedipine (Verified Adverse Reaction, Intermediate, VOMITING, 03/28/17) Uncoded Allergies: suture material (Adverse Reaction, Severe, SKIN INFECTION, 07/19/16) PT STATES DISSOLVING ONES [place] NOT DISSOLVE AND HAVE TO BE PHYSICALLY REMOVED.. Past Medical History Arthritis Lupus GERD Congenital kidney disease Chronic kidney disease was on hemodialysis in the past using a left upper extremity AV fistula. Diabetic gastroparesis next and diabetes next line anxiety Depression Hypertension Hyperlipidemia Chronic back pain GERD Kidney stones COPD Skin cancer right thigh 2010 Past Surgical History Colonoscopy in September 2016 Kidney transplant in 191 Cholecystectomy Hernia repair Hysterectomy AV fistula left forearm Reported Medications Reported Meds & Active Scripts Active Losartan (Losartan Potassium) 50 Mg Tab 25 Mg PO DAILY Atorvastatin (Atorvastatin Calcium) 10 Mg Tab 10 Mg PO HS Protonix (Pantoprazole Sodium) 40 Mg Tab 40 Mg PO DAILY Clonidine (Clonidine HCl) 0.1 Mg Tab 0.1 Mg PO BID PRN Metformin (Metformin HCl) 500 Mg Tab 500 Mg PO HS With a meal Atenolol 50 Mg Tab 50 Mg PO HS Benefiber (Wheat Dextrin) 152 Gm Powder 10 Gm PO DAILY Probiotic (Lactobacillus Acidophilus) 1 Cap Cap 1 Cap PO TIDAC Zofran Odt (Ondansetron Odt) 4 Mg Tab 4 Mg SL Q6HR PRN Hydrocodone-Acetaminophen 5-325 mg Tab 1 Tab PO Q4H PRN Metoclopramide (Metoclopramide HCl) 5 Mg Tab 5 Mg PO TIDAC Reported Promethazine (Promethazine HCl) 12.5 Mg Tab 25 Mg PO Q4H PRN Prednisone 10 Mg Tab 10 Mg PO HS Magnesium Oxide 400 Mg Tab 400 Mg PO BID Cyclosporine 25 Mg Cap 50 Mg PO BID Mycophenolate (Mycophenolate Mofetil) 500 Mg Tab 500 Mg PO BID Active Ordered Medications Current Medications Medications (Trade) Dose Ordered Sig/Sagrario Route Start Time Stop Time Status Last Admin (Lipitor) 10 mg HS PO 04/19/17 21:00 (SandIMMUNE) 50 mg BID@0600,1800 PO 04/19/17 06:00 04/19/17 05:03 (Reglan) 5 mg TIDAC PO 04/19/17 08:00 04/19/17 10:37 (Cellcept) 500 mg BID@0600,1800 PO 04/19/17 06:00 04/19/17 05:03 (Phenergan) 25 mg Q4H PRN PO 04/19/17 00:30 04/19/17 01:03 (D50w (Vial) Inj) 50 ml UNSCH PRN IV PUSH 04/19/17 00:30 (Glucagon Inj) 1 mg UNSCH PRN OTHER 04/19/17 00:30 Potassium Chloride 100 ml @ 50 mls/hr Q2H PRN IV 04/19/17 00:30 Potassium Chloride 100 ml @ 50 mls/hr Q2H PRN IV 04/19/17 00:30 (K-Lyte Cl Eff) 50 meq UNSCH PRN PO 04/19/17 00:30 Potassium Chloride 100 ml @ 25 mls/hr UNSCH PRN IV 04/19/17 00:30 Potassium Chloride 100 ml @ 50 mls/hr Q2H PRN IV 04/19/17 00:30 Magnesium Sulfate 4 gm/Sodium Chloride 100 ml @ 50 mls/hr UNSCH PRN IV 04/19/17 00:30 (Mag-Ox) 800 mg UNSCH PRN PO 04/19/17 00:30 Magnesium Sulfate 2 gm/Sodium Chloride 100 ml @ 50 mls/hr UNSCH PRN IV 04/19/17 00:30 04/19/17 02:49 (K-Phos) 2,000 mg Q4H PRN PO 04/19/17 00:30 Sodium Phosphate 30 mmol/Sodium Chloride 250 ml @ 42 mls/hr UNSCH PRN IV 04/19/17 00:30 (K-Phos) 2,000 mg UNSCH PRN PO/TUBE 04/19/17 00:30 Potassium Phosphate 30 mmol/ Sodium Chloride 260 ml @ 42 mls/hr UNSCH PRN IV 04/19/17 00:30 Sodium Chloride 1,000 ml @ 125 mls/hr Q8H IV 04/19/17 00:23 04/19/17 10:37 (NS Flush) 2 ml UNSCH PRN IV FLUSH 04/19/17 00:30 (NS Flush) 2 ml BID IV FLUSH 04/19/17 09:00 04/19/17 10:36 (SoluCORTEF INJ) 50 mg Q6HR IV PUSH 04/19/17 00:45 04/19/17 11:12 (Pepcid Inj) 10 mg Q12HR IV PUSH 04/19/17 09:00 04/19/17 10:38 (Duoneb Neb) 1 ampule Q2HR NEB PRN NEB 04/19/17 01:00 (Heparin Inj) 5,000 units Q8HR SQ 04/19/17 06:00 Future Hold 04/19/17 05:03 Miscellaneous Information 1 Q361D XX 04/19/17 00:30 04/19/17 00:30 (Chlorhexidine 2% Cloth) 3 pack Taper DAILY@04 TOP 04/19/17 04:00 04/15/18 03:59 04/19/17 00:47 (Chlorhexidine 2% Cloth) 3 pack UNSCH PRN TOP 04/19/17 00:30 Norepinephrine Bitartrate 4 mg/ Sodium Chloride 250 ml @ 7.5 mls/hr TITRATE PRN IV 04/19/17 00:30 (Brethine Inj) 1 mg UNSCH PRN SQ 04/19/17 00:30 (Pill Splitter) 1 ea UNSCH PRN OTHER 04/19/17 00:30 (Tamiflu) 75 mg BID PO 04/19/17 00:30 04/19/17 01:45 Acetaminophen 100 ml @ 400 mls/hr Q6H PRN IV 04/19/17 04:15 04/19/17 04:20 Cefepime HCl 2000 mg/Sodium Chloride 100 ml @ 200 mls/hr Q24H IV 04/19/17 09:00 04/19/17 10:36 Linezolid 300 ml @ 300 mls/hr Q12H IV 04/19/17 10:00 04/19/17 10:36 (Flagyl) 500 mg Q8HR PO 04/19/17 10:00 04/19/17 11:12 (NovoLOG SUPPLEMENTAL SCALE) 1 Q6H SQ 04/19/17 14:00 Family History Family history of diabetes hypertension and coronary artery disease Social History Denies any alcohol or smoking Physical Exam Vital Signs Vital Signs Date Time Temp Pulse Resp B/P (MAP) Pulse Ox O2 Delivery O2 Flow Rate FiO2 04/19/17 08:00 98.8 75 14 99/53 (68) 94 04/19/17 08:00 84 04/19/17 07:58 96 Nasal Cannula 2.00 04/19/17 06:00 84 04/19/17 04:00 101.3 96 14 91/44 (60) 94 04/19/17 04:00 96 04/19/17 03:36 97 Nasal Cannula 4.00 04/19/17 02:00 94 04/19/17 01:00 96 98/53 04/19/17 00:00 103 04/19/17 00:00 92 89/48 04/18/17 23:57 98.7 102 20 108/57 (74) 94 04/18/17 23:07 96 16 97/54 (68) 96 Nasal Cannula 2.00 04/18/17 23:00 91 16 95/59 (71) 04/18/17 22:57 102.0 91 16 99/66 (77) 96 Nasal Cannula 2.00 04/18/17 22:44 103 16 84/61 (69) 04/18/17 22:34 101 16 55/38 (44) 04/18/17 22:27 104 65/44 04/18/17 22:25 107 16 64/37 (46) 96 Nasal Cannula 2.00 04/18/17 22:01 102.1 103 18 74/48 (57) 96 Nasal Cannula 2.00 04/18/17 19:15 94 2.00 04/18/17 18:40 97 Nasal Cannula 2.00 04/18/17 18:30 98 2.00 04/18/17 18:21 102.7 102 18 150/88 (108) Physical Exam GENERAL: This is a well-nourished, well-developed patient, in no apparent distress. SKIN: No rashes, ecchymoses or lesions. Cool and dry. HEAD: Atraumatic. Normocephalic. No temporal or scalp tenderness. EYES: Pupils equal round and reactive. Extraocular motions intact. No scleral icterus. No injection or drainage. ENT: Nose without bleeding, purulent drainage or septal hematoma. Throat without erythema, tonsillar hypertrophy or exudate. Uvula midline. Airway patent. NECK: Trachea midline. Supple, nontender, no meningeal signs. CARDIOVASCULAR: Heart sounds audible. RESPIRATORY: Clear to auscultation. Breath sounds equal bilaterally. GASTROINTESTINAL: Abdomen soft, non-tender, nondistended. MUSCULOSKELETAL: Extremities without clubbing, cyanosis, or edema. No joint tenderness, effusion, or edema noted. No calf tenderness. Negative Homans sign bilaterally. NEUROLOGICAL: Awake and alert. Nonfocal exam Psych cooperative IV line sites with no evidence of infection. Laboratory Laboratory Tests Test 04/18/17 18:30 04/18/17 19:32 04/18/17 23:00 04/19/17 00:00 White Blood Count 9.8 Red Blood Count 5.70 Hemoglobin 17.1 Hematocrit 51.5 Mean Corpuscular Volume 90.3 Mean Corpuscular Hemoglobin 30.0 Mean Corpuscular Hemoglobin Concent 33.2 Red Cell Distribution Width 13.8 Platelet Count 124 Mean Platelet Volume 11.1 Neutrophils (%) (Auto) 74.4 Lymphocytes (%) (Auto) 14.0 Monocytes (%) (Auto) 11.1 Eosinophils (%) (Auto) 0.0 Basophils (%) (Auto) 0.5 Neutrophils # (Auto) 7.2 Lymphocytes # (Auto) 1.4 Monocytes # (Auto) 1.1 Eosinophils # (Auto) 0.0 Basophils # (Auto) 0.0 CBC Comment AUTO DIFF Differential Comment AUTO DIFF CONFIRMED Prothrombin Time 12.0 Prothromb Time International Ratio 1.2 Activated Partial Thromboplast Time 32.2 Blood Urea Nitrogen 18 Creatinine 2.00 Random Glucose 81 Total Protein 7.8 Albumin 3.6 Calcium Level 9.0 Phosphorus Level 3.0 Magnesium Level 1.4 Alkaline Phosphatase 99 Aspartate Amino Transf (AST/SGOT) 59 Alanine Aminotransferase (ALT/SGPT) 43 Total Bilirubin 3.4 Sodium Level 133 Potassium Level 2.8 Chloride Level 98 Carbon Dioxide Level 24.4 Anion Gap 11 Estimat Glomerular Filtration Rate 26 Lactic Acid Level 2.5 1.4 Ammonia 11 Total Creatine Kinase 609 Creatine Kinase MB 2.4 Creatine Kinase MB % 0.4 Troponin I 0.54 Thyroid Stimulating Hormone 3rd Gen 4.230 Salicylates Level LESS THAN 1.7 Acetaminophen Level LESS THAN 2.0 Ethyl Alcohol Level LESS THAN 3 Blood Gas Puncture Site L ARM Blood Gas Patient Temperature 98.6 Venous Blood pH 7.34 Venous Blood Partial Pressure CO2 35 Venous Blood Partial Pressure O2 30 Venous Blood HCO3 18 Venous Blood Oxygen Saturation 48 Venous Blood Oxygen Content 8.4 Venous Blood Base Excess -6.4 Oxygen Delivery Device NASAL CANNULA Blood Gas Liter Flow 2 Nasal Screen MRSA (PCR) MRSA NOT DETECTED Test 04/19/17 01:07 04/19/17 01:30 04/19/17 02:30 04/19/17 03:10 White Blood Count 8.0 Red Blood Count 4.96 Hemoglobin 15.8 Hematocrit 45.9 Mean Corpuscular Volume 92.4 Mean Corpuscular Hemoglobin 31.7 Mean Corpuscular Hemoglobin Concent 34.4 Red Cell Distribution Width 14.6 Platelet Count 82 Mean Platelet Volume 11.0 Neutrophils (%) (Auto) 72.5 Lymphocytes (%) (Auto) 15.8 Monocytes (%) (Auto) 11.5 Eosinophils (%) (Auto) 0.0 Basophils (%) (Auto) 0.2 Neutrophils # (Auto) 5.8 Lymphocytes # (Auto) 1.3 Monocytes # (Auto) 0.9 Eosinophils # (Auto) 0.0 Basophils # (Auto) 0.0 CBC Comment AUTO DIFF Differential Total Cells Counted 100 Neutrophils % (Manual) 63 Band Neutrophils % 10 Lymphocytes % 11 Monocytes % 12 Basophils % 2 Neutrophils # (Manual) 6.0 Metamyelocytes 2 Differential Comment FINAL DIFF MANUAL Atypical Lymphocytes Toxic Vacuolation PRESENT Platelet Estimate LOW Platelet Morphology Comment NORMAL Red Cell Morphology Comment NORMAL Hematology Comments Blood Urea Nitrogen 18 Creatinine 2.21 Random Glucose 77 Total Protein 5.8 Albumin 2.6 Calcium Level 7.3 Alkaline Phosphatase 74 Aspartate Amino Transf (AST/SGOT) 65 Alanine Aminotransferase (ALT/SGPT) 35 Total Bilirubin 2.8 Sodium Level 142 Potassium Level 3.9 Chloride Level 109 Carbon Dioxide Level 23.7 Anion Gap 9 Estimat Glomerular Filtration Rate 24 Lactic Acid Level 2.4 Protein Corrected Calcium 8.0 CSF Volume (Tube 1) 0.5 CSF Supernatant Color (tube 1) CLEAR CSF Gross Blood (Tube 1) 0 CSF Volume (Tube 2) 0.9 CSF Supernatant Color (tube 2) CLEAR CSF Gross Blood (Tube 2) 0 CSF Volume (Tube 3) 0.9 CSF Supernatant Color (tube 3) CLEAR CSF Gross Blood (Tube 3) 0 CSF Volume (Tube 4) 0.8 CSF Supernatant Color (tube 4) CLEAR CSF Gross Blood (Tube 4) TRACE CSF WBC (Tube 4) 76 CSF RBC (Tube 4) 945 CSF Neutrophils 5 CSF Lymphocytes 94 CSF Monocytes 1 CSF Glucose 49 CSF Lactate Dehydrogenase 27 CSF Lactic Acid 2.5 CSF Total Protein 26.9 Urine Color YELLOW Urine Turbidity HAZY Urine pH 6.0 Urine Specific [place] 1.010 Urine Protein 30 Urine Glucose (UA) NEG Urine Ketones NEG Urine Occult Blood MOD Urine Nitrite POS Urine Bilirubin NEG Urine Urobilinogen LESS THAN 2.0 Urine Leukocyte Esterase LARGE Urine RBC 6 Urine WBC Urine WBC Clumps MANY Urine Squamous Epithelial Cells <1 Urine Renal Epithelial Cells <1 Urine Bacteria MANY Microscopic Urinalysis Comment CATH-CULTURE IND Urine Opiates Screen NEG Urine Barbiturates Screen NEG Urine Amphetamines Screen NEG Urine Benzodiazepines Screen NEG Urine Cocaine Screen NEG Urine Cannabinoids Screen POS Phosphorus Level 4.1 Test 04/19/17 03:58 Lactic Acid Level 1.1 Date/Time Source Procedure Growth Status 04/18/17 18:40 Blood Peripheral Aerobic Blood Culture Pending Received 04/18/17 18:40 Blood Peripheral Anaerobic Blood Culture Pending Received 04/19/17 01:30 Cerebral Spinal Fluid Lumbar Puncture Fungal Smear Pending Received 04/19/17 01:30 Cerebral Spinal Fluid Lumbar Puncture Fungal Culture Pending Received 04/18/17 19:48 Nasal Washing Influenza Types A,B Antigen (KIA) - Final Positive For Flu A Antigen Complete 04/19/17 02:30 Urine Catheterized Urine Urine Culture Pending Received Result Diagram: 04/19/1710604/19/17 0107 Imaging Last Impressions Head CT 04/18/171819 Signed Impressions: Service Date/Time: April 18:51 - CONCLUSION: No intracranial abnormality demonstrated. Seamus Maria MD Chest X-Ray 04/18/171819 Signed Impressions: Service Date/Time: April 18:24 - CONCLUSION: Mild diffuse infiltrate and/or small pleural effusion on the left. Seamus Maria MD Assessment and Plan Assessment and Plan Severe sepsis present on admission Flu antigen positive symptomatology consistent with flu as well Nausea, diarrhea present on admission prior history of exposure to antibiotics we'll check for C. difficile Possible aspiration given nausea prior to admission Lupus Status post renal transplant in 1989 immune suppressants Acute renal failure unsure if she has a chronic kidney component as well Recs: Discontinue Zosyn IV Discontinue vancomycin IV Continue Tamiflu Start cefepime IV renal dose adjusted by me Start Zyvox IV Check stool for C. difficile as well as her other stool studies Discussed with nurse Valenzuela would like CSF HSV 1 and 2, CSF probable antigen and CSF VDRL to be tested as priority from available remaining CSF at the present time. She will discuss her lab. Follow cultures Follow clinically Consult nephrology renal transplant patient with acute renal failure Case discussed with Heydi Tolliver MD Apr 19, 2017 08:59
[2017-04-19] MEDS ORDERED: VANCOMYCIN INJ 1,600 MG in SODIUM CHLORID 0.9% 500 ML INJ 500 ML IV SCH (09:00)
--- NOTE | 2017-04-19 10:22 | HHI.CCPN ---
Subjective Remarks/Hospital Course 51-year-old female with multiple medical problems including systemic lupus erythematosus, status post renal transplant, presents for evaluation of altered mental status. According to medical record her daughter called 911 today because she had been altered, having some diarrhea for the past 2 days and fevers. The patient's only complaint in the emergency department was "I feel like sh...". Up in my evaluation she is still extremely lethargic, she knows she is at the [facility] but is unable to provide any further details, she is following commands and appears to be protecting her airway but will not provide any history. 04/19 Patient is on 2L, T: 101.3 at 4am. s/p LP showed clear CSF, normal protein glc, 76 wbc. Objective Vital Signs Date Time Temp Pulse Resp B/P (MAP) Pulse Ox O2 Delivery O2 Flow Rate FiO2 04/19/17 08:00 98.8 75 14 99/53 (68) 94 04/19/17 07:58 Nasal Cannula 2.00 Intake and Output 04/19/17 04/19/17 04/20/17 08:00 16:00 00:00 Intake Total 5703 ml Output Total 1375 ml Balance 4328 ml Result Diagram: 04/19/17 0107 04/19/17 0107 Other Results Laboratory Tests Test 04/18/17 18:30 04/18/17 19:32 04/18/17 23:00 04/19/17 00:00 White Blood Count 9.8 TH/MM3 Red Blood Count 5.70 MIL/MM3 Hemoglobin 17.1 GM/DL Hematocrit 51.5 % Mean Corpuscular Volume 90.3 FL Mean Corpuscular Hemoglobin 30.0 PG Mean Corpuscular Hemoglobin Concent 33.2 % Red Cell Distribution Width 13.8 % Platelet Count 124 TH/MM3 Mean Platelet Volume 11.1 FL Neutrophils (%) (Auto) 74.4 % Lymphocytes (%) (Auto) 14.0 % Monocytes (%) (Auto) 11.1 % Eosinophils (%) (Auto) 0.0 % Basophils (%) (Auto) 0.5 % Neutrophils # (Auto) 7.2 TH/MM3 Lymphocytes # (Auto) 1.4 TH/MM3 Monocytes # (Auto) 1.1 TH/MM3 Eosinophils # (Auto) 0.0 TH/MM3 Basophils # (Auto) 0.0 TH/MM3 CBC Comment AUTO DIFF Differential Comment AUTO DIFF CONFIRMED Prothrombin Time 12.0 SEC Prothromb Time International Ratio 1.2 RATIO Activated Partial Thromboplast Time 32.2 SEC Blood Urea Nitrogen 18 MG/DL Creatinine 2.00 MG/DL Random Glucose 81 MG/DL Total Protein 7.8 GM/DL Albumin 3.6 GM/DL Calcium Level 9.0 MG/DL Phosphorus Level 3.0 MG/DL Magnesium Level 1.4 MG/DL Alkaline Phosphatase 99 U/L Aspartate Amino Transf (AST/SGOT) 59 U/L Alanine Aminotransferase (ALT/SGPT) 43 U/L Total Bilirubin 3.4 MG/DL Sodium Level 133 MEQ/L Potassium Level 2.8 MEQ/L Chloride Level 98 MEQ/L Carbon Dioxide Level 24.4 MEQ/L Anion Gap 11 MEQ/L Estimat Glomerular Filtration Rate 26 ML/MIN Lactic Acid Level 2.5 mmol/L 1.4 mmol/L Ammonia 11 MCMOL/L Total Creatine Kinase 609 U/L Creatine Kinase MB 2.4 NG/ML Creatine Kinase MB % 0.4 % Troponin I 0.54 NG/ML Thyroid Stimulating Hormone 3rd Gen 4.230 uIU/ML Salicylates Level LESS THAN 1.7 MG/DL Acetaminophen Level LESS THAN 2.0 MCG/ML Ethyl Alcohol Level LESS THAN 3 MG/DL Blood Gas Puncture Site L ARM Blood Gas Patient Temperature 98.6 Venous Blood pH 7.34 Venous Blood Partial Pressure CO2 35 mmHg Venous Blood Partial Pressure O2 30 mmHg Venous Blood HCO3 18 mmol/L Venous Blood Oxygen Saturation 48 % Venous Blood Oxygen Content 8.4 Vol % Venous Blood Base Excess -6.4 mmol/L Oxygen Delivery Device NASAL CANNULA Blood Gas Liter Flow 2 L/M Nasal Screen MRSA (PCR) MRSA NOT DETECTED Test 04/19/17 01:07 04/19/17 01:30 04/19/17 02:30 04/19/17 03:10 White Blood Count 8.0 TH/MM3 Red Blood Count 4.96 MIL/MM3 Hemoglobin 15.8 GM/DL Hematocrit 45.9 % Mean Corpuscular Volume 92.4 FL Mean Corpuscular Hemoglobin 31.7 PG Mean Corpuscular Hemoglobin Concent 34.4 % Red Cell Distribution Width 14.6 % Platelet Count 82 TH/MM3 Mean Platelet Volume 11.0 FL Neutrophils (%) (Auto) 72.5 % Lymphocytes (%) (Auto) 15.8 % Monocytes (%) (Auto) 11.5 % Eosinophils (%) (Auto) 0.0 % Basophils (%) (Auto) 0.2 % Neutrophils # (Auto) 5.8 TH/MM3 Lymphocytes # (Auto) 1.3 TH/MM3 Monocytes # (Auto) 0.9 TH/MM3 Eosinophils # (Auto) 0.0 TH/MM3 Basophils # (Auto) 0.0 TH/MM3 CBC Comment AUTO DIFF Differential Total Cells Counted 100 Neutrophils % (Manual) 63 % Band Neutrophils % 10 % Lymphocytes % 11 % Monocytes % 12 % Basophils % 2 % Neutrophils # (Manual) 6.0 TH/MM3 Metamyelocytes 2 % Differential Comment FINAL DIFF MANUAL Atypical Lymphocytes % Toxic Vacuolation PRESENT Platelet Estimate LOW Platelet Morphology Comment NORMAL Red Cell Morphology Comment NORMAL Hematology Comments Blood Urea Nitrogen 18 MG/DL Creatinine 2.21 MG/DL Random Glucose 77 MG/DL Total Protein 5.8 GM/DL Albumin 2.6 GM/DL Calcium Level 7.3 MG/DL Alkaline Phosphatase 74 U/L Aspartate Amino Transf (AST/SGOT) 65 U/L Alanine Aminotransferase (ALT/SGPT) 35 U/L Total Bilirubin 2.8 MG/DL Sodium Level 142 MEQ/L Potassium Level 3.9 MEQ/L Chloride Level 109 MEQ/L Carbon Dioxide Level 23.7 MEQ/L Anion Gap 9 MEQ/L Estimat Glomerular Filtration Rate 24 ML/MIN Lactic Acid Level 2.4 mmol/L Protein Corrected Calcium 8.0 MG/DL CSF Volume (Tube 1) 0.5 ML CSF Supernatant Color (tube 1) CLEAR CSF Gross Blood (Tube 1) 0 CSF Volume (Tube 2) 0.9 ML CSF Supernatant Color (tube 2) CLEAR CSF Gross Blood (Tube 2) 0 CSF Volume (Tube 3) 0.9 ML CSF Supernatant Color (tube 3) CLEAR CSF Gross Blood (Tube 3) 0 CSF Volume (Tube 4) 0.8 ML CSF Supernatant Color (tube 4) CLEAR CSF Gross Blood (Tube 4) TRACE CSF WBC (Tube 4) 76 /MM3 CSF RBC (Tube 4) 945 /MM3 CSF Neutrophils 5 % CSF Lymphocytes 94 % CSF Monocytes 1 % CSF Glucose 49 MG/DL CSF Lactate Dehydrogenase 27 U/L CSF Lactic Acid 2.5 MMOL/L CSF Total Protein 26.9 MG/DL Urine Color YELLOW Urine Turbidity HAZY Urine pH 6.0 Urine Specific [place] 1.010 Urine Protein 30 mg/dL Urine Glucose (UA) NEG mg/dL Urine Ketones NEG mg/dL Urine Occult Blood MOD Urine Nitrite POS Urine Bilirubin NEG Urine Urobilinogen LESS THAN 2.0 MG/DL Urine Leukocyte Esterase LARGE Urine RBC 6 /hpf Urine WBC /hpf Urine WBC Clumps MANY Urine Squamous Epithelial Cells <1 /hpf Urine Renal Epithelial Cells <1 /hpf Urine Bacteria MANY /hpf Microscopic Urinalysis Comment CATH-CULTURE IND Urine Opiates Screen NEG Urine Barbiturates Screen NEG Urine Amphetamines Screen NEG Urine Benzodiazepines Screen NEG Urine Cocaine Screen NEG Urine Cannabinoids Screen POS Phosphorus Level 4.1 MG/DL Test 04/19/17 03:58 04/19/17 09:30 Lactic Acid Level 1.1 mmol/L Imaging Last Impressions Head CT 04/18/171819 Signed Impressions: Service Date/Time: April 18:51 - CONCLUSION: No intracranial abnormality demonstrated. Seamus Maria MD Chest X-Ray 04/18/171819 Signed Impressions: Service Date/Time: April 18:24 - CONCLUSION: Mild diffuse infiltrate and/or small pleural effusion on the left. Seamus Maria MD Objective Remarks GENERAL: Well-nourished, well-developed patient lying in bed in NAD SKIN: Warm and dry. HEAD: Normocephalic. EYES: No scleral icterus. No injection or drainage. NECK: Supple, trachea midline. No JVD or lymphadenopathy. CARDIOVASCULAR: Regular rate and rhythm without murmurs, gallops, or rubs. RESPIRATORY: Breath sounds equal bilaterally. No accessory muscle use. GASTROINTESTINAL: Abdomen soft, non-tender, nondistended. MUSCULOSKELETAL: No cyanosis, or edema. BACK: Nontender without obvious deformity. NEURO EXAM: GCS: 14 Mental Status: The patient is alert and oriented to person, place, and time with slow speech. A/P Assessment and Plan Altered mental status Resp Insuff Positive Influenza A Ag Renal failure Dehydration Thrombocytopenia Hypertension GERD Hx Renal transplant Plan Neuro: Awake and alert. CT brain: No acute process. UDS: + cannabinoids s/p LP showed clear CSF, 76 WBC, normal protein and glc. Pulm: Continue with oxygen keep sat >92% Bronchodilators CV: Monitor HR and BP keep MAP>65mmHg. Lactic acid 1.1 : Monitor renal function, I/O's, avoid nephrotoxins Continue Cyclosporine and Mycophenolate Change IVF- D51/2NS@100ml/hr On Hydrocortisone 50mg Q6, d/c PO prednisone GI: On PO diet ID: Continue with abx ( On Cefepime, Zyvox, Flagy, Tamiflu) monitor for signs of infections ( Fever, WBC) Follow up on cultures, ID is following. Follow up on HSV DNA PCR Heme: Monitor CBC Endo: SSI with accuchecks. DVT GI prophylaxis - Teds SCDs -Hold SQ heparin pfor thrombocytopenia and patient s/p LP overnight. - Pepcid Level 3 Greta Dolan MD Apr 19, 2017 10:22
[2017-04-19] MEDS: SODIUM CHLORIDE 0.9% FLUSH 10 ML FLUSH IV FLUSH SCH ×2 (10:36→21:00)
[2017-04-19] MEDS: LINEZOLID 600 MG PREMIX 300 ML IV SCH ×2 (10:36→21:17)
[2017-04-19] MEDS: CEFEPIME INJ 2,000 MG in SODIUM CHLORIDE 0.9% INJ 100 ML IV SCH (10:36)
[2017-04-19] MEDS: METOCLOPRAMIDE HCL 10 MG TAB PO SCH ×3 (10:37→17:00)
[2017-04-19] MEDS: FAMOTIDINE 20 MG/2 ML VIAL IV PUSH SCH ×2 (10:38→20:28)
[2017-04-19] MEDS: metroNIDAZOLE 500 MG TAB PO SCH ×3 (11:12→21:17)
[2017-04-19 13:03] LABS: AUTOMATED NEUTROPHIL # 4.1 TH/MM3 (1.8-7.7); BASOPHIL % 0.3 % (0.0-2.0); HEMATOCRIT 49.1 % (35.0-46.0); HEMOGLOBIN 16.3 GM/DL (11.6-15.3); LYMPH % 7.2 % (9.0-44.0); LYMPHOCYTE # 0.3 TH/MM3 (1.0-4.8); MEAN CELL VOLUME 94.7 FL (80.0-100.0); MEAN CORPUSCULAR HEMOGLOBIN 31.5 PG (27.0-34.0); MEAN CORPUSCULAR HGB CONC 33.2 % (32.0-36.0); MEAN PLATELET VOLUME 10.4 FL (7.0-11.0); MONO % 3.3 % (0.0-8.0); MONOCYTE # 0.1 TH/MM3 (0-0.9); NEUT % 89.2 % (16.0-70.0); PLATELET COUNT 94 TH/MM3 (150-450); RED BLOOD COUNT 5.19 MIL/MM3 (4.00-5.30); RED CELL DISTRIBUTION WIDTH 14.5 % (11.6-17.2); WHITE BLOOD COUNT 4.6 TH/MM3 (4.0-11.0)
[2017-04-19 13:32] LABS: ALBUMIN 2.7 GM/DL (3.4-5.0); ALKALINE PHOSPHATASE 71 U/L (45-117); ALT (GPT) 41 U/L (10-53); AST (GOT) 82 U/L (15-37); BICARBONATE 20.6 MEQ/L (21.0-32.0); BLOOD UREA NITROGEN 17 MG/DL (7-18); CALCIUM 7.7 MG/DL (8.5-10.1); CHLORIDE 115 MEQ/L (98-107); CREATININE 1.81 MG/DL (0.50-1.00); GLOMERULAR FILTRATION RATE 30 ML/MIN (>89); GLUCOSE,RANDOM 82 MG/DL (74-106); MAGNESIUM 2.2 MG/DL (1.5-2.5); SODIUM (NA) 147 MEQ/L (136-145); TOTAL BILIRUBIN ADULT 2.3 MG/DL (0.2-1.0); TOTAL PROTEIN 6.1 GM/DL (6.4-8.2)
[2017-04-19 13:50] LABS: TOXIC VACUOLATION PRESENT (NONE SEEN)
[2017-04-19] MEDS: INSULIN ASPART SUPPLEMENTAL SCALE SQ SCH ×2 (14:00→20:00)
--- NOTE | 2017-04-19 14:36 | EKG ---
Date Performed: 04/18/2017 Time Performed: 19:48:22 PTAGE: 51 years EKG: SINUS TACHYCARDIA POSSIBLE LEFT ATRIAL ENLARGEMENT NONSPECIFIC ST & T-WAVE ABNORMALITY RIGH T ATRIAL ENLARGEMENT ABNORMAL RHYTHM ECG Compared to PREVIOUS TRACING , the patient has developed sinus tachycardia and right atrial enlargeme nt. This could be a manifestation of acute right atrial strain and causes of that include pulmonary e mbolus should be excluded clinically. PREVIOUS TRACIN09/13/2016 01.46 DOCTOR: Lida Mckinnon Interpretating Date/Time 04/19/2017 14:36:35
--- NOTE | 2017-04-19 15:53 | PD.CONS ---
HPI Service Nephrology Consult Requested By Reason for Consult Acute on CKD, Hx renal transplant Primary Care Physician Yanique Alfonso MD History of Present Illness This is our 61 y/o office patient with CKD 2-3, creatinine 1.0-1.2, GFR 58-62 at baseline, who was admitted for AMS, fever/chills. She tested positive for the flu on arrival. She was hypotensive with sepsis syndrome, has been on multiple antibiotics and has been evaluated by ID. We were consulted to assist with renal management. Her creatinine was 2 increased slightly then improved to 1.81. Today she is resting quietly, her BP has improved. She reports missing 's dose of immunosuppression due to nausea/vomiting. (Steff Bates) Review of Systems Constitutional: COMPLAINS OF: Fatigue, Fever Cardiovascular: DENIES: Chest pain Gastrointestinal: DENIES: Abdominal pain (Steff Bates) Past Family Social History Allergies: Coded Allergies: adhesive (Verified Allergy, Severe, HIVES, 03/28/17) DISOLVABLE SUTURE MATERAL levofloxacin (Verified Allergy, Intermediate, HIVES/ITCHING, 03/28/17) cephalexin (Verified Adverse Reaction, Intermediate, HIVES/VOMITING, ) nifedipine (Verified Adverse Reaction, Intermediate, VOMITING, 03/28/17) Uncoded Allergies: suture material (Adverse Reaction, Severe, SKIN INFECTION, 07/19/16) PT STATES DISSOLVING ONES [place] NOT DISSOLVE AND HAVE TO BE PHYSICALLY REMOVED.. Past Medical History CKD 2-3, was on hemodialysis in the past using a left upper extremity AV fistula. Diabetic gastroparesis DM II anxiety Depression Hypertension Hyperlipidemia Arthritis Lupus GERD Chronic back pain GERD Kidney stones COPD Skin cancer right thigh 2010 Past Surgical History donor renal transplant 1989 hysterectomy,1999 , 1984 cholecystectomy,1996 hernia repair, 1996 kidney transplant Reported Medications Losartan (Losartan Potassium) 50 Mg Tab 25 Mg PO DAILY Atorvastatin (Atorvastatin Calcium) 10 Mg Tab 10 Mg PO HS Protonix (Pantoprazole Sodium) 40 Mg Tab 40 Mg PO DAILY Clonidine (Clonidine HCl) 0.1 Mg Tab 0.1 Mg PO BID PRN Metformin (Metformin HCl) 500 Mg Tab 500 Mg PO HS With a meal Atenolol 50 Mg Tab 50 Mg PO HS Benefiber (Wheat Dextrin) 152 Gm Powder 10 Gm PO DAILY Probiotic (Lactobacillus Acidophilus) 1 Cap Cap 1 Cap PO TIDAC Zofran Odt (Ondansetron Odt) 4 Mg Tab 4 Mg SL Q6HR PRN Hydrocodone-Acetaminophen 5-325 mg Tab 1 Tab PO Q4H PRN Metoclopramide (Metoclopramide HCl) 5 Mg Tab 5 Mg PO TIDAC Promethazine (Promethazine HCl) 12.5 Mg Tab 25 Mg PO Q4H PRN Prednisone 5 Mg Tab 10 Mg PO HS Magnesium Oxide 400 Mg Tab 400 Mg PO BID Cyclosporine 25 Mg Cap 50 Mg PO BID Mycophenolate (Mycophenolate Mofetil) 500 Mg Tab 500 Mg PO BID Active Ordered Medications Last [address] 04/18/171819 Signed Impressions: Service Date/Time: April 18:51 - CONCLUSION: No intracranial abnormality demonstrated. Seamus Maria MD Chest X-Ray 04/18/171819 Signed Impressions: Service Date/Time: April 18:24 - CONCLUSION: Mild diffuse infiltrate and/or small pleural effusion on the left. Seamus Maria MD Family History Non contributory Social History No smoking No ETOH Tested positive for THC Unemployed (Steff Bates) Physical Exam Vital Signs Vital Signs Date Time Temp Pulse Resp B/P (MAP) Pulse Ox O2 Delivery O2 Flow Rate FiO2 04/19/17 12:00 84 04/19/17 12:00 98.8 75 14 99/53 (68) 94 04/19/17 10:00 84 04/19/17 08:00 98.8 75 14 99/53 (68) 94 04/19/17 08:00 84 04/19/17 07:58 96 Nasal Cannula 2.00 04/19/17 06:00 84 04/19/17 04:00 101.3 96 14 91/44 (60) 94 04/19/17 04:00 96 04/19/17 03:36 97 Nasal Cannula 4.00 04/19/17 02:00 94 04/19/17 01:00 96 98/53 04/19/17 00:00 103 04/19/17 00:00 92 89/48 04/18/17 23:57 98.7 102 20 108/57 (74) 94 04/18/17 23:07 96 16 97/54 (68) 96 Nasal Cannula 2.00 04/18/17 23:00 91 16 95/59 (71) 04/18/17 22:57 102.0 91 16 99/66 (77) 96 Nasal Cannula 2.00 04/18/17 22:44 103 16 84/61 (69) 04/18/17 22:34 101 16 55/38 (44) 04/18/17 22:27 104 65/44 04/18/17 22:25 107 16 64/37 (46) 96 Nasal Cannula 2.00 04/18/17 22:01 102.1 103 18 74/48 (57) 96 Nasal Cannula 2.00 04/18/17 19:15 94 2.00 04/18/17 18:40 97 Nasal Cannula 2.00 04/18/17 18:30 98 2.00 04/18/17 18:21 102.7 102 18 150/88 (108) Physical Exam female, in no distress, resting S1/S2, RRR no murmurs Lungs mostly clear, occasional rales in bases Abdomen obese, soft; renal transplant in lower abdomen not tender Ext no edema Skin: generalized scaly with numerous macules and papules; no open areas Laboratory Laboratory Tests Test 04/18/17 18:30 04/18/17 19:32 04/18/17 23:00 04/19/17 00:00 White Blood Count 9.8 Red Blood Count 5.70 Hemoglobin 17.1 Hematocrit 51.5 Mean Corpuscular Volume 90.3 Mean Corpuscular Hemoglobin 30.0 Mean Corpuscular Hemoglobin Concent 33.2 Red Cell Distribution Width 13.8 Platelet Count 124 Mean Platelet Volume 11.1 Neutrophils (%) (Auto) 74.4 Lymphocytes (%) (Auto) 14.0 Monocytes (%) (Auto) 11.1 Eosinophils (%) (Auto) 0.0 Basophils (%) (Auto) 0.5 Neutrophils # (Auto) 7.2 Lymphocytes # (Auto) 1.4 Monocytes # (Auto) 1.1 Eosinophils # (Auto) 0.0 Basophils # (Auto) 0.0 CBC Comment AUTO DIFF Differential Comment AUTO DIFF CONFIRMED Prothrombin Time 12.0 Prothromb Time International Ratio 1.2 Activated Partial Thromboplast Time 32.2 Blood Urea Nitrogen 18 Creatinine 2.00 Random Glucose 81 Total Protein 7.8 Albumin 3.6 Calcium Level 9.0 Phosphorus Level 3.0 Magnesium Level 1.4 Alkaline Phosphatase 99 Aspartate Amino Transf (AST/SGOT) 59 Alanine Aminotransferase (ALT/SGPT) 43 Total Bilirubin 3.4 Sodium Level 133 Potassium Level 2.8 Chloride Level 98 Carbon Dioxide Level 24.4 Anion Gap 11 Estimat Glomerular Filtration Rate 26 Lactic Acid Level 2.5 1.4 Ammonia 11 Total Creatine Kinase 609 Creatine Kinase MB 2.4 Creatine Kinase MB % 0.4 Troponin I 0.54 Thyroid Stimulating Hormone 3rd Gen 4.230 Salicylates Level LESS THAN 1.7 Acetaminophen Level LESS THAN 2.0 Ethyl Alcohol Level LESS THAN 3 Blood Gas Puncture Site L ARM Blood Gas Patient Temperature 98.6 Venous Blood pH 7.34 Venous Blood Partial Pressure CO2 35 Venous Blood Partial Pressure O2 30 Venous Blood HCO3 18 Venous Blood Oxygen Saturation 48 Venous Blood Oxygen Content 8.4 Venous Blood Base Excess -6.4 Oxygen Delivery Device NASAL CANNULA Blood Gas Liter Flow 2 Nasal Screen MRSA (PCR) MRSA NOT DETECTED Test 04/19/17 01:07 04/19/17 01:30 04/19/17 02:30 04/19/17 03:10 White Blood Count 8.0 Red Blood Count 4.96 Hemoglobin 15.8 Hematocrit 45.9 Mean Corpuscular Volume 92.4 Mean Corpuscular Hemoglobin 31.7 Mean Corpuscular Hemoglobin Concent 34.4 Red Cell Distribution Width 14.6 Platelet Count 82 Mean Platelet Volume 11.0 Neutrophils (%) (Auto) 72.5 Lymphocytes (%) (Auto) 15.8 Monocytes (%) (Auto) 11.5 Eosinophils (%) (Auto) 0.0 Basophils (%) (Auto) 0.2 Neutrophils # (Auto) 5.8 Lymphocytes # (Auto) 1.3 Monocytes # (Auto) 0.9 Eosinophils # (Auto) 0.0 Basophils # (Auto) 0.0 CBC Comment AUTO DIFF Differential Total Cells Counted 100 Neutrophils % (Manual) 63 Band Neutrophils % 10 Lymphocytes % 11 Monocytes % 12 Basophils % 2 Neutrophils # (Manual) 6.0 Metamyelocytes 2 Differential Comment FINAL DIFF MANUAL Atypical Lymphocytes Toxic Vacuolation PRESENT Platelet Estimate LOW Platelet Morphology Comment NORMAL Red Cell Morphology Comment NORMAL Hematology Comments Blood Urea Nitrogen 18 Creatinine 2.21 Random Glucose 77 Total Protein 5.8 Albumin 2.6 Calcium Level 7.3 Alkaline Phosphatase 74 Aspartate Amino Transf (AST/SGOT) 65 Alanine Aminotransferase (ALT/SGPT) 35 Total Bilirubin 2.8 Sodium Level 142 Potassium Level 3.9 Chloride Level 109 Carbon Dioxide Level 23.7 Anion Gap 9 Estimat Glomerular Filtration Rate 24 Lactic Acid Level 2.4 Protein Corrected Calcium 8.0 CSF Volume (Tube 1) 0.5 CSF Supernatant Color (tube 1) CLEAR CSF Gross Blood (Tube 1) 0 CSF Volume (Tube 2) 0.9 CSF Supernatant Color (tube 2) CLEAR CSF Gross Blood (Tube 2) 0 CSF Volume (Tube 3) 0.9 CSF Supernatant Color (tube 3) CLEAR CSF Gross Blood (Tube 3) 0 CSF Volume (Tube 4) 0.8 CSF Supernatant Color (tube 4) CLEAR CSF Gross Blood (Tube 4) TRACE CSF WBC (Tube 4) 76 CSF RBC (Tube 4) 945 CSF Neutrophils 5 CSF Lymphocytes 94 CSF Monocytes 1 CSF Glucose 49 CSF Lactate Dehydrogenase 27 CSF Lactic Acid 2.5 CSF Total Protein 26.9 Urine Color YELLOW Urine Turbidity HAZY Urine pH 6.0 Urine Specific [place] 1.010 Urine Protein 30 Urine Glucose (UA) NEG Urine Ketones NEG Urine Occult Blood MOD Urine Nitrite POS Urine Bilirubin NEG Urine Urobilinogen LESS THAN 2.0 Urine Leukocyte Esterase LARGE Urine RBC 6 Urine WBC Urine WBC Clumps MANY Urine Squamous Epithelial Cells <1 Urine Renal Epithelial Cells <1 Urine Bacteria MANY Microscopic Urinalysis Comment CATH-CULTURE IND Urine Opiates Screen NEG Urine Barbiturates Screen NEG Urine Amphetamines Screen NEG Urine Benzodiazepines Screen NEG Urine Cocaine Screen NEG Urine Cannabinoids Screen POS Phosphorus Level 4.1 Test 04/19/17 03:58 04/19/17 11:58 Lactic Acid Level 1.1 White Blood Count 4.6 Red Blood Count 5.19 Hemoglobin 16.3 Hematocrit 49.1 Mean Corpuscular Volume 94.7 Mean Corpuscular Hemoglobin 31.5 Mean Corpuscular Hemoglobin Concent 33.2 Red Cell Distribution Width 14.5 Platelet Count 94 Mean Platelet Volume 10.4 Neutrophils (%) (Auto) 89.2 Lymphocytes (%) (Auto) 7.2 Monocytes (%) (Auto) 3.3 Eosinophils (%) (Auto) 0.0 Basophils (%) (Auto) 0.3 Neutrophils # (Auto) 4.1 Lymphocytes # (Auto) 0.3 Monocytes # (Auto) 0.1 Eosinophils # (Auto) 0.0 Basophils # (Auto) 0.0 CBC Comment AUTO DIFF Differential Comment AUTO DIFF CONFIRMED Toxic Vacuolation PRESENT Platelet Estimate LOW Platelet Morphology Comment NORMAL Blood Urea Nitrogen 17 Creatinine 1.81 Random Glucose 82 Total Protein 6.1 Albumin 2.7 Calcium Level 7.7 Magnesium Level 2.2 Alkaline Phosphatase 71 Aspartate Amino Transf (AST/SGOT) 82 Alanine Aminotransferase (ALT/SGPT) 41 Total Bilirubin 2.3 Sodium Level 147 Potassium Level 4.9 Chloride Level 115 Carbon Dioxide Level 20.6 Anion Gap 11 Estimat Glomerular Filtration Rate 30 Date/Time Source Procedure Growth Status 04/18/17 18:40 Blood Peripheral Aerobic Blood Culture - Preliminary NO GROWTH IN 1 DAY Resulted 04/18/17 18:40 Blood Peripheral Anaerobic Blood Culture - Preliminary NO GROWTH IN 1 DAY Resulted 04/19/17 01:30 Cerebral Spinal Fluid Lumbar Puncture Fungal Smear - Final NO FUNGAL ELEMENTS SEEN. Resulted 04/19/17 01:30 Cerebral Spinal Fluid Lumbar Puncture Fungal Culture Pending Resulted 04/18/17 19:48 Nasal Washing Influenza Types A,B Antigen (KIA) - Final Positive For Flu A Antigen Complete 04/19/17 02:30 Urine Catheterized Urine Urine Culture Pending Received (Steff Bates) Result Diagram: 04/19/17 1158 04/19/17 1158 Imaging Last [address] 04/18/171819 Signed Impressions: Service Date/Time: April 18:51 - CONCLUSION: No intracranial abnormality demonstrated. Seamus Maria MD Chest X-Ray 04/18/171819 Signed Impressions: Service Date/Time: April 18:24 - CONCLUSION: Mild diffuse infiltrate and/or small pleural effusion on the left. Seamus Maria MD (Steff Bates) Assessment and Plan Problem List: (1) SHELTON (acute kidney injury) ICD Codes: N17.9 - Acute kidney failure, unspecified Status: Resolved Plan: Baseline creatinine 1.0-1.2, GFR 58-62, CKD 2-3 SHELTON most likely due to sepsis syndrome, hypotension. Renal function has improved slightly today She is making urine Medications reviewed, avoid nephrotoxic agents, renally dose when appropriate. She did receive IV Acyclovir and IV vancomycin x 1. Given several liters of normal saline. Start 1/2 NS @ 35 cc/hr. Repeat renal panel tomorrow including phosphorus Obtain US of transplanted kidney. (2) Severe sepsis ICD Codes: A41.9 - Sepsis, unspecified organism; R65.20 - Severe sepsis without septic shock Status: Acute Plan: Due to influenza, continue supportive measures Antibiotics include cefepime, Zyvox, Zosyn. Given Tamiflu. Previously on Zosyn and vancomycin. Use pressors if needed to maintain MAP > 65mmHg. (3) History of kidney transplant ICD Codes: Z94.0 - History of kidney transplant Status: Acute Plan: Immunosuppression regimen consists of CellCept 500 mg PO BID Cyclosporine 50 mg PO BID Prednisone stopped, takes 5 mg po at home; on hydrocortisone now US of transplanted kidney has been ordered Check cyclosporine level Saturday AM, will be low now as some doses have been missed (4) Hypernatremia ICD Codes: E87.0 - Hyperosmolality and hypernatremia Plan: IVF PO fluids encouraged Follow labs (Steff Bates) Assessment and Plan patient was seen and examined. Patient is s/p renal transplant with well preserved renal function at baseline. Admitted with Influenza, dehydration. Has hypernatremia, SHELTON. Continue IVF. Continue immunosuppressive medications. She reports that she did not take Cyclosporine yesterday and vomited soon after morning meds today. Obtain Cyclosporine level in 2-3 days. Avoid nephrotoxic agents. Continue IVF. (Damon Temple MD) Steff Bates Apr 19, 2017 15:53 Damon Temple MD Apr 19, 2017 19:29
[2017-04-19] MEDS: DEXT 5%-NACL 0.45% 1000 ML INJ 1,000 ML IV SCH (16:00)
--- NOTE | 2017-04-19 18:39 | RADRPT ---
EXAM DATE/TIME: 04/19/2017 17:18 [facility] COMPARISON: US KIDNEY / TRANSPLANT, October 29, 2014, 9:16. INDICATIONS : Increased lab values. MEDICAL HISTORY : Hypertension. Hypercholesterolemia. Gastroesophageal reflux disease. Partial dentures. Dizziness. Chaparro martinez. Hypertension. Renal disease. Arthritis. Skin cancer. MRSA. SURGICAL HISTORY : Cholecystectomy. Tubal ligation. section. AV fistula. Hysterectomy. Kidney transplant. ENCOUNTER: Subsequent ACUITY: 4-6 days PAIN SCORE: 3/10 LOCATION: Right lower quadrant MEASUREMENTS: TRANSPLANT KIDNEY: 12.4 x 5.2 x 6.8 cm LOCATION: Right lower quadrant. PREVIOUS ULTRASOUND: Oct 29 2014 RA/EIA Ratio: 0.6Values over 1.8 indicate transplant renal artery stenosis. PREVIOUS ARCUATE ARTERIES INDEX: Upper - 0.6 Mid - 0.6 Lower - 0.6 ARCUATE ARTERIES RESISTIVE INDEX: Upper - 0.6 Mid - 0.6 Lower - 0.6 RA/EIA Ratio: 0.3 MAIN RENAL ARTERY VELOCITY: (cm/sec): 19.0 MAIN RENAL VEIN: Patent EXTERNAL ILIAC ARTERY VELOCITY (cm/sec): 62.7 * NORMAL DOPPLER FINDINGS Arcuate arteries - RI = 0.6 - 0.8 Renal artery = under 200 cm/sec Renal vein = May be monophasic with continuous flow or demonstrate some pulsatility with cardiac cycl e FINDINGS: TRANSPLANT KIDNEY: Today's exam is compared to the prior study from 10/29/2014. The echogenicity and thickness of the stephie al parenchyma is labeled within normal limits. There continues to be some mild stable prominence of t he collecting system. There is a stable cyst along the lower pole measuring 2.9 cm. There is a cyst on the midpole measuring 1.2 cm. No definite stones are seen. The resistive index is within normal li mits and stable compared to the prior study. No new or significant changes are demonstrated. URINARY BLADDER: Within normal limits given the degree of distension. CONCLUSION: Stable followup ultrasound of the transplanted kidney in the right lower quadrant. No new or signific ant changes are seen compared to the prior exam of 10/29/2014. Jeff Britton MD on April 19, 2017 at 18:33 Board Certified Radiologist. This report was verified electronically.
[2017-04-19] MEDS: ATORVASTATIN 10 MG TAB PO SCH (20:28)
[2017-04-19] MEDS ORDERED: predniSONE 10 MG TAB PO SCH (21:00)
[2017-04-20] VITALS (14 sets, daily range): BP systolic 139–198; BP diastolic 69–98; PULSE 67–93; RESP 12–27; TEMP 97.9–98.8; O2SAT 93–100
[2017-04-20] MEDS: ACETAMINOPHEN 1000 MG/100 ML 100 ML IV PRN (00:35)
[2017-04-20] MEDS: HYDROCORTISONE SOD SUCCINATE 100 MG VIAL IV PUSH SCH ×4 (00:35→17:09)
[2017-04-20] MEDS: INSULIN ASPART SUPPLEMENTAL SCALE SQ SCH ×4 (02:00→20:00)
[2017-04-20] MEDS: CHLORHEXIDINE GLUCONATE 2 % 1 PACK (2 CLOTHS) TOP SCH (04:00)
[2017-04-20] MEDS: cycloSPORINE 25 MG CAP PO SCH ×2 (05:25→17:17)
[2017-04-20] MEDS: metroNIDAZOLE 500 MG TAB PO SCH ×3 (05:25→21:48)
[2017-04-20 05:55] LABS: BASOPHIL % 0.2 % (0.0-2.0); HEMATOCRIT 44.3 % (35.0-46.0); HEMOGLOBIN 14.8 GM/DL (11.6-15.3); LYMPH % 14.5 % (9.0-44.0); LYMPHOCYTE # 0.5 TH/MM3 (1.0-4.8); MEAN CELL VOLUME 92.7 FL (80.0-100.0); MEAN CORPUSCULAR HEMOGLOBIN 30.9 PG (27.0-34.0); MEAN CORPUSCULAR HGB CONC 33.3 % (32.0-36.0); MEAN PLATELET VOLUME 10.4 FL (7.0-11.0); MONO % 6.2 % (0.0-8.0); MONOCYTE # 0.2 TH/MM3 (0-0.9); NEUT % 79.1 % (16.0-70.0); PLATELET COUNT 77 TH/MM3 (150-450); RED BLOOD COUNT 4.77 MIL/MM3 (4.00-5.30); RED CELL DISTRIBUTION WIDTH 14.9 % (11.6-17.2); WHITE BLOOD COUNT 3.8 TH/MM3 (4.0-11.0)
[2017-04-20] MEDS: MYCOPHENOLATE MOFETIL 500 MG TAB PO SCH ×2 (06:21→17:07)
[2017-04-20 06:34] LABS: ALBUMIN 2.6 GM/DL (3.4-5.0); ALKALINE PHOSPHATASE 64 U/L (45-117); ALT (GPT) 36 U/L (10-53); AST (GOT) 66 U/L (15-37); BICARBONATE 19.1 MEQ/L (21.0-32.0); BLOOD UREA NITROGEN 15 MG/DL (7-18); CALCIUM 8.5 MG/DL (8.5-10.1); CHLORIDE 116 MEQ/L (98-107); CREATININE 1.55 MG/DL (0.50-1.00); GLOMERULAR FILTRATION RATE 36 ML/MIN (>89); GLUCOSE,RANDOM 153 MG/DL (74-106); SODIUM (NA) 145 MEQ/L (136-145); TOTAL BILIRUBIN ADULT 1.2 MG/DL (0.2-1.0)
[2017-04-20] MEDS: METOCLOPRAMIDE HCL 10 MG TAB PO SCH ×3 (08:55→17:07)
[2017-04-20] MEDS: SODIUM CHLORIDE 0.9% FLUSH 10 ML FLUSH IV FLUSH SCH ×2 (08:55→21:49)
[2017-04-20] MEDS: CEFEPIME INJ 2,000 MG in SODIUM CHLORIDE 0.9% INJ 100 ML IV SCH (08:56)
[2017-04-20] MEDS: FAMOTIDINE 20 MG/2 ML VIAL IV PUSH SCH ×2 (08:56→21:48)
[2017-04-20] MEDS: OSELTAMIVIR PHOSPHATE 75 MG CAP PO SCH ×2 (08:56→21:48)
--- NOTE | 2017-04-20 10:57 | HHI.IDPN ---
Subjective Subjective Remarks is a 51 y/o CF with PMHx of CKD, s/p Kidney transplant on immune suppressants, Lupus who presents to the hospital with Altered Mental Status. According to medical records it appears that the daughter called 911 because patient was altered mental status having some diarrhea and fevers for the last 2 days prior to admission. Patient reports to me she has had nausea vomiting diarrhea, myalgia approximately 2 days prior to admission. Reportedly patient was lethargic with altered mental status on examination by critical care physician. Patient had fever as well as tachycardia on admission along with hypotension and elevated lactic acid meeting criteria for severe sepsis. With this background patient was admitted to the ICU under the care of traffic analyst for sepsis in an immunocompromised patient. Patient underwent a lumbar puncture overnight studies are not overtly convincing for any meningitis-like picture. Flu antigen test was done which was positive. Sepsis workup was initiated including blood cultures, chest x-ray, lactic acid. Flu antigen was positive and patient has been started on Tamiflu. Patient was also started on empiric antibiotics to cover for possible healthcare associated pneumonia and infections. Infectious disease is consulted for evaluation and management of sepsis in an immune compromised patient. Overnight events reviewed No fevers No rash Reports diarrhea but only 1 BM so far. Awake, alert, responsive to comments. UO ok. Antibiotics Cefepime IV Zyvox IV Flagyl Tamiflu Lines Line sites with no e.o infection Past Medical History Past Medical History Arthritis Lupus GERD Congenital kidney disease Chronic kidney disease was on hemodialysis in the past using a left upper extremity AV fistula. Diabetic gastroparesis next and diabetes next line anxiety Depression Hypertension Hyperlipidemia Chronic back pain GERD Kidney stones COPD Skin cancer right thigh 2010 Past Surgical History Colonoscopy in September 2016 Kidney transplant in 191 Cholecystectomy Hernia repair Hysterectomy AV fistula left forearm Allergies: Coded Allergies: adhesive (Verified Allergy, Severe, HIVES, 03/28/17) DISOLVABLE SUTURE MATERAL levofloxacin (Verified Allergy, Intermediate, HIVES/ITCHING, 03/28/17) cephalexin (Verified Adverse Reaction, Intermediate, HIVES/VOMITING, ) nifedipine (Verified Adverse Reaction, Intermediate, VOMITING, 03/28/17) Uncoded Allergies: suture material (Adverse Reaction, Severe, SKIN INFECTION, 07/19/16) PT STATES DISSOLVING ONES REDMOND NOT DISSOLVE AND HAVE TO BE PHYSICALLY REMOVED.. Objective . Vital Signs Date Time Temp Pulse Resp B/P (MAP) Pulse Ox O2 Delivery O2 Flow Rate FiO2 04/20/17 10:00 68 04/20/17 08:00 67 04/20/17 07:35 96 Nasal Cannula 2.00 04/20/17 06:00 80 04/20/17 04:00 76 04/20/17 04:00 98.4 75 24 158/74 (102) 100 04/20/17 02:00 72 04/20/17 00:00 98.8 81 12 139/69 (92) 100 04/20/17 00:00 78 04/19/17 23:00 81 04/19/17 22:00 78 04/19/17 20:00 98.6 81 15 161/70 (100) 100 04/19/17 20:00 81 04/19/17 19:30 100 Nasal Cannula 2.00 04/19/17 18:00 82 04/19/17 16:00 98.7 82 16 144/69 (94) 97 04/19/17 16:00 82 04/19/17 14:00 84 04/19/17 12:00 84 04/19/17 12:00 98.8 75 14 99/53 (68) 94 . Laboratory Tests Test 04/18/17 18:30 04/19/17 01:07 04/19/17 11:58 04/20/17 05:30 White Blood Count 9.8 TH/MM3 8.0 TH/MM3 4.6 TH/MM3 3.8 TH/MM3 Red Blood Count 5.70 MIL/MM3 4.96 MIL/MM3 5.19 MIL/MM3 4.77 MIL/MM3 Hemoglobin 17.1 GM/DL 15.8 GM/DL 16.3 GM/DL 14.8 GM/DL Hematocrit 51.5 % 45.9 % 49.1 % 44.3 % Mean Corpuscular Volume 90.3 FL 92.4 FL 94.7 FL 92.7 FL Mean Corpuscular Hemoglobin 30.0 PG 31.7 PG 31.5 PG 30.9 PG Mean Corpuscular Hemoglobin Concent 33.2 % 34.4 % 33.2 % 33.3 % Red Cell Distribution Width 13.8 % 14.6 % 14.5 % 14.9 % Platelet Count 124 TH/MM3 82 TH/MM3 94 TH/MM3 77 TH/MM3 Mean Platelet Volume 11.1 FL 11.0 FL 10.4 FL 10.4 FL Neutrophils (%) (Auto) 74.4 % 72.5 % 89.2 % 79.1 % Lymphocytes (%) (Auto) 14.0 % 15.8 % 7.2 % 14.5 % Monocytes (%) (Auto) 11.1 % 11.5 % 3.3 % 6.2 % Eosinophils (%) (Auto) 0.0 % 0.0 % 0.0 % 0.0 % Basophils (%) (Auto) 0.5 % 0.2 % 0.3 % 0.2 % Neutrophils # (Auto) 7.2 TH/MM3 5.8 TH/MM3 4.1 TH/MM3 3.0 TH/MM3 Lymphocytes # (Auto) 1.4 TH/MM3 1.3 TH/MM3 0.3 TH/MM3 0.5 TH/MM3 Monocytes # (Auto) 1.1 TH/MM3 0.9 TH/MM3 0.1 TH/MM3 0.2 TH/MM3 Eosinophils # (Auto) 0.0 TH/MM3 0.0 TH/MM3 0.0 TH/MM3 0.0 TH/MM3 Basophils # (Auto) 0.0 TH/MM3 0.0 TH/MM3 0.0 TH/MM3 0.0 TH/MM3 CBC Comment AUTO DIFF AUTO DIFF AUTO DIFF AUTO DIFF Differential Comment AUTO DIFF CONFIRMED FINAL DIFF MANUAL AUTO DIFF CONFIRMED AUTO DIFF CONFIRMED Differential Total Cells Counted 100 Neutrophils % (Manual) 63 % Band Neutrophils % 10 % Lymphocytes % 11 % Monocytes % 12 % Basophils % 2 % Neutrophils # (Manual) 6.0 TH/MM3 Metamyelocytes 2 % Atypical Lymphocytes % Toxic Vacuolation PRESENT PRESENT Platelet Estimate LOW LOW LOW Platelet Morphology Comment NORMAL NORMAL NORMAL Red Cell Morphology Comment NORMAL Hematology Comments Laboratory Tests Test 04/18/17 18:30 04/18/17 23:00 04/19/17 01:07 04/19/17 03:10 Blood Urea Nitrogen 18 MG/DL 18 MG/DL Creatinine 2.00 MG/DL 2.21 MG/DL Random Glucose 81 MG/DL 77 MG/DL Total Protein 7.8 GM/DL 5.8 GM/DL Albumin 3.6 GM/DL 2.6 GM/DL Calcium Level 9.0 MG/DL 7.3 MG/DL Phosphorus Level 3.0 MG/DL 4.1 MG/DL Magnesium Level 1.4 MG/DL Alkaline Phosphatase 99 U/L 74 U/L Aspartate Amino Transf (AST/SGOT) 59 U/L 65 U/L Alanine Aminotransferase (ALT/SGPT) 43 U/L 35 U/L Total Bilirubin 3.4 MG/DL 2.8 MG/DL Sodium Level 133 MEQ/L 142 MEQ/L Potassium Level 2.8 MEQ/L 3.9 MEQ/L Chloride Level 98 MEQ/L 109 MEQ/L Carbon Dioxide Level 24.4 MEQ/L 23.7 MEQ/L Anion Gap 11 MEQ/L 9 MEQ/L Estimat Glomerular Filtration Rate 26 ML/MIN 24 ML/MIN Lactic Acid Level 2.5 mmol/L 1.4 mmol/L 2.4 mmol/L Ammonia 11 MCMOL/L Total Creatine Kinase 609 U/L Creatine Kinase MB 2.4 NG/ML Creatine Kinase MB % 0.4 % Troponin I 0.54 NG/ML Thyroid Stimulating Hormone 3rd Gen 4.230 uIU/ML Protein Corrected Calcium 8.0 MG/DL Test 04/19/17 03:58 04/19/17 11:58 04/20/17 05:30 Lactic Acid Level 1.1 mmol/L Blood Urea Nitrogen 17 MG/DL 15 MG/DL Creatinine 1.81 MG/DL 1.55 MG/DL Random Glucose 82 MG/DL 153 MG/DL Total Protein 6.1 GM/DL 6.0 GM/DL Albumin 2.7 GM/DL 2.6 GM/DL Calcium Level 7.7 MG/DL 8.5 MG/DL Magnesium Level 2.2 MG/DL Alkaline Phosphatase 71 U/L 64 U/L Aspartate Amino Transf (AST/SGOT) 82 U/L 66 U/L Alanine Aminotransferase (ALT/SGPT) 41 U/L 36 U/L Total Bilirubin 2.3 MG/DL 1.2 MG/DL Sodium Level 147 MEQ/L 145 MEQ/L Potassium Level 4.9 MEQ/L 4.1 MEQ/L Chloride Level 115 MEQ/L 116 MEQ/L Carbon Dioxide Level 20.6 MEQ/L 19.1 MEQ/L Anion Gap 11 MEQ/L 10 MEQ/L Estimat Glomerular Filtration Rate 30 ML/MIN 36 ML/MIN Microbiology Date/Time Source Procedure Growth Status 04/18/17 18:40 Blood Peripheral Aerobic Blood Culture - Preliminary NO GROWTH IN 1 DAY Resulted 04/18/17 18:40 Blood Peripheral Anaerobic Blood Culture - Preliminary NO GROWTH IN 1 DAY Resulted 04/18/17 18:40 Blood Peripheral Aerobic Blood Culture - Preliminary NO GROWTH IN 1 DAY Resulted 04/18/17 18:40 Blood Peripheral Anaerobic Blood Culture - Preliminary NO GROWTH IN 1 DAY Resulted 04/19/17 01:30 Cerebral Spinal Fluid Lumbar Puncture Fungal Smear - Final NO FUNGAL ELEMENTS SEEN. Resulted 04/19/17 01:30 Cerebral Spinal Fluid Lumbar Puncture Fungal Culture Pending Resulted 04/19/17 01:30 Cerebral Spinal Fluid Lumbar Puncture Acid Fast Stain - Final NO ACID FAST BACILLI SEEN Resulted 04/19/17 01:30 Cerebral Spinal Fluid Lumbar Puncture Mycobacterial Culture Pending Resulted 04/19/17 01:30 Cerebral Spinal Fluid Lumbar Puncture Gram Stain - Final Resulted 04/19/17 01:30 Cerebral Spinal Fluid Lumbar Puncture CSF Culture - Preliminary NO GROWTH IN 24 HOURS. Resulted 04/18/17 19:48 Nasal Washing Influenza Types A,B Antigen (KIA) - Final Positive For Flu A Antigen Complete 04/19/17 02:30 Urine Catheterized Urine Urine Culture Pending Received 04/19/17 02:30 Urine Catheterized Urine Legionella Antigen - Final PRESUMPTIVE NEGATIVE FOR LEGIONELLA P... Complete 04/19/17 02:30 Urine Catheterized Urine Streptococcus pneumoniae Antigen (M - Final PRESUMPTIVE NEGATIVE FOR STREPTOCOCCU... Complete Imaging Last Impressions Renal Ultrasound 04/19/17 0000 Signed Impressions: Service Date/Time: Wednesday, April 19, 2017 17:18 - CONCLUSION: Stable followup ultrasound of the transplanted kidney in the right lower quadrant. No new or significant changes are seen compared to the prior exam of 10/29/2014. Jeff Britton MD Head CT 04/18/171819 Signed Impressions: Service Date/Time: April 18:51 - CONCLUSION: No intracranial abnormality demonstrated. Seamus Maria MD Chest X-Ray 04/18/171819 Signed Impressions: Service Date/Time: April 18:24 - CONCLUSION: Mild diffuse infiltrate and/or small pleural effusion on the left. Seamus Maria MD Physical Exam GENERAL: This is a well-nourished, well-developed patient, in no apparent distress. SKIN: No rashes, ecchymoses or lesions. Cool and dry. HEAD: Atraumatic. Normocephalic. No temporal or scalp tenderness. EYES: Pupils equal round and reactive. Extraocular motions intact. No scleral icterus. No injection or drainage. ENT: Nose without bleeding, purulent drainage or septal hematoma. Throat without erythema, tonsillar hypertrophy or exudate. Uvula midline. Airway patent. NECK: Trachea midline. Supple, nontender, no meningeal signs. CARDIOVASCULAR: Heart sounds audible. RESPIRATORY: Clear to auscultation. Breath sounds equal bilaterally. GASTROINTESTINAL: Abdomen soft, non-tender, nondistended. MUSCULOSKELETAL: Extremities without clubbing, cyanosis, or edema. No joint tenderness, effusion, or edema noted. No calf tenderness. Negative Homans sign bilaterally. NEUROLOGICAL: Awake and alert. Nonfocal exam Psych cooperative IV line sites with no evidence of infection. Assessment & Plan Remarks Severe sepsis present on admission Flu antigen positive symptomatology consistent with flu as well Nausea, diarrhea present on admission prior history of exposure to antibiotics we'll check for C. difficile Possible aspiration given nausea prior to admission Lupus Status post renal transplant in 1989 immune suppressants Acute renal failure unsure if she has a chronic kidney component as well Recs: Continue Tamiflu Continue Cefepime IV renal dose adjusted by me Continue flagyl DC Zyvox IV Will follow cultures to deescalate further. Follow clinically Appreciate nephrology recs. d/w patient plan for the day Heydi Us MD Apr 20, 2017 10:57
--- NOTE | 2017-04-20 12:18 | HHI.NPPN ---
Subjective Additional Remarks Patient is alert, breathing improving, started eating better. Review of Systems General Constitutional: Fatigue Cardiovascular Cardiac: REDMOND Objective Data Data Vital Signs Date Time Temp Pulse Resp B/P (MAP) Pulse Ox O2 Delivery O2 Flow Rate FiO2 04/20/17 10:00 68 04/20/17 08:00 67 04/20/17 07:35 96 Nasal Cannula 2.00 04/20/17 06:00 80 04/20/17 04:00 76 04/20/17 04:00 98.4 75 24 158/74 (102) 100 04/20/17 02:00 72 04/20/17 00:00 98.8 81 12 139/69 (92) 100 04/20/17 00:00 78 04/19/17 23:00 81 04/19/17 22:00 78 04/19/17 20:00 98.6 81 15 161/70 (100) 100 04/19/17 20:00 81 04/19/17 19:30 100 Nasal Cannula 2.00 04/19/17 18:00 82 04/19/17 16:00 98.7 82 16 144/69 (94) 97 04/19/17 16:00 82 04/19/17 14:00 84 -: 04/20/17 0530 04/20/17 0530 Physical Exam General Appearance: No Acute Distress, Comfortable Eyes Eye Exam: Pupils Equal Pulmonary Resp Exam: Breath Sounds Equal, No Distress, Crackles, Rhonchi, Decreased Bases , Diminished Breath Sounds Cardiology CV Exam: Regular, Normal Sinus Rhythm Gastrointestinal/Abdomen GI Exam: Soft, Non-Tender, Bowel Sounds Present, Distended Extremeties Extremities Exam: Trace Edema Neurologic Neuro Exam: Alert, Awake, Oriented Psychiatric Psych Exam: Appropriate Responses Assessment/Plan Assessment Summary: SHELTON/Acute Renal Failure, Transplant Kidney Status Problem List: (1) SHELTON (acute kidney injury) ICD Codes: N17.9 - Acute kidney failure, unspecified Status: Resolved Plan: Baseline creatinine 1.0-1.2, GFR 58-62, CKD 2-3 SHELTON most likely due to sepsis syndrome, hypotension. Renal function has improved slightly today She is making urine Medications reviewed, avoid nephrotoxic agents, renally dose when appropriate. She did receive IV Acyclovir and IV vancomycin x 1. r. Repeat renal panel tomorrow including phosphorus US of transplanted kidney noted. On Cefepime now. Creatinine is improving. Continue IVF, increase Cyclosporine to 75 mg BID, patient was taking this does as out patient. (2) Severe sepsis ICD Codes: A41.9 - Sepsis, unspecified organism; R65.20 - Severe sepsis without septic shock Status: Acute Plan: Due to influenza, continue supportive measures Antibiotics include cefepime, Zyvox, Zosyn. Given Tamiflu. Previously on Zosyn and vancomycin. Use pressors if needed to maintain MAP > 65mmHg. (3) History of kidney transplant ICD Codes: Z94.0 - History of kidney transplant Status: Acute Plan: Immunosuppression regimen consists of CellCept 500 mg PO BID Cyclosporine 50 mg PO BID Prednisone stopped, takes 5 mg po at home; on hydrocortisone now US of transplanted kidney has been ordered Check cyclosporine level Saturday AM, will be low now as some doses have been missed (4) Hypernatremia ICD Codes: E87.0 - Hyperosmolality and hypernatremia Plan: IVF PO fluids encouraged Follow labs Shakeel Frey MD Apr 20, 2017 12:18
[2017-04-20 13:09] LABS: HSV 1,PCR Negative (Negative)
--- NOTE | 2017-04-20 13:19 | HHI.CCPN ---
Subjective Remarks/Hospital Course 51-year-old female with multiple medical problems including systemic lupus erythematosus, status post renal transplant, presents for evaluation of altered mental status. According to medical record her daughter called 911 today because she had been altered, having some diarrhea for the past 2 days and fevers. The patient's only complaint in the emergency department was "I feel like sh...". Up in my evaluation she is still extremely lethargic, she knows she is at the [facility] but is unable to provide any further details, she is following commands and appears to be protecting her airway but will not provide any history. 04/19 Patient is on 2L, T: 101.3 at 4am. s/p LP showed clear CSF, normal protein glc, 76 wbc. 04/20: Afebrile. No acute events overnight. Patient continues on 2 L nasal cannula 99% O2 saturation, will begin to wean off. Patient tolerating diet. Objective Vital Signs Date Time Temp Pulse Resp B/P (MAP) Pulse Ox O2 Delivery O2 Flow Rate FiO2 04/20/17 10:00 68 04/20/17 07:35 96 Nasal Cannula 2.00 04/20/17 04:00 98.4 24 158/74 (102) Intake and Output 04/20/17 04/20/17 04/20/17 07:59 15:59 23:59 Intake Total 400 ml Output Total 1000 ml Balance -600 ml Result Diagram: 04/20/17 0530 04/20/17 0530 Other Results Microbiology Date/Time Source Procedure Growth Status 04/18/17 19:48 Nasal Washing Influenza Types A,B Antigen (KIA) - Final Positive For Flu A Antigen Complete 04/19/17 02:30 Urine Catheterized Urine Legionella Antigen - Final PRESUMPTIVE NEGATIVE FOR LEGIONELLA P... Complete 04/19/17 02:30 Urine Catheterized Urine Streptococcus pneumoniae Antigen (M - Final PRESUMPTIVE NEGATIVE FOR STREPTOCOCCU... Complete Imaging Last Impressions Renal Ultrasound 04/19/17 0000 Signed Impressions: Service Date/Time: Wednesday, April 19, 2017 17:18 - CONCLUSION: Stable followup ultrasound of the transplanted kidney in the right lower quadrant. No new or significant changes are seen compared to the prior exam of 10/29/2014. Jeff Britton MD Head CT 04/18/17 1820 Signed Impressions: Service Date/Time: April 18:51 - CONCLUSION: No intracranial abnormality demonstrated. Seamus Maria MD Chest X-Ray 04/18/171819 Signed Impressions: Service Date/Time: April 18:24 - CONCLUSION: Mild diffuse infiltrate and/or small pleural effusion on the left. Seamus Maria MD Last Impressions Head CT 04/18/171819 Signed Impressions: Service Date/Time: April 18:51 - CONCLUSION: No intracranial abnormality demonstrated. Seamus Maria MD Chest X-Ray 04/18/171819 Signed Impressions: Service Date/Time: April 18:24 - CONCLUSION: Mild diffuse infiltrate and/or small pleural effusion on the left. Seamus Maria MD Objective Remarks GENERAL: Well-nourished, well-developed obese female lying in bed in [facility] SKIN: Warm and dry. HEAD: Normocephalic. EYES: No scleral icterus. No injection or drainage. NECK: Supple, trachea midline. No JVD or lymphadenopathy. CARDIOVASCULAR: Regular rate and rhythm without murmurs, gallops, or rubs. RESPIRATORY: Breath sounds equal bilaterally. No accessory muscle use. GASTROINTESTINAL: Abdomen soft, non-tender, nondistended. MUSCULOSKELETAL: No cyanosis, or edema. BACK: Nontender without obvious deformity. NEURO EXAM: GCS: 15 Mental Status: The patient is alert and oriented to person, place, and time. Moves extremities 4 upon commands A/P Assessment and Plan Altered mental status Resp Insuff Positive Influenza A Ag Renal failure Dehydration Thrombocytopenia Hypertension GERD Hx Renal transplant Plan Neuro: Awake and alert. GCS 15 CT brain: No acute process. UDS: + cannabinoids s/p LP showed clear CSF, 76 WBC, normal protein and glc. Pulm: Continue with oxygen keep sat >92% Bronchodilators CV: Monitor HR and BP keep MAP>65mmHg. Initial Lactic acid 1.1 : Monitor renal function, I/O's, avoid nephrotoxins Continue Cyclosporine and Mycophenolate IVF- D51/2NS@100ml/hr On Hydrocortisone 50mg Q6, d/c PO prednisone GI: On PO diet ID: Continue with abx ( On Cefepime, Zyvox, Flagy, Tamiflu) monitor for signs of infections ( Fever, WBC) Follow up on cultures, ID is following. Follow up on HSV DNA PCR Influenza A positive- Tamiflu per ID recommendations Heme: Monitor CBC Endo: SSI with accuchecks. DVT GI prophylaxis - Teds SCDs -Hold SQ heparin for thrombocytopenia and patient s/p LP overnight. - Pepcid Level 2. Planned transfer to [facility] in [facility] Physician Megan Elias MD Apr 20, 2017 13:19
[2017-04-20] MEDS: DEXT 5%-NACL 0.45% 1000 ML INJ 1,000 ML IV SCH ×2 (14:15→22:51)
[2017-04-20] MEDS ORDERED: LABETALOL HCL 100 MG/20 ML VIAL IV PUSH PRN (14:30)
[2017-04-20] MEDS: hydrALAZINE HCL 20 MG/ML VIAL IV PUSH PRN (17:10)
[2017-04-20] MEDS: SODIUM CHLOR 0.45% 1000 ML INJ 1,000 ML IV SCH (17:30)
[2017-04-20] MEDS: ATORVASTATIN 10 MG TAB PO SCH (21:48)
[2017-04-20] MEDS: PROMETHAZINE HCL 25 MG TAB PO PRN (23:08)
[2017-04-21] VITALS (12 sets, daily range): BP systolic 116–179; BP diastolic 66–99; PULSE 65–86; RESP 20–32; TEMP 97.7–99.1; O2SAT 87–98
[2017-04-21] MEDS: hydrALAZINE HCL 20 MG/ML VIAL IV PUSH PRN (00:17)
[2017-04-21] MEDS: HYDROCORTISONE SOD SUCCINATE 100 MG VIAL IV PUSH SCH ×3 (00:18→23:23)
[2017-04-21] MEDS ORDERED: cloNIDine HCL 0.1 MG TAB PO PRN (00:45)
[2017-04-21] MEDS: CHLORHEXIDINE GLUCONATE 2 % 1 PACK (2 CLOTHS) TOP SCH (04:00)
[2017-04-21 05:39] LABS: HEMOGLOBIN 14.2 GM/DL (11.6-15.3); MEAN CELL VOLUME 91.1 FL (80.0-100.0); MEAN CORPUSCULAR HEMOGLOBIN 30.9 PG (27.0-34.0); MEAN CORPUSCULAR HGB CONC 33.9 % (32.0-36.0); MEAN PLATELET VOLUME 10.6 FL (7.0-11.0); PLATELET COUNT 84 TH/MM3 (150-450); RED BLOOD COUNT 4.61 MIL/MM3 (4.00-5.30); RED CELL DISTRIBUTION WIDTH 14.7 % (11.6-17.2); WHITE BLOOD COUNT 2.7 TH/MM3 (4.0-11.0)
[2017-04-21] MEDS: MYCOPHENOLATE MOFETIL 500 MG TAB PO SCH ×2 (05:46→16:28)
[2017-04-21] MEDS: metroNIDAZOLE 500 MG TAB PO SCH ×3 (05:46→21:19)
[2017-04-21] MEDS: INSULIN ASPART SUPPLEMENTAL SCALE SQ SCH ×4 (05:46→20:00)
[2017-04-21] MEDS: cycloSPORINE 25 MG CAP PO SCH ×2 (05:46→16:28)
[2017-04-21 06:01] LABS: BICARBONATE 22.3 MEQ/L (21.0-32.0); CALCIUM 8.7 MG/DL (8.5-10.1); CREATININE 1.46 MG/DL (0.50-1.00); MAGNESIUM 1.5 MG/DL (1.5-2.5)
[2017-04-21 06:14] LABS: PHOSPHORUS 1.1 MG/DL (2.5-4.9)
--- NOTE | 2017-04-21 07:23 | HHI.PR ---
Subjective Remarks In bed appears in nad . Says she feel a little better today. Able to ambulate to the bedside commode. Denies any chest pain, sob, n/v/d/c. Denies fever or chills. Objective Vitals Vital Signs Date Time Temp Pulse Resp B/P (MAP) Pulse Ox O2 Delivery O2 Flow Rate FiO2 04/21/17 04:00 75 04/21/17 02:00 86 04/21/17 00:00 80 04/21/17 00:00 99.1 80 32 179/99 (125) 98 04/21/17 00:00 80 04/20/17 22:00 80 04/20/17 22:00 80 04/20/17 20:00 85 04/20/17 20:00 85 04/20/17 20:00 98.7 85 20 155/91 (112) 98 04/20/17 19:20 99 Nasal Cannula 1.50 04/20/17 18:00 93 04/20/17 16:00 67 04/20/17 16:00 98.1 67 18 198/98 (131) 99 04/20/17 16:00 98.4 18 198/98 (131) 99 04/20/17 16:00 67 04/20/17 14:00 79 04/20/17 14:00 79 04/20/17 12:00 98.5 82 27 166/79 (108) 93 04/20/17 12:00 82 04/20/17 12:00 98.3 82 27 166/79 (108) 93 04/20/17 12:00 82 04/20/17 10:00 68 04/20/17 10:00 68 04/20/17 08:00 97.9 18 162/78 (106) 98 04/20/17 08:00 98.2 18 162/78 (106) 98 04/20/17 08:00 67 04/20/17 07:35 96 Nasal Cannula 2.00 I/O 04/20/17 04/20/17 04/20/17 04/21/17 04/21/17 04/21/17 07:00 15:00 23:00 07:00 15:00 23:00 Intake Total 400 ml 1900 ml Output Total 1000 ml 1200 ml Balance -600 ml 700 ml Intake Oral 400 ml 400 ml IV Total 1500 ml Output Urine Total 1000 ml 1200 ml # Voids 5 # Bowel Movements 6 Result Diagram: 04/21/17 0502 04/21/17 0502 Imaging Last Impressions Renal Ultrasound 04/19/17 0000 Signed Impressions: Service Date/Time: Wednesday, April 19, 2017 17:18 - CONCLUSION: Stable followup ultrasound of the transplanted kidney in the right lower quadrant. No new or significant changes are seen compared to the prior exam of 10/29/2014. Jeff Britton MD Head CT 04/18/171819 Signed Impressions: Service Date/Time: April 18:51 - CONCLUSION: No intracranial abnormality demonstrated. Seamus Maria MD Chest X-Ray 04/18/171819 Signed Impressions: Service Date/Time: April 18:24 - CONCLUSION: Mild diffuse infiltrate and/or small pleural effusion on the left. Seamus Maria MD Objective Remarks GENERAL: Well-nourished, well-developed obese female lying in bed in [place] CARDIOVASCULAR: Regular rate and rhythm without murmurs, gallops, or rubs. RESPIRATORY: Breath sounds equal bilaterally. No accessory muscle use. GASTROINTESTINAL: Abdomen soft, non-tender, nondistended. MUSCULOSKELETAL: No cyanosis, or edema. BACK: Nontender without obvious deformity. NEURO EXAM: The patient is alert and oriented to person, place, and time. Moves extremities 4 upon commands. Normal speech. A/P Assessment and Plan Altered mental status Resp Insuff Positive Influenza A Ag Renal failure Dehydration Thrombocytopenia Hypertension GERD Hx Renal transplant Hypokalemia Plan Neuro: Awake and alert. GCS 15 CT brain: No acute process. UDS: + cannabinoids s/p LP showed clear CSF, 76 WBC, normal protein and glc. Pulm: Continue with oxygen keep sat >92% Bronchodilators CV: Monitor HR and BP keep MAP>65mmHg. Initial Lactic acid 1.1 On Tenormin, clonidine, add lisinopril. PRN Vasotec IV and hydralazine if SBP> 160 : Monitor renal function, I/O's, avoid nephrotoxins Continue Cyclosporine and Mycophenolate. Cyclosporine level Saturday AM, will be low now as some doses have been missed On Hydrocortisone 50mg Q6, d/c PO prednisone GI: On PO diet Replace electrolytes ID: Continue with abx ( On Cefepime, Zyvox, Flagy, Tamiflu) monitor for signs of infections ( Fever, WBC) Follow up on cultures, ID is following. Follow up on HSV DNA PCR Influenza A positive- Tamiflu per ID recommendations Heme: Monitor CBC Endo: SSI with accuchecks. DVT GI prophylaxis - Teds SCDs -Hold SQ heparin for thrombocytopenia and patient s/p LP - Pepcid Discussed with the patient, nurse Aleyda Lozano MD Apr 21, 2017 07:23
[2017-04-21] MEDS ORDERED: PHARMACY ORDERED LAB ONE (08:45)
[2017-04-21] MEDS: SODIUM CHLORIDE 0.9% FLUSH 10 ML FLUSH IV FLUSH SCH ×2 (08:55→21:18)
[2017-04-21] MEDS: CEFEPIME INJ 2,000 MG in SODIUM CHLORIDE 0.9% INJ 100 ML IV SCH (08:55)
[2017-04-21] MEDS: FAMOTIDINE 20 MG/2 ML VIAL IV PUSH SCH ×2 (08:56→21:18)
[2017-04-21] MEDS: OSELTAMIVIR PHOSPHATE 75 MG CAP PO SCH ×2 (08:56→21:12)
[2017-04-21] MEDS: METOCLOPRAMIDE HCL 10 MG TAB PO SCH ×3 (08:56→16:24)
[2017-04-21] MEDS: DEXT 5%-NACL 0.45% 1000 ML INJ 1,000 ML IV SCH ×2 (09:06→18:00)
--- NOTE | 2017-04-21 10:45 | HHI.NPPN ---
Subjective Additional Remarks Patient is alert, feeling better, with nasal cannula. Review of Systems General Constitutional: Fatigue Cardiovascular Cardiac: REDMOND Objective Data Data Vital Signs Date Time Temp Pulse Resp B/P (MAP) Pulse Ox O2 Delivery O2 Flow Rate FiO2 04/21/17 06:00 71 04/21/17 04:00 98.3 75 21 121/70 (87) 97 04/21/17 04:00 75 04/21/17 02:00 86 04/21/17 00:00 80 04/21/17 00:00 99.1 80 32 179/99 (125) 98 04/21/17 00:00 80 04/20/17 22:00 80 04/20/17 22:00 80 04/20/17 20:00 85 04/20/17 20:00 85 04/20/17 20:00 98.7 85 20 155/91 (112) 98 04/20/17 19:20 99 Nasal Cannula 1.50 04/20/17 18:00 93 04/20/17 16:00 67 04/20/17 16:00 98.1 67 18 198/98 (131) 99 04/20/17 16:00 98.4 67 18 198/98 (131) 99 04/20/17 16:00 67 04/20/17 14:00 79 04/20/17 14:00 79 04/20/17 12:00 98.5 82 27 166/79 (108) 93 04/20/17 12:00 82 04/20/17 12:00 98.3 82 27 166/79 (108) 93 04/20/17 12:00 82 -: 04/21/17 0502 04/21/17 0502 Microbiology 04/20/17 Cyclospora Exam, Resulted Pending 04/20/17 Cryptosporidium Exam, Resulted Pending 04/20/17 Stool Pus (KIA) - Final, Resulted FEW WBC'S 04/20/17 Giardia Antigen (KIA), Resulted Pending 04/20/17 , Received Pending Physical Exam General Appearance: No Acute Distress, Comfortable Eyes Eye Exam: Pupils Equal Pulmonary Resp Exam: Breath Sounds Equal, No Distress, Crackles, Rhonchi, Decreased Bases , Diminished Breath Sounds Cardiology CV Exam: Regular, Normal Sinus Rhythm Gastrointestinal/Abdomen GI Exam: Soft, Non-Tender, Bowel Sounds Present, Distended Extremeties Extremities Exam: Trace Edema Neurologic Neuro Exam: Alert, Awake, Oriented Psychiatric Psych Exam: Appropriate Responses Assessment/Plan Assessment Summary: SHELTON/Acute Renal Failure, Transplant Kidney Status Problem List: (1) SHELTON (acute kidney injury) ICD Codes: N17.9 - Acute kidney failure, unspecified Status: Resolved Plan: Baseline creatinine 1.0-1.2, GFR 58-62, CKD 2-3 SHELTON most likely due to sepsis syndrome, hypotension. Renal function has improved slightly today She is making urine Medications reviewed, avoid nephrotoxic agents, renally dose when appropriate. She did receive IV Acyclovir and IV vancomycin x 1. r. Repeat renal panel tomorrow including phosphorus US of transplanted kidney noted. On Cefepime now. Creatinine is improving, now 1.4. Continue IVF, on Cyclosporine to [address] Temple will follow from AM. (2) Severe sepsis ICD Codes: A41.9 - Sepsis, unspecified organism; R65.20 - Severe sepsis without septic shock Status: Acute Plan: Due to influenza, continue supportive measures Antibiotics include cefepime, Zyvox, Zosyn. Given Tamiflu. Previously on Zosyn and vancomycin. Use pressors if needed to maintain MAP > 65mmHg. (3) History of kidney transplant ICD Codes: Z94.0 - History of kidney transplant Status: Acute Plan: Immunosuppression regimen consists of CellCept 500 mg PO BID Cyclosporine 50 mg PO BID Prednisone stopped, takes 5 mg po at home; on hydrocortisone now US of transplanted kidney has been ordered Check cyclosporine level Saturday AM, will be low now as some doses have been missed (4) Hypernatremia ICD Codes: E87.0 - Hyperosmolality and hypernatremia Plan: IVF PO fluids encouraged Follow labs Shakeel Frey MD Apr 21, 2017 10:45
[2017-04-21] MEDS ORDERED: ACETAMINOPHEN/HYDROcodone 325 MG/5 MG TAB PO PRN (11:45)
[2017-04-21] MEDS ORDERED: HYDROCORTISONE SOD SUCCINATE 100 MG VIAL IV PUSH SCH (14:00)
[2017-04-21] MEDS: SODIUM CHLOR 0.45% 1000 ML INJ 1,000 ML IV SCH (17:43)
[2017-04-21] MEDS ORDERED: hydrALAZINE HCL 10 MG TAB PO PRN (20:30)
[2017-04-21] MEDS ORDERED: LISINOPRIL 5 MG TAB PO ONE (20:30)
[2017-04-21] MEDS: ATORVASTATIN 10 MG TAB PO SCH (21:17)
[2017-04-21] MEDS: ATENOLOL 50 MG TAB PO SCH (21:19)
[2017-04-22] VITALS (10 sets, daily range): BP systolic 154–183; BP diastolic 92–109; PULSE 50–64; RESP 17–21; TEMP 97.4–98.2; O2SAT 95–98
[2017-04-22 01:57] LABS: CSF CRYPTOCOCCUS AG CONF ND (NOT DETECTD)
[2017-04-22] MEDS: INSULIN ASPART SUPPLEMENTAL SCALE SQ SCH ×4 (02:00→20:00)
[2017-04-22] MEDS: CHLORHEXIDINE GLUCONATE 2 % 1 PACK (2 CLOTHS) TOP SCH (03:31)
[2017-04-22] MEDS: metroNIDAZOLE 500 MG TAB PO SCH ×2 (06:34→12:30)
[2017-04-22] MEDS: cycloSPORINE 25 MG CAP PO SCH ×2 (06:34→17:51)
[2017-04-22] MEDS: HYDROCORTISONE SOD SUCCINATE 100 MG VIAL IV PUSH SCH ×2 (06:34→12:31)
[2017-04-22] MEDS: MYCOPHENOLATE MOFETIL 500 MG TAB PO SCH ×2 (06:34→17:31)
[2017-04-22] MEDS ORDERED: ACETAMINOPHEN 325 MG TAB PO PRN (08:30)
--- NOTE | 2017-04-22 08:31 | HHI.DCPOC ---
Discharge Care Plan Diagnosis: (1) SHELTON (acute kidney injury) Your Health Problems Are: Difficulty with ADL Exercise Tolerance Goals to Promote Your Health * To prevent worsening of your condition and complications * To maintain your health at the optimal level Directions to Meet Your Goals Take your medications as prescribed Follow your dietary instruction Follow activity as directed Keep your appointments as scheduled Take your immunizations and boosters as scheduled If your symptoms worsen call your PCP, if no PCP go to Urgent Care Center or Emergency Room Smoking is Dangerous to Your Health. Avoid second hand smoke Call the 24-hour hour crisis hotline for domestic abuse at Carlos Marie MD Apr 22, 2017 08:31
--- NOTE | 2017-04-22 08:32 | HHI.FF ---
Face to Face Verification Diagnosis: (1) SHELTON (acute kidney injury) (2) Severe sepsis Physical Therapy Order: Evaluate and Treat, Improve ambulation, Strength and gait training Home Health Nursing Order: Medical education Signs/symptoms of disease process Diabetic education Oxygen administration education Medication education-adverse effect Nursing assessment with vital signs I have seen patient Mercy Pena on 04/22/17. My clinical findings support the need for the requested home health care services because: Deconditioned w/ increased weakness I certify that my clinical findings support that this patient is homebound because: Need for psychosocial assistance Carlos Marie MD Apr 22, 2017 08:32
[2017-04-22] MEDS: PANTOPRAZOLE SOD 40 MG DELAYED RELEASE TAB PO SCH (09:02)
[2017-04-22] MEDS: SODIUM CHLORIDE 0.9% FLUSH 10 ML FLUSH IV FLUSH SCH ×2 (09:02→21:04)
[2017-04-22] MEDS: OSELTAMIVIR PHOSPHATE 75 MG CAP PO SCH ×2 (09:02→21:04)
[2017-04-22] MEDS: CEFEPIME INJ 2,000 MG in SODIUM CHLORIDE 0.9% INJ 100 ML IV SCH (09:03)
[2017-04-22] MEDS: LISINOPRIL 5 MG TAB PO SCH ×2 (09:03→12:30)
[2017-04-22] MEDS: METOCLOPRAMIDE HCL 10 MG TAB PO SCH ×3 (09:17→17:32)
--- NOTE | 2017-04-22 11:07 | HHI.NPPN ---
Subjective Renal Failure: Acute Interval History Doing much better. Labs from today are not available. (Steff Bates) Review of Systems General Constitutional: Fatigue (Steff Bates) Cardiovascular Cardiac: REDMOND (Steff Bates) Objective Data Data Vital Signs Date Time Temp Pulse Resp B/P (MAP) Pulse Ox O2 Delivery O2 Flow Rate FiO2 04/22/17 08:01 97.7 50 17 154/95 (114) 98 04/22/17 08:00 Nasal Cannula 2.00 04/22/17 08:00 61 04/22/17 04:00 98.0 64 20 162/94 (116) 98 04/22/17 00:00 97.4 64 20 171/92 (118) 98 04/21/17 23:49 68 04/21/17 22:20 Nasal Cannula 2.00 04/21/17 20:00 97.7 66 20 169/76 (107) 97 04/21/17 16:00 65 04/21/17 16:00 98.3 65 25 156/94 (114) 87 04/21/17 14:00 77 04/21/17 12:00 68 04/21/17 12:00 97.8 68 23 159/84 (109) 98 (Steff Bates) -: 04/21/17 0502 04/21/17 0502 Physical Exam General Appearance: Well Developed, No Acute Distress, Comfortable (Steff Bates) Eyes Eye Exam: Pupils Equal (Steff Bates) Pulmonary Resp Exam: Breath Sounds Equal, No Distress, Crackles, Rhonchi, Decreased Bases , Diminished Breath Sounds (Steff Bates) Cardiology CV Exam: Regular, Normal Sinus Rhythm (Steff Bates) Gastrointestinal/Abdomen GI Exam: Soft, Non-Tender, Bowel Sounds Present, Distended (Steff Bates) Musculoskeletal MS Exam: Normal Gait, Normal Tone (Steff Bates) Integumentary Skin Exam: Warm, Dry Skin Remarks chronic skin changed due to skin cancer (Steff Bates) Extremeties Extremities Exam: No Edema, Pedal Pulses Palpable (Steff Bates) Neurologic Neuro Exam: Alert, Awake, Oriented, Speech Clear, Moving All Extremities (Steff Bates) Psychiatric Psych Exam: Appropriate Responses (Steff Bates) Assessment/Plan Discussed Condition With: Patient Assessment Summary: SHELTON/Acute Renal Failure, CKD Stage III, Transplant Kidney Status Problem List: (1) SHELTON (acute kidney injury) ICD Codes: N17.9 - Acute kidney failure, unspecified Status: Resolved Plan: Baseline creatinine 1.0-1.2, GFR 58-62, CKD 2-3 SHELTON most likely due to sepsis syndrome, hypotension. Renal function had been improving, awaiting repeat labs She is non oliguric. She is making urine, transplanted renal US reviewed K was replaced Medications reviewed, avoid nephrotoxic agents, renally dose when appropriate. When discharged we will follow in CKD clinic. (2) Severe sepsis ICD Codes: A41.9 - Sepsis, unspecified organism; R65.20 - Severe sepsis without septic shock Status: Acute Plan: Due to influenza, continue supportive measures Antibiotics include cefepime, and PO flagyl. NO C diff Given Tamiflu. (3) History of kidney transplant ICD Codes: Z94.0 - History of kidney transplant Status: Acute Plan: Immunosuppression regimen consists of CellCept 500 mg PO BID Cyclosporine 50 mg PO BID Prednisone stopped, takes 5 mg po at home; on hydrocortisone now Pending cyclosporine level from tdoay (4) Hypernatremia ICD Codes: E87.0 - Hyperosmolality and hypernatremia Plan: Off IVF PO fluids encouraged Follow labs (Steff Bates) Plan patient was seen and examined. No chemistry panel is available. Cyclosporine level is high, but may not be trough level. Change Cyclosporine to 50 mg PO Q12 hours and repeat Cyclosporine trough level. (Damon Temple MD) Steff Bates Apr 22, 2017 11:06 Damon Temple MD Apr 22, 2017 19:31
--- NOTE | 2017-04-22 13:55 | HHI.PR ---
Subjective Remarks Follow-up sepsis. States she is doing much better ambulating in the room denies shortness of breath. Tolerating diet discussed with nursing, stable for discharge from medical standpoint when cleared by nephrology and infectious disease Objective Vitals Vital Signs Date Time Temp Pulse Resp B/P (MAP) Pulse Ox O2 Delivery O2 Flow Rate FiO2 04/22/17 12:09 97.7 58 18 183/109 (133) 96 04/22/17 08:01 97.7 50 17 154/95 (114) 98 04/22/17 08:00 Nasal Cannula 2.00 04/22/17 08:00 61 04/22/17 04:00 98.0 64 20 162/94 (116) 98 04/22/17 00:00 97.4 64 20 171/92 (118) 98 04/21/17 23:49 68 04/21/17 22:20 Nasal Cannula 2.00 04/21/17 20:00 97.7 66 20 169/76 (107) 97 04/21/17 16:00 65 04/21/17 16:00 98.3 65 25 156/94 (114) 87 04/21/17 14:00 77 I/O 04/21/17 04/21/17 04/21/17 04/22/17 04/22/17 04/22/17 07:00 15:00 23:00 07:00 15:00 23:00 Intake Total 450 ml 242 ml 260 ml 240 ml Output Total 1000 ml Balance 450 ml 242 ml -740 ml 240 ml Intake Oral 450 ml 240 ml IV Total 242 ml 260 ml Output Urine Total 1000 ml # Voids 6 4 # Bowel Movements 5 4 1 Result Diagram: 04/21/17 0502 04/21/17 0502 Imaging Last Impressions Renal Ultrasound 04/19/17 0000 Signed Impressions: Service Date/Time: Wednesday, April 19, 2017 17:18 - CONCLUSION: Stable followup ultrasound of the transplanted kidney in the right lower quadrant. No new or significant changes are seen compared to the prior exam of 10/29/2014. Jeff Britton MD Head CT 04/18/171819 Signed Impressions: Service Date/Time: April 18:51 - CONCLUSION: No intracranial abnormality demonstrated. Seamus Maria MD Chest X-Ray 2/8/18 1820 Signed Impressions: Service Date/Time: April 18:24 - CONCLUSION: Mild diffuse infiltrate and/or small pleural effusion on the left. Seamus Maria MD Objective Remarks GENERAL: Well-nourished, well-developed obese female lying in bed in NAD CARDIOVASCULAR: Regular rate and rhythm without murmurs, gallops, or rubs. RESPIRATORY: Breath sounds equal bilaterally. No accessory muscle use. GASTROINTESTINAL: Abdomen soft, non-tender, nondistended. MUSCULOSKELETAL: No cyanosis, or edema. BACK: Nontender without obvious deformity. NEURO EXAM: The patient is alert and oriented to person, place, and time. Moves extremities 4 upon commands. Normal speech. Procedures Lumbar puncture A/P Problem List: (1) SHELTON (acute kidney injury) ICD Code: N17.9 - Acute kidney failure, unspecified Status: Resolved Assessment and Plan Metabolic encephalopathy from sepsis. Resolved altered mental status. Status post LP Sepsis in a immunocompromised patient. Positive Influenza A. Possible aspiration. Continue IV cefepime Flagyl and Cipro per infectious disease. Stable wean and dc IV hydrocortisone then restart Prednisone Acute on chronic kidney disease stage III. Improved. This is secondary to sepsis and hypotension. Thrombocytopenia likely secondary to sepsis. Stable. Hypertension. Now uncontrolled increase lisinopril and monitor Sinus bradycardia on atenolol. Asymptomatic. GERD. Stable on PPI Hx Renal transplant. Stable continue immunosuppressives follow-up cyclosporine level Hypokalemia. Replaced Chronic AST elevation. Loose stools. C. difficile negative. Start Lactinex DVT with teds and SCD hold subcu heparin because of thrombocytopenia. GI prophylaxis with PPI Discharge Planning Discharge home with PT and visiting nurse home oxygen when cleared by ID and renal Carlos Marie MD Apr 22, 2017 13:55
[2017-04-22] MEDS ORDERED: LISI10TA3 PO (14:17)
[2017-04-22] MEDS ORDERED: OXYGENDME NAS.CANULA (14:19)
[2017-04-22] MEDS: LACTOBACILLUS ACIDOPHILUS TAB PO SCH (17:31)
[2017-04-22] MEDS: ENALAPRILAT 2.5 MG/2 ML VIAL IV PUSH PRN (17:32)
[2017-04-22] MEDS ORDERED: CEFD300C PO (17:56)
--- NOTE | 2017-04-22 17:59 | HHI.IDPN ---
Subjective Subjective Remarks is a 51 y/o CF with PMHx of CKD, s/p Kidney transplant on immune suppressants, Lupus who presents to the hospital with Altered Mental Status. According to medical records it appears that the daughter called 911 because patient was altered mental status having some diarrhea and fevers for the last 2 days prior to admission. Patient reports to me she has had nausea vomiting diarrhea, myalgia approximately 2 days prior to admission. Reportedly patient was lethargic with altered mental status on examination by critical care physician. Patient had fever as well as tachycardia on admission along with hypotension and elevated lactic acid meeting criteria for severe sepsis. With this background patient was admitted to the ICU under the care of [facility] for sepsis in an immunocompromised patient. Patient underwent a lumbar puncture overnight studies are not overtly convincing for any meningitis-like picture. Flu antigen test was done which was positive. Sepsis workup was initiated including blood cultures, chest x-ray, lactic acid. Flu antigen was positive and patient has been started on Tamiflu. Patient was also started on empiric antibiotics to cover for possible healthcare associated pneumonia and infections. Infectious disease is consulted for evaluation and management of sepsis in an immune compromised patient. Overnight events reviewed No fevers No rash Reports diarrhea but only 1 BM so far. Awake, alert, responsive to comments. UO ok. Antibiotics Cefepime IV Zyvox IV Flagyl Tamiflu Lines Line sites with no e.o infection Past Medical History Past Medical History Arthritis Lupus GERD Congenital kidney disease Chronic kidney disease was on hemodialysis in the past using a left upper extremity AV fistula. Diabetic gastroparesis next and diabetes next line anxiety Depression Hypertension Hyperlipidemia Chronic back pain GERD Kidney stones COPD Skin cancer right thigh 2010 Past Surgical History Colonoscopy in September 2016 Kidney transplant in 191 Cholecystectomy Hernia repair Hysterectomy AV fistula left forearm Allergies: Coded Allergies: adhesive (Verified Allergy, Severe, HIVES, 03/28/17) DISOLVABLE SUTURE MATERAL levofloxacin (Verified Allergy, Intermediate, HIVES/ITCHING, 03/28/17) nifedipine (Verified Adverse Reaction, Intermediate, VOMITING, 03/28/17) Uncoded Allergies: suture material (Adverse Reaction, Severe, SKIN INFECTION, 07/19/16) PT STATES DISSOLVING ONES REDMOND NOT DISSOLVE AND HAVE TO BE PHYSICALLY REMOVED.. Objective . Vital Signs Date Time Temp Pulse Resp B/P (MAP) Pulse Ox O2 Delivery O2 Flow Rate FiO2 04/22/17 17:25 54 04/22/17 16:15 98.2 60 18 170/101 (124) 97 04/22/17 12:09 97.7 58 18 183/109 (133) 96 04/22/17 12:00 62 04/22/17 08:01 97.7 50 17 154/95 (114) 98 04/22/17 08:00 Nasal Cannula 2.00 04/22/17 08:00 61 04/22/17 04:00 98.0 64 20 162/94 (116) 98 04/22/17 00:00 97.4 64 20 171/92 (118) 98 04/21/17 23:49 68 04/21/17 22:20 Nasal Cannula 2.00 04/21/17 20:00 97.7 66 20 169/76 (107) 97 . Laboratory Tests Test 04/21/17 05:02 White Blood Count 2.7 TH/MM3 Red Blood Count 4.61 MIL/MM3 Hemoglobin 14.2 GM/DL Hematocrit 42.0 % Mean Corpuscular Volume 91.1 FL Mean Corpuscular Hemoglobin 30.9 PG Mean Corpuscular Hemoglobin Concent 33.9 % Red Cell Distribution Width 14.7 % Platelet Count 84 TH/MM3 Mean Platelet Volume 10.6 FL Laboratory Tests Test 04/21/17 05:02 Blood Urea Nitrogen 13 MG/DL Creatinine 1.46 MG/DL Random Glucose 182 MG/DL Calcium Level 8.7 MG/DL Phosphorus Level 1.1 MG/DL Magnesium Level 1.5 MG/DL Sodium Level 143 MEQ/L Potassium Level 3.3 MEQ/L Chloride Level 112 MEQ/L Carbon Dioxide Level 22.3 MEQ/L Anion Gap 9 MEQ/L Estimat Glomerular Filtration Rate 38 ML/MIN Microbiology Date/Time Source Procedure Growth Status 04/20/17 12:45 Stool Stool Cyclospora Exam - Final NO CYCLOSPORA SEEN Resulted 04/20/17 12:45 Stool Stool Cryptosporidium Exam Pending Resulted 04/20/17 12:45 Stool Stool Stool Pus (KIA) - Final FEW WBC'S Resulted 04/20/17 12:45 Stool Stool Giardia Antigen (KIA) Pending Resulted 04/20/17 12:45 Stool Stool - Final NO ENTERIC PATHOGENS DETECTED BY PCR... Complete Imaging Last Impressions Renal Ultrasound 04/19/17 0000 Signed Impressions: Service Date/Time: Wednesday, April 19, 2017 17:18 - CONCLUSION: Stable followup ultrasound of the transplanted kidney in the right lower quadrant. No new or significant changes are seen compared to the prior exam of 10/29/2014. Jeff Britton MD Head CT 04/18/171819 Signed Impressions: Service Date/Time: April 18:51 - CONCLUSION: No intracranial abnormality demonstrated. Seamus Maria MD Chest X-Ray 04/18/171819 Signed Impressions: Service Date/Time: April 18:24 - CONCLUSION: Mild diffuse infiltrate and/or small pleural effusion on the left. Seamus Maria MD Physical Exam GENERAL: This is a well-nourished, well-developed patient, in no apparent distress. SKIN: No rashes, ecchymoses or lesions. Cool and dry. HEAD: Atraumatic. Normocephalic. No temporal or scalp tenderness. EYES: Pupils equal round and reactive. Extraocular motions intact. No scleral icterus. No injection or drainage. ENT: Nose without bleeding, purulent drainage or septal hematoma. Throat without erythema, tonsillar hypertrophy or exudate. Uvula midline. Airway patent. NECK: Trachea midline. Supple, nontender, no meningeal signs. CARDIOVASCULAR: Heart sounds audible. RESPIRATORY: Clear to auscultation. Breath sounds equal bilaterally. GASTROINTESTINAL: Abdomen soft, non-tender, nondistended. MUSCULOSKELETAL: Extremities without clubbing, cyanosis, or edema. No joint tenderness, effusion, or edema noted. No calf tenderness. Negative Homans sign bilaterally. NEUROLOGICAL: Awake and alert. Nonfocal exam Psych cooperative IV line sites with no evidence of infection. Assessment & Plan Remarks Severe sepsis present on admission Flu antigen positive symptomatology consistent with flu as well Nausea, diarrhea present on admission prior history of exposure to antibiotics we'll check for C. difficile Possible aspiration given nausea prior to admission Lupus Status post renal transplant in 1989 immune suppressants Acute renal failure unsure if she has a chronic kidney component as well Recs: DC Cefepime IV Continue Tamiflu for 3 more days. Start Cefdinir oral on DC for 5 days. Will follow cultures to deescalate further. Follow clinically Appreciate nephrology recs. d/w patient plan for the day Will sign off please call back if any change in clinical condition or questions. Heydi Us MD Apr 22, 2017 17:59
[2017-04-22] MEDS ORDERED: OSEL75 PO (18:22)
[2017-04-22] MEDS ORDERED: LACT PO (19:00)
--- NOTE | 2017-04-22 19:01 | HHI.DS ---
Discharge Summary Admission Date Apr 18, 2017 at 19:43 Discharge Date: Apr 23, 2017 Admitting Diagnosis Fever/Altered mental status/PNA. (1) SHELTON (acute kidney injury) ICD Code: N17.9 - Acute kidney failure, unspecified Diagnosis: Principal Status: Resolved Procedures Lumbar puncture Brief History - From Admission 51-year-old female with multiple medical problems including systemic lupus erythematosus, status post renal transplant, presents for evaluation of altered mental status. According to medical record her daughter called 911 today because she had been altered, having some diarrhea for the past 2 days and fevers. The patient's only complaint in the emergency department was "I feel like sh...". Up in my evaluation she is still extremely lethargic, she knows she is at the [facility] but is unable to provide any further details, she is following commands and appears to be protecting her airway but will not provide any history. CBC/BMP: 04/21/17 0502 04/21/17 0502 Significant Findings Laboratory Tests Test 04/20/17 05:30 04/20/17 12:45 04/21/17 05:02 04/22/17 08:15 White Blood Count 3.8 TH/MM3 (4.0-11.0) 2.7 TH/MM3 (4.0-11.0) Platelet Count 77 TH/MM3 (150-450) 84 TH/MM3 (150-450) Neutrophils (%) (Auto) 79.1 % (16.0-70.0) Lymphocytes # (Auto) 0.5 TH/MM3 (1.0-4.8) Platelet Estimate LOW (NORMAL) Creatinine 1.55 MG/DL (0.50-1.00) 1.46 MG/DL (0.50-1.00) Random Glucose 153 MG/DL (74-106) 182 MG/DL (74-106) Total Protein 6.0 GM/DL (6.4-8.2) Albumin 2.6 GM/DL (3.4-5.0) Aspartate Amino Transf (AST/SGOT) 66 U/L (15-37) Total Bilirubin 1.2 MG/DL (0.2-1.0) Chloride Level 116 MEQ/L (98-107) 112 MEQ/L (98-107) Carbon Dioxide Level 19.1 MEQ/L (21.0-32.0) Estimat Glomerular Filtration Rate 36 ML/MIN (>89) 38 ML/MIN (>89) Phosphorus Level 1.1 MG/DL (2.5-4.9) Potassium Level 3.3 MEQ/L (3.5-5.1) Imaging Last Impressions Renal Ultrasound 04/19/17 0000 Signed Impressions: Service Date/Time: Wednesday, April 19, 2017 17:18 - CONCLUSION: Stable followup ultrasound of the transplanted kidney in the right lower quadrant. No new or significant changes are seen compared to the prior exam of 10/29/2014. Jeff Britton MD Head CT 04/18/171819 Signed Impressions: Service Date/Time: April 18:51 - CONCLUSION: No intracranial abnormality demonstrated. Seamus Maria MD Chest X-Ray 04/18/171819 Signed Impressions: Service Date/Time: April 18:24 - CONCLUSION: Mild diffuse infiltrate and/or small pleural effusion on the left. Seamus Maria MD PE at Discharge GENERAL: Well-nourished, well-developed obese female lying in bed in NAD CARDIOVASCULAR: Regular rate and rhythm without murmurs, gallops, or rubs. RESPIRATORY: Breath sounds equal bilaterally. No accessory muscle use. GASTROINTESTINAL: Abdomen soft, non-tender, nondistended. MUSCULOSKELETAL: No cyanosis, or edema. BACK: Nontender without obvious deformity. NEURO EXAM: The patient is alert and oriented to person, place, and time. Moves extremities 4 upon commands. Normal speech. Hospital Course Metabolic encephalopathy from sepsis. Resolved altered mental status. Status post LP Sepsis in a immunocompromised patient. Positive Influenza A. Possible aspiration. Continue Tamiflu and start Cefdinir dc IV cefepime Flagyl and Cipro per infectious disease. Stable wean and dc IV hydrocortisone then restart Prednisone Acute on chronic kidney disease stage III. Improved. This is secondary to sepsis and hypotension. Trop bump. EKG w/o ischemic changes. Denies CP. Likely from sepsis, SHELTON and hypotension Thrombocytopenia likely secondary to sepsis. Stable. Hypertension. Now uncontrolled increase lisinopril and monitor Sinus bradycardia on atenolol. Asymptomatic. GERD. Stable on PPI Hx Renal transplant. Stable continue immunosuppressives follow-up cyclosporine level Hypokalemia. Replaced Chronic AST elevation. Loose stools. C. difficile negative. Start Lactinex DVT with teds and SCD hold subcu heparin because of thrombocytopenia. GI prophylaxis with PPI Pt Condition on Discharge: Stable Discharge Disposition: Disch w/ Home Health Serv Discharge Time: > 30 minutes Discharge Instructions DIET: Follow Instructions for: Heart Healthy Diet, Diabetic Diet Activities you can perform: Regular-No Restrictions Activities to Avoid: Driving Follow up Referrals: Nephrology - 1 Week PCP Follow-up - 1 Week New Orders: BASIC METABOLIC PROF - 1 Week X-RAY CHEST PA & LAT - 6 Weeks New Medications: Cefdinir (Cefdinir) 300 Mg Cap 300 MG PO BID for Infection for 5 Days, #10 CAP 0 Refills Oseltamivir (Tamiflu) 75 Mg Cap 75 MG PO BID for Mgmt Viral Infection for 3 Days, #6 CAP 0 Refills Oxygen (O2) (Oxygen (O2)) Device LITER LARRY.CANULA CONTINUOUS for Prevent Hypoxemia, #2 Oxygen Concentrator Portable Gaseous 2 L/min via Nasal Canula Continuous For 99 months Lactobacillus Acidophilus (Acidophilus/l-Sporogenes) 35 Million Cell-25 Million Cell Tab 1 TAB PO TID for Bowel Management, #15 TAB Lisinopril (Lisinopril) 10 Mg Tab 10 MG PO DAILY for Blood Pressure Management, #30 TAB Continued Medications: Atenolol (Atenolol) 50 Mg Tab 50 MG PO HS for Blood Pressure Management, #30 TAB 0 Refills Atorvastatin (Atorvastatin) 10 Mg Tab 10 MG PO HS for Cholesterol Management, #30 TAB 2 Refills Clonidine (Clonidine) 0.1 Mg Tab 0.1 MG PO BID PRN for for BP greater than 145/95, #30 TAB 3 Refills Cyclosporine (Cyclosporine) 25 Mg Cap 50 MG PO BID, CAP 0 Refills Hydrocodone-Acetaminophen (Hydrocodone-Acetaminophen) 5-325 mg Tab 1 TAB PO Q4H PRN for PAIN SCALE 3 TO 5, #30 TAB Lactobacillus Acidophilus (Probiotic) 1 Cap Cap 1 CAP PO TIDAC for Nutritional Supplement, #90 CAP 0 Refills Magnesium Oxide (Magnesium Oxide) 400 Mg Tab 400 MG PO BID for Nutritional Supplement, TAB 0 Refills Metoclopramide (Metoclopramide) 5 Mg Tab 5 MG PO TIDAC, #90 TAB 2 Refills Mycophenolate (Mycophenolate) 500 Mg Tab 500 MG PO BID for Immunosuppression, #120 TAB 0 Refills Ondansetron Odt (Zofran Odt) 4 Mg Tab 4 MG SL Q6HR PRN for Nausea/Vomiting, #30 TAB 0 Refills Pantoprazole (Protonix) 40 Mg Tab 40 MG PO DAILY for Ulcer Prevention, #30 TAB 0 Refills Prednisone (Prednisone) 10 Mg Tab 10 MG PO HS, TAB 0 Refills Promethazine (Promethazine) 12.5 Mg Tab 25 MG PO Q4H PRN for NAUSEA OR VOMITING, TAB 0 Refills Wheat Dextrin (Benefiber) 152 Gm Powder 10 GM PO DAILY for Hemorrhoids, #1 BOTTLE 11 Refills Discontinued Medications: Losartan (Losartan) 50 Mg Tab 25 MG PO DAILY for Blood Pressure Management, #30 TAB 2 Refills Metformin (Metformin) 500 Mg Tab 500 MG PO HS for Blood Sugar Management, #30 TAB 0 Refills With a meal Carlos Marie MD Apr 22, 2017 19:01
[2017-04-22] MEDS: ATENOLOL 50 MG TAB PO SCH (21:00)
[2017-04-22] MEDS: CEFUROXIME AXETIL 250 MG TAB PO SCH (21:04)
[2017-04-22] MEDS: ATORVASTATIN 10 MG TAB PO SCH (21:06)
[2017-04-22] MEDS ORDERED: HYDROCORTISONE SOD SUCCINATE 100 MG VIAL IV PUSH SCH (22:00)
[2017-04-23] VITALS (7 sets, daily range): BP systolic 140–166; BP diastolic 56–97; PULSE 47–76; RESP 18–20; TEMP 97.4–98.6; O2SAT 94–97
[2017-04-23] MEDS: ENALAPRILAT 2.5 MG/2 ML VIAL IV PUSH PRN (00:14)
[2017-04-23] MEDS: PROMETHAZINE HCL 25 MG TAB PO PRN ×3 (00:16→12:00)
[2017-04-23] MEDS: INSULIN ASPART SUPPLEMENTAL SCALE SQ SCH ×3 (02:00→13:01)
[2017-04-23] MEDS: CHLORHEXIDINE GLUCONATE 2 % 1 PACK (2 CLOTHS) TOP SCH (04:00)
[2017-04-23] MEDS: MYCOPHENOLATE MOFETIL 500 MG TAB PO SCH ×2 (06:00→17:09)
[2017-04-23] MEDS: cycloSPORINE 25 MG CAP PO SCH ×2 (06:05→17:09)
[2017-04-23] MEDS: CEFUROXIME AXETIL 250 MG TAB PO SCH (08:31)
[2017-04-23] MEDS: PANTOPRAZOLE SOD 40 MG DELAYED RELEASE TAB PO SCH (08:31)
[2017-04-23] MEDS: LACTOBACILLUS ACIDOPHILUS TAB PO SCH ×3 (08:31→17:09)
[2017-04-23] MEDS: OSELTAMIVIR PHOSPHATE 75 MG CAP PO SCH (08:31)
[2017-04-23] MEDS: SODIUM CHLORIDE 0.9% FLUSH 10 ML FLUSH IV FLUSH SCH (08:32)
[2017-04-23] MEDS: METOCLOPRAMIDE HCL 10 MG TAB PO SCH ×3 (08:32→17:09)
[2017-04-23] MEDS ORDERED: LISINOPRIL 10 MG TAB PO SCH (09:00)
[2017-04-23] MEDS ORDERED: predniSONE 5 MG TAB PO SCH (09:00)
--- NOTE | 2017-04-23 10:08 | HHI.NPPN ---
Subjective Renal Failure: Acute Interval History Labs from today are pending. She feels better, potential discharge. (Steff Bates) Review of Systems General Constitutional: Fatigue (Steff Bates) Cardiovascular Cardiac: REDMOND (Steff Bates) Objective Data Data Vital Signs Date Time Temp Pulse Resp B/P (MAP) Pulse Ox O2 Delivery O2 Flow Rate FiO2 04/23/17 09:27 97 04/23/17 08:00 Room Air 04/23/17 08:00 76 04/23/17 08:00 98.6 50 18 164/97 (119) 97 04/23/17 04:27 97.6 67 18 148/56 (86) 94 04/23/17 04:00 47 04/23/17 00:00 49 04/23/17 00:00 98.2 56 20 166/70 (102) 97 04/23/17 00:00 Room Air 04/22/17 20:30 Room Air 04/22/17 20:00 98.2 57 21 155/96 (115) 95 04/22/17 20:00 52 04/22/17 18:00 161/102 (121) 97 04/22/17 18:00 Room Air 04/22/17 17:25 54 04/22/17 16:15 98.2 60 18 170/101 (124) 97 04/22/17 12:09 97.7 58 18 183/109 (133) 96 04/22/17 12:00 62 (Steff Bates) -: 04/21/17 0502 04/21/17 0502 Physical Exam General Appearance: Well Developed, No Acute Distress, Comfortable (Steff Bates) Eyes Eye Exam: Pupils Equal (Steff Bates) Pulmonary Resp Exam: Breath Sounds Equal, No Distress, Crackles, Rhonchi, Decreased Bases , Diminished Breath Sounds (Steff Bates) Cardiology CV Exam: Regular, Normal Sinus Rhythm (Steff Bates) Gastrointestinal/Abdomen GI Exam: Soft, Non-Tender, Bowel Sounds Present, Positive Bowel Movement (Steff Bates) Musculoskeletal MS Exam: Normal Gait, Normal Tone (Steff Bates) Integumentary Skin Exam: Warm, Dry Skin Remarks chronic skin changed due to skin cancer (Steff Bates) Extremeties Extremities Exam: No Edema, Pedal Pulses Palpable (Steff Bates) Neurologic Neuro Exam: Alert, Awake, Oriented, Speech Clear, Moving All Extremities (Steff Bates) Psychiatric Psych Exam: Appropriate Responses (Steff Bates) Assessment/Plan Discussed Condition With: Patient Assessment Summary: SHELTON/Acute Renal Failure, CKD Stage III, Transplant Kidney Status Problem List: (1) SHELTON (acute kidney injury) ICD Codes: N17.9 - Acute kidney failure, unspecified Status: Resolved Plan: Baseline creatinine 1.0-1.2, GFR 58-62, CKD 2-3 SHELTON most likely due to sepsis syndrome, hypotension. Renal function had been improving, awaiting labs from today She is non oliguric. Medications reviewed, avoid nephrotoxic agents, renally dose when appropriate. When discharged we will follow in CKD clinic. (2) Severe sepsis ICD Codes: A41.9 - Sepsis, unspecified organism; R65.20 - Severe sepsis without septic shock Status: Acute Plan: Due to influenza, continue supportive measures On PO Ceftin Given Tamiflu. (3) History of kidney transplant ICD Codes: Z94.0 - History of kidney transplant Status: Acute Plan: Immunosuppression regimen consists of CellCept 500 mg PO BID Cyclosporine 50 mg PO BID (reduced) Prednisone resumed 5 mg po at home; off hydrocortisone now Cyclosporine level was elevated, ? trough level (4) Hypernatremia ICD Codes: E87.0 - Hyperosmolality and hypernatremia Plan: Off IVF PO fluids encouraged Follow labs (Steff Bates) Plan patient was seen and examined. Agree with above assessment and plan. She can be discharged from renal standpoint. (Damon Temple MD) Steff Bates Apr 23, 2017 10:08 Damon Temple MD Apr 23, 2017 10:24
[2017-04-23 10:19] LABS: AUTOMATED NEUTROPHIL # 2.5 TH/MM3 (1.8-7.7); BASOPHIL % 0.2 % (0.0-2.0); EOSINOPHIL % 0.1 % (0.0-4.0); HEMATOCRIT 43.7 % (35.0-46.0); LYMPH % 36.6 % (9.0-44.0); LYMPHOCYTE # 1.8 TH/MM3 (1.0-4.8); MEAN CELL VOLUME 90.7 FL (80.0-100.0); MEAN CORPUSCULAR HEMOGLOBIN 31.1 PG (27.0-34.0); MEAN CORPUSCULAR HGB CONC 34.3 % (32.0-36.0); MEAN PLATELET VOLUME 10.7 FL (7.0-11.0); MONOCYTE # 0.7 TH/MM3 (0-0.9); NEUT % 49.1 % (16.0-70.0); PLATELET COUNT 92 TH/MM3 (150-450); RED BLOOD COUNT 4.82 MIL/MM3 (4.00-5.30); RED CELL DISTRIBUTION WIDTH 14.3 % (11.6-17.2)
[2017-04-23 10:45] LABS: MAGNESIUM 1.6 MG/DL (1.5-2.5)
[2017-04-23 10:53] LABS: ALBUMIN 3.1 GM/DL (3.4-5.0); BICARBONATE 27.7 MEQ/L (21.0-32.0); CALCIUM 8.5 MG/DL (8.5-10.1); CREATININE 1.32 MG/DL (0.50-1.00); PHOSPHORUS 1.3 MG/DL (2.5-4.9)
[2017-04-23] MEDS ORDERED: POTASSIUM CHLORIDE 10 MEQ CONTROLLED RELEASE TAB PO ONE (14:30)
--- NOTE | 2017-04-23 14:32 | HHI.PR ---
Subjective Remarks Patient discharged yesterday. Discharge was held. Today she reports she is feeling okay. Potassium is low. Cleared by nephrology for discharge. Objective Vitals Vital Signs Date Time Temp Pulse Resp B/P (MAP) Pulse Ox O2 Delivery O2 Flow Rate FiO2 04/23/17 12:00 97.4 64 18 140/86 (104) 96 04/23/17 12:00 61 04/23/17 09:27 97 04/23/17 08:00 Room Air 04/23/17 08:00 76 04/23/17 08:00 98.6 50 18 164/97 (119) 97 04/23/17 04:27 97.6 67 18 148/56 (86) 94 04/23/17 04:00 47 04/23/17 00:00 49 04/23/17 00:00 98.2 56 20 166/70 (102) 97 04/23/17 00:00 Room Air 04/22/17 20:30 Room Air 04/22/17 20:00 98.2 57 21 155/96 (115) 95 04/22/17 20:00 52 04/22/17 18:00 161/102 (121) 97 04/22/17 18:00 Room Air 04/22/17 17:25 54 04/22/17 16:15 98.2 60 18 170/101 (124) 97 I/O 04/22/17 04/22/17 04/22/17 04/23/17 04/23/17 04/23/17 07:00 15:00 23:00 07:00 15:00 23:00 Intake Total 240 ml 840 ml 200 ml Balance 240 ml 840 ml 200 ml Intake Oral 240 ml 840 ml 200 ml # Voids 4 4 4 # Bowel Movements 1 2 1 Result Diagram: 04/23/1792404/23/17924 Objective Remarks GENERAL: This is a well-nourished, well-developed patient, in no apparent distress. CARDIOVASCULAR: Normal rate and regular rhythm without murmurs, gallops, or rubs. RESPIRATORY: Good respiratory efforts. Breath sounds equal and clear to auscultation bilaterally. GASTROINTESTINAL: Abdomen soft, non-tender, non-distended. Normal active bowel sounds MUSCULOSKELETAL: Extremities without cyanosis, or edema. NEURO: Alert & Oriented x4 to person, place, time, situation. Moves all ext x4 PSYCH: Appropriate mood and affect. Procedures Lumbar puncture A/P Problem List: (1) SHELTON (acute kidney injury) ICD Code: N17.9 - Acute kidney failure, unspecified Status: Resolved Assessment and Plan 51-year-old female with: Metabolic encephalopathy from sepsis. Resolved altered mental status. Status post LP Sepsis in a immunocompromised patient. Positive Influenza A. Possible aspiration. Continue Tamiflu. Status post cefepime. Discharge on Cefdinir per ID. Acute on chronic kidney disease stage III. Improved. This is secondary to sepsis and hypotension. Hx Renal transplant. Stable continue immunosuppressives follow-up cyclosporine level Hypokalemia. Replaced today. Advised outpatient follow-up in a couple of days and repeat labs. Loose stools. C. difficile negative. Resolved. Can be discharged later today after potassium replacement. Resume discharge orders from yesterday. India Ricketts MD Apr 23, 2017 14:32
[2017-04-23] MEDS ORDERED: POTASSIUM CHLOR 20 MEQ PREMIX 100 ML IV ONE (14:45)
[2017-04-23 17:52] LABS: CSF CRYPTOCOCCUS ANTIGEN NOT DETECTED (NEGATIVE)
--- NOTE | 2017-04-24 07:43 | EKG ---
Date Performed: 04/22/2017 Time Performed: 08:57:14 PTAGE: 51 years EKG: Sinus bradycardia with sinus arrhythmia. Anterolateral ST-T changes may be due to myocardia l ischemia Compared to previous tracing sinus rate is slower Abnormal ECG PREVIOUS TRACING : 04/18/2017 19.48 DOCTOR: Abdullahi Gayle Interpretating Date/Time 04/24/2017 07:41:01
== END 2017-04-23 20:07 | disposition home health service (06) | DRG 872 ==
LOC: PHED 18:03 → PHEDA 19:43 → HIMN 23:50 → N04B 04-21 17:12
PROVIDERS: ADMIT Family Medicine; ATTEND Family Medicine
PROC: 009U3ZX Drainage of Spinal Canal, Percutaneous Approach, Diagnostic (ICD-10-PCS; principal; 2017-04-19)
DX: A41.9 Sepsis, unspecified organism (principal); R65.20 Severe sepsis without septic shock; E87.0 Hyperosmolality and hypernatremia; E11.22 Type 2 diabetes mellitus with diabetic chronic kidney disease; E11.43 Type 2 diabetes mellitus with diabetic autonomic (poly)neuropathy; Z79.84 Long term (current) use of oral hypoglycemic drugs; D69.59 Other secondary thrombocytopenia; N17.9 Acute kidney failure, unspecified; K31.84 Gastroparesis; I12.9 Hypertensive chronic kidney disease with stage 1 through stage 4 chronic kidney disease, or unspecified chronic kidney disease; N18.3 Chronic kidney disease, stage 3 (moderate); Z94.0 Kidney transplant status; M32.9 Systemic lupus erythematosus, unspecified; Z79.52 Long term (current) use of systemic steroids; J10.1 Influenza due to other identified influenza virus with other respiratory manifestations; E86.0 Dehydration; E87.6 Hypokalemia; F17.210 Nicotine dependence, cigarettes, uncomplicated; E66.01 Morbid (severe) obesity due to excess calories; Z68.33 Body mass index [BMI] 33.0-33.9, adult; R00.1 Bradycardia, unspecified; K21.9 Gastro-esophageal reflux disease without esophagitis; E78.5 Hyperlipidemia, unspecified; J44.9 Chronic obstructive pulmonary disease, unspecified; R82.5 Elevated urine levels of drugs, medicaments and biological substances; Z85.828 Personal history of other malignant neoplasm of skin
CPT/HCPCS: 62270; 70450; 71045; 76776; 76937; 80048; 80053; 80069; 80158; 80307; 81001; 82140; 82550; 82552; 82805; 82945; 82948; 83605; 83615; 83735; 84100; 84157; 84443; 84484; 85007; 85025; 85027; 85610; 85730; 86403; 86592; 87015; 87040; 87070; 87086; 87102; 87116; 87205; 87206; 87207; 87328; 87329; 87449; 87493; 87506; 87529; 87641; 87804; 89051; 93005; 94618; 94664; 99152; J0131; J0133; J0360; J0692; J1644; J1720; J1815; J2020; J2250; J2543; J3010; J3370; J3475; J3480; J7030; J7050; J7512; J7515; J7517; Q0169

== ENCOUNTER 2017-05-03 16:42 | Inpatient (IN) | payer MEDICAID ==
[~2017-05-03] VITALS: Ht 160 cm; Wt 100.5 kg
[2017-05-03] VITALS (14 sets, daily range): BP systolic 63–127; BP diastolic 38–66; PULSE 96–121; RESP 20–46; TEMP 98.2–104.6; O2SAT 93–99
[~2017-05-03 16:42] MED LIST changes: +CEFD300C PO; +LACT PO; +LISI10TA3 PO; -LOSA50TA PO; -METF500T PO; +OSEL75 PO; +OXYGENDME NAS.CANULA
[2017-05-03] MEDS ORDERED: VANCOMYCIN INJ 1,000 MG in SODIUM CHLOR 0.9% 250 ML INJ 250 ML IV STA (16:54)
[2017-05-03] MEDS ORDERED: PIPERACIL-TAZO 4.5 GM PREMIX 100 ML IV STA (16:54)
[2017-05-03] MEDS ORDERED: SODIUM CHLOR 0.9% 1000 ML INJ 1,000 ML IV ONE ×5 (17:00→20:20)
[2017-05-03] MEDS ORDERED: ACETAMINOPHEN 325 MG TAB PO ONE (17:00)
[2017-05-03 17:26] LABS: AUTOMATED NEUTROPHIL # 8.5 TH/MM3 (1.8-7.7); BASOPHIL % 0.2 % (0.0-2.0); EOSINOPHIL % 0.2 % (0.0-4.0); HEMOGLOBIN 13.2 GM/DL (11.6-15.3); LYMPH % 18.3 % (9.0-44.0); LYMPHOCYTE # 2.2 TH/MM3 (1.0-4.8); MEAN CELL VOLUME 88.7 FL (80.0-100.0); MEAN CORPUSCULAR HEMOGLOBIN 30.9 PG (27.0-34.0); MEAN CORPUSCULAR HGB CONC 34.8 % (32.0-36.0); MEAN PLATELET VOLUME 11.8 FL (7.0-11.0); MONO % 12.5 % (0.0-8.0); MONOCYTE # 1.5 TH/MM3 (0-0.9); NEUT % 68.8 % (16.0-70.0); PLATELET COUNT 149 TH/MM3 (150-450); RED BLOOD COUNT 4.28 MIL/MM3 (4.00-5.30); RED CELL DISTRIBUTION WIDTH 14.5 % (11.6-17.2); WHITE BLOOD COUNT 12.3 TH/MM3 (4.0-11.0)
--- NOTE | 2017-05-03 17:32 | RADRPT ---
EXAM DATE/TIME: 05/03/2017 17:04 [facility] COMPARISON: CHEST SINGLE AP, April 18, 2017, 18:24. INDICATIONS : Shortness of breath. MEDICAL HISTORY : Hypertension. Hypercholesterolemia. Gastroesophageal reflux disease.Dizziness. Migraine. Hypertension . Renal disease. Arthritis. Skin cancer. MRSA. SURGICAL HISTORY : Cholecystectomy. Tubal ligation. section. AV fistula. Hysterectomy. ENCOUNTER: Initial ACUITY: 1 day PAIN SCORE: Non-responsive. LOCATION: Bilateral chest FINDINGS: There are areas of vague infiltrate in the right upper and right lower lobes. There is no evidence of effusion. Ectatic for rotation, the cardiac contour is grossly stable. CONCLUSION: Developed in the right lung infiltrates. Seamus De La Cruz MD on May 03, 2017 at 17:29 Board Certified Radiologist. This report was verified electronically.
[2017-05-03 17:39] LABS: BILIRUBIN, URINE SMALL (NEG); BLOOD, URINE SMALL (NEG); GLUCOSE,URINE NEG (NEG); KETONE, URINE NEG (NEG); NITRITE,URINE NEG (NEG); PH, URINE 5.5 (5.0-8.5); SQUAMOUS EPITHELIAL CELL URINE 1 /hpf (0-5); URINE COLOR DARK-BROWN (YELLW/STRAW); URINE LEUKOCYTE ESTERASE LARGE (NEG); WHITE BLOOD CELL CLUMPS MANY
--- NOTE | 2017-05-03 17:39 | PD ---
HPI Chief Complaint: Respiratory Distress Time Seen by Provider: 16:48 Travel History International Travel<30 days: No Contact w/Intl Traveler<30days: No Traveled to known affect area: No History of Present Illness HPI 51 y/o female presents with shortness of breath and fever over the past couple days by ambulance. Her axillary temperature was 100.4. She states she feels ill all over but significant history is limited on initial evaluation. She was given 800 cc of normal saline prior to arrival [facility] Past Medical History Arthritis: Yes Autoimmune Disease: Yes (LUPUS) Anxiety: No Depression: No Heart Rhythm Problems: No Cancer: Yes (skin) Cardiovascular Problems: Yes High Cholesterol: Yes Chemotherapy: No Chest Pain: No Congestive Heart Failure: No Cerebrovascular Accident: No Diabetes: Yes Patient Takes Glucophage: Yes Diminished Hearing: No Endocrine: Yes Gastrointestinal Disorders: Yes (GASTROPORESIS) GERD: Yes Genitourinary: Yes (kidney transplant 1989) Headaches: No Hepatitis: No Hiatal Hernia: Yes Hypertension: Yes Immune Disorder: No Implanted Vascular Access Dvce: Yes (LUE SHUNT port) Kidney Stones: Yes Musculoskeletal: No Neurologic: Yes Psychiatric: No Reproductive: No Respiratory: No Immunizations Current: Yes Migraines: Yes Radiation Therapy: No Renal Failure: Yes Seizures: No Thyroid Disease: No Ulcer: No PNEUMOCCOCAL Vaccine (Year): 2 ?: Not Menopausal: Yes : 2 Para: 1 Miscarriage: 1 Tubal Ligation: Yes Past Surgical History Abdominal Surgery: Yes (INGUINAL HERNIA: RIGHT) AICD: No Arteriovenous Shunt: Yes (LEFT ARM FOR DIALYSIS IN 1989- NON FUNCTIONAL) Body Medical Devices: AV SHUNT TO LEFT ARM Cardiac Surgery: No Section: Yes Cholecystectomy: Yes Ear Surgery: No Endocrine Surgery: No Eye Surgery: No Genitourinary Surgery: Yes (KIDNEY TRANSPLANT 1989 at [facility]) Gynecologic Surgery: Yes Hysterectomy: Yes Joint Replacement: No Neurologic Surgery: No Oral Surgery: No Pacemaker: No Thoracic Surgery: No Other Surgery: Yes (SKIN CANCER REMOVED RT THIGH 09/18) Social History Alcohol Use: No Tobacco Use: Yes (03/12 PPD) Substance Use: No Allergies-Medications (Allergen,Severity, Reaction): Coded Allergies: adhesive (Verified Allergy, Severe, HIVES, 03/28/17) DISOLVABLE SUTURE MATERAL levofloxacin (Verified Allergy, Intermediate, HIVES/ITCHING, 03/28/17) nifedipine (Verified Adverse Reaction, Intermediate, VOMITING, 03/28/17) Uncoded Allergies: suture material (Adverse Reaction, Severe, SKIN INFECTION, 07/19/16) PT STATES DISSOLVING ONES [place]MON[place] NOT DISSOLVE AND HAVE TO BE PHYSICALLY REMOVED.. Reported Meds & Prescriptions Reported Meds & Active Scripts Active Acidophilus/l-Sporogenes (Lactobacillus Acidophilus) 35 Million Cell-25 Million Cell Tab 1 Tab PO TID Tamiflu (Oseltamivir Phosphate) 75 Mg Cap 75 Mg PO BID 3 Days Cefdinir 300 Mg Cap 300 Mg PO BID 5 Days Oxygen (O2) Device Liter LARRY.CANULA CONTINUOUS Oxygen Concentrator Portable Gaseous 2 L/min via Nasal Canula Continuous For 99 months Lisinopril 10 Mg Tab 10 Mg PO DAILY Atorvastatin (Atorvastatin Calcium) 10 Mg Tab 10 Mg PO HS Protonix (Pantoprazole Sodium) 40 Mg Tab 40 Mg PO DAILY Clonidine (Clonidine HCl) 0.1 Mg Tab 0.1 Mg PO BID PRN Atenolol 50 Mg Tab 50 Mg PO HS Benefiber (Wheat Dextrin) 152 Gm Powder 10 Gm PO DAILY Probiotic (Lactobacillus Acidophilus) 1 Cap Cap 1 Cap PO TIDAC Zofran Odt (Ondansetron Odt) 4 Mg Tab 4 Mg SL Q6HR PRN Hydrocodone-Acetaminophen 5-325 mg Tab 1 Tab PO Q4H PRN Metoclopramide (Metoclopramide HCl) 5 Mg Tab 5 Mg PO TIDAC Reported Promethazine (Promethazine HCl) 12.5 Mg Tab 25 Mg PO Q4H PRN Prednisone 10 Mg Tab 10 Mg PO HS Magnesium Oxide 400 Mg Tab 400 Mg PO BID Cyclosporine 25 Mg Cap 50 Mg PO BID Mycophenolate (Mycophenolate Mofetil) 500 Mg Tab 500 Mg PO BID Review of Systems ROS Limitations: Clinical Condition Except as stated in HPI: all other systems reviewed are Neg Physical Exam Exam Limitations: Clinical Condition Narrative GENERAL: 51-year-old ill-appearing female SKIN: Focused skin assessment warm/dry. HEAD: Atraumatic. Normocephalic. EYES: Pupils equal and round. No scleral icterus. No injection or drainage. ENT: No nasal bleeding or discharge. Mucous membranes pink and moist. NECK: Trachea midline. No JVD. CARDIOVASCULAR: irregular rate and rhythm. RESPIRATORY: No accessory muscle use. Coarse bilaterally. GASTROINTESTINAL: Abdomen soft, nondistended. NEUROLOGICAL: Awake. Moves all extremities, clear speech Data Data Last Documented VS Vital Signs Date Time Temp Pulse Resp B/P (MAP) Pulse Ox O2 Delivery O2 Flow Rate FiO2 05/03/17 18:05 100.8 05/03/17 16:53 121 46 97 Nasal Cannula 2.00 Orders Orders Sepsis Workup Initiated (05/03/17 ) Electrocardiogram (05/03/17 16:48) Complete Blood Count With Diff (05/03/17 16:48) Comprehensive Metabolic Panel (05/03/17 16:48) Prothrombin Time / Inr (Pt) (05/03/17 16:48) Act Partial Throm Time (Ptt) (05/03/17 16:48) Lactic Acid Sepsis Protocol (05/03/17 16:48) Magnesium (Mg) (05/03/17 16:48) Phosphorus (Po4) (05/03/17 16:48) Ckmb (Isoenzyme) Profile (05/03/17 16:48) Troponin I (05/03/17 16:48) Urinalysis - C+S If Indicated (05/03/17 16:48) Influenzae A/B Antigen (05/03/17 16:48) Blood Culture (05/03/17 16:48) Chest, Single Ap (05/03/17 16:48) Ecg Monitoring (05/03/17 16:48) Iv Access Insert/Monitor (05/03/17 16:48) Oximetry (05/03/17 16:48) Sodium Chlor 0.9% 1000 Ml Inj (Ns 1000 M (05/03/17 17:00) Vancomycin Inj (Vancomycin Inj) (05/03/17 16:54) Piperacil-Tazo 4.5 Gm Premix (Zosyn 4.5 (05/03/17 16:54) Acetaminophen (Tylenol) (05/03/17 17:00) Sodium Chlor 0.9% 1000 Ml Inj (Ns 1000 M (05/03/17 17:00) C Diff Toxin Pcr (05/03/17 17:31) (Hub Use Only)Inp Phy Cons/Ref (05/03/17 ) Urine Culture (05/03/17 16:00) CKMB (05/03/17 16:00) CKMB% (05/03/17 16:00) Potassium Chlor 20 Meq Premix (Kcl 20 Me (05/03/17 18:30) Consult Nephrology (05/03/17 ) (Hub Use Only)Inp Phy Cons/Ref (05/03/17 ) Admit Order (Ed Use Only) (05/03/17 18:27) Labs Laboratory Tests Test 05/03/17 16:00 05/03/17 17:05 White Blood Count 12.3 TH/MM3 Red Blood Count 4.28 MIL/MM3 Hemoglobin 13.2 GM/DL Hematocrit 38.0 % Mean Corpuscular Volume 88.7 FL Mean Corpuscular Hemoglobin 30.9 PG Mean Corpuscular Hemoglobin Concent 34.8 % Red Cell Distribution Width 14.5 % Platelet Count 149 TH/MM3 Mean Platelet Volume 11.8 FL Neutrophils (%) (Auto) 68.8 % Lymphocytes (%) (Auto) 18.3 % Monocytes (%) (Auto) 12.5 % Eosinophils (%) (Auto) 0.2 % Basophils (%) (Auto) 0.2 % Neutrophils # (Auto) 8.5 TH/MM3 Lymphocytes # (Auto) 2.2 TH/MM3 Monocytes # (Auto) 1.5 TH/MM3 Eosinophils # (Auto) 0.0 TH/MM3 Basophils # (Auto) 0.0 TH/MM3 CBC Comment AUTO DIFF Differential Comment AUTO DIFF CONFIRMED Platelet Estimate LOW Platelet Morphology Comment ENLARGED Stomatocytes 1+ Prothrombin Time 14.7 SEC Prothromb Time International Ratio 1.5 RATIO Activated Partial Thromboplast Time 32.2 SEC Urine Color DARK-BROWN Urine Turbidity CLOUDY Urine pH 5.5 Urine Specific [place] 1.017 Urine Protein 30 mg/dL Urine Glucose (UA) NEG mg/dL Urine Ketones NEG mg/dL Urine Occult Blood SMALL Urine Nitrite NEG Urine Bilirubin SMALL Urine Urobilinogen LESS THAN 2.0 MG/DL Urine Leukocyte Esterase LARGE Urine RBC 6 /hpf Urine WBC 85 /hpf Urine WBC Clumps MANY Urine Squamous Epithelial Cells 1 /hpf Urine Yeast (Budding) MANY Microscopic Urinalysis Comment CULTURE INDICATED Blood Urea Nitrogen 17 MG/DL Creatinine 5.71 MG/DL Random Glucose 95 MG/DL Total Protein 5.9 GM/DL Albumin 2.0 GM/DL Calcium Level 7.2 MG/DL Phosphorus Level 1.3 MG/DL Magnesium Level 1.2 MG/DL Alkaline Phosphatase 66 U/L Aspartate Amino Transf (AST/SGOT) 38 U/L Alanine Aminotransferase (ALT/SGPT) 27 U/L Total Bilirubin 2.8 MG/DL Sodium Level 130 MEQ/L Potassium Level 2.4 MEQ/L Chloride Level 93 MEQ/L Carbon Dioxide Level 24.7 MEQ/L Anion Gap 12 MEQ/L Estimat Glomerular Filtration Rate 8 ML/MIN Protein Corrected Calcium 7.8 MG/DL Total Creatine Kinase 554 U/L Creatine Kinase MB 1.0 NG/ML Creatine Kinase MB % 0.2 % Troponin I 0.27 NG/ML Lactic Acid Level 3.3 mmol/L MDM Medical Decision Making Medical Screen Exam Complete: Yes Emergency Medical Condition: Yes Medical Record Reviewed: Yes (Past history confirmed) Interpretation(s) CBC & BMP Diagram 05/03/17 16:00 Total Protein 5.9 L, Albumin 2.0 L, Calcium Level 7.2 *L, Phosphorus Level 1.3 L , Magnesium Level 1.2 L, Alkaline Phosphatase 66, Aspartate Amino Transf (AST/ SGOT) 38 H, Alanine Aminotransferase (ALT/SGPT) 27, Total Bilirubin 2.8 H Last 24 hours Impressions Chest X-Ray 05/03/17 1648 Signed Impressions: Service Date/Time: Wednesday, May 03, 2017 17:04 - CONCLUSION: Developed in the right lung infiltrates. Seamus De La Cruz MD Differential Diagnosis Sepsis, UTI, pneumonia, C. difficile, renal failure Narrative Course We will check blood work, urinalysis, chest x-ray and dose with IV fluids and vancomycin and Zosyn. Discussed with [facility] coordinator Patient has an area of pneumonia as well as UTI as source of infection. She was already given broad-spectrum coverage. Will repeat IV fluid bolus and discuss acute renal failure and hypokalemia with Dr. Temple who saw her on last admission. She will need to be admitted to the hospital given severe sepsis Patient's blood pressure has dropped after she is received a total of 2800 mL's of IV fluid between us and the EMS team which is 30 mL's per kilo. She will have additional fluids given and started on pressors. Dr. smith is here and will place central line Critical Care Narrative Aggregate critical care time was 55 minutes. Time to perform other separately billable procedures was not included in the critical care time. My time did not include minutes spent treating any other patients simultaneously or on activities that did not directly contribute to the patient's treatment. The services I provided to this patient were to treat and/or prevent clinically significant deterioration that could result in: septic shock, I provided critical care services requiring my management, as noted below: Chart data review, documentation time, medication orders and management, vital sign assessments/reviewing monitor data, ordering and reviewing lab tests, ordering and interpreting/reviewing x-rays and diagnostic studies, care of the patient and discussion of the patient with the admitting physicians. Sepsis Criteria SIRS Criteria (2 or more): Temp > 100.9 or < 96.8, Heart rate over 90, RR > 20 or PaCO2 < 32, WBC > 39519, < 4000 or > 10% bands Sepsis Criteria (SIRS+source): Infect source susp/known Severe Sepsis (+one): Lactate >2 Septic Shock Criteria: Unresponsive to 30ml/kg fluid bolus Criteria Outcome: Meets septic shock criteria Physician Communication Physician Communication dr price states to check a doppler ultrasound of transplant kidney and they will follow transplant team states will discuss with her transplant team and can keep here dr smith agrees to admit Diagnosis Primary Impression: Sepsis Qualified Codes: A41.9 - Sepsis, unspecified organism Additional Impressions: Acute renal failure Qualified Codes: N17.9 - Acute kidney failure, unspecified Hypokalemia UTI (urinary tract infection) Qualified Codes: N39.0 - Urinary tract infection, site not specified Pneumonia Qualified Codes: J18.9 - Pneumonia, unspecified organism Admitting Information Admitting Physician Requests: Admit Meron Hooks MD May 03, 2017 17:39
[2017-05-03 17:40] LABS: BICARBONATE 24.7 MEQ/L (21.0-32.0); CALCIUM 7.2 MG/DL (8.5-10.1); CREATININE 5.71 MG/DL (0.50-1.00); MAGNESIUM 1.2 MG/DL (1.5-2.5); PHOSPHORUS 1.3 MG/DL (2.5-4.9)
[2017-05-03 17:41] LABS: LACTIC ACID SEPSIS PROTOCOL 3.3 mmol/L (0.4-2.0)
[2017-05-03 17:42] LABS: CALCIUM-PROTEIN CORRECTED 7.8 MG/DL (8.5-10.1); TOTAL BILIRUBIN ADULT 2.8 MG/DL (0.2-1.0); TOTAL PROTEIN 5.9 GM/DL (6.4-8.2); TROPONIN I 0.27 NG/ML (0.02-0.05)
[2017-05-03 17:44] LABS: INTERNATIONAL NORMALIZED RATIO 1.5 RATIO; PROTHROMBIN TIME - PATIENT 14.7 SEC (9.8-11.6)
[2017-05-03 17:59] LABS: STOMATOCYTES 1+ (NORMAL)
[2017-05-03] MEDS ORDERED: POTASSIUM CHLOR 20 MEQ PREMIX 100 ML IV ONE (18:30)
[2017-05-03] MEDS ORDERED: NOREPINEPHRINE INJ 4 MG in SODIUM CHLOR 0.9% 250 ML INJ 246 ML IV PRN (19:00)
[2017-05-03] MEDS ORDERED: TERBUTALINE INJ 1 MG/ML AMP SQ PRN (19:00)
[2017-05-03] MEDS ORDERED: RESP: ALBUTEROL 2.5 MG/IPRATROPIUM 0.5 MG NEB (PRN) INH (19:30)
[2017-05-03] MEDS ORDERED: CHLORHEXIDINE GLUCONATE 2 % 1 PACK (2 CLOTHS) TOP PRN (19:30)
[2017-05-03] MEDS ORDERED: SENNOSIDES 8.6 MG TAB PO PRN (19:30)
[2017-05-03] MEDS ORDERED: LACTULOSE SYRUP 20 GM/30 ML CUP PO PRN (19:30)
[2017-05-03] MEDS ORDERED: BISACODYL 10 MG SUPP RECTAL PRN (19:30)
[2017-05-03] MEDS ORDERED: MAGNESIUM HYDROXIDE SUSP 30 ML CUP PO PRN (19:30)
[2017-05-03] MEDS ORDERED: SODIUM CHLORIDE 0.9% FLUSH 10 ML FLUSH IV FLUSH PRN (19:30)
[2017-05-03] MEDS ORDERED: ACETAMINOPHEN 325 MG TAB PO PRN (19:30)
[2017-05-03] MEDS ORDERED: MISCELLANEOUS NURSING INFORMATION XX SCH (19:30)
[2017-05-03] MEDS ORDERED: Vancomycin Consult Pharmacy 1 EA OTHER SCH (19:30)
[2017-05-03] MEDS ORDERED: TEMAZEPAM 15 MG CAP PO PRN (19:30)
--- NOTE | 2017-05-03 20:15 | HHI.HP ---
HPI Service Critical Care Medicine Primary Care Physician Yanique Alfonso MD Admission Diagnosis sepsis Diagnosis: Travel History International Travel<30 Days: No Contact w/Intl Traveler <30 Da: No Traveled to Known Affected Are: No History of Present Illness 51-year-old female with past medical history of renal transplant since 1989 presents with shortness of breath and fever over the past couple days by ambulance. Her axillary temperature was 100.4. She states she feels ill all over but significant history is limited on initial evaluation. In the emergency department patient was severely hypotensive requiring the emergent central line placement, was started on IV antibiotics and was bolused with 3 L of normal saline. Review of Systems Constitutional: COMPLAINS OF: Diaphoretic episodes, Fatigue, Fever, Chills, Dizziness, DENIES: Weight gain, Weight loss, Change in appetite, Night Sweats Endocrine: DENIES: Abnorml menstrual pattern, Heat/cold intolerance, Polydipsia , Polyuria, Polyphagia Eyes: DENIES: Blurred vision, Diplopia, Eye inflammation, Eye pain, Vision loss , Photosensitivity, Double Vision Ears, nose, mouth, throat: DENIES: Tinnitus, Hearing loss, Vertigo, Nasal discharge, Oral lesions, Throat pain, Hoarseness, Ear Pain, Running Nose, Epistaxis, Sinus Pain, Toothache, Odynophagia Respiratory: DENIES: Apneas, Cough, Snoring, Wheezing, Hemoptysis, Sputum production, Shortness of breath Cardiovascular: COMPLAINS OF: Dyspnea on Exertion, DENIES: Chest pain, Palpitations, Syncope, PND, Lower Extremity Edema, Orthopnea, Claudication Gastrointestinal: DENIES: Abdominal pain, Black stools, Bloody stools, Constipation, Diarrhea, Nausea, Vomiting, Difficulty Swallowing, Anorexia Genitourinary: DENIES: Abnormal vaginal bleeding, Dysmenorrhea, Dyspareunia, Sexual dysfunction, Urinary frequency, Urinary incontinence, Urgency, Hematuria , Dysuria, Nocturia, Vaginal discharge Musculoskeletal: DENIES: Joint pain, Muscle aches, Stiffness, Joint Swelling, Back pain, Neck pain Integumentary: DENIES: Abnormal pigmentation, Pruritus, Rash, Nail changes, Breast masses, Breast skin changes, Nipple discharge Hematologic/lymphatic: DENIES: Bruising, Lymphadenopathy Immunologic/allergic: DENIES: Eczema, Urticaria Neurologic: DENIES: Abnormal gait, Headache, Localized weakness, Paresthesias, Seizures, Speech Problems, Tremor, Poor Balance Psychiatric: DENIES: Anxiety, Confusion, Mood changes, Depression, Hallucinations, Agitation, Suicidal Ideation, Homicidal Ideation, Delusions Past Family Social History Allergies: Coded Allergies: adhesive (Verified Allergy, Severe, HIVES, 03/28/17) DISOLVABLE SUTURE MATERAL levofloxacin (Verified Allergy, Intermediate, HIVES/ITCHING, 03/28/17) nifedipine (Verified Adverse Reaction, Intermediate, VOMITING, 03/28/17) Uncoded Allergies: suture material (Adverse Reaction, Severe, SKIN INFECTION, 07/19/16) PT STATES DISSOLVING ONES [place] NOT DISSOLVE AND HAVE TO BE PHYSICALLY REMOVED.. Past Medical History HTN, lupus, diabetes, GERD, kidney transplant. Past Surgical History hysterectomy,1999 , 1984 cholecystectomy,1996 hernia repair, 1996 kidney transplant Reported Medications Reported Meds & Active Scripts Active Acidophilus/l-Sporogenes (Lactobacillus Acidophilus) 35 Million Cell-25 Million Cell Tab 1 Tab PO TID Tamiflu (Oseltamivir Phosphate) 75 Mg Cap 75 Mg PO BID 3 Days Cefdinir 300 Mg Cap 300 Mg PO BID 5 Days Oxygen (O2) Device Liter LARRY.CANULA CONTINUOUS Oxygen Concentrator Portable Gaseous 2 L/min via Nasal Canula Continuous For 99 months Lisinopril 10 Mg Tab 10 Mg PO DAILY Atorvastatin (Atorvastatin Calcium) 10 Mg Tab 10 Mg PO HS Protonix (Pantoprazole Sodium) 40 Mg Tab 40 Mg PO DAILY Clonidine (Clonidine HCl) 0.1 Mg Tab 0.1 Mg PO BID PRN Atenolol 50 Mg Tab 50 Mg PO HS Benefiber (Wheat Dextrin) 152 Gm Powder 10 Gm PO DAILY Probiotic (Lactobacillus Acidophilus) 1 Cap Cap 1 Cap PO TIDAC Zofran Odt (Ondansetron Odt) 4 Mg Tab 4 Mg SL Q6HR PRN Hydrocodone-Acetaminophen 5-325 mg Tab 1 Tab PO Q4H PRN Metoclopramide (Metoclopramide HCl) 5 Mg Tab 5 Mg PO TIDAC Reported Promethazine (Promethazine HCl) 12.5 Mg Tab 25 Mg PO Q4H PRN Prednisone 10 Mg Tab 10 Mg PO HS Magnesium Oxide 400 Mg Tab 400 Mg PO BID Cyclosporine 25 Mg Cap 50 Mg PO BID Mycophenolate (Mycophenolate Mofetil) 500 Mg Tab 500 Mg PO BID Active Ordered Medications Current Medications Medications (Trade) Dose Ordered Sig/Sagrario Route PRN Reason Start Time Stop Time Status Last Admin Dose Admin Norepinephrine Bitartrate 4 mg/ Sodium Chloride 250 ml @ 7.5 mls/hr TITRATE PRN IV Blood pressure management 05/03/17 19:00 05/03/17 19:22 Terbutaline Sulfate (Brethine Inj) 1 mg UNSCH PRN SQ For Extravasation 05/03/17 19:00 Atorvastatin Calcium (Lipitor) 10 mg HS PO 05/03/17 21:00 Cyclosporine (SandIMMUNE) 50 mg BID PO 05/03/17 21:00 Acetaminophen/ Hydrocodone Bitart (Saline 5-325 Mg) 1 tab Q4H PRN PO PAIN SCALE 3 TO 5 05/03/17 19:15 Lactobacillus Acidophilus (Lactinex) 1 tab TID PO 05/04/17 09:00 Metoclopramide HCl (Reglan) 5 mg TIDAC PO 05/04/17 08:00 Mycophenolate Mofetil (Cellcept) 500 mg BID@0600,1800 PO 05/03/17 21:00 Oseltamivir Phosphate (Tamiflu) 30 mg DAILY@2100 PO 05/03/17 21:00 Prednisone (Deltasone) 10 mg HS PO 05/03/17 21:00 Promethazine HCl (Phenergan) 25 mg Q4H PRN PO MODERATE N/V 05/03/17 20:30 Sodium Chloride 1,000 ml @ 124 mls/hr Q8H4M IV 05/03/17 22:00 Sodium Chloride (NS Flush) 2 ml UNSCH PRN IV FLUSH FLUSH AFTER USING IV ACCESS 05/03/17 19:30 Sodium Chloride (NS Flush) 2 ml BID IV FLUSH 05/03/17 21:00 Acetaminophen (Tylenol) 650 mg Q6H PRN PO PAIN 1-2 AND/OR FEVER >101F 05/03/17 19:30 Famotidine (Pepcid Inj) 10 mg Q12HR IV PUSH 05/03/17 21:00 Ondansetron HCl (Zofran Inj) 4 mg Q6H PRN IV PUSH MILD NAUSEA OR VOMITING 05/03/17 19:30 Temazepam (Restoril) 15 mg HS PRN PO INSOMNIA 05/03/17 19:30 Albuterol/ Ipratropium (Duoneb Neb) 1 ampule Q2HR NEB PRN INH WHEEZING 05/03/17 19:30 Heparin Sodium (Porcine) (Heparin Inj) 5,000 units Q8H SQ 05/03/17 22:00 Miscellaneous Information 1 Q361D XX 05/03/17 19:30 Chlorhexidine Gluconate (Chlorhexidine 2% Cloth) 3 pack Taper DAILY@04 TOP 05/04/17 04:00 04/30/18 03:59 Chlorhexidine Gluconate (Chlorhexidine 2% Cloth) 3 pack UNSCH PRN TOP HYGIENIC CARE 05/03/17 19:30 Senna/Docusate Sodium (Yesenia-Colace) 1 tab BID PO 05/03/17 21:00 Magnesium Hydroxide (Milk Of Magnesia Liq) 30 ml Q12H PRN PO Mild constipation 05/03/17 19:30 Sennosides (Senokot) 17.2 mg Q12H PRN PO Moderate constipation 05/03/17 19:30 Bisacodyl (Dulcolax Supp) 10 mg DAILY PRN RECTAL SEVERE CONSITIPATION 05/03/17 19:30 Lactulose (Lactulose Liq) 30 ml DAILY PRN PO SEVERE CONSITIPATION 05/03/17 19:30 Hydrocortisone Sodium Succinate (SoluCORTEF INJ) 50 mg Q6H IV PUSH 05/04/17 00:00 Pharmacy Profile Note 0 ml @ 0 mls/hr UNSCH OTHER 05/03/17 19:30 Piperacillin Sod/ Tazobactam Sod 50 ml @ 200 mls/hr Q6H IV 05/04/17 00:00 Azithromycin 500 mg/Sodium Chloride 250 ml @ 250 mls/hr Q24H IV 05/03/17 20:00 05/03/17 21:03 Sodium Chloride 1,000 ml @ 1,000 mls/hr Q1H ONCE IV 05/03/17 20:20 05/03/17 21:19 05/03/17 20:20 Vancomycin HCl 1000 mg/Sodium Chloride 250 ml @ 250 mls/hr ONCE ONCE IV 05/03/17 21:00 05/03/17 21:59 Family History Dad: age 75, heart disease, polyps Mom: age 65, heart disease, HTN Social History Smoker No ETOH or drugs Physical Exam Vital Signs Vital Signs Date Time Temp Pulse Resp B/P (MAP) Pulse Ox O2 Delivery O2 Flow Rate FiO2 05/03/17 19:22 96 63/38 05/03/17 19:15 100 27 101/66 (78) 98 Nasal Cannula 2.00 05/03/17 18:45 104 29 63/38 (46) 94 Nasal Cannula 2.00 05/03/17 18:30 106 27 90/53 (65) 95 Nasal Cannula 2.00 05/03/17 18:15 106 34 92/58 (69) 96 Nasal Cannula 2.00 05/03/17 18:05 100.8 05/03/17 18:00 106 37 90/55 (67) 95 Nasal Cannula 2.00 05/03/17 17:45 112 20 87/50 (62) 93 Nasal Cannula 2.00 05/03/17 17:30 116 25 85/54 (64) 94 Nasal Cannula 2.00 05/03/17 17:15 119 82/48 (59) 05/03/17 17:00 118 32 81/52 (62) 96 Nasal Cannula 2.00 05/03/17 16:53 104.6 121 46 85/46 (59) 97 Nasal Cannula 2.00 05/03/17 16:53 Nasal Cannula 2.00 Physical Exam GENERAL: Well-nourished, well-developed patient. Lethargic and altered SKIN: Warm and dry. Chronic dermatitis skin changes HEAD: Normocephalic. EYES: No scleral icterus. No injection or drainage. NECK: Supple, trachea midline. No JVD or lymphadenopathy. CARDIOVASCULAR: Regular rate and rhythm without murmurs, gallops, or rubs. RESPIRATORY: Breath sounds equal bilaterally. No accessory muscle use. GASTROINTESTINAL: Abdomen soft, non-tender, nondistended. MUSCULOSKELETAL: No cyanosis, or edema. BACK: Nontender without obvious deformity. NEURO EXAM: GCS: 15 Mental Status: The patient is alert and oriented to person, place, and time with slow speech. Laboratory Laboratory Tests Test 05/03/17 16:00 05/03/17 17:05 05/03/17 19:47 White Blood Count 12.3 Red Blood Count 4.28 Hemoglobin 13.2 Hematocrit 38.0 Mean Corpuscular Volume 88.7 Mean Corpuscular Hemoglobin 30.9 Mean Corpuscular Hemoglobin Concent 34.8 Red Cell Distribution Width 14.5 Platelet Count 149 Mean Platelet Volume 11.8 Neutrophils (%) (Auto) 68.8 Lymphocytes (%) (Auto) 18.3 Monocytes (%) (Auto) 12.5 Eosinophils (%) (Auto) 0.2 Basophils (%) (Auto) 0.2 Neutrophils # (Auto) 8.5 Lymphocytes # (Auto) 2.2 Monocytes # (Auto) 1.5 Eosinophils # (Auto) 0.0 Basophils # (Auto) 0.0 CBC Comment AUTO DIFF Differential Comment AUTO DIFF CONFIRMED Platelet Estimate LOW Platelet Morphology Comment ENLARGED Stomatocytes 1+ Prothrombin Time 14.7 Prothromb Time International Ratio 1.5 Activated Partial Thromboplast Time 32.2 Urine Color DARK-BROWN Urine Turbidity CLOUDY Urine pH 5.5 Urine Specific [place] 1.017 Urine Protein 30 Urine Glucose (UA) NEG Urine Ketones NEG Urine Occult Blood SMALL Urine Nitrite NEG Urine Bilirubin SMALL Urine Urobilinogen LESS THAN 2.0 Urine Leukocyte Esterase LARGE Urine RBC 6 Urine WBC 85 Urine WBC Clumps MANY Urine Squamous Epithelial Cells 1 Urine Yeast (Budding) MANY Microscopic Urinalysis Comment CULTURE INDICATED Blood Urea Nitrogen 17 Creatinine 5.71 Random Glucose 95 Total Protein 5.9 Albumin 2.0 Calcium Level 7.2 Phosphorus Level 1.3 Magnesium Level 1.2 Alkaline Phosphatase 66 Aspartate Amino Transf (AST/SGOT) 38 Alanine Aminotransferase (ALT/SGPT) 27 Total Bilirubin 2.8 Sodium Level 130 Potassium Level 2.4 Chloride Level 93 Carbon Dioxide Level 24.7 Anion Gap 12 Estimat Glomerular Filtration Rate 8 Protein Corrected Calcium 7.8 Total Creatine Kinase 554 Creatine Kinase MB 1.0 Creatine Kinase MB % 0.2 Troponin I 0.27 Lactic Acid Level 3.3 1.9 Date/Time Source Procedure Growth Status 05/03/17 19:40 Blood Peripheral Aerobic Blood Culture Pending Received 05/03/17 19:40 Blood Peripheral Anaerobic Blood Culture Pending Received 05/03/17 17:00 Nasal Aspirate Influenza Types A,B Antigen (KIA) - Final NEGATIVE FOR FLU A AND B ANTIGEN.... Complete 05/03/17 16:00 Urine Clean Catch Urine Culture Pending Received Result Diagram: 05/03/17 1600 05/03/17 1600 Imaging Last 24 hours Impressions Chest X-Ray 05/03/17 [id number] Signed Impressions: Service Date/Time: Wednesday, May 03, 2017 17:04 - CONCLUSION: Developed in the right lung infiltrates. Seamus De La Cruz MD Septic Shock Reassessment Septic shock perfusion: reassessment completed Caprini VTE Risk Assessment Caprini VTE Risk Assessment: Mod/High Risk (score >= 2) Caprini Risk Assessment Model Point Value = 1 Point Value = 2 Point Value = 3 Point Value = 5 Age 41-60 Minor surgery BMI > 25 kg/m2 Swollen legs Varicose veins or History of unexplained or recurrent spontaneous Oral contraceptives or hormone replacement Sepsis (< 1 month) Serious lung disease, including pneumonia (< 1 month) Abnormal pulmonary function Acute myocardial infarction Congestive heart failure (< 1 month) History of inflammatory bowel disease Medical patient at bed rest Age 61-74 Arthroscopic surgery Major open surgery (> 45 min) Laparoscopic surgery (> 45 min) Malignancy Confined to bed (> 72 hours) Immobilizing plaster cast Central venous access Age >= 75 History of VTE Family history of VTE Factor V Leiden Prothrombin [id number] Lupus anticoagulant Anticardiolipin antibodies Elevated serum homocysteine Heparin-induced thrombocytopenia Other congenital or acquired thrombophilia Stroke (< 1 month) Elective arthroplasty Hip, pelvis, or leg fracture Acute spinal cord injury (< 1 month) Prophylaxis Regimen Total Risk Factor Score Risk Level Prophylaxis Regimen 0-1 Low Early ambulation 2 Moderate Order ONE of the following: *Sequential Compression Device (SCD) *Heparin 5000 units SQ BID 3-4 Higher Order ONE of the following medications: *Heparin 5000 units SQ TID *Enoxaparin/Lovenox 40 mg SQ daily (WT < 150 kg, CrCl > 30 mL/min) *Enoxaparin/Lovenox 30 mg SQ daily (WT < 150 kg, CrCl > 10-29 mL/min) *Enoxaparin/Lovenox 30 mg SQ BID (WT < 150 kg, CrCl > 30 mL/min) AND/OR *Sequential Compression Device (SCD) 5 or more Highest Order ONE of the following medications: *Heparin 5000 units SQ TID (Preferred with Epidurals) *Enoxaparin/Lovenox 40 mg SQ daily (WT < 150 kg, CrCl > 30 mL/min) *Enoxaparin/Lovenox 30 mg SQ daily (WT < 150 kg, CrCl > 10-29 mL/min) *Enoxaparin/Lovenox 30 mg SQ BID (WT < 150 kg, CrCl > 30 mL/min) AND *Sequential Compression Device (SCD) Assessment and Plan Assessment and Plan Sepsis - Pneumonia - UTI - Broad-spectrum antibiotics - Blood culture, sputum culture, urine culture, urine antigens - Infectious disease consultation on immunocompromised patient and sepsis Hypotension - Due to above - Aggressive IV fluids resuscitation - Levophed to keep map above 65 Renal failure - Dehydration - Strict I's and O's - Aggressive IV fluids resuscitation - Monitor creatinine level - Nephrology consultation - Ultrasound kidneys History of Hypertension - We will hold all antihypertensive meds in the picture of sepsis - Resume when indicated GERD - IV Pepcid Renal transplant - Continue Cyclosporine and Mycophenolate DVT GI prophylaxis - Teds SCDs - Subcutaneous heparin - Pepcid Critical Care: The total critical care time was 35 minutes. Time to perform other separately billable procedures was not included in the critical care time. Keith Dwyer MD May 03, 2017 8:15 pm
[2017-05-03] MEDS ORDERED: SODIUM CHLOR 0.9% 1000 ML INJ 100 ML IV ONE (20:19)
[2017-05-03] MEDS ORDERED: PROMETHAZINE HCL 25 MG TAB PO PRN (20:30)
[2017-05-03] MEDS: DOCUSATE SODIUM 50 MG/SENNA 8.6 MG TAB PO SCH (21:00)
[2017-05-03] MEDS ORDERED: VANCOMYCIN 1,000 MG/NS 250 ML IV ONE ×2 (21:00)
[2017-05-03] MEDS ORDERED: predniSONE 10 MG TAB PO SCH (21:00)
[2017-05-03] MEDS: AZITHROMYCIN INJ 500 MG in SODIUM CHLOR 0.9% 250 ML INJ 250 ML IV SCH (21:03)
--- NOTE | 2017-05-03 21:59 | RADRPT ---
EXAM DATE/TIME: 05/03/2017 21:25 [facility] COMPARISON: CT ABDOMEN & PELVIS W/O CONTRAST, March 19, 2017, 13:27. INDICATIONS : Left sided flank pain. ORAL CONTRAST: No oral contrast ingested. RADIATION DOSE: 30.75 CTDIvol (mGy) ; High dose protocol; Patient body habitus MEDICAL HISTORY : Cardiovascular disease. Hypertension. SURGICAL HISTORY : Hiatal hernia, AV shunt. Renal transplant ENCOUNTER: Initial ACUITY: 1 day PAIN SCALE: 7/10 LOCATION: Left upper quadrant TECHNIQUE: Volumetric scanning of the abdomen and pelvis was performed. Using automated exposure control and ad justment of the mA and/or kV according to patient size, radiation dose was kept as low as reasonably achievable to obtain optimal diagnostic quality images. DICOM format image data is available electro nically for review and comparison. FINDINGS: LOWER LUNGS: New bilateral slightly nodular airspace disease at the lung bases. LIVER: Diffusely decreased hepatic density without significant volume loss or intrahepatic ductal dilatation . Gallbladder is surgically absent. SPLEEN: Normal size without lesion. PANCREAS: Within normal limits. KIDNEYS: End-stage appearing atrophic kidneys. Right lower quadrant transplant kidney. 2 cm cyst in the transp lant kidney. Slightly less prominent dilatation of the renal transplant collecting system. ADRENAL GLANDS: Within normal limits. VASCULAR: There is no aortic aneurysm. BOWEL/MESENTERY: The stomach, small bowel, and colon demonstrate no acute abnormality. Stable densely calcified mesent smooth lesion which may reflect sequela of prior infection or hemorrhage. Appendix is visualized and no rmal in appearance. There is no free intraperitoneal air or fluid. ABDOMINAL WALL: Within normal limits. RETROPERITONEUM: There is no lymphadenopathy. BLADDER: Decompressed. REPRODUCTIVE: Within normal limits. INGUINAL: There is no lymphadenopathy or hernia. MUSCULOSKELETAL: Within normal limits for patient age. CONCLUSION: 1. End-stage atrophic kidneys with right lower quadrant renal transplant. There is improved mild dila tation of the renal transplant collecting system. 2. Normal appendix. 3. Subtle but new slightly nodular airspace disease at the lung bases bilaterally. Developing pneumon ia/atypical infection cannot be excluded in this presumably immunocompromised patient. Manan Correa MD on May 03, 2017 at 21:52 Board Certified Radiologist. This report was verified electronically.
[2017-05-03] MEDS: SODIUM CHLORIDE 0.9% FLUSH 10 ML FLUSH IV FLUSH SCH (22:25)
[2017-05-03] MEDS: FAMOTIDINE 20 MG/2 ML VIAL IV PUSH SCH (22:25)
[2017-05-03] MEDS: ONDANSETRON HCL 4 MG/2 ML VIAL IV PUSH PRN (22:26)
[2017-05-03] MEDS: HEPARIN SODIUM - SQ 10,000 UNITS/ML VIAL SQ SCH (22:26)
[2017-05-03] MEDS: ATORVASTATIN 10 MG TAB PO SCH (22:27)
--- NOTE | 2017-05-03 23:09 | EKG ---
Date Performed: 05/03/2017 Time Performed: 16:51:31 PTAGE: 51 years EKG: SINUS TACHYCARDIA WITH PAC'S NONSPECIFIC INTRAVENTRICULAR CONDUCTION DELAY NONSPECIFIC ST & T-WAVE ABNORMALITY ABNORMAL ECG NO PREVIOUS TRACING DOCTOR: Hamilton Snowden Interpretating Date/Time 05/03/2017 23:07:22
[2017-05-03] MEDS: SODIUM CHLOR 0.9% 1000 ML INJ 1,000 ML IV SCH (23:15)
[2017-05-04] VITALS (13 sets, daily range): BP systolic 114–136; BP diastolic 60–67; PULSE 83–99; RESP 22–31; TEMP 97.6–98.8; O2SAT 96–100
[2017-05-04] MEDS: OSELTAMIVIR PHOSPHATE 30 MG CAP PO SCH ×2 (00:12→20:07)
[2017-05-04] MEDS: cycloSPORINE 25 MG CAP PO SCH ×3 (00:12→20:06)
[2017-05-04] MEDS: MYCOPHENOLATE MOFETIL 500 MG TAB PO SCH ×2 (00:12→04:23)
[2017-05-04] MEDS: HYDROCORTISONE SOD SUCCINATE 100 MG VIAL IV PUSH SCH ×5 (00:13→23:22)
[2017-05-04] MEDS ORDERED: SODIUM CHLOR 0.9% 1000 ML INJ 1,000 ML IV ONE ×2 (00:15)
[2017-05-04] MEDS: PIPERACIL-TAZO 2.25 GM PREMIX 50 ML IV SCH ×5 (00:29→23:22)
[2017-05-04] MEDS ORDERED: NOREPINEPHRINE 4 MG/D5W 250 ML IV PRN (01:45)
[2017-05-04] MEDS: SODIUM CHLOR 0.9% 1000 ML INJ 1,000 ML IV SCH ×3 (02:02→23:21)
[2017-05-04] MEDS: CHLORHEXIDINE GLUCONATE 2 % 1 PACK (2 CLOTHS) TOP SCH (04:00)
[2017-05-04] MEDS: HEPARIN SODIUM - SQ 10,000 UNITS/ML VIAL SQ SCH ×3 (04:24→21:42)
[2017-05-04] MEDS: ACETAMINOPHEN/HYDROcodone 325 MG/5 MG TAB PO PRN (04:25)
[2017-05-04 04:31] LABS: AUTOMATED NEUTROPHIL # 6.3 TH/MM3 (1.8-7.7); BASOPHIL % 0.2 % (0.0-2.0); HEMATOCRIT 36.4 % (35.0-46.0); HEMOGLOBIN 12.4 GM/DL (11.6-15.3); LYMPH % 4.2 % (9.0-44.0); LYMPHOCYTE # 0.3 TH/MM3 (1.0-4.8); MEAN CORPUSCULAR HEMOGLOBIN 30.7 PG (27.0-34.0); MEAN PLATELET VOLUME 10.5 FL (7.0-11.0); MONO % 4.6 % (0.0-8.0); MONOCYTE # 0.3 TH/MM3 (0-0.9); PLATELET COUNT 115 TH/MM3 (150-450); RED BLOOD COUNT 4.04 MIL/MM3 (4.00-5.30); RED CELL DISTRIBUTION WIDTH 14.8 % (11.6-17.2); WHITE BLOOD COUNT 6.9 TH/MM3 (4.0-11.0)
[2017-05-04 04:47] LABS: INTERNATIONAL NORMALIZED RATIO 1.4 RATIO; PROTHROMBIN TIME - PATIENT 14.1 SEC (9.8-11.6)
[2017-05-04 04:51] LABS: ALBUMIN 1.7 GM/DL (3.4-5.0); BICARBONATE 21.4 MEQ/L (21.0-32.0); CALCIUM 6.4 MG/DL (8.5-10.1); CREATININE 4.19 MG/DL (0.50-1.00); MAGNESIUM 1.2 MG/DL (1.5-2.5); PHOSPHORUS 1.7 MG/DL (2.5-4.9)
[2017-05-04 05:02] LABS: TOTAL BILIRUBIN ADULT 2.6 MG/DL (0.2-1.0); TOTAL PROTEIN 5.3 GM/DL (6.4-8.2)
[2017-05-04 05:09] LABS: CALCIUM-PROTEIN CORRECTED 7.3 MG/DL (8.5-10.1)
--- NOTE | 2017-05-04 05:40 | PD.PROCEDR ---
Procedure Note Procedure Centerline placement A time-out was completed verifying correct patient, procedure, site, positioning , and special equipment if applicable. The patient was placed in a dependent position appropriate for central line placement based on the vein to be cannulated. The patients left neck was prepped and draped in sterile fashion. 1 % Lidocaine was used to anesthetize the surrounding skin area. A triple lumen 9 [place] Cordis catheter was introduced into the the internal jugular vein using the Seldinger technique and under ultrasound guidance. The catheter was threaded smoothly over the guide wire and appropriate blood return was obtained. Each lumen of the catheter was evacuated of air and flushed with sterile saline. The catheter was then sutured in place to the skin and a sterile dressing applied. Perfusion to the extremity distal to the point of catheter insertion was checked and found to be adequate. Estimated Blood Loss: 1ml The patient tolerated the procedure well and there were no complications. Keith Dwyer MD May 04, 2017 5:40 am
--- NOTE | 2017-05-04 06:10 | RADRPT ---
EXAM DATE/TIME: 05/04/2017 04:15 [facility] COMPARISON: CHEST SINGLE AP, May 03, 2017, 17:04. INDICATIONS : Shortness of breath, possible pulmonary disease. MEDICAL HISTORY : Hypertension. Hypercholesterolemia. Gastroesophageal reflux disease. Skin Ca MRSA SURGICAL HISTORY : Cholecystectomy. Tubal ligation. section. ENCOUNTER: Subsequent ACUITY: 2 days PAIN SCORE: Non-responsive. LOCATION: Bilateral chest FINDINGS: Patchy right sided pneumonia present, especially the upper lobe and mostly worse in the interim. Left lung remains clear. I don't see a large effusion. No pneumothorax. Heart size stable, upper limits of normal. CONCLUSION: Worsening right-sided infiltrate, especially in the upper lobe. Seamus Maria MD on May 04, 2017 at 6:07 Board Certified Radiologist. This report was verified electronically.
[2017-05-04] MEDS: DOCUSATE SODIUM 50 MG/SENNA 8.6 MG TAB PO SCH ×2 (08:53→20:08)
[2017-05-04] MEDS: FAMOTIDINE 20 MG/2 ML VIAL IV PUSH SCH ×2 (08:53→20:08)
[2017-05-04] MEDS: LACTOBACILLUS ACIDOPHILUS TAB PO SCH ×3 (08:54→18:33)
[2017-05-04] MEDS: SODIUM CHLORIDE 0.9% FLUSH 10 ML FLUSH IV FLUSH SCH ×2 (08:54→20:07)
[2017-05-04] MEDS ORDERED: WHEAT DEXTRIN PO SCH (09:00)
[2017-05-04] MEDS: METOCLOPRAMIDE HCL 10 MG TAB PO SCH ×3 (09:03→18:33)
[2017-05-04] MEDS: FLUCONAZOLE 100 MG PREMIX BAG 50 ML IV SCH (11:15)
[2017-05-04] MEDS ORDERED: CALCIUM GLUCONATE INJ 2 GM in DEXTROSE 5% IN WATER 100ML INJ 100 ML IV ONE ×2 (11:30)
[2017-05-04] MEDS ORDERED: POTASSIUM PHOSPHATE INJ 30 MMOL in SODIUM CHLOR 0.9% 250 ML INJ 250 ML IV ONE (12:00)
[2017-05-04] MEDS ORDERED: VANCOMYCIN 1,000 MG/NS 250 ML IV ONE ×2 (12:00)
--- NOTE | 2017-05-04 13:11 | HHI.CCPN ---
Subjective Remarks/Hospital Course 51-year-old female with past medical history of renal transplant since 1989 presents with shortness of breath and fever over the past couple days by ambulance. Her axillary temperature was 100.4. She states she feels ill all over but significant history is limited on initial evaluation. In the emergency department patient was severely hypotensive requiring the emergent central line placement, was started on IV antibiotics and was bolused with 3 L of normal saline. SUBJ 05/04/17: Lying in bed, mild respiratory distress. Seen by Nephrology and ID. Continue aggressive hydration. Diflucan added by ID. BP improved, not requiring pressors-have been weaned off. Bilateral wheezing start scheduled DuoNeb Objective Vital Signs Date Time Temp Pulse Resp B/P (MAP) Pulse Ox O2 Delivery O2 Flow Rate FiO2 05/04/17 12:00 86 05/04/17 08:00 97.6 28 136/65 (88) 100 05/03/17 21:00 Nasal Cannula 4.00 Intake and Output 05/04/17 05/04/17 05/05/17 08:00 16:00 00:00 Intake Total 7185 ml Output Total 2000 ml Balance 5185 ml Result Diagram: 05/04/17 0410 05/04/17 0410 Other Results Microbiology Date/Time Source Procedure Growth Status 05/03/17 17:00 Nasal Aspirate Influenza Types A,B Antigen (KIA) - Final NEGATIVE FOR FLU A AND B ANTIGEN.... Complete Imaging Last 24 hours Impressions Chest X-Ray 05/03/17 1648 Signed Impressions: Service Date/Time: Wednesday, May 03, 2017 17:04 - CONCLUSION: Developed in the right lung infiltrates. Seamus De La Cruz MD Objective Remarks GENERAL: Well-nourished, well-developed patient. Lethargic and mild respiratory distress SKIN: Warm and dry. Chronic dermatitis skin changes HEAD: Normocephalic. EYES: No scleral icterus. No injection or drainage. NECK: Supple, trachea midline. No JVD or lymphadenopathy. CARDIOVASCULAR: Regular rate and rhythm without murmurs, gallops, or rubs. RESPIRATORY: Breath sounds equal bilaterally. Mild accessory muscle use. Bilateral wheezes GASTROINTESTINAL: Abdomen soft, non-tender, nondistended. MUSCULOSKELETAL: No cyanosis, or edema. NEURO EXAM: GCS: 15 The patient is alert and oriented to person, place, and time with normal speech. No focal deficits Urinary Catheter: Yes Assessment to: Continue Vascular Central Line Catheter: Yes Assessment to: Continue A/P Assessment and Plan Sepsis - Pneumonia, UTI - Broad-spectrum antibiotics (Azithromycin, Zosyn and vancomycin). Diflucan added by ID - F/U Blood culture, sputum culture, urine culture, urine antigens - Infectious disease consultation on immunocompromised patient and sepsis Hypotension - Due to above, now off pressors - Aggressive IV fluids resuscitation - Levophed to keep map above 65 - Continue stress dose steroids COPD Exacerbation - DuoNeb every 6 hours scheduled and every 2 hours as needed - Continue IV Solu-Cortef broad-spectrum antibiotics Renal failure - Dehydration - Strict I's and O's - Aggressive IV fluids resuscitation - Monitor creatinine level, slightly improved - Nephrology consultation - Ultrasound kidneys History of Hypertension - We will hold all antihypertensive meds in the picture of sepsis - Resume when indicated GERD - IV Pepcid Renal transplant - Continue Cyclosporine and Mycophenolate-Nephrology managing DVT GI prophylaxis - Teds SCDs - Subcutaneous heparin - Pepcid Critical Care: The total critical care time was 35 minutes. Time to perform other separately billable procedures was not included in the critical care time. Sherrie Way MD May 04, 2017 13:11
[2017-05-04] MEDS: MAGNESIUM SULFATE 1 GM PREMIX 100 ML IV SCH ×2 (14:01→15:10)
--- NOTE | 2017-05-04 14:55 | MB ---
cc: LEE VEGA MD DATE OF CONSULTATION: 05/04/2017. REASON FOR CONSULTATION: Renal transplant patient in severe sepsis. REQUESTING PHYSICIAN: Dr. Dwyer. HISTORY OF PRESENT ILLNESS: This is a 51-year-old white female who has history of renal transplantation. The patient presented to the emergency department with altered mental status, nausea, vomiting, diarrhea and fever with temperature as high as 104 degrees measured. She was found to have also tachycardia and elevated white blood cell count and elevated lactic acid of 3.3. She was given IV fluids and admitted to the intensive care unit with septic shock. The patient notes that she has had cough. She was recently discharged from this hospital on April 22 after treatment for influenza and pneumonia. She was discharged on oral antibiotic which she completed. She states that after two days at home she started feeling sick again and then she was forgetting things and started developing body aches. She notes that the cough started up and has continued but she was not coughing up any sputum. Influenza test was repeated and is negative. She is now on antibiotics. Temperature is normal currently. White count has decreased. Chest x-ray was performed and it shows right lung infiltrate worsening, especially in the upper lobe. Urinalysis was performed and it showed 85 white cells and also many budding yeast. Urine culture is pending. Blood cultures were taken and results are pending as well. Currently the patient looks lethargic but she is awake and responds appropriately. She notes that she had a lot of vomiting yesterday. The spinal fluid evaluation and urine culture at that time was negative as well and blood cultures were alsonegative. The stools were tested for enteric pathogens and was negative. The patient denies chest pain, headache or shortness of breath. She reports that she coughed up sputum earlier this morning. She is currently coughing profusely but not producing sputum. The patient notes that she fell at home while trying to get out of her bathroom and did not injure her head but she fell onto her right knee. PAST MEDICAL HISTORY: 1. Renal transplantation in 1989. 2. Lupus. 3. Diabetes mellitus. 4. Hypertension. 5. Gastroesophageal reflux disease (GERD). 6. Hysterectomy. 7. Cholecystectomy. 8. Hernia repair. 9. . 10. Gastroparesis. ALLERGIES: 1. NIFEDIPINE. 2. LEVOFLOXACIN. 3. ADHESIVES. 4. SUTURE MATERIAL. MEDICATIONS: 1. Vancomycin. 2. Piperacillin / tazobactam. 3. Azithromycin. 4. Lactinex. 5. Reglan. 6. Cyclosporin. 7. Lipitor. 8. Tamiflu. 9. Cellcept. 10. Deltasone. 11. Pepcid. 12. Yesenia-Colace. 13. Phenergan. SOCIAL HISTORY: The patient smokes half a pack of cigarettes a day. No alcohol use. No illicit drugs. FAMILY HISTORY: Noncontributory. REVIEW OF SYSTEMS: Pertinents mentioned above in the history of present illness. The patient denies dysuria, abdominal pain, back pain. PHYSICAL EXAMINATION: GENERAL: This is a moderately obese female who is in no acute distress but appears somewhat lethargic. VITAL SIGNS: Temperature 97.6, blood pressure 123/67, heart rate 89. The patient on oxygen via nasal cannula. HEAD, EYES, EARS, NOSE, THROAT: Head is atraumatic. Extraocular movements grossly intact. The sclerae are pale. No icterus. The oropharynx has moist mucosa without thrush. No lesions. NECK: The neck is supple without adenopathy. LUNGS: Rhonchi at both lung candelaria. HEART: Regular S1 and S2. No murmurs, rubs or gallops audible. ABDOMEN: Bowel sounds present, soft, nontender. RECTAL: Not performed. EXTREMITIES: No clubbing or cyanosis or edema. The patient has an area of redness at the base of the great toe. This blanches with palpation. It is mildly tender. SKIN: The skin is dry and warm. NEUROLOGIC: No gross focal findings. PSYCHIATRIC: The patient is calm and cooperative. LABORATORY DATA: WBC 6.9, platelets 115,000, hemoglobin of 12.4, 91% neutrophils, 4% lymphocytes. Creatinine 4.19, BUN 16, sodium 140, AST 41, ALT 27, alkaline phosphatase 60, sodium 140. IMPRESSION: 1. Septic shock. 2. Pneumonia probably secondary to aspiration in a patient who has had vomiting and also has been coughing. 3. Urinary tract infection suggested by urinalysis which could possibly be the source of the sepsis. 4. Renal transplant status. The patient is immunocompromised. 5. Fever. Temperature now lower. 6. Leukocytosis. White blood cell count now lower. 7. Acute renal failure. The patient is being followed by nephrology. RECOMMENDATIONS: 1. Monitor the blood cultures. 2. Monitor urine culture. 3. Obtain sputum sample if the patient coughs up sputum. 4. Continue piperacillin / tazobactam. 5. Continue azithromycin. 6. Add fluconazole. 7. Monitor clinical status. 8. Continue to treat with the Tamiflu for influenza coverage given her symptomatology with the body aches, high fever and pulmonary symptoms. Thank you this consultation. I will follow the patient's progress along with you and will make further recommendations on followup. Lee Vega MD FD/PATRICIA /10:53 AM /2:23 PM MTDMarisela
[2017-05-04] MEDS: RESP: ALBUTEROL 2.5 MG/IPRATROPIUM 0.5 MG NEB (SCH) NEB ×2 (14:58→21:27)
--- NOTE | 2017-05-04 15:31 | MB ---
cc: ELISEO HOPE MD DATE OF CONSULTATION: 05/04/2017. REASON FOR CONSULTATION: Acute renal failure management with history of renal transplant. HISTORY OF PRESENT ILLNESS: This is a 48-year-old female with history of renal transplant since 1989. She follows up with Dr. Temple as an outpatient. The patient was recently admitted here approximately two weeks ago when she presented with sepsis apparently secondary to the flu. She was treated at that time and given Ceftin. Her renal function had some mild acute kidney injury; however, her creatinine improved to a level of 1.3 at the time of discharge on April 23. The patient reportedly had been feeling ill at home since then and presented to the emergency room last night with symptoms of hypotension and apparent sepsis. Her systolic blood pressure was initially in the 80s and she was started on IV fluids. Regarding her renal function, she presented with a creatinine of 5.7 overnight and this has improved somewhat slightly to a level of 4.1. The patient is being treated for pneumonia with findings of upper lobe consolidation as well as possible urinary tract infection and she is on broad-spectrum antibiotics with azithromycin, Tamiflu, vancomycin and Zosyn. The patient reportedly at home have been taking all of her transplant medications and she reports she has not missed any doses. She is feeling somewhat better since her admission here; however, she is being monitored in the intensive care unit. Given the presence of acute renal failure and history of renal transplant, nephrology was consulted further evaluation. REVIEW OF SYSTEMS: The patient reported having some fevers and chills at home, some ongoing nausea and poor p.o. intake. No diarrhea. No chest pains. No shortness of breath. No dizziness or loss of consciousness. Otherwise the review of systems was negative. PAST MEDICAL HISTORY: Her past medical history includes: 1. Renal transplant from 1989. The patient follows up with Dr. Temple as an outpatient and her baseline creatinine levels apparently ranged between 1.0 and 1.2. 2. History of diabetic gastroparesis. 3. Diabetes type 2. 4. Anxiety. 5. Depression. 6. Dyslipidemia. 7. Hypertension. 8. Arthritis. 9. Lupus. 10. Gastroesophageal reflux disease (GERD). 11. Chronic back pain. 12. Kidney stones. 13. COPD. 14. Skin cancer of the right thigh in 2010. PAST SURGICAL HISTORY: 1. donor renal transplant in 1989 at [facility]. 2. History of hysterectomy in 1999. 3. section in 1984. 4. Cholecystectomy in 1996. 5. Hernia repair in 1996. MEDICATIONS AT HOME: 1. Losartan. 2. Atorvastatin. 3. Protonix. 4. Clonidine. 5. Metformin. 6. Atenolol. 7. Benefiber. 8. A probiotic. 9. Zofran. 10. Reglan. 11. Promethazine. 12. Cellcept 500 milligrams p.o. twice a day. 13. Cyclosporin 50 milligrams p.o. twice a day. 14. Prednisone 5 milligrams p.o. daily. FAMILY HISTORY: Noncontributory. SOCIAL HISTORY: The patient has used marijuana in the past. PHYSICAL EXAMINATION: GENERAL: At the time of evaluation, awake, lethargic and in no apparent distress. HEAD, EYES, EARS, NOSE, THROAT: Neck soft supple. CARDIAC: Regular rate and rhythm. PULMONARY: Decreased breath sounds at the bases, otherwise clear to auscultation. ABDOMEN: The abdomen is soft, nontender and nondistended. EXTREMITIES: No edema. Patient with mild erythema right foot. ASSESSMENT AND PLAN: 1. Acute kidney injury in the setting of renal transplant. The patient presented with a creatinine of 5.7 which improved to a level of 4.1 overnight on IV fluids. The patient has made 1.8 liters of urine output over the last 12 hours since admission. At this point, I suspect she has some acute kidney injury secondary to hypotension and volume depletion in the setting of ongoing sepsis. At this point, continue with IV fluids. Continue with normal saline at 125 cc/hour. Continue to monitor her urine output. In addition with the setting of renal transplant, will go ahead and check a transplant ultrasound with Doppler which is pending at this point. The patient's immunosuppression consists of CellCept 500 milligrams p.o. twice a day, Cyclosporin 50 milligrams p.o. twice a day and Prednisone 5 milligrams daily. Given her immunosuppression in the setting of sepsis, I will go ahead and hold her CellCept at this point; however, I would continue CellCept once her symptoms further stabilize. 2. Pneumonia and sepsis in the setting of a urinary tract infection and apparent right foot erythema. The patient had a systolic blood pressure in the 80s upon presentation which has improved to 130s now. Continue with aggressive IV fluids with normal saline at 125 cc/hour. The patient need pressors if her blood pressure further drops; however, continue with fluids at this point. Given her sepsis, I will hold her CellCept immunosuppression at this point and will continue to monitor her renal function. Of concern, she has reportedly recently bumped her right foot. She denies any gout symptoms since she has had gout in the past. Continue to monitor closely on antibiotics. Will check uric acid. Continue to monitor at this point. 3. Hypokalemia. The patient has a potassium of 2.4, which corrected slightly to a level of 3.6. Continue to monitor and replace as needed. 4. Hypocalcemia. Patient with a calcium level of 7.3 corrected. Will give calcium gluconate and continue to monitor. 5. Hypophosphatemia and hypomagnesemia. Continue to monitor and will replete electrolytes. 6. Hypoalbuminemia. The patient had an albumin level of 1.7. Her urinalysis only shows 30 protein. I will further quantify the urine protein to assess for any proteinuria; however, I suspect this might be malnutrition in the setting of sepsis. Will continue to monitor and follow nutrition as possible. MD RICARDO Castellano/PATRICIA /11:12 AM /2:44 PM MTDD
--- NOTE | 2017-05-04 18:18 | RADRPT ---
EXAM DATE/TIME: 05/04/2017 17:30 [place] COMPARISON: US KIDNEY / TRANSPLANT, April 19, 2017, 17:18. INDICATIONS : Increased labs. MEDICAL HISTORY : Hypercholesterolemia. Hypertension. Gastroesophageal reflux disease. Dizziness. Migraine. Hypertensio n. Renal disease. Arthritis. Skin cancer. MRSA. SURGICAL HISTORY : Cholecystectomy. Tubal ligation. section. AV fistula. Hysterectomy. Renal transplant ENCOUNTER: Subsequent ACUITY: > 1 year PAIN SCORE: 0/10 LOCATION: Right lower quadrant MEASUREMENTS: TRANSPLANT KIDNEY: 12.5 x 6.7 x 7.1 cm LOCATION: Right lower quadrant. PREVIOUS ULTRASOUND: Apr 19 2017 PREVIOUS ARCUATE ARTERIES INDEX: Upper - 0.6 Mid - 0.6 Lower - 0.6 ARCUATE ARTERIES RESISTIVE INDEX: Upper - 0.6 Mid - 0.6 Lower - 0.6 RA/EIA Ratio: 0.3 MAIN RENAL ARTERY VELOCITY: (cm/sec): 18.4 MAIN RENAL VEIN: Patent EXTERNAL ILIAC ARTERY VELOCITY (cm/sec): 62.9 * NORMAL DOPPLER FINDINGS Arcuate arteries - RI = 0.6 - 0.8 Renal artery = under 200 cm/sec Renal vein = May be monophasic with continuous flow or demonstrate some pulsatility with cardiac cycl e FINDINGS: TRANSPLANT KIDNEY: There has been no new or significant changes with the appearance of the transplanted kidney compared to the prior exam of 04/19/2017. The echogenicity of the renal parenchyma is within normal limits and s table. There are benign-appearing cysts again noted involving the transplanted kidney. There is a cys t measuring 2.8 cm in the midpole. There is a cyst measuring 1.5 cm in the lower pole. No evidence of hydronephrosis. URINARY BLADDER: Not visualized CONCLUSION: Stable examination compared to the prior study. No new or significant changes. Jeff Britton MD on May 04, 2017 at 18:12 Board Certified Radiologist. This report was verified electronically.
[2017-05-04] MEDS: AZITHROMYCIN INJ 500 MG in SODIUM CHLOR 0.9% 250 ML INJ 250 ML IV SCH (20:07)
[2017-05-04] MEDS: ATORVASTATIN 10 MG TAB PO SCH (20:07)
[2017-05-05] VITALS (14 sets, daily range): BP systolic 89–174; BP diastolic 47–90; PULSE 88–110; RESP 16–44; TEMP 97.3–98.2; O2SAT 93–99
[2017-05-05] MEDS: ACETAMINOPHEN/HYDROcodone 325 MG/5 MG TAB PO PRN ×3 (00:51→22:49)
[2017-05-05] MEDS: ONDANSETRON HCL 4 MG/2 ML VIAL IV PUSH PRN (03:08)
[2017-05-05] MEDS: RESP: ALBUTEROL 2.5 MG/IPRATROPIUM 0.5 MG NEB (SCH) NEB ×4 (03:34→20:12)
[2017-05-05] MEDS: CHLORHEXIDINE GLUCONATE 2 % 1 PACK (2 CLOTHS) TOP SCH (04:00)
[2017-05-05 05:51] LABS: AUTOMATED NEUTROPHIL # 4.6 TH/MM3 (1.8-7.7); BASOPHIL % 0.2 % (0.0-2.0); HEMATOCRIT 32.4 % (35.0-46.0); LYMPH % 4.8 % (9.0-44.0); LYMPHOCYTE # 0.2 TH/MM3 (1.0-4.8); MEAN CORPUSCULAR HEMOGLOBIN 30.4 PG (27.0-34.0); MEAN CORPUSCULAR HGB CONC 34.1 % (32.0-36.0); MEAN PLATELET VOLUME 11.1 FL (7.0-11.0); MONO % 5.3 % (0.0-8.0); MONOCYTE # 0.3 TH/MM3 (0-0.9); NEUT % 89.7 % (16.0-70.0); PLATELET COUNT 149 TH/MM3 (150-450); RED BLOOD COUNT 3.64 MIL/MM3 (4.00-5.30); RED CELL DISTRIBUTION WIDTH 15.2 % (11.6-17.2); WHITE BLOOD COUNT 5.1 TH/MM3 (4.0-11.0)
[2017-05-05] MEDS: HYDROCORTISONE SOD SUCCINATE 100 MG VIAL IV PUSH SCH ×4 (05:59→23:58)
[2017-05-05] MEDS: PIPERACIL-TAZO 2.25 GM PREMIX 50 ML IV SCH ×4 (05:59→23:58)
[2017-05-05] MEDS: HEPARIN SODIUM - SQ 10,000 UNITS/ML VIAL SQ SCH ×3 (05:59→21:53)
[2017-05-05 06:20] LABS: ALBUMIN 1.9 GM/DL (3.4-5.0); BICARBONATE 20.5 MEQ/L (21.0-32.0); CALCIUM 7.3 MG/DL (8.5-10.1); CALCIUM-PROTEIN CORRECTED 8.1 MG/DL (8.5-10.1); CREATININE 2.95 MG/DL (0.50-1.00); MAGNESIUM 1.5 MG/DL (1.5-2.5); PHOSPHORUS 1.6 MG/DL (2.5-4.9); TOTAL BILIRUBIN ADULT 1.1 MG/DL (0.2-1.0); TOTAL PROTEIN 5.6 GM/DL (6.4-8.2)
[2017-05-05] MEDS ORDERED: POTASSIUM CHLOR 40 MEQ PREMIX 100 ML IV-CENTRAL ONE (07:30)
[2017-05-05] MEDS ORDERED: POTASSIUM CHLORIDE 25 MEQ EFFERVESCENT TAB PO ONE (07:30)
[2017-05-05] MEDS: FAMOTIDINE 20 MG/2 ML VIAL IV PUSH SCH ×2 (08:53→21:52)
[2017-05-05] MEDS: SODIUM CHLORIDE 0.9% FLUSH 10 ML FLUSH IV FLUSH SCH ×2 (08:53→21:52)
[2017-05-05] MEDS: cycloSPORINE 25 MG CAP PO SCH ×2 (08:54→21:52)
[2017-05-05] MEDS: METOCLOPRAMIDE HCL 10 MG TAB PO SCH ×3 (08:54→18:40)
[2017-05-05] MEDS: DOCUSATE SODIUM 50 MG/SENNA 8.6 MG TAB PO SCH ×2 (08:54→21:00)
[2017-05-05] MEDS: LACTOBACILLUS ACIDOPHILUS TAB PO SCH ×3 (08:54→18:40)
--- NOTE | 2017-05-05 10:28 | HHI.NPPN ---
Subjective Additional Remarks Feeling somewhat better today Objective Data Data Vital Signs Date Time Temp Pulse Resp B/P (MAP) Pulse Ox O2 Delivery O2 Flow Rate FiO2 05/05/17 10:00 102 05/05/17 08:00 110 05/05/17 08:00 97.3 110 44 123/75 (91) 99 05/05/17 07:18 98 21 05/05/17 06:00 102 05/05/17 04:00 99 05/05/17 04:00 97.6 99 28 131/58 (82) 99 05/05/17 02:00 94 05/05/17 01:51 20 05/05/17 00:00 95 05/05/17 00:00 98.2 95 24 89/47 (61) 93 05/04/17 22:00 99 05/04/17 20:00 83 05/04/17 20:00 98.8 83 28 120/61 (80) 98 05/04/17 19:08 97 21 05/04/17 18:00 89 05/04/17 16:00 98.4 85 24 125/60 (81) 98 05/04/17 16:00 85 05/04/17 14:59 96 21 05/04/17 12:00 86 05/04/17 12:00 98.1 86 22 114/67 (83) 99 -: 05/05/17 0530 05/05/17 0530 Physical Exam General Appearance: Well Developed, Well Nourished, No Acute Distress Throat Throat Exam: Oral Mucosa [place] & Moist Neck Neck Exam: Neck Supple Pulmonary Resp Exam: Decreased Bases Cardiology CV Exam: Regular, Normal Sinus Rhythm, Good Perfusion Gastrointestinal/Abdomen GI Exam: Soft, Non-Tender, Bowel Sounds Present Integumentary Skin Exam: Warm, Dry, Intact Extremeties Extremities Exam: No Edema Neurologic Neuro Exam: Alert, Awake, Oriented, Speech Clear Assessment/Plan Problem List: (1) SHELTON (acute kidney injury) ICD Codes: N17.9 - Acute kidney failure, unspecified Status: Resolved Plan: Creatinine 1.3 on 04/23/2017 Baseline creatinine 1.0-1.2 SHEL[place] secondary to hypotension/ sepsis. Initial SBP in 80s Creatinine Improving with IVFs Continue with normal saline at 125 cc/hour. Good UOP - continue to monitor. Follow electrolytes: Will replace K+, Phosphorus today. Calcium, mag given yesterday. (2) Renal transplant recipient ICD Codes: Z94.0 - Kidney transplant status Plan: Home immunosupression: CellCept 500 milligrams p.o. BID Cyclosporin 50 milligrams p.o. BID Prednisone 5 milligrams daily. Cellcept held in setting of sepsis - restart when stable. CSA levels pending (3) Pneumonia ICD Codes: J18.9 - Pneumonia, unspecified organism Status: Acute Plan: Pneumonia and sepsis in the setting of a urinary tract infection Continue to follow with ID - on Zosyn, azithromycin, fluconazole. Continue renal dosing antibiotics (4) Sepsis ICD Codes: A41.9 - Sepsis Status: Acute Plan: Continue antibiotics, on IVFs Problem Qualifiers (1) Pneumonia: Qualified Codes: J18.9 - Pneumonia, unspecified organism (2) Sepsis: Qualified Codes: A41.9 - Sepsis, unspecified organism Baltazar Armendariz MD May 05, 2017 10:28
[2017-05-05] MEDS: FLUCONAZOLE 100 MG PREMIX BAG 50 ML IV SCH (10:53)
[2017-05-05] MEDS: SODIUM CHLOR 0.9% 1000 ML INJ 1,000 ML IV SCH ×3 (10:53→22:24)
[2017-05-05] MEDS ORDERED: POTASSIUM PHOSPHATE INJ 30 MMOL in SODIUM CHLOR 0.9% 250 ML INJ 250 ML IV ONE (11:00)
--- NOTE | 2017-05-05 15:17 | HHI.CCPN ---
Subjective Remarks/Hospital Course 51-year-old female with past medical history of renal transplant since 1989 presents with shortness of breath and fever over the past couple days by ambulance. Her axillary temperature was 100.4. She states she feels ill all over but significant history is limited on initial evaluation. In the emergency department patient was severely hypotensive requiring the emergent central line placement, was started on IV antibiotics and was bolused with 3 L of normal saline. SUBJ 05/04/17: Lying in bed, mild respiratory distress. Seen by Nephrology and ID. Continue aggressive hydration. Diflucan added by ID. BP improved, not requiring pressors-have been weaned off. Bilateral wheezing start scheduled DuoNeb 05/05: Overall subjectively improving. Creat trending down, 2.95 today. K 2.7 getting replaced. Yeast in urine culture on Diflucan. CXR showing increasing RUL infiltrate Objective Vital Signs Date Time Temp Pulse Resp B/P (MAP) Pulse Ox O2 Delivery O2 Flow Rate FiO2 05/05/17 14:45 34 05/05/17 14:00 95 05/05/17 12:00 97.7 131/77 (95) 98 05/05/17 07:18 21 05/03/17 21:00 Nasal Cannula 4.00 Intake and Output 05/05/17 05/05/17 05/06/17 08:00 16:00 00:00 Intake Total 1051 ml 0 ml Output Total 800 ml Balance 251 ml 0 ml Result Diagram: 05/05/17 0530 05/05/17 0530 Other Results Microbiology Date/Time Source Procedure Growth Status 05/03/17 17:00 Nasal Aspirate Influenza Types A,B Antigen ([facility]) - Final NEGATIVE FOR FLU A AND B ANTIGEN.... Complete Imaging Last 24 hours Impressions Chest X-Ray 05/03/17 1648 Signed Impressions: Service Date/Time: Wednesday, May 03, 2017 17:04 - CONCLUSION: Developed in the right lung infiltrates. Seamus De La Cruz MD Objective Remarks GENERAL: Well-nourished, well-developed patient. Alert awake SKIN: Warm and dry. Chronic dermatitis skin changes HEAD: Normocephalic. EYES: No scleral icterus. No injection or drainage. NECK: Supple, trachea midline. No JVD or lymphadenopathy. CARDIOVASCULAR: Regular rate and rhythm without murmurs, gallops, or rubs. RESPIRATORY: Breath sounds equal bilaterally. Mild bilateral wheezes GASTROINTESTINAL: Abdomen soft, non-tender, nondistended. MUSCULOSKELETAL: No cyanosis, or edema. NEURO EXAM: The patient is alert and oriented to person, place, and time with normal speech. No focal deficits A/P Assessment and Plan Sepsis from Pneumonia, UTI - Broad-spectrum antibiotics (Azithromycin, Zosyn and vancomycin). Diflucan added by ID - F/U Blood culture, sputum culture. Urine culture growing yeast - Infectious disease following on immunocompromised patient and sepsis Hypotension - Due to sepsis now off pressors - Aggressive IV fluids resuscitation, continue normal saline at 124 mL/h - Levophed as needed to keep map above 65 - Continue stress dose steroids COPD Exacerbation - DuoNeb every 6 hours scheduled and every 2 hours as needed - Continue IV Solu-Cortef broad-spectrum antibiotics Renal failure - Secondary to ATN and dehydration - Strict I's and O's - Aggressive IV fluids resuscitation - Monitor creatinine level, continues to improve urine output adequate - Nephrology consultation, Dr. Armendariz follow - Replace potassium and magnesium phosphorus and calcium History of Hypertension - Holding all all antihypertensive meds in the picture of sepsis - Resume when indicated GERD - IV Pepcid Renal transplant - Post transplant on CellCept 500 milligrams p.o. BID, Cyclosporin 50 milligrams p.o. BID, Prednisone 5 milligrams daily. - Cellcept held due to sepsis DVT GI prophylaxis - Teds SCDs - Subcutaneous heparin - Pepcid Critical Care: Level [address] [facility] to assume care in Sherrie [address] MD May 05, 2017 15:17
--- NOTE | 2017-05-05 17:44 | HHI.IDPN ---
Note Infectious Disease Note Patient feels a lot better. No TRAN. No abdominal pain. Afebrile. Breathing is better. Denies pain at the r. great toe. 51-year-old white female who has history of renal transplantation. The patient presented to the emergency department with altered mental status, nausea, vomiting, diarrhea and fever with temperature as high as 104 degrees measured. She was found to have also tachycardia and elevated white blood cell count and elevated lactic acid of 3.3. She was given IV fluids and admitted to the intensive care unit with septic shock. The patient notes that she has had cough. She was recently discharged from this hospital on April 22 after treatment for influenza and pneumonia. The patient was treated with Tamiflu for influenza on the last hospitalization and she was also on oral antibiotics as well. PAST MEDICAL HISTORY: 1. Renal transplantation in 1989. 2. Lupus. 3. Diabetes mellitus. 4. Hypertension. 5. Gastroesophageal reflux disease (GERD). 6. Hysterectomy. 7. Cholecystectomy. 8. Hernia repair. 9. . 10. Gastroparesis. ALLERGIES: 1. NIFEDIPINE. 2. LEVOFLOXACIN. 3. ADHESIVES. 4. SUTURE MATERIAL. MEDICATIONS: 1. Vancomycin. 2. Piperacillin / tazobactam. 3. Azithromycin. Vital Signs Date Time Temp Pulse Resp B/P (MAP) Pulse Ox O2 Delivery O2 Flow Rate FiO2 05/05/17 14:45 34 05/05/17 14:00 95 05/05/17 12:00 99 05/05/17 12:00 97.7 99 16 131/77 (95) 98 05/05/17 10:00 102 05/05/17 08:00 110 05/05/17 08:00 97.3 110 44 123/75 (91) 99 05/05/17 07:18 98 21 05/05/17 06:00 102 05/05/17 04:00 99 05/05/17 04:00 97.6 99 28 131/58 (82) 99 05/05/17 02:00 94 05/05/17 00:00 95 05/05/17 00:00 98.2 95 24 89/47 (61) 93 05/04/17 22:00 99 05/04/17 20:00 83 05/04/17 20:00 98.8 83 28 120/61 (80) 98 05/04/17 19:08 97 21 05/04/17 18:00 89 Laboratory Tests Test 05/04/17 04:10 05/05/17 05:30 White Blood Count 6.9 TH/MM3 5.1 TH/MM3 Red Blood Count 4.04 MIL/MM3 3.64 MIL/MM3 Hemoglobin 12.4 GM/DL 11.0 GM/DL Hematocrit 36.4 % 32.4 % Mean Corpuscular Volume 90.0 FL 89.0 FL Mean Corpuscular Hemoglobin 30.7 PG 30.4 PG Mean Corpuscular Hemoglobin Concent 34.0 % 34.1 % Red Cell Distribution Width 14.8 % 15.2 % Platelet Count 115 TH/MM3 149 TH/MM3 Mean Platelet Volume 10.5 FL 11.1 FL Neutrophils (%) (Auto) 91.0 % 89.7 % Lymphocytes (%) (Auto) 4.2 % 4.8 % Monocytes (%) (Auto) 4.6 % 5.3 % Eosinophils (%) (Auto) 0.0 % 0.0 % Basophils (%) (Auto) 0.2 % 0.2 % Neutrophils # (Auto) 6.3 TH/MM3 4.6 TH/MM3 Lymphocytes # (Auto) 0.3 TH/MM3 0.2 TH/MM3 Monocytes # (Auto) 0.3 TH/MM3 0.3 TH/MM3 Eosinophils # (Auto) 0.0 TH/MM3 0.0 TH/MM3 Basophils # (Auto) 0.0 TH/MM3 0.0 TH/MM3 CBC Comment DIFF FINAL DIFF FINAL Differential Comment Laboratory Tests Test 05/03/17 19:47 05/04/17 04:10 05/05/17 05:30 05/05/17 17:09 Lactic Acid Level 1.9 mmol/L 1.6 mmol/L Blood Urea Nitrogen 16 MG/DL 19 MG/DL Creatinine 4.19 MG/DL 2.95 MG/DL Random Glucose 104 MG/DL 197 MG/DL Total Protein 5.3 GM/DL 5.6 GM/DL Albumin 1.7 GM/DL 1.9 GM/DL Calcium Level 6.4 MG/DL 7.3 MG/DL Phosphorus Level 1.7 MG/DL 1.6 MG/DL Magnesium Level 1.2 MG/DL 1.5 MG/DL Alkaline Phosphatase 60 U/L 61 U/L Aspartate Amino Transf (AST/SGOT) 41 U/L 17 U/L Alanine Aminotransferase (ALT/SGPT) 27 U/L 22 U/L Total Bilirubin 2.6 MG/DL 1.1 MG/DL Sodium Level 140 MEQ/L 141 MEQ/L Potassium Level 3.6 MEQ/L 2.7 MEQ/L Chloride Level 109 MEQ/L 109 MEQ/L Carbon Dioxide Level 21.4 MEQ/L 20.5 MEQ/L Anion Gap 10 MEQ/L 12 MEQ/L Estimat Glomerular Filtration Rate 11 ML/MIN 17 ML/MIN Protein Corrected Calcium 7.3 MG/DL 8.1 MG/DL Uric Acid 7.5 MG/DL Microbiology Date/Time Source Procedure Growth Status 05/03/17 19:40 Blood Peripheral Aerobic Blood Culture - Preliminary NO GROWTH IN 2 DAYS Resulted 05/03/17 19:40 Blood Peripheral Anaerobic Blood Culture - Preliminary NO GROWTH IN 2 DAYS Resulted 05/03/17 19:30 Blood Peripheral Aerobic Blood Culture - Preliminary NO GROWTH IN 2 DAYS Resulted 05/03/17 19:30 Blood Peripheral Anaerobic Blood Culture - Preliminary NO GROWTH IN 2 DAYS Resulted 05/03/17 16:05 Blood Peripheral Aerobic Blood Culture - Preliminary NO GROWTH IN 2 DAYS Resulted 05/03/17 16:05 Blood Peripheral Anaerobic Blood Culture - Preliminary NO GROWTH IN 2 DAYS Resulted 05/03/17 16:00 Blood Peripheral Aerobic Blood Culture - Preliminary NO GROWTH IN 2 DAYS Resulted 05/03/17 16:00 Blood Peripheral Anaerobic Blood Culture - Preliminary NO GROWTH IN 2 DAYS Resulted 05/03/17 17:00 Nasal Aspirate Influenza Types A,B Antigen (KIA) - Final NEGATIVE FOR FLU A AND B ANTIGEN.... Complete 05/03/17 16:00 Urine Clean Catch Urine Culture - Preliminary Yeast-Id To Follow Resulted IMAGING: Renal Ultrasound 05/04/17 0000 Signed Impressions: Service Date/Time: Thursday, May 04, 2017 17:30 - CONCLUSION: Stable examination compared to the prior study. No new or significant changes. Jeff Britton MD Chest X-Ray 05/04/17 0000 Signed Impressions: Service Date/Time: Thursday, May 04, 2017 04:15 - CONCLUSION: Worsening right-sided infiltrate, especially in the upper lobe. Seamus Maria MD Abdomen/Pelvis CT 05/03/17 0000 Signed Impressions: Service Date/Time: Wednesday, May 03, 2017 21:25 - CONCLUSION: 1. End- stage atrophic kidneys with right lower quadrant renal transplant. There is improved mild dilatation of the renal transplant collecting system. 2. Normal appendix. 3. Subtle but new slightly nodular airspace disease at the lung bases bilaterally. Developing pneumonia/atypical infection cannot be excluded in this presumably immunocompromised patient. Manan Correa MD PHYSICAL EXAMINATION: GENERAL: No acute distress. Alert and awake. On RA. HEAD, EYES, EARS, NOSE, THROAT: Head is atraumatic. Extraocular movements grossly intact. The sclerae are pale. No icterus. The oropharynx has moist mucosa without thrush. No lesions. NECK: The neck is supple without adenopathy. LUNGS: Basilar rhonchi. HEART: Regular S1 and S2. No murmurs, rubs or gallops audible. ABDOMEN: Bowel sounds present, soft, nontender. EXTREMITIES: No clubbing or cyanosis or edema. The patient has an area of redness at the base of the great toe. This blanches with palpation. It is mildly tender. SKIN: The skin is dry and warm. NEUROLOGIC: No gross focal findings. PSYCHIATRIC: Pleasant calm and cooperative. IMPRESSION: 1. Septic shock. Improved. 2. Pneumonia probably secondary to aspiration in a patient who has had vomiting and also has been coughing. RUL infiltrate. 3. Urinary tract infection suggested by urinalysis which could possibly be the source of the sepsis. Yeast. 4. Renal transplant status. The patient is immunocompromised. 5. Fever. Temperature now lower. 6. Leukocytosis. White blood cell count now lower. 7. Acute renal failure. The patient is being followed by nephrology. RECOMMENDATIONS: 1. Continue to monitor the blood cultures. 2. Monitor to monitor the urine culture. 3. Obtain sputum sample if the patient coughs up sputum. 4. Continue piperacillin / tazobactam. 5. Continue azithromycin. 6. Continue fluconazole. 7. Monitor clinical status. 8. Continue to treat with the Tamiflu for influenza coverage given her symptomatology with the body aches, high fever and pulmonary symptoms. Francisco Giraldo MD May 05, 2017 17:44
[2017-05-05 17:57] LABS: PHOSPHORUS 2.5 MG/DL (2.5-4.9)
[2017-05-05] MEDS: AZITHROMYCIN INJ 500 MG in SODIUM CHLOR 0.9% 250 ML INJ 250 ML IV SCH (21:51)
[2017-05-05] MEDS: OSELTAMIVIR PHOSPHATE 30 MG CAP PO SCH (21:52)
[2017-05-05] MEDS: ATORVASTATIN 10 MG TAB PO SCH (21:52)
[2017-05-06] VITALS (18 sets, daily range): BP systolic 115–166; BP diastolic 59–96; PULSE 88–105; RESP 12–28; TEMP 97.5–98; O2SAT 94–100
[2017-05-06] MEDS: RESP: ALBUTEROL 2.5 MG/IPRATROPIUM 0.5 MG NEB (SCH) NEB ×4 (03:26→21:03)
[2017-05-06] MEDS: CHLORHEXIDINE GLUCONATE 2 % 1 PACK (2 CLOTHS) TOP SCH (04:00)
[2017-05-06 04:44] LABS: AUTOMATED NEUTROPHIL # 4.1 TH/MM3 (1.8-7.7); BASOPHIL % 0.3 % (0.0-2.0); HEMATOCRIT 32.5 % (35.0-46.0); LYMPH % 6.5 % (9.0-44.0); LYMPHOCYTE # 0.3 TH/MM3 (1.0-4.8); MEAN CELL VOLUME 90.3 FL (80.0-100.0); MEAN CORPUSCULAR HEMOGLOBIN 30.5 PG (27.0-34.0); MEAN CORPUSCULAR HGB CONC 33.7 % (32.0-36.0); MEAN PLATELET VOLUME 10.3 FL (7.0-11.0); MONO % 5.4 % (0.0-8.0); MONOCYTE # 0.2 TH/MM3 (0-0.9); NEUT % 87.8 % (16.0-70.0); PLATELET COUNT 161 TH/MM3 (150-450); RED CELL DISTRIBUTION WIDTH 15.3 % (11.6-17.2); WHITE BLOOD COUNT 4.6 TH/MM3 (4.0-11.0)
[2017-05-06 05:10] LABS: BICARBONATE 17.2 MEQ/L (21.0-32.0); CALCIUM 7.4 MG/DL (8.5-10.1); CALCIUM-PROTEIN CORRECTED 8.2 MG/DL (8.5-10.1); CREATININE 2.43 MG/DL (0.50-1.00); MAGNESIUM 1.4 MG/DL (1.5-2.5); PHOSPHORUS 2.5 MG/DL (2.5-4.9); RANDOM VANCOMYCIN 9.4 COMMENT; TOTAL BILIRUBIN ADULT 0.9 MG/DL (0.2-1.0); TOTAL PROTEIN 5.7 GM/DL (6.4-8.2)
[2017-05-06] MEDS: PIPERACIL-TAZO 2.25 GM PREMIX 50 ML IV SCH ×4 (05:29→23:28)
[2017-05-06] MEDS: HEPARIN SODIUM - SQ 10,000 UNITS/ML VIAL SQ SCH ×3 (05:29→21:08)
[2017-05-06] MEDS: HYDROCORTISONE SOD SUCCINATE 100 MG VIAL IV PUSH SCH ×4 (05:29→23:30)
[2017-05-06] MEDS: SODIUM CHLOR 0.9% 1000 ML INJ 1,000 ML IV SCH (05:30)
--- NOTE | 2017-05-06 06:01 | RADRPT ---
EXAM DATE/TIME: 05/06/2017 03:54 [facility] COMPARISON: CHEST SINGLE AP, May 04, 2017, 4:15. INDICATIONS : Shortness of breath, possible pulmonary disease. MEDICAL HISTORY : Hypertension. Hypercholesterolemia. Gastroesophageal reflux disease. Skin C a MRSA SURGICAL HISTORY : Cholecystectomy. Tubal ligation. section. ENCOUNTER: Subsequent ACUITY: 4 - 6 days PAIN SCORE: 0/10 LOCATION: Bilateral chest FINDINGS: Interval removal of left IJ central line. Significantly improved aeration of the right upper lobe. Th e cardiomediastinal contours are unremarkable. Osseous structures are intact. CONCLUSION: 1. Significant improved right upper lobe airspace disease. Manan Correa MD on May 06, 2017 at 5:59 Board Certified Radiologist. This report was verified electronically.
[2017-05-06] MEDS: DOCUSATE SODIUM 50 MG/SENNA 8.6 MG TAB PO SCH ×2 (07:32→21:00)
[2017-05-06] MEDS: LACTOBACILLUS ACIDOPHILUS TAB PO SCH ×3 (08:07→17:34)
[2017-05-06] MEDS: cycloSPORINE 25 MG CAP PO SCH ×3 (08:07→23:28)
[2017-05-06] MEDS: FAMOTIDINE 20 MG/2 ML VIAL IV PUSH SCH ×2 (08:07→21:07)
[2017-05-06] MEDS: METOCLOPRAMIDE HCL 10 MG TAB PO SCH ×4 (08:07→17:34)
[2017-05-06] MEDS: SODIUM CHLORIDE 0.9% FLUSH 10 ML FLUSH IV FLUSH SCH ×2 (08:07→21:00)
--- NOTE | 2017-05-06 10:10 | HHI.NPPN ---
Subjective Renal Failure: Acute Interval History Doing better, to be downgraded today. Renal function improved. She is making urine. (Steff Bates) Objective Data Data 05/06/17 05/07/17 19:00 07:00 Intake Total 400 ml Balance 400 ml IV Total 400 ml Vital Signs Date Time Temp Pulse Resp B/P (MAP) Pulse Ox O2 Delivery O2 Flow Rate FiO2 05/06/17 09:19 100 21 05/06/17 08:00 97.6 97 12 134/74 (94) 100 05/06/17 08:00 97 05/06/17 06:00 91 05/06/17 04:00 97.8 105 18 166/67 (100) 97 05/06/17 04:00 105 05/06/17 02:00 89 05/06/17 00:00 98.0 89 16 115/59 (77) 94 05/06/17 00:00 89 05/05/17 23:49 16 05/05/17 22:00 99 05/05/17 20:12 93 21 05/05/17 20:00 98.2 92 29 167/84 (111) 97 05/05/17 20:00 92 05/05/17 18:00 88 05/05/17 16:00 97.7 100 36 174/90 (118) 05/05/17 16:00 100 05/05/17 14:00 95 05/05/17 12:00 99 05/05/17 12:00 97.7 99 16 131/77 (95) 98 (Steff Bates) -: 05/06/17 0430 05/06/17 0430 Last 72 hours Impressions Renal Ultrasound 05/04/17 0000 Signed Impressions: Service Date/Time: Thursday, May 04, 2017 17:30 - CONCLUSION: Stable examination compared to the prior study. No new or significant changes. Jeff Britton MD Chest X-Ray 05/04/17 0000 Signed Impressions: Service Date/Time: Thursday, May 04, 2017 04:15 - CONCLUSION: Worsening right-sided infiltrate, especially in the upper lobe. Seamus Maria MD Chest X-Ray 05/03/17 1648 Signed Impressions: Service Date/Time: [place], May 03, 2017 17:04 - CONCLUSION: Developed in the right lung infiltrates. 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) Neck Neck Exam: Neck Supple (Steff BatesP) Pulmonary Resp Exam: Decreased Bases (Steff Bates) Cardiology CV Exam: Regular, Normal Sinus Rhythm, Good Perfusion (Steff Bates) Gastrointestinal/Abdomen GI Exam: Soft, Non-Tender, Bowel Sounds Present (Steff Bates) Musculoskeletal MS Exam: Normal Gait, Good Strength (Steff Bates) Integumentary Skin Exam: Warm, Dry, Intact Skin Remarks chronic skin changes related to cancer (Steff Bates) Extremeties Extremities Exam: No Edema (Steff Bates) Neurologic Neuro Exam: Alert, Awake, Oriented, Speech Clear, Moving All Extremities (Steff Bates) Psychiatric Psych Exam: Appropriate Responses (Steff Bates) Assessment/Plan Discussed Condition With: Patient Assessment Summary: SHELTON/Acute Renal Failure, Diabetes Mellitus, Transplant Kidney Status Problem List: (1) SHELTON (acute kidney injury) ICD Codes: N17.9 - Acute kidney failure, unspecified Status: Resolved Plan: Creatinine 1.3 on 04/23/2017 Baseline creatinine 1.0-1.2 SHELTON secondary to hypotension/ sepsis. Initial SBP in 80s Renal function is improving. Change IVF to 1/2 NS @ 75cc/hr, taper off as oral intake improves. Electrolyte status: Mag and K replacement ordered and given today. Hypocalcemic, check 25 hydroxy level and PTH. Repeat labs in AM Avoid nephrotoxic agents. (2) Renal transplant recipient ICD Codes: Z94.0 - Kidney transplant status Plan: Home immunosuppression: CellCept 500 milligrams p.o. BID Cyclosporin 50 milligrams p.o. BID Prednisone 5 milligrams daily. CellCept held in setting of sepsis - restart tomorrow. Cyclosporine level is low, increase to 75 mg BID. Prednisone on hold, on Solumedrol, recommend to begin tapering. (3) Pneumonia ICD Codes: J18.9 - Pneumonia, unspecified organism Status: Acute Plan: ID following, treated for Pneumonia (and sepsis) in the setting of a urinary tract infection On Zosyn, azithromycin, fluconazole. Continue renal dosing antibiotics (4) Sepsis ICD Codes: A41.9 - Sepsis Status: Acute Plan: Continue supportive care Improving with antibiotics and IVFs (Steff Bates) Plan patient was seen and examined. Renal function has improved with hydration and supportive care. Avoid nephrotoxins. Agree with above assessment and plan. (Damon Temple MD) Problem Qualifiers (1) Pneumonia: Qualified Codes: J18.9 - Pneumonia, unspecified organism (2) Sepsis: Qualified Codes: A41.9 - Sepsis, unspecified organism Steff Bates May 06, 2017 10:10 Damon Tempel MD May 06, 2017 12:39
[2017-05-06] MEDS: FLUCONAZOLE 100 MG PREMIX BAG 50 ML IV SCH (10:38)
[2017-05-06] MEDS: SODIUM CHLOR 0.45% 1000 ML INJ 1,000 ML IV SCH (10:38)
[2017-05-06] MEDS ORDERED: VANCOMYCIN INJ 1,500 MG in SODIUM CHLORID 0.9% 500 ML INJ 500 ML IV ONE (12:00)
[2017-05-06] MEDS ORDERED: POTASSIUM CHLORIDE 20 MEQ CONTROLLED RELEASE TAB PO ONE (13:15)
--- NOTE | 2017-05-06 14:48 | HHI.PR ---
Subjective Remarks Resting comfortably in bed No event overnight Denied chest and or short of breath No fever or chills Objective Vitals Vital Signs Date Time Temp Pulse Resp B/P (MAP) Pulse Ox O2 Delivery O2 Flow Rate FiO2 05/06/17 14:11 88 05/06/17 12:00 97.7 96 28 128/85 (99) 99 05/06/17 12:00 96 05/06/17 10:00 98 05/06/17 09:19 100 21 05/06/17 08:00 97.6 97 12 134/74 (94) 100 05/06/17 08:00 97 05/06/17 06:00 91 05/06/17 04:00 97.8 105 18 166/67 (100) 97 05/06/17 04:00 105 05/06/17 02:00 89 05/06/17 00:00 98.0 89 16 115/59 (77) 94 05/06/17 00:00 89 05/05/17 23:49 16 05/05/17 22:00 99 05/05/17 20:12 93 21 05/05/17 20:00 98.2 92 29 167/84 (111) 97 05/05/17 20:00 92 05/05/17 18:00 88 05/05/17 16:00 97.7 100 36 174/90 (118) 05/05/17 16:00 100 I/O 05/05/17 05/05/17 05/05/17 05/06/17 05/06/17 05/06/17 07:00 15:00 23:00 07:00 15:00 23:00 Intake Total 2101 ml 100 ml 2616 ml 1590 ml 400 ml Output Total 800 ml 150 ml 800 ml Balance 1301 ml 100 ml 2466 ml 790 ml 400 ml Intake Oral 480 ml 850 ml 240 ml IV Total 1621 ml 100 ml 1766 ml 1350 ml 400 ml Output Urine Total 800 ml 150 ml 800 ml # Voids 3 # Bowel Movements 0 1 Result Diagram: 05/06/17 0430 05/06/17 0430 Objective Remarks GENERAL: This is a well-nourished, well-developed patient, in no apparent distress. CARDIOVASCULAR: Regular rate and rhythm without murmurs, gallops, or rubs. RESPIRATORY: Bilateral basilar ankles GASTROINTESTINAL: Abdomen soft, non-tender,nondistended. Normal active bowel sounds MUSCULOSKELETAL: Extremities without clubbing, cyanosis, or edema. NEURO: Alert & Oriented x4 to person, place, time, situation. Moves all ext x4 A/P Assessment and Plan 51-year-old female with past medical history of renal transplant since 1989 presents with shortness of breath and fever over the past couple days by ambulance. Her axillary temperature was 100.4. She states she feels ill all over but significant history is limited on initial evaluation. In the emergency department patient was severely hypotensive requiring the emergent central line placement, was started on IV antibiotics and was bolused with 3 L of normal saline. SUBJ 05/04/17: Lying in bed, mild respiratory distress. Seen by Nephrology and ID. Continue aggressive hydration. Diflucan added by ID. BP improved, not requiring pressors-have been weaned off. Bilateral wheezing start scheduled DuoNeb 05/05: Overall subjectively improving. Creat trending down, 2.95 today. K 2.7 getting replaced. Yeast in urine culture on Diflucan. CXR showing increasing RUL infiltrate 05/06: In general patient doing well creatinine dropped to 2.4 today, potassium at 3.4, still with some metabolic acidosis, magnesium 1.4 we'll replete with iv him a repeat BMP in a.m., nephrology following A/P: Sepsis from Pneumonia, UTI - Broad-spectrum antibiotics (Azithromycin, Zosyn and vancomycin). Diflucan added by ID - F/U Blood culture, sputum culture. Urine culture growing yeast - Infectious disease following on immunocompromised patient and sepsis Hypotension - Due to sepsis now off pressors - Aggressive IV fluids resuscitation, continue normal saline at 124 mL/h - Levophed as needed to keep map above 65 - Continue stress dose steroids COPD Exacerbation - DuoNeb every 6 hours scheduled and every 2 hours as needed - Continue IV Solu-Cortef broad-spectrum antibiotics Renal failure - Secondary to ATN and dehydration - Strict I's and O's - Aggressive IV fluids resuscitation - Monitor creatinine level, continues to improve urine output adequate - Nephrology consultation, Dr. Armendariz follow - Replace potassium and magnesium phosphorus and calcium History of Hypertension - Holding all all antihypertensive meds in the picture of sepsis - Resume when indicated GERD - IV Pepcid Renal transplant - Post transplant on CellCept 500 milligrams p.o. BID, Cyclosporin 50 milligrams p.o. BID, Prednisone 5 milligrams daily. - Cellcept held due to sepsis DVT GI prophylaxis - Teds SCDs - Subcutaneous heparin - Asia Lopez MD May 06, 2017 14:48
[2017-05-06] MEDS: MAGNESIUM SULFATE 1 GM PREMIX 100 ML IV SCH ×2 (15:00→17:25)
[2017-05-06] MEDS: MYCOPHENOLATE MOFETIL 500 MG TAB PO SCH (17:31)
[2017-05-06] MEDS: AZITHROMYCIN INJ 500 MG in SODIUM CHLOR 0.9% 250 ML INJ 250 ML IV SCH (21:08)
[2017-05-06] MEDS: ATORVASTATIN 10 MG TAB PO SCH (21:09)
[2017-05-06] MEDS: OSELTAMIVIR PHOSPHATE 30 MG CAP PO SCH (23:29)
[2017-05-07] VITALS (15 sets, daily range): BP systolic 123–146; BP diastolic 77–92; PULSE 82–97; RESP 20–28; TEMP 98–98.2; O2SAT 93–97
[2017-05-07] MEDS: CHLORHEXIDINE GLUCONATE 2 % 1 PACK (2 CLOTHS) TOP SCH (03:36)
[2017-05-07] MEDS: RESP: ALBUTEROL 2.5 MG/IPRATROPIUM 0.5 MG NEB (SCH) NEB ×2 (03:44→07:58)
[2017-05-07] MEDS: HYDROCORTISONE SOD SUCCINATE 100 MG VIAL IV PUSH SCH ×2 (06:00→12:25)
[2017-05-07] MEDS: PIPERACIL-TAZO 2.25 GM PREMIX 50 ML IV SCH ×2 (06:00→09:07)
[2017-05-07] MEDS: HEPARIN SODIUM - SQ 10,000 UNITS/ML VIAL SQ SCH ×2 (06:17→14:36)
[2017-05-07] MEDS: MYCOPHENOLATE MOFETIL 500 MG TAB PO SCH (06:22)
[2017-05-07 06:54] LABS: CREATININE 1.79 MG/DL (0.50-1.00)
--- NOTE | 2017-05-07 08:01 | HHI.NPPN ---
Subjective Renal Failure: Acute Interval History patient's renal function has improved. Non oliguric. Review of Systems General Constitutional: Fatigue Objective Data Data Vital Signs Date Time Temp Pulse Resp B/P (MAP) Pulse Ox O2 Delivery O2 Flow Rate FiO2 05/07/17 07:59 97 05/07/17 07:32 88 05/07/17 06:00 94 05/07/17 05:00 96 05/07/17 04:00 98.0 94 22 145/87 (106) 94 05/07/17 04:00 82 05/07/17 03:00 84 05/07/17 02:00 84 05/07/17 01:00 86 05/07/17 00:00 98.2 88 28 123/77 (92) 96 05/07/17 00:00 88 05/06/17 23:00 92 05/06/17 22:00 90 05/06/17 21:03 98 21 05/06/17 21:00 94 05/06/17 20:00 99 05/06/17 20:00 97.5 99 24 137/96 (110) 96 05/06/17 19:00 92 05/06/17 18:03 88 05/06/17 17:04 98.0 94 18 130/68 (88) 98 05/06/17 16:18 96 05/06/17 14:11 88 05/06/17 12:00 97.7 96 28 128/85 (99) 99 05/06/17 12:00 96 05/06/17 10:00 98 05/06/17 09:19 100 21 05/06/17 08:00 97.6 97 12 134/74 (94) 100 05/06/17 08:00 97 -: 05/06/17 0430 05/07/17 0511 Physical Exam General Appearance: Well Developed, Well Nourished, No Acute Distress Eyes Eye Exam: Pupils Equal Throat Throat Exam: Oral Mucosa [place] & Moist Neck Neck Exam: Neck Supple Pulmonary Resp Exam: Decreased Bases Cardiology CV Exam: Regular, Normal Sinus Rhythm, Good Perfusion Gastrointestinal/Abdomen GI Exam: Soft, Non-Tender, Bowel Sounds Present Musculoskeletal MS Exam: Normal Gait, Good Strength Integumentary Skin Exam: Warm, Dry, Intact Extremeties Extremities Exam: No Edema Neurologic Neuro Exam: Alert, Awake, Oriented, Speech Clear, Moving All Extremities Psychiatric Psych Exam: Appropriate Responses Assessment/Plan Discussed Condition With: Patient Assessment Summary: SHELTON/Acute Renal Failure, Diabetes Mellitus, Transplant Kidney Status Problem List: (1) SHELTON (acute kidney injury) ICD Codes: N17.9 - Acute kidney failure, unspecified Status: Resolved Plan: Creatinine 1.3 on 04/23/2017 Baseline creatinine 1.0-1.2 SHELTON secondary to hypotension/ sepsis. Initial SBP in 80s Renal function is improving. Avoid nephrotoxic agents. Taper off IV fluids. Start oral Vitamin D 3 supplement. PTH is high, uncertain significance in the presence of SHELTON. Needs to be repeated at a steady state. (2) Renal transplant recipient ICD Codes: Z94.0 - Kidney transplant status Plan: Home immunosuppression: CellCept 500 milligrams p.o. BID Cyclosporin 50 milligrams p.o. BID Prednisone 5 milligrams daily. CellCept held in setting of sepsis - restart tomorrow. Cyclosporine level is low, increase to 75 mg BID. Prednisone on hold, on Solumedrol, recommend to begin tapering. (3) Pneumonia ICD Codes: J18.9 - Pneumonia, unspecified organism Status: Acute Plan: ID following, treated for Pneumonia (and sepsis) in the setting of a urinary tract infection On Zosyn, azithromycin, fluconazole. Continue renal dosing antibiotics Consider stopping Tamiflu (4) Sepsis ICD Codes: A41.9 - Sepsis Status: Acute Plan: Continue supportive care Improving with antibiotics and IVFs Problem Qualifiers (1) Pneumonia: Qualified Codes: J18.9 - Pneumonia, unspecified organism (2) Sepsis: Qualified Codes: A41.9 - Sepsis, unspecified organism Damon Temple MD May 07, 2017 08:01
[2017-05-07] MEDS ORDERED: CHOLECALCIFEROL (VIT D3) 1000 UNIT TAB PO SCH (09:00)
[2017-05-07] MEDS: ACETAMINOPHEN/HYDROcodone 325 MG/5 MG TAB PO PRN (09:05)
[2017-05-07] MEDS: cycloSPORINE 25 MG CAP PO SCH (09:08)
[2017-05-07] MEDS: LACTOBACILLUS ACIDOPHILUS TAB PO SCH ×2 (09:09→12:25)
[2017-05-07] MEDS: METOCLOPRAMIDE HCL 10 MG TAB PO SCH ×2 (09:09→12:25)
[2017-05-07] MEDS: DOCUSATE SODIUM 50 MG/SENNA 8.6 MG TAB PO SCH (09:09)
[2017-05-07] MEDS: FAMOTIDINE 20 MG/2 ML VIAL IV PUSH SCH (09:10)
[2017-05-07] MEDS: SODIUM CHLOR 0.45% 1000 ML INJ 1,000 ML IV SCH (09:10)
[2017-05-07] MEDS: SODIUM CHLORIDE 0.9% FLUSH 10 ML FLUSH IV FLUSH SCH (09:11)
[2017-05-07] MEDS: FLUCONAZOLE 100 MG PREMIX BAG 50 ML IV SCH (12:25)
[2017-05-07] MEDS ORDERED: AZIT500T2 PO (13:23)
[2017-05-07] MEDS ORDERED: LACTTAB8 PO (13:23)
[2017-05-07] MEDS ORDERED: AUGM875T3 PO (13:23)
[2017-05-07] MEDS ORDERED: CHOL5000 PO (13:26)
--- NOTE | 2017-05-07 13:29 | HHI.DS ---
Discharge Summary Admission Date May 03, 2017 at 18:28 Discharge Date: May 07, 2017 Admitting Diagnosis sepsis (1) Sepsis ICD Code: A41.9 - Sepsis Diagnosis: Principal Status: Acute (2) Acute renal failure ICD Code: N17.9 - Acute renal failure Diagnosis: Principal Status: Acute (3) UTI (urinary tract infection) ICD Code: N39.0 - Urinary tract infection, site not specified Diagnosis: Principal Status: Acute (4) Pneumonia ICD Code: J18.9 - Pneumonia, unspecified organism Diagnosis: Principal Status: Acute (5) SHELTON (acute kidney injury) ICD Code: N17.9 - Acute kidney failure, unspecified Diagnosis: Principal Status: Resolved Procedures None Brief History - From Admission 51-year-old female with past medical history of renal transplant since 1989 presents with shortness of breath and fever over the past couple days by ambulance. Her axillary temperature was 100.4. She states she feels ill all over but significant history is limited on initial evaluation. In the emergency department patient was severely hypotensive requiring the emergent central line placement, was started on IV antibiotics and was bolused with 3 L of normal saline. CBC/BMP: 05/06/17 0430 05/07/17 0511 Significant Findings Laboratory Tests Test 05/05/17 05:30 05/05/17 17:09 05/06/17 04:30 05/06/17 10:13 Red Blood Count 3.64 MIL/MM3 (4.00-5.30) 3.60 MIL/MM3 (4.00-5.30) Hemoglobin 11.0 GM/DL (11.6-15.3) 11.0 GM/DL (11.6-15.3) Hematocrit 32.4 % (35.0-46.0) 32.5 % (35.0-46.0) Platelet Count 149 TH/MM3 (150-450) Mean Platelet Volume 11.1 FL (7.0-11.0) Neutrophils (%) (Auto) 89.7 % (16.0-70.0) 87.8 % (16.0-70.0) Lymphocytes (%) (Auto) 4.8 % (9.0-44.0) 6.5 % (9.0-44.0) Lymphocytes # (Auto) 0.2 TH/MM3 (1.0-4.8) 0.3 TH/MM3 (1.0-4.8) Blood Urea Nitrogen 19 MG/DL (7-18) Creatinine 2.95 MG/DL (0.50-1.00) 2.43 MG/DL (0.50-1.00) Random Glucose 197 MG/DL (74-106) 177 MG/DL (74-106) Total Protein 5.6 GM/DL (6.4-8.2) 5.7 GM/DL (6.4-8.2) Albumin 1.9 GM/DL (3.4-5.0) 2.0 GM/DL (3.4-5.0) Calcium Level 7.3 MG/DL (8.5-10.1) 7.4 MG/DL (8.5-10.1) Phosphorus Level 1.6 MG/DL (2.5-4.9) Uric Acid 7.5 MG/DL (2.6-6.0) Total Bilirubin 1.1 MG/DL (0.2-1.0) Potassium Level 2.7 MEQ/L (3.5-5.1) 3.4 MEQ/L (3.5-5.1) Chloride Level 109 MEQ/L (98-107) 114 MEQ/L (98-107) Carbon Dioxide Level 20.5 MEQ/L (21.0-32.0) 17.2 MEQ/L (21.0-32.0) Estimat Glomerular Filtration Rate 17 ML/MIN (>89) 21 ML/MIN (>89) Protein Corrected Calcium 8.1 MG/DL (8.5-10.1) 8.2 MG/DL (8.5-10.1) Magnesium Level 1.4 MG/DL (1.5-2.5) 25-Hydroxy Vitamin D Total 16.4 ng/ML (30-100) Parathyroid Hormone (Intact) 312.7 PG/ML (12.4-76.8) Test 05/07/17 05:11 Creatinine 1.79 MG/DL (0.50-1.00) Estimat Glomerular Filtration Rate 30 ML/MIN (>89) PE at Discharge GENERAL: This is a well-nourished, well-developed patient, in no apparent distress. CARDIOVASCULAR: Regular rate and rhythm without murmurs, gallops, or rubs. RESPIRATORY: Bilateral basilar ankles GASTROINTESTINAL: Abdomen soft, non-tender,nondistended. Normal active bowel sounds MUSCULOSKELETAL: Extremities without clubbing, cyanosis, or edema. NEURO: Alert & Oriented x4 to person, place, time, situation. Moves all ext x4 Hospital Course Mrs. Pena is a 51-year-old female. She has a history of renal transplant. She was admitted secondary to sepsis with pneumonia and UTI. Treatments have been provided while here and she has resolution of her sepsis. At this point she has returned to baseline. Her renal function was compromised she came in but this is trending back towards baseline. She is now off IV fluids. She reports ambulation and strength is at baseline. She'll finish antibiotic treatment with azithromycin and Augmentin at discharge. Medically stable and cleared for discharge home today. Pt Condition on Discharge: Stable Discharge Disposition: Discharge Home Discharge Time: > 30 minutes Discharge Instructions DIET: Follow Instructions for: As Tolerated, No Restrictions Activities you can perform: Regular-No Restrictions Follow up Referrals: PCP Follow-up - 2 Weeks New Medications: Amoxicillin-Clavulanate (Augmentin) 875-125 Mg Tab 1 TAB PO BID for Infection, #10 TAB 0 Refills Azithromycin (Azithromycin) 500 Mg Tab 500 MG PO DAILY for Infection, #3 TAB 0 Refills Cholecalciferol (Vitamin D3) 5,000 Unit Cap 5000 UNITS PO DAILY for Nutritional Supplement, #30 CAP 0 Refills Lactobacillus Acidophilus (Lactobacillus Acidophilus) 1 Billion Cell Tab 1 TAB PO TIDAC for Nutritional Supplement, #30 TAB 0 Refills Continued Medications: Atenolol (Atenolol) 50 Mg Tab 50 MG PO HS for Blood Pressure Management, #30 TAB 0 Refills Atorvastatin (Atorvastatin) 10 Mg Tab 10 MG PO HS for Cholesterol Management, #30 TAB 2 Refills Clonidine (Clonidine) 0.1 Mg Tab 0.1 MG PO BID PRN for for BP greater than 145/95, #30 TAB 3 Refills Cyclosporine (Cyclosporine) 25 Mg Cap 50 MG PO BID, CAP 0 Refills Hydrocodone-Acetaminophen (Hydrocodone-Acetaminophen) 5-325 mg Tab 1 TAB PO Q4H PRN for PAIN SCALE 3 TO 5, #30 TAB Lactobacillus Acidophilus (Probiotic) 1 Cap Cap 1 CAP PO TIDAC for Nutritional Supplement, #90 CAP 0 Refills Lactobacillus Acidophilus (Acidophilus/l-Sporogenes) 35 Million Cell-25 Million Cell Tab 1 TAB PO TID for Bowel Management, #15 TAB Lisinopril (Lisinopril) 10 Mg Tab 10 MG PO DAILY for Blood Pressure Management, #30 TAB Magnesium Oxide (Magnesium Oxide) 400 Mg Tab 400 MG PO BID for Nutritional Supplement, TAB 0 Refills Metoclopramide (Metoclopramide) 5 Mg Tab 5 MG PO TIDAC, #90 TAB 2 Refills Mycophenolate (Mycophenolate) 500 Mg Tab 500 MG PO BID for Immunosuppression, #120 TAB 0 Refills Ondansetron Odt (Zofran Odt) 4 Mg Tab 4 MG SL Q6HR PRN for Nausea/Vomiting, #30 TAB 0 Refills Pantoprazole (Protonix) 40 Mg Tab 40 MG PO DAILY for Ulcer Prevention, #30 TAB 0 Refills Prednisone (Prednisone) 10 Mg Tab 10 MG PO HS, TAB 0 Refills Promethazine (Promethazine) 12.5 Mg Tab 25 MG PO Q4H PRN for NAUSEA OR VOMITING, TAB 0 Refills Wheat Dextrin (Benefiber) 152 Gm Powder 10 GM PO DAILY for Hemorrhoids, #1 BOTTLE 11 Refills Discontinued Medications: Cefdinir (Cefdinir) 300 Mg Cap 300 MG PO BID for Infection for 5 Days, #10 CAP 0 Refills Oseltamivir (Tamiflu) 75 Mg Cap 75 MG PO BID for Mgmt Viral Infection for 3 Days, #6 CAP 0 Refills Baltazar Kinney MD May 07, 2017 13:28
[2017-05-07] MEDS ORDERED: MAGNESIUM OXIDE 400 MG TAB PO ONE (14:00)
[2017-05-07] MEDS ORDERED: POTASSIUM CHLORIDE 10 MEQ CONTROLLED RELEASE TAB PO ONE (14:00)
[2017-05-07] MEDS ORDERED: VANCOMYCIN INJ 1,750 MG in SODIUM CHLORID 0.9% 500 ML INJ 500 ML IV ONE (15:00)
== END 2017-05-07 15:48 | disposition home or self-care (01) | DRG 871 ==
LOC: NEPC 16:42 → NEDA 18:28 → HIME 21:40 → HCIS 05-06 12:27
PROVIDERS: ADMIT Hospitalist; ATTEND Hospitalist
PROC: 05HN33Z Insertion of Infusion Device into Left Internal Jugular Vein, Percutaneous Approach (ICD-10-PCS; principal; 2017-05-04)
DX: A41.9 Sepsis, unspecified organism (principal); R65.21 Severe sepsis with septic shock; N17.0 Acute kidney failure with tubular necrosis; J69.0 Pneumonitis due to inhalation of food and vomit; T86.12 Kidney transplant failure; K31.84 Gastroparesis; E11.43 Type 2 diabetes mellitus with diabetic autonomic (poly)neuropathy; E87.2 Acidosis; J44.1 Chronic obstructive pulmonary disease with (acute) exacerbation; B37.49 Other urogenital candidiasis; E88.09 Other disorders of plasma-protein metabolism, not elsewhere classified; E83.42 Hypomagnesemia; E83.51 Hypocalcemia; I10 Essential (primary) hypertension; M19.90 Unspecified osteoarthritis, unspecified site; E78.5 Hyperlipidemia, unspecified; K21.9 Gastro-esophageal reflux disease without esophagitis; F17.210 Nicotine dependence, cigarettes, uncomplicated; E87.6 Hypokalemia; E86.0 Dehydration; R00.0 Tachycardia, unspecified; E66.9 Obesity, unspecified; Z68.39 Body mass index [BMI] 39.0-39.9, adult; Z85.828 Personal history of other malignant neoplasm of skin; F32.9 Major depressive disorder, single episode, unspecified; F41.9 Anxiety disorder, unspecified; G89.29 Other chronic pain; M54.9 Dorsalgia, unspecified; E83.39 Other disorders of phosphorus metabolism; R06.03 Acute respiratory distress
CPT/HCPCS: 71045; 74176; 76776; 76937; 80053; 80158; 80202; 81001; 82306; 82550; 82552; 82565; 83605; 83735; 83970; 84100; 84132; 84484; 84550; 85025; 85610; 85730; 87040; 87086; 87641; 87804; 93005; 94640; 94664; 96365; 96368; J0456; J0610; J1450; J1644; J1720; J2405; J2543; J3370; J3475; J3480; J7030; J7040; J7050; J7512; J7515; J7517

== ENCOUNTER 2017-05-28 14:58 | Inpatient (IN) | payer MEDICAID ==
[~2017-05-28] VITALS: Ht 170.2 cm; Wt 98.0 kg
[~2017-05-28 14:58] MED LIST changes: +AUGM875T3 PO; +AZIT500T2 PO; -CEFD300C PO; +CHOL5000 PO; +LACTTAB8 PO; -OSEL75 PO
[2017-05-28 15:05] VITALS: BP 104/59; PULSE 74; RESP 20; TEMP 97.8; O2SAT 96
[2017-05-28] MEDS ORDERED: SODIUM CHLOR 0.9% 1000 ML INJ 1,000 ML IV SCH (15:18)
--- NOTE | 2017-05-28 15:21 | PD ---
HPI Chief Complaint: Nausea, vomiting, diarrhea Time Seen by Provider: 15:18 Travel History International Travel<30 days: No Contact w/Intl Traveler<30days: No Traveled to known affect area: No History of Present Illness HPI 51-year-old female patient with history of lupus, diabetes, hypertension, status post renal transplant currently on mycophenolate and cyclosporine, admitted to the hospital 2 weeks ago for pneumonia, presents to the ER today because she has had to 3 days history of nausea, vomiting, diarrhea multiple times, has not had anything to eat or drink since yesterday, and states that she has been feeling weak, and has fallen twice in the last day. She denies any fevers or any other issues. She denies head injury or loss of consciousness. When EMS got to her house, her blood pressure was initially 90/ 70. Modifying Factors: None Associated Signs & Symptoms: Nausea, vomiting, diarrhea, general weakness, falls Risk Factors: Renal disease PFSH Past Medical History Arthritis: Yes Autoimmune Disease: Yes (LUPUS) Anxiety: No Depression: No Heart Rhythm Problems: No Cancer: Yes (skin) Cardiovascular Problems: Yes High Cholesterol: Yes Chemotherapy: No Chest Pain: No Congestive Heart Failure: No Cerebrovascular Accident: No Diabetes: Yes Diminished Hearing: No Endocrine: Yes Gastrointestinal Disorders: Yes (GASTROPORESIS) GERD: Yes Genitourinary: Yes (kidney transplant 1989) Headaches: No Hepatitis: No Hiatal Hernia: Yes Hypertension: Yes Immune Disorder: No Implanted Vascular Access Dvce: Yes (LUE SHUNT port) Kidney Stones: Yes Musculoskeletal: No Neurologic: Yes Psychiatric: No Reproductive: No Respiratory: No Immunizations Current: Yes Migraines: Yes Radiation Therapy: No Renal Failure: Yes Seizures: No Thyroid Disease: No Ulcer: No PNEUMOCCOCAL Vaccine (Year): 2 Menopausal: Yes : 2 Para: 1 Miscarriage: 1 Tubal Ligation: Yes Past Surgical History Abdominal Surgery: Yes (INGUINAL HERNIA: RIGHT) AICD: No Arteriovenous Shunt: Yes (LEFT ARM FOR DIALYSIS IN 1989- NON FUNCTIONAL) Body Medical Devices: AV SHUNT TO LEFT ARM Cardiac Surgery: No Section: Yes Cholecystectomy: Yes Ear Surgery: No Endocrine Surgery: No Eye Surgery: No Genitourinary Surgery: Yes (KIDNEY TRANSPLANT 1989 at [facility]) Gynecologic Surgery: Yes Hysterectomy: Yes Joint Replacement: No Neurologic Surgery: No Oral Surgery: No Pacemaker: No Thoracic Surgery: No Other Surgery: Yes (SKIN CANCER REMOVED RT THIGH 09/18) Social History Alcohol Use: No Tobacco Use: Yes (03/12 PPD) Substance Use: No Allergies-Medications (Allergen,Severity, Reaction): Coded Allergies: adhesive (Verified Allergy, Severe, HIVES, 05/28/17) DISOLVABLE SUTURE MATERAL levofloxacin (Verified Allergy, Intermediate, HIVES/ITCHING, 05/28/17) nifedipine (Verified Adverse Reaction, Intermediate, VOMITING, 05/28/17) Uncoded Allergies: suture material (Adverse Reaction, Severe, SKIN INFECTION, 07/19/16) PT STATES DISSOLVING ONES [place] NOT DISSOLVE AND HAVE TO BE PHYSICALLY REMOVED.. Reported Meds & Prescriptions Reported Meds & Active Scripts Active Vitamin D3 (Cholecalciferol) 5,000 Unit Cap 5,000 Units PO DAILY Oxygen (O2) Device Liter LARRY.CANULA CONTINUOUS Oxygen Concentrator Portable Gaseous 2 L/min via Nasal Canula Continuous For 99 months Lisinopril 10 Mg Tab 10 Mg PO DAILY Atorvastatin (Atorvastatin Calcium) 10 Mg Tab 10 Mg PO HS Protonix (Pantoprazole Sodium) 40 Mg Tab 40 Mg PO DAILY Clonidine (Clonidine HCl) 0.1 Mg Tab 0.1 Mg PO BID PRN Atenolol 50 Mg Tab 50 Mg PO HS Benefiber (Wheat Dextrin) 152 Gm Powder 10 Gm PO DAILY Zofran Odt (Ondansetron Odt) 4 Mg Tab 4 Mg SL Q6HR PRN Hydrocodone-Acetaminophen 5-325 mg Tab 1 Tab PO Q4H PRN Metoclopramide (Metoclopramide HCl) 5 Mg Tab 5 Mg PO TIDAC Reported Prednisone 10 Mg Tab 10 Mg PO HS Magnesium Oxide 400 Mg Tab 400 Mg PO BID Cyclosporine 25 Mg Cap 50 Mg PO BID Mycophenolate (Mycophenolate Mofetil) 500 Mg Tab 500 Mg PO BID Review of Systems Except as stated in HPI: all other systems reviewed are Neg Physical Exam Narrative GENERAL: Well-developed middle-aged female patient currently in moderate distress. Awake and oriented 3. SKIN: Focused skin assessment warm/dry. HEAD: Atraumatic. Normocephalic. EYES: Pupils equal and round. No scleral icterus. No injection or drainage. ENT: No nasal bleeding or discharge. Mucous membranes pink and moist. NECK: Trachea midline. No JVD. CARDIOVASCULAR: Regular rate and rhythm. No murmur appreciated. RESPIRATORY: No accessory muscle use. Clear to auscultation. Breath sounds equal bilaterally. GASTROINTESTINAL: Abdomen soft, non-tender, nondistended. Hepatic and splenic margins not palpable. MUSCULOSKELETAL: No obvious deformities. No clubbing. No cyanosis. No edema. NEUROLOGICAL: Awake and alert. No obvious cranial nerve deficits. Motor grossly within normal limits. Normal speech. PSYCHIATRIC: Appropriate mood and affect; insight and judgment normal. Data Data Last Documented VS Vital Signs Date Time Temp Pulse Resp B/P (MAP) Pulse Ox O2 Delivery O2 Flow Rate FiO2 05/28/17 16:10 78 18 116/62 (80) 96 Room Air 05/28/17 15:05 97.8 Orders Orders Complete Blood Count With Diff (05/28/17 15:18) Comprehensive Metabolic Panel (05/28/17 15:18) Lipase (05/28/17 15:18) Urinalysis - C+S If Indicated (05/28/17 15:18) Iv Access Insert/Monitor (05/28/17 15:18) Ecg Monitoring (05/28/17 15:18) Oximetry (05/28/17 15:18) Sodium Chlor 0.9% 1000 Ml Inj (Ns 1000 M (05/28/17 15:18) Sodium Chloride 0.9% Flush (Ns Flush) (05/28/17 15:30) Electrocardiogram (05/28/17 15:18) Cyclosporine (05/28/17 15:18) Urine Culture (05/28/17 16:00) Blood Culture (05/28/17 16:57) Piperacil-Tazo 3.375 Gm Premix (Zosyn 3. (05/28/17 17:00) Potassium Chlor 20 Meq Premix (Kcl 20 Me (05/28/17 17:00) Labs Laboratory Tests Test 05/28/17 15:50 05/28/17 16:00 White Blood Count 6.6 TH/MM3 Red Blood Count 4.59 MIL/MM3 Hemoglobin 14.4 GM/DL Hematocrit 40.7 % Mean Corpuscular Volume 88.7 FL Mean Corpuscular Hemoglobin 31.4 PG Mean Corpuscular Hemoglobin Concent 35.4 % Red Cell Distribution Width 16.3 % Platelet Count 238 TH/MM3 Mean Platelet Volume 9.7 FL Neutrophils (%) (Auto) 53.1 % Lymphocytes (%) (Auto) 30.7 % Monocytes (%) (Auto) 12.8 % Eosinophils (%) (Auto) 2.9 % Basophils (%) (Auto) 0.5 % Neutrophils # (Auto) 3.5 TH/MM3 Lymphocytes # (Auto) 2.0 TH/MM3 Monocytes # (Auto) 0.8 TH/MM3 Eosinophils # (Auto) 0.2 TH/MM3 Basophils # (Auto) 0.0 TH/MM3 CBC Comment DIFF FINAL Differential Comment Blood Urea Nitrogen 16 MG/DL Creatinine 5.88 MG/DL Random Glucose 82 MG/DL Total Protein 7.0 GM/DL Albumin 2.6 GM/DL Calcium Level 10.1 MG/DL Alkaline Phosphatase 103 U/L Aspartate Amino Transf (AST/SGOT) 37 U/L Alanine Aminotransferase (ALT/SGPT) 21 U/L Total Bilirubin 2.6 MG/DL Sodium Level 136 MEQ/L Potassium Level 3.0 MEQ/L Chloride Level 100 MEQ/L Carbon Dioxide Level 22.8 MEQ/L Anion Gap 13 MEQ/L Estimat Glomerular Filtration Rate 8 ML/MIN Lipase 164 U/L Urine Color RED Urine Turbidity CLOUDY Urine pH 5.5 Urine Specific [place] 1.019 Urine Protein 100 mg/dL Urine Glucose (UA) NEG mg/dL Urine Ketones NEG mg/dL Urine Occult Blood SMALL Urine Nitrite NEG Urine Bilirubin NEG Urine Urobilinogen LESS THAN 2.0 MG/DL Urine Leukocyte Esterase LARGE Urine RBC 23 /hpf Urine WBC /hpf Urine WBC Clumps OCC Urine Squamous Epithelial Cells 32 /hpf Urine Transitional Epithelial Cells 1 /hpf Urine Bacteria MOD /hpf Urine Yeast (Budding) MANY Microscopic Urinalysis Comment CATH-CULTURE IND MDM Medical Decision Making Medical Screen Exam Complete: Yes Emergency Medical Condition: Yes Medical Record Reviewed: Yes Interpretation(s) Laboratory Tests Test 05/28/17 15:50 05/28/17 16:00 Monocytes (%) (Auto) 12.8 % (0.0-8.0) Creatinine 5.88 MG/DL (0.50-1.00) Albumin 2.6 GM/DL (3.4-5.0) Total Bilirubin 2.6 MG/DL (0.2-1.0) Potassium Level 3.0 MEQ/L (3.5-5.1) Estimat Glomerular Filtration Rate 8 ML/MIN (>89) Urine Color RED (YELLW/STRAW) Urine Turbidity CLOUDY (CLEAR) Urine Protein 100 mg/dL (NEG-TRACE) Urine Occult Blood SMALL (NEG) Urine Leukocyte Esterase LARGE (NEG) Urine RBC 23 /hpf (0-3) Urine WBC Clumps OCC (NONE) Urine Bacteria MOD /hpf (NONE) Urine Yeast (Budding) MANY (NONE) Differential Diagnosis Dehydration versus metabolic issues versus acute renal failure versus sepsis Narrative Course Lab work shows significant elevation in creatinine concerning for possible underlying renal fax versus dehydration. IV fluids have been given in the ER. She has a UTI and IV antibiotics were also given in the ER. At this point, my plan would be to admit patient for further treatment. Case was discussed with Dr. Landry for admission. Diagnosis Primary Impression: Acute renal failure Additional Impressions: UTI (urinary tract infection) Nausea vomiting and diarrhea Admitting Information Admitting Physician Requests: Admit Maureen Campos MD May 28, 2017 15:21
[2017-05-28] MEDS ORDERED: SODIUM CHLORIDE 0.9% FLUSH 10 ML FLUSH IV FLUSH PRN ×2 (15:30→17:30)
[2017-05-28 16:10] VITALS: BP_SYST 116; BP_DIAS 62; BP_DIAS 64; PULSE 78; PULSE 82; RESP 18; O2SAT 96
[2017-05-28 16:40] LABS: AUTOMATED NEUTROPHIL # 3.5 TH/MM3 (1.8-7.7); BASOPHIL % 0.5 % (0.0-2.0); EOSINOPHIL # 0.2 TH/MM3 (0-0.4); EOSINOPHIL % 2.9 % (0.0-4.0); HEMATOCRIT 40.7 % (35.0-46.0); HEMOGLOBIN 14.4 GM/DL (11.6-15.3); LYMPH % 30.7 % (9.0-44.0); MEAN CELL VOLUME 88.7 FL (80.0-100.0); MEAN CORPUSCULAR HEMOGLOBIN 31.4 PG (27.0-34.0); MEAN CORPUSCULAR HGB CONC 35.4 % (32.0-36.0); MEAN PLATELET VOLUME 9.7 FL (7.0-11.0); MONO % 12.8 % (0.0-8.0); MONOCYTE # 0.8 TH/MM3 (0-0.9); NEUT % 53.1 % (16.0-70.0); PLATELET COUNT 238 TH/MM3 (150-450); RED BLOOD COUNT 4.59 MIL/MM3 (4.00-5.30); RED CELL DISTRIBUTION WIDTH 16.3 % (11.6-17.2); WHITE BLOOD COUNT 6.6 TH/MM3 (4.0-11.0)
[2017-05-28 16:47] LABS: BACTERIA, URINE MOD /hpf; BILIRUBIN, URINE NEG (NEG); BLOOD, URINE SMALL (NEG); GLUCOSE,URINE NEG (NEG); KETONE, URINE NEG (NEG); NITRITE,URINE NEG (NEG); PH, URINE 5.5 (5.0-8.5); SQUAMOUS EPITHELIAL CELL URINE 32 /hpf (0-5); TRANSITIONAL EPI CELLS, URINE 1 /hpf; URINE LEUKOCYTE ESTERASE LARGE (NEG); WHITE BLOOD CELL CLUMPS OCC
[2017-05-28 16:48] LABS: URINE COLOR RED (YELLW/STRAW)
[2017-05-28 16:49] LABS: ALBUMIN 2.6 GM/DL (3.4-5.0); ALT (GPT) 21 U/L (10-53); AST (GOT) 37 U/L (15-37); BICARBONATE 22.8 MEQ/L (21.0-32.0); BLOOD UREA NITROGEN 16 MG/DL (7-18); CALCIUM 10.1 MG/DL (8.5-10.1); CHLORIDE 100 MEQ/L (98-107); CREATININE 5.88 MG/DL (0.50-1.00); GLOMERULAR FILTRATION RATE 8 ML/MIN (>89); GLUCOSE,RANDOM 82 MG/DL (74-106); SODIUM (NA) 136 MEQ/L (136-145)
[2017-05-28 16:52] LABS: ALKALINE PHOSPHATASE 103 U/L (45-117); TOTAL BILIRUBIN ADULT 2.6 MG/DL (0.2-1.0)
[2017-05-28] MEDS ORDERED: POTASSIUM CHLOR 20 MEQ PREMIX 100 ML IV ONE (17:00)
[2017-05-28] MEDS ORDERED: PIPERACIL-TAZO 3.375 GM PREMIX 50 ML IV ONE (17:00)
[2017-05-28] MEDS ORDERED: MAGNESIUM HYDROXIDE SUSP 30 ML CUP PO PRN (17:30)
[2017-05-28] MEDS ORDERED: NALOXONE HCL 0.4 MG/ML AMP IV PUSH PRN (17:30)
[2017-05-28] MEDS ORDERED: SENNOSIDES 8.6 MG TAB PO PRN (17:30)
[2017-05-28] MEDS ORDERED: LACTULOSE SYRUP 20 GM/30 ML CUP PO PRN (17:30)
[2017-05-28] MEDS ORDERED: BISACODYL 10 MG SUPP RECTAL PRN (17:30)
[2017-05-28 18:38] VITALS: BP 126/70; PULSE 86; RESP 18; O2SAT 98
[2017-05-28] MEDS ORDERED: POTASSIUM CHLORIDE 20 MEQ CONTROLLED RELEASE TAB PO ONE (20:15)
[2017-05-28] MEDS ORDERED: ATENOLOL 50 MG TAB PO SCH (21:00)
[2017-05-28] MEDS: SODIUM CHLORIDE 0.9% FLUSH 10 ML FLUSH IV FLUSH SCH (21:00)
[2017-05-28] MEDS: INSULIN ASPART SUPPLEMENTAL SCALE SQ SCH (21:00)
[2017-05-28 23:10] VITALS: BP 128/73; PULSE 80; RESP 18; TEMP 97.4; O2SAT 97
[2017-05-28] MEDS: predniSONE 10 MG TAB PO SCH (23:13)
[2017-05-28] MEDS: cycloSPORINE 25 MG CAP PO SCH (23:13)
[2017-05-28] MEDS: MYCOPHENOLATE MOFETIL 500 MG TAB PO SCH (23:13)
--- NOTE | 2017-05-28 23:29 | RADRPT ---
EXAM DATE/TIME: 05/28/2017 21:19 [place] COMPARISON: US KIDNEY / TRANSPLANT, April 19, 2017, 17:18. US KIDNEY / TRANSPLANT, May 04, 2017, 17:30. INDICATIONS : Elevated labs. MEDICAL HISTORY : Hypercholesterolemia. Hypertension. Gastroesophageal reflux disease. Renal failure. Kidney stones. Romelia pus. Gallbladder disease. SURGICAL HISTORY : Hysterectomy. Cholecystectomy. Kidney transplant. Inguinal hernia. AV shunt. Skin cancer removed. ENCOUNTER: Subsequent ACUITY: 1 day PAIN SCORE: 0/10 LOCATION: Right pelvis MEASUREMENTS: TRANSPLANT KIDNEY: 12.3 x 3.3 x 8.1 cm LOCATION: Right lower quadrant. PREVIOUS ULTRASOUND: May 04 2017 RA/EIA Ratio: 0.3. PREVIOUS ARCUATE ARTERIES INDEX: Upper - 0.6 Mid - 0.6 Lower - 0.6 ARCUATE ARTERIES RESISTIVE INDEX: Upper - 0.7 Mid - 0.6 Lower - 0.7 RA/EIA Ratio: 0.5 MAIN RENAL ARTERY VELOCITY: (cm/sec): 47 MAIN RENAL VEIN: Patent EXTERNAL ILIAC ARTERY VELOCITY (cm/sec): 91 FINDINGS: TRANSPLANT KIDNEY: Renal cortical thickness is normal. The collecting system and renal sinus is mildly prominent, but there is preservation of renal sinus fat. No definite evidence of hydronephrosis. Multiple cortical cysts measuring up to 2.5 cm similar to prior. URINARY BLADDER: Not visualized. CONCLUSION: The renal pelvis is slightly more prominent than on prior ultrasound examinations however there is no definite evidence of hydronephrosis. Hemodynamic parameters are within normal limits. Denton Cuevas MD on May 28, 2017 at 23:23 Board Certified Radiologist. This report was verified electronically.
[2017-05-29] MEDS: SODIUM CHLOR 0.9% 1000 ML INJ 1,000 ML IV SCH ×4 (01:30→21:29)
--- NOTE | 2017-05-29 01:33 | HHI.HP ---
[facility] Service [facility] Primary Care Physician Michelle Connell MD Admission Diagnosis Acute on chronic renal failure/UTI/hypokalemia Diagnoses: Travel History International Travel<30 Days: No Contact w/Intl Traveler <30 Da: No Traveled to Known Affected Are: No History of Present Illness History from patient, and review of medical records. Patient is somewhat of a poor historian. She initially tells me that she came to the hospital because she fell down twice in the past 2 days. The first time was while she was walking to the bathroom and second time was when she was getting out of her house going to the bank. She also reports of dizziness before the falls. She stated she simply lost balance and fell. She denies any hip pains or back pains. She stated she landed on her buttock. She also landed on her right hand and showed no fissures. She reports that she lives with her fianc and she was one who called 911. Denies any syncope. On further questioning, patient finally stated she also had nausea vomiting and diarrhea which was the reason why she came. Denies any blood in her vomitus or in her diarrhea. She denies any confusion although she looks to be somewhat confused. She has had hard time telling me her medications list. Review of Systems Except as stated in HPI: all other systems reviewed are Neg Past Family Social History Past Medical History htn dm ckd at 22 months old, had urter problems and surgeries, and kidneys were not developing well 1987- syncope at mother in law's house-found to have ARF- needed dialysis- and then continued 3 yrs of HD 1989 renal transplant right lupus- diagnosed 2001 skin cancer- melanoma- about 9 yrs ago gerd Past Surgical History ureteral sx at 22 months old permacath AV fistula right renal transplant cholecystectomy hysterectomy right thigh skin cancer removed inguinal hernia sx Allergies: Coded Allergies: adhesive (Verified Allergy, Severe, HIVES, 05/28/17) DISOLVABLE SUTURE MATERAL levofloxacin (Verified Allergy, Intermediate, HIVES/ITCHING, 05/28/17) nifedipine (Verified Adverse Reaction, Intermediate, VOMITING, 05/28/17) Uncoded Allergies: suture material (Adverse Reaction, Severe, SKIN INFECTION, 07/19/16) PT STATES DISSOLVING ONES [place]MON[place] NOT DISSOLVE AND HAVE TO BE PHYSICALLY REMOVED.. Family History dad- heart problems , htn does not know here mom Social History quit smoking about 2 months ago - used to smoke for about 9yrs or so, about half a pack a day no etoh abuse no drugs abuse lives with her fiancee Physical Exam Vital Signs Vital Signs Date Time Temp Pulse Resp B/P (MAP) Pulse Ox O2 Delivery O2 Flow Rate FiO2 05/28/17 23:10 97.4 80 18 128/73 (91) 97 05/28/17 18:38 86 18 126/70 (88) 98 Room Air 05/28/17 16:10 78 18 116/62 (80) 96 Room Air 05/28/17 16:10 82 18 116/64 (81) 96 Room Air 05/28/17 15:05 97.8 74 20 104/59 (74) 96 Physical Exam GENERAL: This is a well-nourished, well-developed patient, in no apparent distress. SKIN: No rashes, ecchymoses or lesions. Cool and dry. HEAD: Atraumatic. Normocephalic. No temporal or scalp tenderness. EYES: Pupils equal round and reactive. Extraocular motions intact. No scleral icterus. No injection or drainage. ENT: Nose without bleeding, purulent drainage or septal hematoma. Throat without erythema, tonsillar hypertrophy or exudate. Uvula midline. Airway patent. NECK: Trachea midline. No JVD or lymphadenopathy. Supple, nontender, no meningeal signs. CARDIOVASCULAR: Regular rate and rhythm without murmurs, gallops, or rubs. RESPIRATORY: Clear to auscultation. Breath sounds equal bilaterally. No wheezes , rales, or rhonchi. GASTROINTESTINAL: Abdomen soft, non-tender, nondistended. No hepato-splenomegaly , or palpable masses. No guarding. MUSCULOSKELETAL: Extremities without clubbing, cyanosis, or edema. No joint tenderness, effusion, or edema noted. No calf tenderness. Negative Homans sign bilaterally. NEUROLOGICAL: Awake and alert. Cranial nerves II through XII intact. Motor and sensory grossly within normal limits. Five out of 5 muscle strength in all muscle groups. Normal speech. Laboratory Laboratory Tests Test 05/28/17 15:50 05/28/17 16:00 White Blood Count 6.6 Red Blood Count 4.59 Hemoglobin 14.4 Hematocrit 40.7 Mean Corpuscular Volume 88.7 Mean Corpuscular Hemoglobin 31.4 Mean Corpuscular Hemoglobin Concent 35.4 Red Cell Distribution Width 16.3 Platelet Count 238 Mean Platelet Volume 9.7 Neutrophils (%) (Auto) 53.1 Lymphocytes (%) (Auto) 30.7 Monocytes (%) (Auto) 12.8 Eosinophils (%) (Auto) 2.9 Basophils (%) (Auto) 0.5 Neutrophils # (Auto) 3.5 Lymphocytes # (Auto) 2.0 Monocytes # (Auto) 0.8 Eosinophils # (Auto) 0.2 Basophils # (Auto) 0.0 CBC Comment DIFF FINAL Differential Comment Blood Urea Nitrogen 16 Creatinine 5.88 Random Glucose 82 Total Protein 7.0 Albumin 2.6 Calcium Level 10.1 Alkaline Phosphatase 103 Aspartate Amino Transf (AST/SGOT) 37 Alanine Aminotransferase (ALT/SGPT) 21 Total Bilirubin 2.6 Sodium Level 136 Potassium Level 3.0 Chloride Level 100 Carbon Dioxide Level 22.8 Anion Gap 13 Estimat Glomerular Filtration Rate 8 Lipase 164 Urine Color RED Urine Turbidity CLOUDY Urine pH 5.5 Urine Specific Cumming 1.019 Urine Protein 100 Urine Glucose (UA) NEG Urine Ketones NEG Urine Occult Blood SMALL Urine Nitrite NEG Urine Bilirubin NEG Urine Urobilinogen LESS THAN 2.0 Urine Leukocyte Esterase LARGE Urine RBC 23 Urine WBC Urine WBC Clumps OCC Urine Squamous Epithelial Cells 32 Urine Transitional Epithelial Cells 1 Urine Bacteria MOD Urine Yeast (Budding) MANY Microscopic Urinalysis Comment CATH-CULTURE IND Date/Time Source Procedure Growth Status 05/28/17 17:25 Blood Peripheral Aerobic Blood Culture Pending Received 05/28/17 17:25 Blood Peripheral Anaerobic Blood Culture Pending Received 05/28/17 16:00 Urine Catheterized Urine Urine Culture Pending Received Result Diagram: 05/28/17 1550 05/28/17 1550 Caprini VTE Risk Assessment Caprini VTE Risk Assessment: Mod/High Risk (score >= 2) Caprini Risk Assessment Model Point Value = 1 Point Value = 2 Point Value = 3 Point Value = 5 Age 41-60 Minor surgery BMI > 25 kg/m2 Swollen legs Varicose veins or History of unexplained or recurrent spontaneous Oral contraceptives or hormone replacement Sepsis (< 1 month) Serious lung disease, including pneumonia (< 1 month) Abnormal pulmonary function Acute myocardial infarction Congestive heart failure (< 1 month) History of inflammatory bowel disease Medical patient at bed rest Age 61-74 Arthroscopic surgery Major open surgery (> 45 min) Laparoscopic surgery (> 45 min) Malignancy Confined to bed (> 72 hours) Immobilizing plaster cast Central venous access Age >= 75 History of VTE Family history of VTE Factor V Leiden Prothrombin [id number] Lupus anticoagulant Anticardiolipin antibodies Elevated serum homocysteine Heparin-induced thrombocytopenia Other congenital or acquired thrombophilia Stroke (< 1 month) Elective arthroplasty Hip, pelvis, or leg fracture Acute spinal cord injury (< 1 month) Prophylaxis Regimen Total Risk Factor Score Risk Level Prophylaxis Regimen 0-1 Low Early ambulation 2 Moderate Order ONE of the following: *Sequential Compression Device (SCD) *Heparin 5000 units SQ BID 3-4 Higher Order ONE of the following medications: *Heparin 5000 units SQ TID *Enoxaparin/Lovenox 40 mg SQ daily (WT < 150 kg, CrCl > 30 mL/min) *Enoxaparin/Lovenox 30 mg SQ daily (WT < 150 kg, CrCl > 10-29 mL/min) *Enoxaparin/Lovenox 30 mg SQ BID (WT < 150 kg, CrCl > 30 mL/min) AND/OR *Sequential Compression Device (SCD) 5 or more Highest Order ONE of the following medications: *Heparin 5000 units SQ TID (Preferred with Epidurals) *Enoxaparin/Lovenox 40 mg SQ daily (WT < 150 kg, CrCl > 30 mL/min) *Enoxaparin/Lovenox 30 mg SQ daily (WT < 150 kg, CrCl > 10-29 mL/min) *Enoxaparin/Lovenox 30 mg SQ BID (WT < 150 kg, CrCl > 30 mL/min) AND *Sequential Compression Device (SCD) Assessment and Plan Assessment and Plan Impression: Acute renal failure. Secondary to dehydration from nausea/vomiting/diarrhea. Renal transplant status Doubt that this is rejection although patient is quite a poor historian and possible noncompliance with antirejection medications due to medication communication error. Possible C. difficile with recent hospitalization UTI Hypokalemia from GI loss Hypertension Diabetes Chronic kidney disease. Was on hemodialysis starting 1987 for about 3 years till she received transplant in 1989. Renal transplant 1989 SLE. Diagnosed in 2001. Skin cancer multiple. Including melanoma. Diagnosed about 9 years ago. GERD Plan: Ultrasound of the kidneys personally reviewed. IV hydration. Check meds list again with studies pharmacy in the morning to verify patient's medications list. Would need to verify this with patient's bottles as well. Patient is poor historian. Question whether she is being having trouble with her antirejection medications. Nephrology consult. We'll follow Cyclosporine levels KCl 40 mEq total was replaced. Will replace as needed cautiously patient has kidney injury. Patient's in CDU informed me that patient had 2 times episode of diarrhea since arrival and 2 times episode of vomiting. We'll check stool studies and C. difficile. Continue Zosyn for now. Monitor fingersticks. Hold long-acting insulin and oral hypoglycemics. Suspect blood sugars will drop with his acute renal failure. DVT prophylaxis with heparin Discussed Condition With patient, nursing staff Physician Certification 2 Midnight Certification Type: Admission for Inpatient Services Order for Inpatient Services The services are ordered in accordance with Medicare regulations or non- Medicare payer requirements, as applicable. In the case of services not specified as inpatient-only, they are appropriately provided as inpatient services in accordance with the 2-midnight benchmark. Estimated LOS (days): 3 days is the estimated time the patient will need to remain in the hospital, assuming treatment plan goals are met and no additional complications. Post-Hospital Plan: Home Hannah Coughlin MD May 29, 2017 01:33
[2017-05-29 02:00] LABS: CREATININE, RANDOM URINE 392.3 MG/DL
[2017-05-29] MEDS: PIPERACIL-TAZO 3.375 GM PREMIX 50 ML IV SCH ×2 (05:27)
[2017-05-29 07:43] VITALS: BP 126/78; PULSE 78; RESP 18; TEMP 97.7; O2SAT 97
[2017-05-29] MEDS: INSULIN ASPART SUPPLEMENTAL SCALE SQ SCH ×4 (08:00→21:00)
[2017-05-29 08:31] LABS: ALBUMIN 2.3 GM/DL (3.4-5.0); ALKALINE PHOSPHATASE 85 U/L (45-117); ALT (GPT) 14 U/L (10-53); AST (GOT) 33 U/L (15-37); BICARBONATE 25.9 MEQ/L (21.0-32.0); BLOOD UREA NITROGEN 18 MG/DL (7-18); CALCIUM 9.7 MG/DL (8.5-10.1); CHLORIDE 104 MEQ/L (98-107); CREATININE 6.38 MG/DL (0.50-1.00); GLOMERULAR FILTRATION RATE 7 ML/MIN (>89); GLUCOSE,RANDOM 69 MG/DL (74-106); PHOSPHORUS 4.2 MG/DL (2.5-4.9); SODIUM (NA) 142 MEQ/L (136-145); TOTAL BILIRUBIN ADULT 2.4 MG/DL (0.2-1.0); TOTAL PROTEIN 5.8 GM/DL (6.4-8.2)
[2017-05-29] MEDS ORDERED: POTASSIUM CHLOR 20 MEQ PREMIX 100 ML IV ONE (09:30)
[2017-05-29] MEDS ORDERED: POTASSIUM CHLORIDE 20 MEQ CONTROLLED RELEASE TAB PO ONE (09:30)
[2017-05-29] MEDS: cycloSPORINE 25 MG CAP PO SCH ×2 (10:18→21:33)
[2017-05-29] MEDS: SODIUM CHLORIDE 0.9% FLUSH 10 ML FLUSH IV FLUSH SCH ×2 (10:18→21:00)
[2017-05-29] MEDS: MYCOPHENOLATE MOFETIL 500 MG TAB PO SCH ×2 (10:18→21:32)
--- NOTE | 2017-05-29 11:21 | HHI.PR ---
Subjective Remarks Follow up for [place], nausea/vomiting/diarrhea. The patient reports continued nausea with 2 episodes of vomiting this morning, emesis described by RN as nonbloody bilious emesis. She has not been able to tolerate oral intake. She also reports continued diarrhea. Denies any abdominal pain, fevers/chills, or dysuria. She states she just feels weak. Denies any sick contacts or recent travel. Denies eating anything out of the ordinary. She was recently on antibiotics from previous admission, discharged on 05/07/17. Objective Vitals Vital Signs Date Time Temp Pulse Resp B/P (MAP) Pulse Ox O2 Delivery O2 Flow Rate FiO2 05/29/17 07:43 97.7 78 18 126/78 (94) 97 05/28/17 23:10 97.4 80 18 128/73 (91) 97 05/28/17 18:38 86 18 126/70 (88) 98 Room Air 05/28/17 16:10 78 18 116/62 (80) 96 Room Air 05/28/17 16:10 82 18 116/64 (81) 96 Room Air 05/28/17 15:05 97.8 74 20 104/59 (74) 96 I/O 05/28/17 05/28/17 05/28/17 05/29/17 05/29/17 05/29/17 07:00 15:00 23:00 07:00 15:00 23:00 Intake Total 1050 ml Balance 1050 ml Intake IV Total 1050 ml Result Diagram: 05/28/17 1550 05/29/17 0650 Imaging Last Impressions Renal Ultrasound 05/28/17 0000 Signed Impressions: Service Date/Time: Sunday, May 28, 2017 21:19 - CONCLUSION: The renal pelvis is slightly more prominent than on prior ultrasound examinations however there is no definite evidence of hydronephrosis. Hemodynamic parameters are within normal limits. Denton Cuevas MD Objective Remarks GENERAL: Well-nourished, well-developed pleasant middle aged female patient in [facility]. SKIN: Warm and dry. No rash. HEENT: Normocephalic. Atraumatic. Pupils equal and round. Mucous membranes pink and moist. CARDIOVASCULAR: Regular rate and rhythm. No murmur appreciated. RESPIRATORY: No accessory muscle use. Clear to auscultation. Breath sounds equal bilaterally. GASTROINTESTINAL: Abdomen soft, non-tender, nondistended. Normoactive bowel sounds x4. MUSCULOSKELETAL: No obvious deformities. Extremities without clubbing, cyanosis , or edema. NEUROLOGICAL: Awake and alert. No obvious cranial nerve deficits. Motor grossly within normal limits. Moving all extremities spontaneously. Normal speech. PSYCHIATRIC: Appropriate mood and affect; insight and judgment normal. Medications and IVs Current Medications Medications (Trade) Dose Ordered Sig/Sagrario Route Start Time Stop Time Status Last Admin (NS Flush) 2 ml UNSCH PRN IV FLUSH 05/28/17 15:30 Sodium Chloride 1,000 ml @ 125 mls/hr Q8H IV 05/28/17 17:30 05/29/17 01:59 (NovoLOG SUPPLEMENTAL SCALE) 1 ACHS SLIDING SCALE SQ 05/28/17 21:00 (NS Flush) 2 ml UNSCH PRN IV FLUSH 05/28/17 17:30 (NS Flush) 2 ml BID IV FLUSH 05/28/17 21:00 05/29/17 10:18 (Zofran Inj) 4 mg Q6H PRN IVP 05/28/17 17:30 05/29/17 11:35 (Narcan Inj) 0.4 mg UNSCH PRN IV PUSH 05/28/17 17:30 (Milk Of Magnesia Liq) 30 ml Q12H PRN PO 05/28/17 17:30 (Senokot) 17.2 mg Q12H PRN PO 05/28/17 17:30 (Dulcolax Supp) 10 mg DAILY PRN RECTAL 05/28/17 17:30 (Lactulose Liq) 30 ml DAILY PRN PO 05/28/17 17:30 (SandIMMUNE) 50 mg BID PO 05/28/17 21:00 05/29/17 10:18 (Cellcept) 500 mg BID PO 05/28/17 21:00 05/29/17 10:18 (Deltasone) 10 mg HS PO 05/28/17 21:00 05/28/17 23:13 (Heparin Inj) 5,000 units Q12HR SQ 05/29/17 21:00 Piperacillin Sod/ Tazobactam Sod 50 ml @ 100 mls/hr Q8H IV 05/29/17 13:00 A/P Problem List: (1) Acute renal failure ICD Code: N17.9 - Acute renal failure Status: Acute (2) UTI (urinary tract infection) ICD Code: N39.0 - Urinary tract infection, site not specified Status: Acute (3) Nausea vomiting and diarrhea ICD Code: R11.2 - Nausea with vomiting, unspecified; R19.7 - Diarrhea, unspecified Status: Acute Assessment and Plan 51-year-old female with history of HTN, DM, CAD, right renal transplant 1989, lupus, GERD, presents with a four day history of intractable nausea/vomiting/ diarrhea, and fall 2 yesterday. Acute Renal Failure on CKD stage III: suspect worsened by dehydration with recent vomiting/diarrhea. -Renal U/S reviewed, shows renal pelvis slightly more prominent than prior U/ S; however no definite hydronephrosis -Continue IVF hydration with NS at 125cc/hr -Avoid nephrotoxins -Monitor BMP -Consult nephrology, appreciate assistance Intractable nausea/vomiting/diarrhea: suspect secondary to gastroenteritis, also UTI likely contributing. -checking stool studies and C.difficile, patient at risk with recent antibiotic use -supportive treatment with IVF hydration, antiemetics prn -diet as tolerated -consider abdominal CT if no improvement UTI: UA with large leuks, bacteria, however with 32 squamous epithelial cells. Patient denies dysuria/suprapubic pain/increase urinary frequency/urgency; however with ARF and intractable nausea/vomiting as above. -will treat with IV Zosyn renally dosed for now -monitor urine culture and adjust antibiotics as appropriate Generalized Weakness/Fall: suspect multifactorial with dehydration, ARF, UTI, recent hospitalization. -supportive treatment, IVF hydration -consult PT Hx of Renal Transplant: with acute renal failure as above. -continue patient's cyclosporine and mycophenolate -nephrology following Hypertension: chronic -continue patient's atenolol -hold lisinopril with acute renal failure DVT Prophylaxis: heparin sq Shanthi Mccurdy PA-C May 29, 2017 11:20 am
[2017-05-29] MEDS: ONDANSETRON HCL 4 MG/2 ML VIAL IVP PRN ×3 (11:35→23:21)
--- NOTE | 2017-05-29 12:42 | PD.CONS ---
[facility] Service Nephrology Consult Requested By Reason for Consult SHELTON, hx of renal transplant Primary Care Physician Michelle Connell MD History of Present Illness This is a 51 y/o female. She presents with complaints of frequent falls, generalized weakness, nausea/vomiting, diarrhea. This is her 4th hospitalization since March. At that time she was admitted for the flu. Her baseline creatinine is 1.1-1.2. Each admission it has been higher. Most recently from 05/03 until 05/07, her creatinine was 5.7 that improved to 1.7 at discharge. She was treated for sepsis (pneumonia and UTI) and sent home on PO Zithromax x 3 doses and Augmentin for 10 days. This admission her creatinine was 5.88 and has increased to 6.38 today. Her potassium is 2.9. She is on IVF, states she is urinating. She is unsure of her medications, may be having difficulty caring for herself. We were consulted to assist with management. PMH listed below, also includes renal transplant for which she has been compliant with her rejection regimen. (Steff Bates) Review of Systems Constitutional: COMPLAINS OF: Fatigue, Change in appetite, DENIES: Weight gain , Weight loss Cardiovascular: DENIES: Chest pain, Dyspnea on Exertion, Lower Extremity Edema Gastrointestinal: COMPLAINS OF: Diarrhea, Nausea, Vomiting, DENIES: Abdominal pain, Constipation Neurologic: COMPLAINS OF: Abnormal gait, Poor Balance (Steff Bates) Past Family Social History Allergies: Coded Allergies: adhesive (Verified Allergy, Severe, HIVES, 05/28/17) DISOLVABLE SUTURE MATERAL levofloxacin (Verified Allergy, Intermediate, HIVES/ITCHING, 05/28/17) nifedipine (Verified Adverse Reaction, Intermediate, VOMITING, 05/28/17) Uncoded Allergies: suture material (Adverse Reaction, Severe, SKIN INFECTION, 07/19/16) PT STATES DISSOLVING ONES [place] NOT DISSOLVE AND HAVE TO BE PHYSICALLY REMOVED.. Past Medical History CKD 2-3, on hemodialysis prior to transplant. Baseline creatinine 1.1-1.2 Diabetic gastroparesis DM II anxiety Depression Hypertension Hyperlipidemia Arthritis Lupus GERD Chronic back pain Kidney stones COPD Skin cancer right thigh 2010 Past Surgical History donor renal transplant 1989 hysterectomy,1999 , 1984 cholecystectomy,1996 hernia repair, 1996 Reported Medications Vitamin D3 (Cholecalciferol) 5,000 Unit Cap 5,000 Units PO DAILY Oxygen (O2) Device Liter LARRY.CANULA CONTINUOUS Oxygen Concentrator Portable Gaseous 2 L/min via Nasal Canula Continuous For 99 months Lisinopril 10 Mg Tab 10 Mg PO DAILY Atorvastatin (Atorvastatin Calcium) 10 Mg Tab 10 Mg PO HS Protonix (Pantoprazole Sodium) 40 Mg Tab 40 Mg PO DAILY Clonidine (Clonidine HCl) 0.1 Mg Tab 0.1 Mg PO BID PRN Atenolol 50 Mg Tab 50 Mg PO HS Benefiber (Wheat Dextrin) 152 Gm Powder 10 Gm PO DAILY Zofran Odt (Ondansetron Odt) 4 Mg Tab 4 Mg SL Q6HR PRN Hydrocodone-Acetaminophen 5-325 mg Tab 1 Tab PO Q4H PRN Metoclopramide (Metoclopramide HCl) 5 Mg Tab 5 Mg PO TIDAC Reported Prednisone 5 Mg Tab 10 Mg PO HS Magnesium Oxide 400 Mg Tab 400 Mg PO BID Cyclosporine 25 Mg Cap 50 Mg PO BID Mycophenolate (Mycophenolate Mofetil) 500 Mg Tab 500 Mg PO BID Active Ordered Medications Current Medications Medications (Trade) Dose Ordered Sig/Sagrario Route Start Time Stop Time Status Last Admin (NS Flush) 2 ml UNSCH PRN IV FLUSH 05/28/17 15:30 Sodium Chloride 1,000 ml @ 125 mls/hr Q8H IV 05/28/17 17:30 05/29/17 01:59 (NovoLOG SUPPLEMENTAL SCALE) 1 ACHS SLIDING SCALE SQ 05/28/17 21:00 (NS Flush) 2 ml UNSCH PRN IV FLUSH 05/28/17 17:30 (NS Flush) 2 ml BID IV FLUSH 05/28/17 21:00 05/29/17 10:18 (Zofran Inj) 4 mg Q6H PRN IVP 05/28/17 17:30 05/29/17 11:35 (Narcan Inj) 0.4 mg UNSCH PRN IV PUSH 05/28/17 17:30 (Milk Of Magnesia Liq) 30 ml Q12H PRN PO 05/28/17 17:30 (Senokot) 17.2 mg Q12H PRN PO 05/28/17 17:30 (Dulcolax Supp) 10 mg DAILY PRN RECTAL 05/28/17 17:30 (Lactulose Liq) 30 ml DAILY PRN PO 05/28/17 17:30 (SandIMMUNE) 50 mg BID PO 05/28/17 21:00 05/29/17 10:18 (Cellcept) 500 mg BID PO 05/28/17 21:00 05/29/17 10:18 (Deltasone) 10 mg HS PO 05/28/17 21:00 05/28/17 23:13 (Heparin Inj) 5,000 units Q12HR SQ 05/29/17 21:00 Piperacillin Sod/ Tazobactam Sod 50 ml @ 100 mls/hr Q8H IV 05/29/17 13:00 Family History Non contributory Social History Recently stopped smoking cigarettes No ETOH Unemployed Full code (Steff Bates) Physical Exam Vital Signs Vital Signs Date Time Temp Pulse Resp B/P (MAP) Pulse Ox O2 Delivery O2 Flow Rate FiO2 05/29/17 07:43 97.7 78 18 126/78 (94) 97 05/28/17 23:10 97.4 80 18 128/73 (91) 97 05/28/17 18:38 86 18 126/70 (88) 98 Room Air 05/28/17 16:10 78 18 116/62 (80) 96 Room Air 05/28/17 16:10 82 18 116/64 (81) 96 Room Air 05/28/17 15:05 97.8 74 20 104/59 (74) 96 Physical Exam female, in no distress, resting S1/S2, RRR no murmurs Lungs mostly clear, occasional rales in bases Abdomen obese, soft; renal transplant in lower abdomen not tender Ext no edema Skin: generalized scaly with numerous macules and papules; no open areas Laboratory Laboratory Tests Test 05/28/17 15:50 05/28/17 16:00 05/29/17 06:50 05/29/17 06:59 White Blood Count 6.6 Red Blood Count 4.59 Hemoglobin 14.4 Hematocrit 40.7 Mean Corpuscular Volume 88.7 Mean Corpuscular Hemoglobin 31.4 Mean Corpuscular Hemoglobin Concent 35.4 Red Cell Distribution Width 16.3 Platelet Count 238 Mean Platelet Volume 9.7 Neutrophils (%) (Auto) 53.1 Lymphocytes (%) (Auto) 30.7 Monocytes (%) (Auto) 12.8 Eosinophils (%) (Auto) 2.9 Basophils (%) (Auto) 0.5 Neutrophils # (Auto) 3.5 Lymphocytes # (Auto) 2.0 Monocytes # (Auto) 0.8 Eosinophils # (Auto) 0.2 Basophils # (Auto) 0.0 CBC Comment DIFF FINAL Differential Comment Blood Urea Nitrogen 16 18 Creatinine 5.88 6.38 Random Glucose 82 69 Total Protein 7.0 5.8 Albumin 2.6 2.3 Calcium Level 10.1 9.7 Alkaline Phosphatase 103 85 Aspartate Amino Transf (AST/SGOT) 37 33 Alanine Aminotransferase (ALT/SGPT) 21 14 Total Bilirubin 2.6 2.4 Sodium Level 136 142 Potassium Level 3.0 2.9 Chloride Level 100 104 Carbon Dioxide Level 22.8 25.9 Anion Gap 13 12 Estimat Glomerular Filtration Rate 8 7 Lipase 164 Urine Color RED Urine Turbidity CLOUDY Urine pH 5.5 Urine Specific [place] 1.019 Urine Protein 100 Urine Glucose (UA) NEG Urine Ketones NEG Urine Occult Blood SMALL Urine Nitrite NEG Urine Bilirubin NEG Urine Urobilinogen LESS THAN 2.0 Urine Leukocyte Esterase LARGE Urine RBC 23 Urine WBC Urine WBC Clumps OCC Urine Squamous Epithelial Cells 32 Urine Transitional Epithelial Cells 1 Urine Bacteria MOD Urine Yeast (Budding) MANY Microscopic Urinalysis Comment CATH-CULTURE IND Urine Random Creatinine 392.3 Urine Random Sodium 34 Phosphorus Level 4.2 Test 05/29/17 09:45 Stool C. difficile Toxin (PCR) NEGATIVE Stl C. difficile Toxin Epiderm 027 PRESUMPTIVE NEGATIVE Date/Time Source Procedure Growth Status 05/28/17 17:25 Blood Peripheral Aerobic Blood Culture - Preliminary NO GROWTH IN 1 DAY Resulted 05/28/17 17:25 Blood Peripheral Anaerobic Blood Culture - Preliminary NO GROWTH IN 1 DAY Resulted 05/29/17 09:45 Stool Stool Cryptosporidium Exam Pending Received 05/29/17 09:45 Stool Stool Giardia Antigen (KIA) Pending Received 05/28/17 16:00 Urine Catheterized Urine Urine Culture - Preliminary IMMATURE GROWTH - REINCUBATE Resulted (Steff Bates) Result Diagram: 05/28/17 1550 05/29/17 0650 Imaging Last 72 hours Impressions Renal Ultrasound 05/28/17 0000 Signed Impressions: Service Date/Time: Sunday, May 28, 2017 21:19 - CONCLUSION: The renal pelvis is slightly more prominent than on prior ultrasound examinations however there is no definite evidence of hydronephrosis. Hemodynamic parameters are within normal limits. Denton Cuevas MD (Steff Bates) Assessment and Plan Problem List: (1) Acute renal failure ICD Codes: N17.9 - Acute renal failure Status: Acute Plan: Her baseline prior to this year was 1.1-1.2 She has had multiple episodes of renal failure this year Etiology of this episode may be infection (UTI?), dehydration, that possibly progressed to ATN Unlikely obstruction per imaging although pelvis is full Have to consider organ rejection if no improvement, her transplant is 18 years old Her renal function is worse, however she is making urine Appears to be dry, continue NS @ 125 cc/hr and monitor US of transplant was unremarkable Avoid nephrotoxic agents, renally dose when appropriate Repeat labs in AM (2) Hypokalemia ICD Codes: E87.6 - Hypokalemia Status: Acute Plan: Replace IV, follow labs (3) History of kidney transplant ICD Codes: Z94.0 - History of kidney transplant Status: Acute Plan: Continue current regimen Tacrolimus level is pending Check BK virus today If no improvement, consider empiric steroids and renal biopsy (4) UTI (urinary tract infection) ICD Codes: N39.0 - Urinary tract infection, site not specified Status: Acute Plan: Zosyn dose reduced to 2.25 g Also has candiduria (5) Nausea vomiting and diarrhea ICD Codes: R11.2 - Nausea with vomiting, unspecified; R19.7 - Diarrhea, unspecified Status: Acute Plan: IVF, progress diet per medical team (Steff Bates) Problem List: (1) Acute renal failure ICD Codes: N17.9 - Acute renal failure Status: Acute Plan: Her baseline prior to this year was 1.1-1.2 She has had multiple episodes of renal failure this year Etiology of this episode may be infection (UTI?), dehydration, that possibly progressed to ATN Unlikely obstruction per imaging although pelvis is full Have to consider organ rejection if no improvement, her transplant is 18 years old Her renal function is worse, however she is making urine Appears to be dry, continue NS @ 125 cc/hr and monitor US of transplant was unremarkable Avoid nephrotoxic agents, renally dose when appropriate Repeat labs in AM (2) Hypokalemia ICD Codes: E87.6 - Hypokalemia Status: Acute Plan: Replace IV, follow labs (3) History of kidney transplant ICD Codes: Z94.0 - History of kidney transplant Status: Acute Plan: Continue current regimen Tacrolimus level is pending Check BK virus today If no improvement, consider empiric steroids and renal biopsy (4) UTI (urinary tract infection) ICD Codes: N39.0 - Urinary tract infection, site not specified Status: Acute Plan: Zosyn dose reduced to 2.25 g Also has candiduria (5) Nausea vomiting and diarrhea ICD Codes: R11.2 - Nausea with vomiting, unspecified; R19.7 - Diarrhea, unspecified Status: Acute Plan: IVF, progress diet per medical team Assessment and Plan patient was seen and examined. Agree with above assessment and plan. Recurrent episodes of SHELTON in the past few months: not a good prognostic sign. Continue IVF and monitor. (Damon Temple MD) Steff Bates May 29, 2017 12:42 Damon Temple MD May 29, 2017 21:07
[2017-05-29 12:45] VITALS: BP 124/71; PULSE 85; RESP 18; TEMP 98.2; O2SAT 94
[2017-05-29] MEDS: PIPERACIL-TAZO 2.25 GM PREMIX 50 ML IV SCH ×2 (14:13→21:41)
[2017-05-29] MEDS: POTASSIUM CHLOR 20 MEQ PREMIX 100 ML IV SCH ×2 (15:17→16:00)
[2017-05-29] MEDS ORDERED: PRED5TAB PO (15:52)
[2017-05-29] MEDS ORDERED: LOSA25TA PO (15:52)
[2017-05-29 16:00] VITALS: BP 155/90; PULSE 85; RESP 18; TEMP 98.1; O2SAT 98
[2017-05-29 17:18] LABS: MAGNESIUM 1.7 MG/DL (1.5-2.5)
--- NOTE | 2017-05-29 20:43 | EKG ---
Date Performed: 05/28/2017 Time Performed: 16:43:08 PTAGE: 51 years EKG: Sinus rhythm WITH SINUS ARRHYTHMIA NONSPECIFIC T-WAVE ABNORMALITY ABNORMAL ECG PREVIOUS TRACING : 05/03/2017 16.51 Compared to previous tracing SINUS TACHYCARDIA IS NO LONGER PRESENT DOCTOR: Arash Goldberg Interpretating Date/Time 05/29/2017 20:42:51
[2017-05-29 20:44] VITALS: BP 133/78; PULSE 85; RESP 14; TEMP 98; O2SAT 98
[2017-05-29] MEDS: predniSONE 10 MG TAB PO SCH (21:33)
[2017-05-29] MEDS: HEPARIN SODIUM - SQ 10,000 UNITS/ML VIAL SQ SCH (21:34)
[2017-05-30] MEDS: SODIUM CHLOR 0.9% 1000 ML INJ 1,000 ML IV SCH ×2 (01:21→04:49)
[2017-05-30 04:17] VITALS: BP 147/90; PULSE 86; RESP 14; TEMP 97.8; O2SAT 98
[2017-05-30] MEDS: PIPERACIL-TAZO 2.25 GM PREMIX 50 ML IV SCH ×3 (04:50→23:14)
[2017-05-30 07:56] VITALS: BP 146/101; PULSE 80; RESP 18; TEMP 98.2; O2SAT 95
[2017-05-30] MEDS: INSULIN ASPART SUPPLEMENTAL SCALE SQ SCH ×4 (07:59→21:00)
[2017-05-30] MEDS: MYCOPHENOLATE MOFETIL 500 MG TAB PO SCH ×2 (07:59→23:14)
[2017-05-30] MEDS: SODIUM CHLORIDE 0.9% FLUSH 10 ML FLUSH IV FLUSH SCH ×2 (08:00→21:00)
[2017-05-30] MEDS: cycloSPORINE 25 MG CAP PO SCH ×2 (08:00→23:14)
[2017-05-30] MEDS: HEPARIN SODIUM - SQ 10,000 UNITS/ML VIAL SQ SCH (08:00)
[2017-05-30] MEDS: ONDANSETRON HCL 4 MG/2 ML VIAL IVP PRN (08:04)
--- NOTE | 2017-05-30 09:09 | HHI.PR ---
Subjective Remarks Follow up for ARF, nausea/vomiting/diarrhea. The patient states she vomited twice yesterday morning, then was able to tolerate some liquids last night, but no solid foods yet. She then smelt her medications this morning which made her nauseous and vomited x1, nonbloody clear emesis. She reports 3 episodes of nonbloody diarrhea overnight. She reports she saw Dr. Fortune sometime last year 2016, had outpatient EGD/colonoscopy. She states the EGD just showed GERD however colonoscopy was abnormal, she was sent to a surgeon who repeated her colonoscopy and did not find anything. The patient otherwise denies any fevers/ chills, abdominal pain, dysuria, or other urinary complaints. Objective Vitals Vital Signs Date Time Temp Pulse Resp B/P (MAP) Pulse Ox O2 Delivery O2 Flow Rate FiO2 05/30/17 07:56 98.2 80 18 146/101 (116) 95 05/30/17 04:17 97.8 86 14 147/90 (109) 98 05/29/17 20:44 98.0 85 14 133/78 (96) 98 05/29/17 16:00 98.1 85 18 155/90 (111) 98 05/29/17 12:45 98.2 85 18 124/71 (88) 94 I/O 05/29/17 05/29/17 05/29/17 05/30/17 05/30/17 05/30/17 07:00 15:00 23:00 07:00 15:00 23:00 Intake Total 100 ml 250 ml Balance 100 ml 250 ml Intake IV Total 100 ml 250 ml # Bowel Movements 1 Result Diagram: 05/28/17 1550 05/29/17 1541 Imaging Last Impressions Renal Ultrasound 05/28/17 0000 Signed Impressions: Service Date/Time: Sunday, May 28, 2017 21:19 - CONCLUSION: The renal pelvis is slightly more prominent than on prior ultrasound examinations however there is no definite evidence of hydronephrosis. Hemodynamic parameters are within normal limits. Denton Cuevas MD Objective Remarks GENERAL: Well-nourished, well-developed pleasant middle aged female patient in [facility]. SKIN: Warm and dry. No rash. HEENT: Normocephalic. Atraumatic. Pupils equal and round. Mucous membranes pink and moist. CARDIOVASCULAR: Regular rate and rhythm. No murmur appreciated. RESPIRATORY: No accessory muscle use. Clear to auscultation. Breath sounds equal bilaterally. GASTROINTESTINAL: Abdomen soft, non-tender, nondistended. Normoactive bowel sounds x4. MUSCULOSKELETAL: No obvious deformities. Extremities without clubbing, cyanosis , or edema. NEUROLOGICAL: Awake and alert. No obvious cranial nerve deficits. Motor grossly within normal limits. Moving all extremities spontaneously. Normal speech. PSYCHIATRIC: Appropriate mood and affect; insight and judgment normal. Medications and IVs Current Medications Medications (Trade) Dose Ordered Sig/Sagrario Route Start Time Stop Time Status Last Admin (NS Flush) 2 ml UNSCH PRN IV FLUSH 05/28/17 15:30 Sodium Chloride 1,000 ml @ 125 mls/hr Q8H IV 05/28/17 17:30 05/30/17 04:49 (NovoLOG SUPPLEMENTAL SCALE) 1 ACHS SLIDING SCALE SQ 05/28/17 21:00 (NS Flush) 2 ml UNSCH PRN IV FLUSH 05/28/17 17:30 (NS Flush) 2 ml BID IV FLUSH 05/28/17 21:00 05/30/17 08:00 (Zofran Inj) 4 mg Q6H PRN IVP 05/28/17 17:30 05/30/17 08:04 (Narcan Inj) 0.4 mg UNSCH PRN IV PUSH 05/28/17 17:30 (Milk Of Magnesia Liq) 30 ml Q12H PRN PO 05/28/17 17:30 (Senokot) 17.2 mg Q12H PRN PO 05/28/17 17:30 (Dulcolax Supp) 10 mg DAILY PRN RECTAL 05/28/17 17:30 (Lactulose Liq) 30 ml DAILY PRN PO 05/28/17 17:30 (Cellcept) 500 mg BID PO 05/28/17 21:00 05/30/17 07:59 (Deltasone) 10 mg HS PO 05/28/17 21:00 05/29/17 21:33 (Heparin Inj) 5,000 units Q12HR SQ 05/29/17 21:00 05/30/17 08:00 Piperacillin Sod/ Tazobactam Sod 50 ml @ 100 mls/hr Q8H IV 05/29/17 13:00 05/30/17 04:50 (SandIMMUNE) 75 mg DAILY PO 05/30/17 09:00 05/30/17 08:00 (SandIMMUNE) 50 mg HS PO 05/29/17 21:00 05/29/17 21:33 A/P Problem List: (1) Acute renal failure ICD Code: N17.9 - Acute renal failure Status: Acute (2) UTI (urinary tract infection) ICD Code: N39.0 - Urinary tract infection, site not specified Status: Acute (3) Nausea vomiting and diarrhea ICD Code: R11.2 - Nausea with vomiting, unspecified; R19.7 - Diarrhea, unspecified Status: Acute Assessment and Plan 51-year-old female with history of HTN, DM, CAD, right renal transplant 1989, lupus, GERD, presents with a four day history of intractable nausea/vomiting/ diarrhea, and fall 2 yesterday. Acute Renal Failure on CKD stage III: suspect worsened by dehydration with recent vomiting/diarrhea. -Renal U/S reviewed, shows renal pelvis slightly more prominent than prior U/ S; however no definite hydronephrosis -Continue IVF hydration with NS at 125cc/hr -Avoid nephrotoxins -Monitor BMP, labs pending today -Consulted nephrology, appreciate assistance Intractable nausea/vomiting/diarrhea: suspect secondary to gastroenteritis, also UTI likely contributing. -stool studies and C.difficile negative (patient at risk for Cdiff with recent antibiotic use) -supportive treatment with IVF hydration, antiemetics prn -diet as tolerated -consider abdominal CT if no improvement, however EMR reviewed, abd/pelvis CT on 05/03 unremarkable -patient also had recent EGD/colonoscopy with Dr. Fortune within the past year, reportedly showed GERD UTI: UA with large leuks, bacteria, however with 32 squamous epithelial cells. Patient denies dysuria/suprapubic pain/increase urinary frequency/urgency; however with ARF and intractable nausea/vomiting as above. -will treat with IV Zosyn renally dosed for now -monitor urine culture and adjust antibiotics as appropriate Generalized Weakness/Fall: suspect multifactorial with dehydration, ARF, UTI, recent hospitalization. -supportive treatment, IVF hydration -consult PT, no PT needed at discharge Hx of Renal Transplant: with acute renal failure as above. Concern for transplant failure. -continue patient's cyclosporine and mycophenolate -nephrology following Hypertension: chronic -continue patient's atenolol -hold lisinopril with acute renal failure DVT Prophylaxis: heparin sq Discharge Planning Discharge pending further clinical improvement. Not yet ready for discharge. Shanthi Mccurdy PA-C May 30, 2017 9:09 am
[2017-05-30 11:25] VITALS: BP 153/95; PULSE 75; RESP 18; TEMP 97.5; O2SAT 98
--- NOTE | 2017-05-30 11:49 | HHI.NPPN ---
Subjective Renal Failure: Chronic, Acute Interval History Pending today's labs. She is voiding. Having loose stool, C diff negative. (Steff Bates) Review of Systems Gastrointestinal Gastrointestinal: Nausea & Vomiting, Diarrhea (Steff Bates) Objective Data Data Vital Signs Date Time Temp Pulse Resp B/P (MAP) Pulse Ox O2 Delivery O2 Flow Rate FiO2 05/30/17 11:25 97.5 75 18 153/95 (114) 98 05/30/17 07:56 98.2 80 18 146/101 (116) 95 05/30/17 04:17 97.8 86 14 147/90 (109) 98 05/29/17 20:44 98.0 85 14 133/78 (96) 98 05/29/17 16:00 98.1 85 18 155/90 (111) 98 05/29/17 12:45 98.2 85 18 124/71 (88) 94 (Steff Bates) -: 05/28/17 1550 05/29/17 1541 Imaging Last Impressions Renal Ultrasound 05/28/17 0000 Signed Impressions: Service Date/Time: Sunday, May 28, 2017 21:19 - CONCLUSION: The renal pelvis is slightly more prominent than on prior ultrasound examinations however there is no definite evidence of hydronephrosis. Hemodynamic parameters are within normal limits. Denton Cuevas MD (Steff Bates) Physical Exam General Appearance: Well Developed, No Acute Distress, Comfortable (Steff Bates) Ears & Nose Ears & Nose Exam: Tympanic Membranes Normal (Steff Bates) Throat Throat Exam: Oral Mucosa [place] & Moist (Steff Bates) Pulmonary Resp Exam: Clear Bilaterally, Breath Sounds Equal, Decreased Bases (Steff Bates) Cardiology CV Exam: Regular, Normal Sinus Rhythm (Steff Bates) Gastrointestinal/Abdomen GI Exam: Soft, Non-Tender GI Remarks obese, RLQ transplanted organ not palpable, non tender (Steff Bates) Musculoskeletal MS Exam: Joints Intact, Normal Tone (Steff Bates) Integumentary Skin Exam: Warm, Dry, Intact Skin Remarks scaly areas over most of her skin. Some areas are bleeding from being scratched. Scaly raised plaques. (Steff Bates) Extremeties Extremities Exam: No Edema, Pedal Pulses Palpable (Steff Bates) Neurologic Neuro Exam: Alert, Awake, Oriented, Speech Clear, Moving All Extremities (Steff Bates) Psychiatric Psych Exam: Appropriate Responses (Steff Bates) Assessment/Plan Discussed Condition With: Patient Assessment Summary: SHELTON/Acute Renal Failure, Acute Tubular Necrosis, Hypertension, Transplant Kidney Status Problem List: (1) Acute renal failure ICD Codes: N17.9 - Acute renal failure Status: Acute Plan: Her baseline prior to this year was 1.1-1.2 She has had multiple episodes of renal failure this year Etiology of this episode may be infection (UTI?), dehydration, that possibly progressed to ATN Pending labs from today Have to consider organ rejection if no improvement, her transplant is 18 years old On IVF, reduce rate to 50 cc/hr Tolerating PO fluids Avoid nephrotoxic agents, renally dose when appropriate Repeat labs in AM (2) Hypokalemia ICD Codes: E87.6 - Hypokalemia Status: Acute Plan: Replace IV, follow labs (3) History of kidney transplant ICD Codes: Z94.0 - History of kidney transplant Status: Acute Plan: Continue rejection regimen Tacrolimus level is low, dosage increased BK virus is pending If no improvement, consider empiric steroids and renal biopsy (4) UTI (urinary tract infection) ICD Codes: N39.0 - Urinary tract infection, site not specified Status: Acute Plan: Zosyn dose reduced to 2.25 g Also has candiduria (5) Nausea vomiting and diarrhea ICD Codes: R11.2 - Nausea with vomiting, unspecified; R19.7 - Diarrhea, unspecified Status: Acute Plan: IVF, progress diet per medical team (Steff Bates) Plan patient was seen and examined. Renal function has not improved. Cyclosporine level is low. It was increased. I will start Solumedrol empirically. May need renal biopsy. (Damon Temple MD) Steff Bates May 30, 2017 11:49 Damon Temple MD May 30, 2017 15:33
[2017-05-30 11:53] LABS: ALBUMIN 2.4 GM/DL (3.4-5.0); BICARBONATE 21.3 MEQ/L (21.0-32.0); CALCIUM 9.2 MG/DL (8.5-10.1); CREATININE 6.38 MG/DL (0.50-1.00); PHOSPHORUS 4.6 MG/DL (2.5-4.9)
[2017-05-30] MEDS ORDERED: methylPREDNISolone SOD SUCC 125 MG/2 ML VIAL IV SCH (15:45)
[2017-05-30] MEDS: methylPREDNISolone SOD SUCC 125 MG/2 ML VIAL IV PUSH SCH (15:45)
[2017-05-30 16:07] VITALS: BP 137/95; PULSE 77; RESP 20; TEMP 97.5; O2SAT 98
[2017-05-30 19:56] VITALS: BP 176/84; PULSE 72; RESP 16; TEMP 98.6; O2SAT 98
[2017-05-30 22:40] VITALS: BP 168/96; PULSE 68; RESP 20; TEMP 97.7; O2SAT 97
[2017-05-30] MEDS: cloNIDine HCL 0.1 MG TAB PO SCH (23:14)
[2017-05-31] VITALS (9 sets, daily range): BP systolic 83–188; BP diastolic 52–104; PULSE 67–78; RESP 18–20; TEMP 95.5–98; O2SAT 92–96
[2017-05-31] MEDS: SODIUM CHLOR 0.9% 1000 ML INJ 1,000 ML IV SCH ×2 (02:07→22:07)
[2017-05-31] MEDS: PIPERACIL-TAZO 2.25 GM PREMIX 50 ML IV SCH (05:00)
[2017-05-31] MEDS: INSULIN ASPART SUPPLEMENTAL SCALE SQ SCH ×3 (08:00→21:00)
[2017-05-31] MEDS: MYCOPHENOLATE MOFETIL 500 MG TAB PO SCH ×2 (08:04→22:40)
[2017-05-31] MEDS: cycloSPORINE 25 MG CAP PO SCH ×2 (08:04→22:41)
[2017-05-31] MEDS: methylPREDNISolone SOD SUCC 125 MG/2 ML VIAL IV PUSH SCH (08:04)
[2017-05-31] MEDS: SODIUM CHLORIDE 0.9% FLUSH 10 ML FLUSH IV FLUSH SCH ×2 (08:04→22:25)
[2017-05-31] MEDS: cloNIDine HCL 0.1 MG TAB PO SCH ×2 (08:04→22:44)
[2017-05-31] MEDS: ONDANSETRON HCL 4 MG/2 ML VIAL IVP PRN ×3 (08:08→22:40)
[2017-05-31 09:15] LABS: BICARBONATE 18.2 MEQ/L (21.0-32.0); CALCIUM 9.2 MG/DL (8.5-10.1); CREATININE 5.47 MG/DL (0.50-1.00)
[2017-05-31 09:51] LABS: INTERNATIONAL NORMALIZED RATIO 1.1 RATIO; PROTHROMBIN TIME - PATIENT 11.4 SEC (9.8-11.6)
[2017-05-31 10:11] LABS: BK DNA QUANT BY RAPID PCR None detected (None detected)
[2017-05-31] MEDS ORDERED: ACETAMINOPHEN 325 MG TAB PO ONE (10:30)
--- NOTE | 2017-05-31 10:30 | HHI.NPPN ---
Subjective Renal Failure: Chronic, Acute Interval History She is NPO for renal biopsy. INR initially reported as 4, repeated is 1.1. Complaining of headache and nausea. On IVF. (Steff Bates) Review of Systems General Constitutional: Fatigue (Steff Bates) Gastrointestinal Gastrointestinal: Nausea & Vomiting, Diarrhea (Steff Bates) Neuro Neuro: Headache (Steff Bates) Objective Data Data 05/31/17 06/01/17 19:00 07:00 Intake Total 250 ml Output Total 300 ml Balance -50 ml Intake Oral 50 ml IV Total 200 ml Output Urine Total 200 ml Stool Total 100 ml Vital Signs Date Time Temp Pulse Resp B/P (MAP) Pulse Ox O2 Delivery O2 Flow Rate FiO2 05/31/17 09:44 151/79 (103) 05/31/17 08:28 97.8 70 20 188/102 (130) 96 05/31/17 02:57 98.0 67 20 171/88 (115) 93 05/30/17 22:40 97.7 68 20 168/96 (120) 97 05/30/17 19:56 98.6 72 16 176/84 (114) 98 05/30/17 16:07 97.5 77 20 137/95 (109) 98 05/30/17 11:25 97.5 75 18 153/95 (114) 98 (Steff Bates) -: 05/28/17 1550 05/31/17 0630 Imaging Last Impressions Renal Ultrasound 05/28/17 0000 Signed Impressions: Service Date/Time: Sunday, May 28, 2017 21:19 - CONCLUSION: The renal pelvis is slightly more prominent than on prior ultrasound examinations however there is no definite evidence of hydronephrosis. Hemodynamic parameters are within normal limits. Denton Cuevas MD (Steff Bates) Physical Exam General Appearance: Well Developed, No Acute Distress, Comfortable (Steff Bates) Ears & Nose Ears & Nose Exam: Tympanic Membranes Normal (Steff Bates) Throat Throat Exam: Oral Mucosa Labelle & Moist (Steff Bates) Pulmonary Resp Exam: Clear Bilaterally, Breath Sounds Equal, Decreased Bases (Steff BatesP) Cardiology CV Exam: Regular, Normal Sinus Rhythm (Steff BatesP) Gastrointestinal/Abdomen GI Exam: Soft, Non-Tender GI Remarks obese, RLQ transplanted organ not palpable, non tender (Steff Bates [employer]) Musculoskeletal MS Exam: Joints Intact, Normal Tone (Steff BatesP) Integumentary Skin Exam: Warm, Dry, Intact Skin Remarks scaly areas over most of her skin. Some areas are bleeding from being scratched. Scaly raised plaques. (Steff BatesP) Extremeties Extremities Exam: No Edema, Pedal Pulses Palpable (Steff Bates) Neurologic Neuro Exam: Alert, Awake, Oriented, Speech Clear, Moving All Extremities (Steff Bates) Psychiatric Psych Exam: Appropriate Responses (Steff Bates) Assessment/Plan Discussed Condition With: Patient Assessment Summary: [place]/Acute Renal Failure, Acute Tubular Necrosis, Hypertension, Transplant Kidney Status Problem List: (1) Acute renal failure ICD Codes: N17.9 - Acute renal failure Status: Acute Plan: Her baseline prior to this year was 1.1-1.2 She has had multiple episodes of renal failure this year Etiology of this episode may be infection (UTI?), dehydration, that possibly progressed to ATN Have to consider acute organ rejection; of note her transplant is 18 years old Creatinine is slightly improved She is non oliguric Empiric steroids started, Solumedrol 60 mg IV daily Stop IVF when diet is resumed Avoid nephrotoxic agents, renally dose when appropriate Repeat labs in AM (2) History of kidney transplant ICD Codes: Z94.0 - History of kidney transplant Status: Acute Plan: Continue rejection regimen (Cellcept and Cyclosporine) Prednisone stopped, now on IV steroids. Tacrolimus level is low, dosage increased, repeat level BK virus and CMV is pending Biopsy of transplanted kidney this AM (3) Hypokalemia ICD Codes: E87.6 - Hypokalemia Status: Acute Plan: corrected, follow labs (4) UTI (urinary tract infection) ICD Codes: N39.0 - Urinary tract infection, site not specified Status: Acute Plan: Zosyn dose reduced to 2.25 g Also has candiduria (5) Hypertension ICD Codes: I10 - Essential (primary) hypertension Status: Resolved Plan: Clonidine and amlodipine have been started (6) Nausea vomiting and diarrhea ICD Codes: R11.2 - Nausea with vomiting, unspecified; R19.7 - Diarrhea, unspecified Status: Acute Plan: antiemetics ordered (Steff Bates) Plan patient was seen and examined. s/p renal biopsy. Monitor renal function. Monitor for complications of biopsy. (Damon Temple MD) Steff Bates May 31, 2017 10:30 Damon Temple MD May 31, 2017 14:53
[2017-05-31] MEDS: amLODIPine BESYLATE 5 MG TAB PO SCH (10:35)
--- NOTE | 2017-05-31 11:46 | HHI.PR ---
Subjective Remarks Follow up for ARF, nausea/vomiting/diarrhea. The patient reports severe global headache this morning. She states she gets migraines at home, usually relieved with Fioricet. She also reports nausea, but no vomiting today. She did have 2-3 episodes of vomiting yesterday but was able to tolerate dinner. She is currently NPO for renal biopsy today. She reports her diarrhea resolved and only had 1 BM yesterday, none today. Denies fevers/chills. Denies any other medical complaints at this time. Objective Vitals Vital Signs Date Time Temp Pulse Resp B/P (MAP) Pulse Ox O2 Delivery O2 Flow Rate FiO2 05/31/17 09:44 151/79 (103) 05/31/17 08:28 97.8 70 20 188/102 (130) 96 05/31/17 02:57 98.0 67 20 171/88 (115) 93 05/30/17 22:40 97.7 68 20 168/96 (120) 97 05/30/17 19:56 98.6 72 16 176/84 (114) 98 05/30/17 16:07 97.5 77 20 137/95 (109) 98 I/O 05/30/17 05/30/17 05/30/17 05/31/17 05/31/17 05/31/17 07:00 15:00 23:00 07:00 15:00 23:00 Intake Total 50 ml 850 ml 200 ml 250 ml Output Total 650 ml 300 ml Balance 50 ml 200 ml 200 ml -50 ml Intake Oral 500 ml 200 ml 50 ml IV Total 50 ml 350 ml 200 ml Output Urine Total 650 ml 200 ml Stool Total 100 ml Result Diagram: 05/28/17 1550 05/31/17 0630 Imaging Last Impressions Renal Ultrasound 05/28/17 0000 Signed Impressions: Service Date/Time: Sunday, May 28, 2017 21:19 - CONCLUSION: The renal pelvis is slightly more prominent than on prior ultrasound examinations however there is no definite evidence of hydronephrosis. Hemodynamic parameters are within normal limits. Denton Cuevas MD Objective Remarks GENERAL: Well-nourished, well-developed pleasant middle aged female patient in [facility]. SKIN: Warm and dry. No rash. HEENT: Normocephalic. Atraumatic. Pupils equal and round. Mucous membranes pink and moist. CARDIOVASCULAR: Regular rate and rhythm. No murmur appreciated. RESPIRATORY: No accessory muscle use. Clear to auscultation. Breath sounds equal bilaterally. GASTROINTESTINAL: Abdomen soft, non-tender, nondistended. Normoactive bowel sounds x4. MUSCULOSKELETAL: No obvious deformities. Extremities without clubbing, cyanosis , or edema. NEUROLOGICAL: Awake and alert. No obvious cranial nerve deficits. Motor grossly within normal limits. Moving all extremities spontaneously. Normal speech. PSYCHIATRIC: Appropriate mood and affect; insight and judgment normal. Medications and IVs Current Medications Medications (Trade) Dose Ordered Sig/Sagrario Route Start Time Stop Time Status Last Admin (NS Flush) 2 ml UNSCH PRN IV FLUSH 05/28/17 15:30 Sodium Chloride 1,000 ml @ 50 mls/hr Q20H IV 05/28/17 17:30 05/30/17 04:49 (NovoLOG SUPPLEMENTAL SCALE) 1 ACHS SLIDING SCALE SQ 05/28/17 21:00 (NS Flush) 2 ml UNSCH PRN IV FLUSH 05/28/17 17:30 (NS Flush) 2 ml BID IV FLUSH 05/28/17 21:00 05/31/17 08:04 (Zofran Inj) 4 mg Q6H PRN IVP 05/28/17 17:30 05/31/17 08:08 (Narcan Inj) 0.4 mg UNSCH PRN IV PUSH 05/28/17 17:30 (Milk Of Magnesia Liq) 30 ml Q12H PRN PO 05/28/17 17:30 (Senokot) 17.2 mg Q12H PRN PO 05/28/17 17:30 (Dulcolax Supp) 10 mg DAILY PRN RECTAL 05/28/17 17:30 (Lactulose Liq) 30 ml DAILY PRN PO 05/28/17 17:30 (Cellcept) 500 mg BID PO 05/28/17 21:00 05/31/17 08:04 (Heparin Inj) 5,000 units Q12HR SQ 05/29/17 21:00 Future Hold 05/30/17 08:00 Piperacillin Sod/ Tazobactam Sod 50 ml @ 100 mls/hr Q8H IV 05/29/17 13:00 05/31/17 05:00 (SandIMMUNE) 75 mg DAILY PO 05/30/17 09:00 05/31/17 08:04 (SandIMMUNE) 50 mg HS PO 05/29/17 21:00 05/30/17 23:14 (SoluMEDROL INJ) 60 mg DAILY IV PUSH 05/30/17 15:30 05/31/17 08:04 (Catapres) 0.1 mg Q12HR PO 05/30/17 21:00 05/31/17 08:04 (Norvasc) 5 mg DAILY PO 05/31/17 10:30 05/31/17 10:35 A/P Problem List: (1) Acute renal failure ICD Code: N17.9 - Acute renal failure Status: Acute (2) UTI (urinary tract infection) ICD Code: N39.0 - Urinary tract infection, site not specified Status: Acute (3) Nausea vomiting and diarrhea ICD Code: R11.2 - Nausea with vomiting, unspecified; R19.7 - Diarrhea, unspecified Status: Acute Assessment and Plan 51-year-old female with history of HTN, DM, CAD, right renal transplant 1989, lupus, GERD, presents with a four day history of intractable nausea/vomiting/ diarrhea, and fall 2 yesterday. Acute Renal Failure on CKD stage III with hx of Renal Transplant 18years ago: suspect worsened by UTI, and dehydration with recent vomiting/diarrhea. Concern for transplant failure. -Renal U/S reviewed, shows renal pelvis slightly more prominent than prior U/ S; however no definite hydronephrosis -continue patient's cyclosporine and mycophenolate -Continue IVF hydration with NS, decreased from 125cc/hr to 50cc/hr per nephrology -Avoid nephrotoxins -Monitor BMP, minimally improved Cr. 6.38 --> 5.47 -Consulted nephrology, appreciate assistance -started on empiric steroids with IV Solu-medrol 60mg daily -s/p renal biopsy 05/31, pathology pending Intractable nausea/vomiting/diarrhea: suspect secondary to gastroenteritis, also UTI likely contributing. -stool studies and C.difficile negative (patient at risk for Cdiff with recent antibiotic use) -supportive treatment with IVF hydration, antiemetics prn -diet as tolerated -consider abdominal CT if no improvement, however EMR reviewed, abd/pelvis CT on 05/03 unremarkable -patient also had recent EGD/colonoscopy with Dr. Fortune within the past year, reportedly showed GERD -symptoms improving, less nausea/vomiting, and diarrhea resolved UTI, Asymptomatic Candiduria: UA with large leuks, bacteria, however with 32 squamous epithelial cells. Patient denies dysuria, suprapubic pain, or increase urinary frequency/urgency; however with ARF and intractable nausea/vomiting as above. -treated with IV Zosyn renally dosed, however urine culture with no bacteria , will discontinue -urine culture with john glabrata, patient asymptomatic, will not treat at this time, repeat UA Generalized Weakness/Fall: suspect multifactorial with dehydration, ARF, UTI, recent hospitalization. -supportive treatment, IVF hydration -consult PT, no PT needed at discharge Hypertension: acute on chronic -continue patient's atenolol -hold lisinopril with acute renal failure -started on amlodipine 5mg daily -continue to monitor BP, adjust antihypertensives as needed DVT Prophylaxis: heparin sq Discharge Planning Discharge pending further clinical improvement. Not yet ready for discharge. Shanthi Mccurdy PA-C May 31, 2017 11:46
[2017-05-31] MEDS ORDERED: LIDOCAINE 1%/EPINEPHrine 1:100,000 SOLN 50 ML VIAL ONE (12:35)
[2017-05-31] MEDS ORDERED: fentaNYL CITRATE 250 MCG/5 ML AMP ONE (12:53)
[2017-05-31] MEDS ORDERED: MIDAZOLAM HCL 2 MG/2 ML VIAL ONE ×3 (12:53→20:01)
--- NOTE | 2017-05-31 13:33 | PD.RAD ---
Post CT Procedure Prog Note Pre Procedure Diagnosis: (1) Acute on chronic kidney disease, stage 3 (2) Renal transplant recipient (3) Post-operative state (4) History of kidney transplant Post Procedure Diagnosis: Procedure Date: May 31, 2017 Supervising Radiologist: Ayo Arthur Proceduralist/Assist: claire gonzalez Estimated blood loss: 5cc Anesthesia: Conscious Sedation Plan of Activity Patient to Unit: [facility] Patient Condition: Good See PACS Report for procedural detail/treatment Ayo Arthur MD May 31, 2017 13:33
[2017-05-31] MEDS ORDERED: ACETAMIN 325 MG/BUTALBITAL 50 MG/CAFFEINE 40 MG TAB PO PRN (13:45)
--- NOTE | 2017-05-31 14:39 | RADRPT ---
EXAM DATE/TIME: 05/31/2017 12:57 [facility] COMPARISON: No previous studies available for comparison. INDICATIONS : Renal failure. SEDATION TIME: 15 minutes BIOPSY SITE: pelvic kidney MEDICATION(S): 1.) 2 mg midazolam (Versed) IV 2.) 100 mcg fentanyl (Sublimaze) IV DEVICE(S): 1.) 17 gauge 11cm coaxial 2.) 18 gauge 16cm Bard MEDICAL HISTORY : Renal failure. Lupus. SURGICAL HISTORY : Hysterectomy. Cholecystectomy. Renal transparent ENCOUNTER: Initial ACUITY: 1 day PAIN SCORE: 0/10 LOCATION: pelvis A total of two core specimen(s) were obtained and sent to the laboratory for pathologic evaluation. PROCEDURE: 1. CT guided renal biopsy. 2. Conscious sedation with continuous EKG and oximetry monitoring. Prior to the procedure informed consent was obtained. Any appropriate prior imaging studies were rev iewed. Using automated exposure control and adjustment of the mA and/or kV according to patient size, radiat ion dose was kept as low as reasonably achievable to obtain optimal diagnostic quality images. DICOM format image data is available electronically for review and comparison. The site was prepped in a sterile fashion. Full sterile technique was used, including cap, mask, evelin rile gloves and gown and a large sterile sheet. Hand hygiene and 2% chlorhexidine and/or betadine/al cohol prep was utilized per protocol for cutaneous antisepsis. The skin and subcutaneous tissues wer e infiltrated with local anesthetic solution. With CT guidance the previously identified target was localized. Biopsy was performed using the presc ribed needle as above. Adequate hemostasis was obtained with compression at the puncture site. Follow-up CT scan reveals minimal adjacent hemorrhage. Gelfoam was injected adjacent to the upper nadia e.. The patient tolerated the procedure well and there were no complications. The patient was returned to the Radiology Outpatient Unit in stable condition. CONCLUSION: Successful CT guided biopsy of transplanted kidney in the right lower quadrant. Ayo Arthur MD on May 31, 2017 at 14:35 Board Certified Radiologist. This report was verified electronically.
[2017-05-31] MEDS ORDERED: ACETAMINOPHEN/HYDROcodone 325 MG/10 MG TAB PO ONE (14:45)
[2017-05-31 16:54] LABS: AUTOMATED NEUTROPHIL # 5.3 TH/MM3 (1.8-7.7); BASOPHIL % 0.3 % (0.0-2.0); HEMATOCRIT 37.7 % (35.0-46.0); HEMOGLOBIN 12.7 GM/DL (11.6-15.3); LYMPH % 9.6 % (9.0-44.0); LYMPHOCYTE # 0.6 TH/MM3 (1.0-4.8); MEAN CORPUSCULAR HEMOGLOBIN 30.1 PG (27.0-34.0); MEAN CORPUSCULAR HGB CONC 33.8 % (32.0-36.0); MEAN PLATELET VOLUME 9.7 FL (7.0-11.0); MONO % 3.2 % (0.0-8.0); MONOCYTE # 0.2 TH/MM3 (0-0.9); NEUT % 86.9 % (16.0-70.0); PLATELET COUNT 299 TH/MM3 (150-450); RED BLOOD COUNT 4.24 MIL/MM3 (4.00-5.30); RED CELL DISTRIBUTION WIDTH 15.9 % (11.6-17.2); WHITE BLOOD COUNT 6.1 TH/MM3 (4.0-11.0)
[2017-05-31] MEDS ORDERED: SODIUM CHLOR 0.9% 1000 ML INJ 1,000 ML IV ONE (19:15)
[2017-05-31] MEDS ORDERED: SODIUM CHLOR 0.9% 1000 ML INJ 1,000 ML IV SCH (20:29)
[2017-05-31] MEDS ORDERED: SODIUM CHLORID 0.9% 500 ML INJ 500 ML IV PRN (20:30)
[2017-05-31] MEDS ORDERED: SODIUM CHLOR 0.9% 1000 ML INJ 1,000 ML IV PRN (20:30)
--- NOTE | 2017-05-31 20:31 | PD.RAD ---
Post Procedure Progress Note Pre Procedure Diagnosis: (1) Hematoma Post Procedure Diagnosis: (1) Hematoma Procedure Date: May 31, 2017 Supervising Radiologist: David Juares Proceduralist/Assist: Martha Angeles, RT(R), Marisol Gomes RT(R)() Anesthesia: Conscious Sedation Plan of Activity Patient to Unit: Nursing Unit Patient Condition: Good See PACS Report for procedural detail/treatment Vascular-Arterial Procedure Procedure 1 Procedure Site: Abdominal Procedure(s): Angiogram Access Access Site(s): Right Femoral Artery Closure Site(s): Right vascular closure device Findings: no acute bleed David Juares MD May 31, 2017 20:31
[2017-05-31] MEDS ORDERED: IODIXANOL 320 MG/ML 50 ML VIAL (for RAD SPEC) I-ARTERIAL ONE (20:42)
--- NOTE | 2017-05-31 21:20 | RADRPT ---
EXAM DATE/TIME: 05/31/2017 17:55 [facility] COMPARISON: No previous studies available for comparison. INDICATIONS : Post renal biopsy; rule out bleed. ORAL CONTRAST: No oral contrast ingested. RADIATION DOSE: 19.77 CTDIvol (mGy) MEDICAL HISTORY : Hypertension. Gastroesophageal reflux disease. Renal failure, chronic. SURGICAL HISTORY : Hysterectomy. Cholecystectomy.Inguinal hernia repair.Tubal ligation, Kidney transplant ENCOUNTER: Initial ACUITY: 1 day PAIN SCALE: 5/10 LOCATION: Right abdomen TECHNIQUE: Volumetric scanning of the abdomen and pelvis was performed. Using automated exposure control and ad justment of the mA and/or kV according to patient size, radiation dose was kept as low as reasonably achievable to obtain optimal diagnostic quality images. DICOM format image data is available electro nically for review and comparison. FINDINGS: There is a perinephric hemorrhage around the transplant kidney, status post biopsy. Hemorrhage measur es up to 15 cm x 9 cm. There is mild hydronephrosis of the transplant kidney. [place] kidneys are markedly atrophic. Fatty liver. Lung bases clear. CONCLUSION: 1. Large right-sided perinephric hemorrhage status post right renal biopsy of a transplant kidney. Mi ld hydronephrosis of the transplanted right kidney. There are renal cysts within the transplant kidne y. Findings discussed with Dr. Arthur. Neville Townsend MD on May 31, 2017 at 21:15 Board Certified Radiologist. This report was verified electronically.
[2017-06-01 04:40] VITALS: BP 122/70; PULSE 78; RESP 18; TEMP 97.5; O2SAT 96
[2017-06-01] MEDS: oxyCODONE/ACETAMINOPHEN 5 MG/325 MG TAB PO PRN (06:01)
[2017-06-01 08:00] VITALS: BP 108/58; PULSE 72; RESP 17; TEMP 98; O2SAT 94
[2017-06-01] MEDS: INSULIN ASPART SUPPLEMENTAL SCALE SQ SCH ×4 (08:00→20:58)
[2017-06-01] MEDS: MYCOPHENOLATE MOFETIL 500 MG TAB PO SCH ×2 (08:33→20:51)
[2017-06-01] MEDS: amLODIPine BESYLATE 5 MG TAB PO SCH (08:35)
[2017-06-01] MEDS: cloNIDine HCL 0.1 MG TAB PO SCH ×2 (08:35→20:51)
[2017-06-01] MEDS: SODIUM CHLORIDE 0.9% FLUSH 10 ML FLUSH IV FLUSH SCH ×2 (08:35→20:51)
[2017-06-01] MEDS: methylPREDNISolone SOD SUCC 125 MG/2 ML VIAL IV PUSH SCH (08:35)
[2017-06-01] MEDS: cycloSPORINE 25 MG CAP PO SCH ×2 (08:46→20:51)
[2017-06-01 09:26] LABS: ALBUMIN 2.3 GM/DL (3.4-5.0); BICARBONATE 20.1 MEQ/L (21.0-32.0); CREATININE 4.06 MG/DL (0.50-1.00); PHOSPHORUS 4.7 MG/DL (2.5-4.9)
--- NOTE | 2017-06-01 09:33 | HHI.PR ---
Subjective Remarks Follow-up abdominal pain, acute renal failure. The patient had CT-guided renal biopsy yesterday. She developed hemorrhage and was taken back to interventional radiology for angiogram. Still reports abdominal pain, but feels a little better than yesterday. No nausea or vomiting at this time. Objective Vitals Vital Signs Date Time Temp Pulse Resp B/P (MAP) Pulse Ox O2 Delivery O2 Flow Rate FiO2 06/01/17 08:00 98.0 72 17 108/58 (75) 94 06/01/17 04:40 97.5 78 18 122/70 (87) 96 05/31/17 22:09 97.2 67 18 116/67 (83) 96 05/31/17 22:00 74 14 124/61 (82) 97 Room Air 05/31/17 21:45 74 14 123/56 (78) 97 Room Air 05/31/17 21:30 74 14 125/58 (80) 94 Room Air 05/31/17 21:15 74 14 95/61 (72) 94 Room Air 05/31/17 21:00 97.7 74 12 94/62 (73) 94 Room Air 05/31/17 15:30 72 20 95/57 (70) 93 05/31/17 15:00 70 20 83/52 (62) 92 05/31/17 14:30 78 20 110/74 (86) 95 05/31/17 14:00 76 20 106/71 (83) 95 05/31/17 13:50 95.5 72 18 121/82 (95) 96 05/31/17 09:44 151/79 (103) I/O 05/31/17 05/31/17 05/31/17 06/01/17 06/01/17 06/01/17 07:00 15:00 23:00 07:00 15:00 23:00 Intake Total 200 ml 250 ml 360 ml Output Total 300 ml Balance 200 ml -50 ml 360 ml Intake Oral 200 ml 50 ml 360 ml IV Total 200 ml Output Urine Total 200 ml Stool Total 100 ml # Voids 2 # Bowel Movements 0 Result Diagram: 05/31/17 1646 05/31/17 0630 Imaging Last Impressions Renal Biopsy CT 05/31/17 0000 Signed Impressions: Service Date/Time: Wednesday, May 31, 2017 12:57 - CONCLUSION: Successful CT guided biopsy of transplanted kidney in the right lower quadrant. Ayo Arthur MD Abdomen/Pelvis CT 05/31/17 0000 Signed Impressions: Service Date/Time: Wednesday, May 31, 2017 17:55 - CONCLUSION: 1. Large right-sided perinephric hemorrhage status post right renal biopsy of a transplant kidney. Mild hydronephrosis of the transplanted right kidney. There are renal cysts within the transplant kidney. Findings discussed with Dr. Arthur. Neville Townsend MD Renal Ultrasound 05/28/17 0000 Signed Impressions: Service Date/Time: Sunday, May 28, 2017 21:19 - CONCLUSION: The renal pelvis is slightly more prominent than on prior ultrasound examinations however there is no definite evidence of hydronephrosis. Hemodynamic parameters are within normal limits. Denton Cuevas MD Objective Remarks General: Obese female in no acute distress. Heart: Regular rate and rhythm. No murmur. Lungs: Clear to auscultation bilaterally. No wheezes, rales, or rhonchi. Breathing is nonlabored. Abdomen: Soft, diffusely tender, nondistended. Extremities: No lower extremity edema. Psych: Alert and oriented. Procedures 05/31/17 renal biopsy 05/31/17 angiogram Urinary Catheter: No Vascular Central Line Catheter: No A/P Problem List: (1) Acute renal failure ICD Code: N17.9 - Acute renal failure Status: Acute (2) UTI (urinary tract infection) ICD Code: N39.0 - Urinary tract infection, site not specified Status: Acute (3) Nausea vomiting and diarrhea ICD Code: R11.2 - Nausea with vomiting, unspecified; R19.7 - Diarrhea, unspecified Status: Acute Assessment and Plan 1. Acute renal failure superimposed on chronic kidney disease stage III: Patient has history of renal transplant in 1989. Appreciate nephrology recommendations. Status post renal biopsy. Continue cyclosporine, mycophenolate. Continue gentle IV fluid hydration. Avoid nephrotoxins. Continue steroids. 2. Postbiopsy hemorrhage: Appreciate interventional radiology management. Monitor H&H. 3. Intractable nausea/vomiting/diarrhea: Likely secondary to gastroenteritis, UTI. Stool studies negative including C. difficile. Continue gentle IV fluid hydration. Continue anti-emetics. No nausea or vomiting this morning. 4. Generalized weakness, fall: Likely multifactorial with dehydration, acute renal failure, UTI. Continue supportive care, physical therapy. 5. Hypertension: Continue atenolol. Lisinopril on hold secondary to acute renal failure. Continue amlodipine. 6. DVT prophylaxis: SCDs. Avoid chemical prophylaxis secondary to postbiopsy hemorrhage. César Griffin MD Jun 01, 2017 09:33
[2017-06-01 11:17] LABS: HEMATOCRIT 31.4 % (35.0-46.0); HEMOGLOBIN 10.7 GM/DL (11.6-15.3)
[2017-06-01 12:00] VITALS: BP 105/58; PULSE 76; RESP 17; TEMP 97.8; O2SAT 93
[2017-06-01 15:58] VITALS: BP 139/73; PULSE 89; RESP 17; TEMP 97.2; O2SAT 96
--- NOTE | 2017-06-01 16:41 | HHI.NPPN ---
Subjective Renal Failure: Chronic, Acute Review of Systems General Constitutional: Fatigue Gastrointestinal Gastrointestinal: Nausea & Vomiting, Diarrhea Neuro Neuro: Headache Objective Data Data 06/01/17 06/02/17 19:00 07:00 Intake Total 480 ml Balance 480 ml Intake Oral 480 ml # Voids 2 # Bowel Movements 0 Vital Signs Date Time Temp Pulse Resp B/P (MAP) Pulse Ox O2 Delivery O2 Flow Rate FiO2 06/01/17 15:58 97.2 89 17 139/73 (95) 96 06/01/17 12:00 97.8 76 17 105/58 (74) 93 06/01/17 08:00 98.0 72 17 108/58 (75) 94 06/01/17 04:40 97.5 78 18 122/70 (87) 96 05/31/17 22:09 97.2 67 18 116/67 (83) 96 05/31/17 22:00 74 14 124/61 (82) 97 Room Air 05/31/17 21:45 74 14 123/56 (78) 97 Room Air 05/31/17 21:30 74 14 125/58 (80) 94 Room Air 05/31/17 21:15 74 14 95/61 (72) 94 Room Air 05/31/17 21:00 97.7 74 12 94/62 (73) 94 Room Air -: 06/01/17 1040 06/01/17 0754 Physical Exam General Appearance: Well Developed, No Acute Distress, Comfortable Ears & Nose Ears & Nose Exam: Tympanic Membranes Normal Throat Throat Exam: Oral Mucosa [place] & Moist Pulmonary Resp Exam: Clear Bilaterally, Breath Sounds Equal, Decreased Bases Cardiology CV Exam: Regular, Normal Sinus Rhythm Gastrointestinal/Abdomen GI Exam: Soft, Non-Tender Musculoskeletal MS Exam: Joints Intact, Normal Tone Integumentary Skin Exam: Warm, Dry, Intact Extremeties Extremities Exam: No Edema, Pedal Pulses Palpable Neurologic Neuro Exam: Alert, Awake, Oriented, Speech Clear, Moving All Extremities Psychiatric Psych Exam: Appropriate Responses Assessment/Plan Discussed Condition With: Patient Assessment Summary: [place]/Acute Renal Failure, Acute Tubular Necrosis, Hypertension, Transplant Kidney Status Problem List: (1) Acute renal failure ICD Codes: N17.9 - Acute renal failure Status: Acute Plan: Her baseline prior to this year was 1.1-1.2 She has had multiple episodes of renal failure this year Etiology of this episode may be infection (UTI?), dehydration, that possibly progressed to ATN Have to consider acute organ rejection; of note her transplant is 18 years old Creatinine is slightly improved She is non oliguric Empiric steroids started, Solumedrol 60 mg IV daily Creatinine is coming down Follow BMP He had a kidney biopsy and had post biopsy bleed is stable (2) History of kidney transplant ICD Codes: Z94.0 - History of kidney transplant Status: Acute Plan: Continue rejection regimen (Cellcept and Cyclosporine) Prednisone stopped, now on IV steroids. Tacrolimus level is low, dosage increased, repeat level BK virus and CMV is pending Biopsy of transplanted kidney done with complication post biopsy bleed (3) Hypokalemia ICD Codes: E87.6 - Hypokalemia Status: Acute Plan: corrected, follow labs (4) UTI (urinary tract infection) ICD Codes: N39.0 - Urinary tract infection, site not specified Status: Acute Plan: Zosyn dose reduced to 2.25 g Also has candiduria (5) Hypertension ICD Codes: I10 - Essential (primary) hypertension Status: Resolved Plan: Clonidine and amlodipine have been started (6) Nausea vomiting and diarrhea ICD Codes: R11.2 - Nausea with vomiting, unspecified; R19.7 - Diarrhea, unspecified Status: Acute Plan: antiemetics ordered Eugenie Avila MD Jun 01, 2017 16:40
[2017-06-01] MEDS: SODIUM CHLOR 0.9% 1000 ML INJ 1,000 ML IV SCH (18:07)
[2017-06-01 18:59] LABS: HEMOGLOBIN 11.3 GM/DL (11.6-15.3)
[2017-06-01 20:00] VITALS: BP 157/83; PULSE 80; RESP 22; TEMP 97.5; O2SAT 97
[2017-06-02] VITALS: BP 157/87; PULSE 81; RESP 20; TEMP 97.2; O2SAT 95
[2017-06-02 00:34] LABS: HEMATOCRIT 29.2 % (35.0-46.0); HEMOGLOBIN 10.2 GM/DL (11.6-15.3)
[2017-06-02 04:00] VITALS: BP 157/87; PULSE 81; RESP 20; TEMP 98; O2SAT 95
[2017-06-02] MEDS: oxyCODONE/ACETAMINOPHEN 5 MG/325 MG TAB PO PRN ×2 (05:30→11:05)
[2017-06-02] MEDS ORDERED: METF500 PO (06:54)
[2017-06-02 07:29] LABS: HEMATOCRIT 27.8 % (35.0-46.0); HEMOGLOBIN 9.6 GM/DL (11.6-15.3)
[2017-06-02 08:00] VITALS: BP 146/76; PULSE 95; RESP 17; TEMP 97.7; O2SAT 94
[2017-06-02] MEDS: INSULIN ASPART SUPPLEMENTAL SCALE SQ SCH ×4 (08:00→20:23)
[2017-06-02] MEDS: amLODIPine BESYLATE 5 MG TAB PO SCH (08:11)
[2017-06-02] MEDS: cloNIDine HCL 0.1 MG TAB PO SCH ×2 (08:11→20:23)
[2017-06-02] MEDS: SODIUM CHLORIDE 0.9% FLUSH 10 ML FLUSH IV FLUSH SCH ×2 (08:11→20:23)
[2017-06-02] MEDS: methylPREDNISolone SOD SUCC 125 MG/2 ML VIAL IV PUSH SCH (08:11)
[2017-06-02] MEDS: MYCOPHENOLATE MOFETIL 500 MG TAB PO SCH ×2 (08:11→20:58)
[2017-06-02 08:19] LABS: BICARBONATE 21.4 MEQ/L (21.0-32.0); CALCIUM 7.9 MG/DL (8.5-10.1); CREATININE 2.59 MG/DL (0.50-1.00)
[2017-06-02] MEDS: cycloSPORINE 25 MG CAP PO SCH ×2 (09:21→20:23)
[2017-06-02 12:00] VITALS: BP 108/63; PULSE 88; RESP 17; TEMP 98; O2SAT 96
[2017-06-02 13:32] LABS: HEMATOCRIT 30.6 % (35.0-46.0); HEMOGLOBIN 10.5 GM/DL (11.6-15.3)
--- NOTE | 2017-06-02 14:40 | HHI.PR ---
Subjective Remarks Follow-up renal failure, postbiopsy hemorrhage. The patient is still having significant pain in the right flank. She is requesting a change in her pain medications back to Lortab as the Percocet has not helped as much. Objective Vitals Vital Signs Date Time Temp Pulse Resp B/P (MAP) Pulse Ox O2 Delivery O2 Flow Rate FiO2 06/02/17 12:00 98.0 88 17 108/63 (78) 96 06/02/17 08:00 97.7 95 17 146/76 (99) 94 06/02/17 04:00 98.0 81 20 157/87 (110) 95 06/02/17 00:00 97.2 81 20 157/87 (110) 95 06/01/17 20:00 97.5 80 22 157/83 (107) 97 06/01/17 15:58 97.2 89 17 139/73 (95) 96 I/O 06/01/17 06/01/17 06/01/17 06/02/17 06/02/17 06/02/17 06:59 14:59 22:59 06:59 14:59 22:59 Intake Total 360 ml 480 ml 240 ml Output Total 480 ml Balance 360 ml 480 ml -240 ml Intake Oral 360 ml 480 ml 240 ml Output Urine Total 480 ml # Voids 2 2 4 # Bowel Movements 0 0 3 1 Result Diagram: 06/02/17 1258 06/02/17 0718 Imaging Last Impressions Renal Biopsy CT 05/31/17 0000 Signed Impressions: Service Date/Time: Wednesday, May 31, 2017 12:57 - CONCLUSION: Successful CT guided biopsy of transplanted kidney in the right lower quadrant. Ayo Arthur MD Abdomen/Pelvis CT 05/31/17 0000 Signed Impressions: Service Date/Time: Wednesday, May 31, 2017 17:55 - CONCLUSION: 1. Large right-sided perinephric hemorrhage status post right renal biopsy of a transplant kidney. Mild hydronephrosis of the transplanted right kidney. There are renal cysts within the transplant kidney. Findings discussed with Dr. Arthur. Neville Townsend MD Renal Ultrasound 05/28/17 0000 Signed Impressions: Service Date/Time: Sunday, May 28, 2017 21:19 - CONCLUSION: The renal pelvis is slightly more prominent than on prior ultrasound examinations however there is no definite evidence of hydronephrosis. Hemodynamic parameters are within normal limits. Denton Cuevas MD Objective Remarks General: Obese female in no acute distress. Appears uncomfortable. Heart: Regular rate and rhythm. No murmur. Lungs: Clear to auscultation bilaterally. No wheezes, rales, or rhonchi. Breathing is nonlabored. Abdomen: Soft, diffusely tender, nondistended. Extremities: No lower extremity edema. Psych: Alert and oriented. Procedures 05/31/17 renal biopsy 05/31/17 angiogram Urinary Catheter: No Vascular Central Line Catheter: No A/P Problem List: (1) Acute renal failure ICD Code: N17.9 - Acute renal failure Status: Acute (2) UTI (urinary tract infection) ICD Code: N39.0 - Urinary tract infection, site not specified Status: Acute (3) Nausea vomiting and diarrhea ICD Code: R11.2 - Nausea with vomiting, unspecified; R19.7 - Diarrhea, unspecified Status: Acute Assessment and Plan 1. Acute renal failure superimposed on chronic kidney disease stage III: Patient has history of renal transplant in 1989. Appreciate nephrology recommendations. Status post renal biopsy. Continue cyclosporine, mycophenolate. Continue gentle IV fluid hydration. Avoid nephrotoxins. Continue steroids. 2. Postbiopsy hemorrhage: Appreciate interventional radiology management. Monitor H&H. 3. Intractable nausea/vomiting/diarrhea: Likely secondary to gastroenteritis, UTI. Stool studies negative including C. difficile. Continue gentle IV fluid hydration. Continue anti-emetics as needed. 4. Generalized weakness, fall: Likely multifactorial with dehydration, acute renal failure, UTI. Continue supportive care, physical therapy. 5. Hypertension: Continue atenolol. Lisinopril on hold secondary to acute renal failure. Continue amlodipine. 6. Hypokalemia: Add potassium to IV fluids. Recheck labs in the morning. 7. DVT prophylaxis: SCDs. Avoid chemical prophylaxis secondary to postbiopsy hemorrhage. Discharge Planning Pending further clinical improvement. César Griffin MD Jun 02, 2017 14:40
[2017-06-02] MEDS ORDERED: POTASSIUM CHLORIDE 10 MEQ CONTROLLED RELEASE TAB PO ONE (14:45)
[2017-06-02] MEDS ORDERED: NS + KCL 20 MEQ INJ 1,000 ML IV SCH (14:45)
[2017-06-02] MEDS ORDERED: ACETAMINOPHEN 500 MG CPLT PO PRN (14:45)
[2017-06-02] MEDS ORDERED: ACETAMINOPHEN/HYDROcodone 325 MG/5 MG TAB PO PRN (14:45)
[2017-06-02 16:00] VITALS: BP 120/62; PULSE 72; RESP 17; TEMP 98.1; O2SAT 95
--- NOTE | 2017-06-02 16:21 | HHI.NPPN ---
Subjective Renal Failure: Chronic, Acute Review of Systems General Constitutional: Fatigue Gastrointestinal Gastrointestinal: Nausea & Vomiting, Diarrhea Neuro Neuro: Headache Objective Data Data 06/02/17 06/03/17 18:59 06:59 Intake Total 450 ml Balance 450 ml Intake Oral 450 ml # Voids 3 # Bowel Movements 1 Vital Signs Date Time Temp Pulse Resp B/P (MAP) Pulse Ox O2 Delivery O2 Flow Rate FiO2 06/02/17 16:00 98.1 72 17 120/62 (81) 95 06/02/17 12:00 98.0 88 17 108/63 (78) 96 06/02/17 08:00 97.7 95 17 146/76 (99) 94 06/02/17 04:00 98.0 81 20 157/87 (110) 95 06/02/17 00:00 97.2 81 20 157/87 (110) 95 06/01/17 20:00 97.5 80 22 157/83 (107) 97 -: 06/02/17 1258 06/02/17 0718 Physical Exam General Appearance: Well Developed, No Acute Distress, Comfortable Ears & Nose Ears & Nose Exam: Tympanic Membranes Normal Throat Throat Exam: Oral Mucosa [place] & Moist Pulmonary Resp Exam: Clear Bilaterally, Breath Sounds Equal, Decreased Bases Cardiology CV Exam: Regular, Normal Sinus Rhythm Gastrointestinal/Abdomen GI Exam: Soft, Non-Tender Musculoskeletal MS Exam: Joints Intact, Normal Tone Integumentary Skin Exam: Warm, Dry, Intact Extremeties Extremities Exam: No Edema, Pedal Pulses Palpable Neurologic Neuro Exam: Alert, Awake, Oriented, Speech Clear, Moving All Extremities Psychiatric Psych Exam: Appropriate Responses Assessment/Plan Discussed Condition With: Patient Assessment Summary: SHELTON/Acute Renal Failure, Acute Tubular Necrosis, Hypertension, Transplant Kidney Status Problem List: (1) Acute renal failure ICD Codes: N17.9 - Acute renal failure Status: Acute Plan: Her baseline prior to this year was 1.1-1.2 She has had multiple episodes of renal failure this year Etiology of this episode may be infection (UTI?), dehydration, that possibly progressed to ATN Have to consider acute organ rejection; of note her transplant is 18 years old Creatinine is slightly improved She is non oliguric Solumedrol 60 mg IV daily we will discontinue his biopsy showed no rejection Biopsy showed acute tubular necrosis Creatinine is coming down 2.5 Follow BMP Potassium was replaced she had a kidney biopsy and had post biopsy bleed is stable Possible discharge early next week Resume prednisone [address] Temple will follow (2) History of kidney transplant ICD Codes: Z94.0 - History of kidney transplant Status: Acute Plan: Continue rejection regimen (Cellcept and Cyclosporine) Prednisone stopped, now on IV steroids. Tacrolimus level is low, dosage increased, repeat level BK virus and CMV is pending Biopsy of transplanted kidney done with complication post biopsy bleed (3) Hypokalemia ICD Codes: E87.6 - Hypokalemia Status: Acute Plan: corrected, follow labs (4) UTI (urinary tract infection) ICD Codes: N39.0 - Urinary tract infection, site not specified Status: Acute Plan: Zosyn dose reduced to 2.25 g Also has candiduria (5) Hypertension ICD Codes: I10 - Essential (primary) hypertension Status: Resolved Plan: Clonidine and amlodipine have been started (6) Nausea vomiting and diarrhea ICD Codes: R11.2 - Nausea with vomiting, unspecified; R19.7 - Diarrhea, unspecified Status: Acute Plan: antiemetics ordered Eugenie Avila MD Jun 02, 2017 16:21
[2017-06-02] MEDS: ACETAMINOPHEN/HYDROcodone 325 MG/7.5 MG TAB PO PRN (16:22)
[2017-06-02 20:00] VITALS: BP 137/73; PULSE 68; RESP 17; TEMP 97.1; O2SAT 97
[2017-06-02] MEDS ORDERED: METF500T PO (20:19)
[2017-06-02 20:45] LABS: HEMATOCRIT 26.9 % (35.0-46.0)
[2017-06-03] VITALS (7 sets, daily range): BP systolic 98–167; BP diastolic 53–88; PULSE 58–78; RESP 17–20; TEMP 96.5–98.2; O2SAT 97–99
[2017-06-03] MEDS: ACETAMINOPHEN/HYDROcodone 325 MG/7.5 MG TAB PO PRN ×2 (04:25→16:36)
[2017-06-03 06:25] LABS: BICARBONATE 21.3 MEQ/L (21.0-32.0); CALCIUM 7.2 MG/DL (8.5-10.1); CREATININE 1.61 MG/DL (0.50-1.00); MAGNESIUM 1.3 MG/DL (1.5-2.5)
[2017-06-03 06:43] LABS: CALCIUM-PROTEIN CORRECTED 8.4 MG/DL (8.5-10.1); TOTAL PROTEIN 4.9 GM/DL (6.4-8.2)
[2017-06-03 06:51] LABS: AUTOMATED NEUTROPHIL # 2.9 TH/MM3 (1.8-7.7); BASOPHIL % 0.1 % (0.0-2.0); HEMATOCRIT 26.8 % (35.0-46.0); LYMPH % 18.1 % (9.0-44.0); LYMPHOCYTE # 0.8 TH/MM3 (1.0-4.8); MEAN CORPUSCULAR HEMOGLOBIN 30.3 PG (27.0-34.0); MEAN CORPUSCULAR HGB CONC 33.7 % (32.0-36.0); MEAN PLATELET VOLUME 9.5 FL (7.0-11.0); MONO % 11.7 % (0.0-8.0); MONOCYTE # 0.5 TH/MM3 (0-0.9); NEUT % 70.1 % (16.0-70.0); PLATELET COUNT 203 TH/MM3 (150-450); RED BLOOD COUNT 2.98 MIL/MM3 (4.00-5.30); RED CELL DISTRIBUTION WIDTH 15.3 % (11.6-17.2); WHITE BLOOD COUNT 4.2 TH/MM3 (4.0-11.0)
[2017-06-03] MEDS: INSULIN ASPART SUPPLEMENTAL SCALE SQ SCH ×4 (07:45→20:24)
[2017-06-03] MEDS: amLODIPine BESYLATE 5 MG TAB PO SCH (08:27)
[2017-06-03] MEDS: cloNIDine HCL 0.1 MG TAB PO SCH ×2 (08:27→20:18)
[2017-06-03] MEDS: cycloSPORINE 25 MG CAP PO SCH ×2 (08:28→20:19)
[2017-06-03 08:33] LABS: BANDS 4 % (0-6); LYMPHOCYTES 18 % (9-44); METAMYELOCYTES 1 % (0-1); MONOCYTES 5 % (0-8); NEUTROPHIL # MANUAL DIFF 3.2 TH/MM3 (1.8-7.7); POLYS (SEG NEUTROPHILS) 72 % (16-70)
[2017-06-03] MEDS ORDERED: predniSONE 10 MG TAB PO SCH (09:00)
[2017-06-03] MEDS: MYCOPHENOLATE MOFETIL 500 MG TAB PO SCH ×2 (09:00→20:19)
[2017-06-03] MEDS ORDERED: MAGNESIUM OXIDE 400 MG TAB PO ONE (09:30)
--- NOTE | 2017-06-03 10:49 | HHI.NPPN ---
Subjective Renal Failure: Chronic, Acute Interval History Much more awake and alert today. Some pain s/p renal biopsy. Renal function improved. (Steff Bates) Review of Systems General Constitutional: Fatigue (Steff Bates) Gastrointestinal Gastrointestinal: Diarrhea (Steff Bates) Musculoskeletal MS Remarks RLQ pain and right groin pain s/p biopsy with bleeding intervention post procedure (Steff Bates) Neuro Neuro: Headache (Steff Bates) Objective Data Data Vital Signs Date Time Temp Pulse Resp B/P (MAP) Pulse Ox O2 Delivery O2 Flow Rate FiO2 06/03/17 08:00 97.2 66 20 167/88 (114) 98 06/03/17 04:00 97.6 78 20 130/67 (88) 98 06/03/17 00:39 99 21 06/03/17 00:00 97.8 69 18 110/78 (89) 97 06/02/17 20:00 97.1 68 17 137/73 (94) 97 06/02/17 16:00 98.1 72 17 120/62 (81) 95 06/02/17 12:00 98.0 88 17 108/63 (78) 96 (Steff Bates) -: 06/03/17 0527 06/03/17 0527 Physical Exam General Appearance: Well Developed, No Acute Distress, Comfortable (Steff Bates) Ears & Nose Ears & Nose Exam: Tympanic Membranes Normal (Steff Bates) Throat Throat Exam: Oral Mucosa [place] & Moist (Steff Bates) Pulmonary Resp Exam: Clear Bilaterally, Breath Sounds Equal, Decreased Bases (Steff Bates) Cardiology CV Exam: Regular, Normal Sinus Rhythm (Steff Bates) Gastrointestinal/Abdomen GI Exam: Soft, Non-Tender GI Remarks obese, RLQ transplanted organ not palpable, non tender (Steff Bates) Musculoskeletal MS Exam: Joints Intact, Normal Tone (Steff Bates) Integumentary Skin Exam: Warm, Dry, Intact Skin Remarks scaly areas over most of her skin. Some areas are bleeding from being scratched. Scaly raised plaques. (Steff Bates) Extremeties Extremities Exam: No Edema, Pedal Pulses Palpable (Steff Bates) Neurologic Neuro Exam: Alert, Awake, Oriented, Speech Clear, Moving All Extremities (Steff Bates) Psychiatric Psych Exam: Appropriate Responses (Steff Bates) Assessment/Plan Discussed Condition With: Patient Assessment Summary: SHE[place]/Acute Renal Failure, Acute Tubular Necrosis, Hypertension, Transplant Kidney Status Problem List: (1) Acute renal failure ICD Codes: N17.9 - Acute renal failure Status: Acute Plan: Her baseline prior to this year was 1.1-1.2 She has had multiple episodes of renal failure this year s/p renal biopsy, SHELTON due to ATN Creatinine is improving She is non oliguric Stop IVF, potassium is 5, she is tolerating oral fluids Replace magnesium 2g Na diet ordered Repeat labs in AM (2) History of kidney transplant ICD Codes: Z94.0 - History of kidney transplant Status: Acute Plan: Continue rejection regimen (Cellcept and Cyclosporine) Resume Prednisone, home dose is 5 mg daily Tacrolimus level was low, dosage increased, repeat level in AM BK virus and CMV negative (3) Hypokalemia ICD Codes: E87.6 - Hypokalemia Status: Acute Plan: corrected, follow labs (4) UTI (urinary tract infection) ICD Codes: N39.0 - Urinary tract infection, site not specified Status: Acute Plan: Off zosyn, monitor clinically (5) Hypertension ICD Codes: I10 - Essential (primary) hypertension Status: Resolved Plan: On Clonidine and amlodipine (dose increased) (6) Nausea vomiting and diarrhea ICD Codes: R11.2 - Nausea with vomiting, unspecified; R19.7 - Diarrhea, unspecified Status: Acute Plan: continue antiemetics , may have been due to renal failure Plan She need updated list of medications (and changes) for discharge. (Steff Bates) Plan patient was seen and examined. Agree with above assessment and plan. Renal biopsy revealed ATN. Solumedrol stopped. Renal function is improving. (Damon Temple MD) Steff Bates Jun 03, 2017 10:49 Damon Temple MD Jun 04, 2017 15:18
[2017-06-03] MEDS: SODIUM CHLORIDE 0.9% FLUSH 10 ML FLUSH IV FLUSH SCH ×2 (10:57→20:29)
--- NOTE | 2017-06-03 11:39 | HHI.PR ---
Subjective Remarks 06-02 Follow-up renal failure, postbiopsy hemorrhage. The patient is still having significant pain in the right flank. She is requesting a change in her pain medications back to Lortab as the Percocet has not helped as much. 06-03 HAS NOT BEEN CLEARED BY NEPHROLOGY YET NO CURRENT COMPLAINTS NEEDS WHEELCHAIR AT HOME PT AND OT TO EVAL AND TREAT AM LABS HX OF RENAL TRANSPLANT 18 YEARS AGO AT [facility] Objective Vitals Vital Signs Date Time Temp Pulse Resp B/P (MAP) Pulse Ox O2 Delivery O2 Flow Rate FiO2 06/03/17 08:00 97.2 66 20 167/88 (114) 98 06/03/17 04:00 97.6 78 20 130/67 (88) 98 06/03/17 00:39 99 21 06/03/17 00:00 97.8 69 18 110/78 (89) 97 06/02/17 20:00 97.1 68 17 137/73 (94) 97 06/02/17 16:00 98.1 72 17 120/62 (81) 95 06/02/17 12:00 98.0 88 17 108/63 (78) 96 I/O 06/02/17 06/02/17 06/02/17 06/03/17 06/03/17 06/03/17 07:00 15:00 23:00 07:00 15:00 23:00 Intake Total 240 ml 450 ml Output Total 480 ml Balance -240 ml 450 ml Intake Oral 240 ml 450 ml Output Urine Total 480 ml # Voids 4 3 2 2 # Bowel Movements 3 1 Result Diagram: 06/03/17 0527 06/03/17 0527 Other Results Laboratory Tests Test 05/31/17 16:46 06/01/17 07:54 06/01/17 10:40 06/01/17 18:11 White Blood Count 6.1 TH/MM3 Red Blood Count 4.24 MIL/MM3 Hemoglobin 12.7 GM/DL 10.7 GM/DL 11.3 GM/DL Hematocrit 37.7 % 31.4 % 32.0 % Mean Corpuscular Volume 89.0 FL Mean Corpuscular Hemoglobin 30.1 PG Mean Corpuscular Hemoglobin Concent 33.8 % Red Cell Distribution Width 15.9 % Platelet Count 299 TH/MM3 Mean Platelet Volume 9.7 FL Neutrophils (%) (Auto) 86.9 % Lymphocytes (%) (Auto) 9.6 % Monocytes (%) (Auto) 3.2 % Eosinophils (%) (Auto) 0.0 % Basophils (%) (Auto) 0.3 % Neutrophils # (Auto) 5.3 TH/MM3 Lymphocytes # (Auto) 0.6 TH/MM3 Monocytes # (Auto) 0.2 TH/MM3 Eosinophils # (Auto) 0.0 TH/MM3 Basophils # (Auto) 0.0 TH/MM3 CBC Comment DIFF FINAL Differential Comment Blood Urea Nitrogen 27 MG/DL Creatinine 4.06 MG/DL Random Glucose 114 MG/DL Albumin 2.3 GM/DL Calcium Level 8.0 MG/DL Phosphorus Level 4.7 MG/DL Sodium Level 139 MEQ/L Potassium Level 3.6 MEQ/L Chloride Level 105 MEQ/L Carbon Dioxide Level 20.1 MEQ/L Anion Gap 14 MEQ/L Estimat Glomerular Filtration Rate 12 ML/MIN Test 06/01/17 23:30 06/02/17 07:18 06/02/17 12:58 06/02/17 19:59 Hemoglobin 10.2 GM/DL 9.6 GM/DL 10.5 GM/DL 9.0 GM/DL Hematocrit 29.2 % 27.8 % 30.6 % 26.9 % Blood Urea Nitrogen 29 MG/DL Creatinine 2.59 MG/DL Random Glucose 105 MG/DL Calcium Level 7.9 MG/DL Sodium Level 140 MEQ/L Potassium Level 3.1 MEQ/L Chloride Level 106 MEQ/L Carbon Dioxide Level 21.4 MEQ/L Anion Gap 13 MEQ/L Estimat Glomerular Filtration Rate 20 ML/MIN Test 06/03/17 05:27 White Blood Count 4.2 TH/MM3 Red Blood Count 2.98 MIL/MM3 Hemoglobin 9.0 GM/DL Hematocrit 26.8 % Mean Corpuscular Volume 90.0 FL Mean Corpuscular Hemoglobin 30.3 PG Mean Corpuscular Hemoglobin Concent 33.7 % Red Cell Distribution Width 15.3 % Platelet Count 203 TH/MM3 Mean Platelet Volume 9.5 FL Neutrophils (%) (Auto) 70.1 % Lymphocytes (%) (Auto) 18.1 % Monocytes (%) (Auto) 11.7 % Eosinophils (%) (Auto) 0.0 % Basophils (%) (Auto) 0.1 % Neutrophils # (Auto) 2.9 TH/MM3 Lymphocytes # (Auto) 0.8 TH/MM3 Monocytes # (Auto) 0.5 TH/MM3 Eosinophils # (Auto) 0.0 TH/MM3 Basophils # (Auto) 0.0 TH/MM3 CBC Comment AUTO DIFF Differential Total Cells Counted 100 Neutrophils % (Manual) 72 % Band Neutrophils % 4 % Lymphocytes % 18 % Monocytes % 5 % Neutrophils # (Manual) 3.2 TH/MM3 Metamyelocytes 1 % Differential Comment FINAL DIFF MANUAL Platelet Estimate NORMAL Platelet Morphology Comment NORMAL Red Cell Morphology Comment NORMAL Blood Urea Nitrogen 27 MG/DL Creatinine 1.61 MG/DL Random Glucose 96 MG/DL Total Protein 4.9 GM/DL Calcium Level 7.2 MG/DL Magnesium Level 1.3 MG/DL Sodium Level 145 MEQ/L Potassium Level 5.0 MEQ/L Chloride Level 115 MEQ/L Carbon Dioxide Level 21.3 MEQ/L Anion Gap 9 MEQ/L Estimat Glomerular Filtration Rate 34 ML/MIN Protein Corrected Calcium 8.4 MG/DL Imaging Last Impressions Renal Biopsy CT 05/31/17 0000 Signed Impressions: Service Date/Time: Wednesday, May 31, 2017 12:57 - CONCLUSION: Successful CT guided biopsy of transplanted kidney in the right lower quadrant. Ayo Arthur MD Abdomen/Pelvis CT 05/31/17 0000 Signed Impressions: Service Date/Time: Wednesday, May 31, 2017 17:55 - CONCLUSION: 1. Large right-sided perinephric hemorrhage status post right renal biopsy of a transplant kidney. Mild hydronephrosis of the transplanted right kidney. There are renal cysts within the transplant kidney. Findings discussed with Dr. Arthur. Neville Townsend MD Renal Ultrasound 05/28/17 0000 Signed Impressions: Service Date/Time: Sunday, May 28, 2017 21:19 - CONCLUSION: The renal pelvis is slightly more prominent than on prior ultrasound examinations however there is no definite evidence of hydronephrosis. Hemodynamic parameters are within normal limits. Denton Cuevas MD Objective Remarks GENERAL: Awake alert oriented 3 talkative and cooperative SKIN: Warm and dry. Multiple tattoos HEAD: Atraumatic. Normocephalic. EYES: Pupils equal and round. No scleral icterus. No injection or drainage. Extraocular muscles intact ENT: No nasal bleeding or discharge. Mucous membranes pink and moist. Tongue is midline NECK: Trachea midline. No JVD. Supple CARDIOVASCULAR: Regular rate and rhythm. S1-S2 no S3-S4 RESPIRATORY: No accessory muscle use. Clear to auscultation. Breath sounds equal bilaterally. GASTROINTESTINAL: Abdomen soft, non-tender, nondistended. Hepatic and splenic margins not palpable. MUSCULOSKELETAL: Extremities without clubbing, cyanosis, or edema. No obvious deformities. NEUROLOGICAL: Awake and alert. No obvious cranial nerve deficits. Motor grossly within normal limits. 4 out of 5 muscle strength in the arms and legs. Normal speech. PSYCHIATRIC: Appropriate mood and affect; insight and judgment normal. Procedures 05/31/17 renal biopsy 05/31/17 angiogram Medications and IVs Current Medications Sodium Chloride 1,000 ml @ 1,000 mls/hr Q1H IV Last administered on 05/28/17at 16:15; Start 05/28/17 at 15:18; Stop 05/28/17 at 16:17; Status DC Sodium Chloride (NS Flush) 2 ml UNSCH PRN IV FLUSH FLUSH AFTER USING IV ACCESS ; Start 05/28/17 at 15:30; Stop 05/31/17 at 20:32; Status DC Piperacillin Sod/ Tazobactam Sod 50 ml @ 100 mls/hr ONCE ONCE IV Last administered on 05/28/17at 18:37; Start 05/28/17 at 17:00; Stop 05/28/17 at 17:41 ; Status DC Potassium Chloride 100 ml @ 50 mls/hr BOLUS ONCE IV Last administered on 05/28at 18:53; Start 05/28/17 at 17:00; Stop 05/28/17 at 18:59; Status DC Sodium Chloride 1,000 ml @ 50 mls/hr Q20H IV Last administered on 05/30/17at 04 :49; Start 05/28/17 at 17:30; Stop 06/02/17 at 14:37; Status DC Insulin Aspart (NovoLOG SUPPLEMENTAL SCALE) 1 ACHS SLIDING SCALE SQ Last administered on 06/02/17at 20:23; Start 05/28/17 at 21:00 Sodium Chloride (NS Flush) 2 ml UNSCH PRN IV FLUSH FLUSH AFTER USING IV ACCESS ; Start 05/28/17 at 17:30 Sodium Chloride (NS Flush) 2 ml BID IV FLUSH Last administered on 06/03/17at 10: 57; Start 05/28/17 at 21:00 Ondansetron HCl (Zofran Inj) 4 mg Q6H PRN IVP NAUSEA OR VOMITING Last administered on 05/31/17at 22:40; Start 05/28/17 at 17:30 Naloxone HCl (Narcan Inj) 0.4 mg UNSCH PRN IV PUSH SEE LABEL COMMENTS; Start at 17:30 Magnesium Hydroxide (Milk Of Magnesia Liq) 30 ml Q12H PRN PO Mild constipation ; Start 05/28/17 at 17:30 Sennosides (Senokot) 17.2 mg Q12H PRN PO Moderate constipation; Start 05/28/17 at 17:30 Bisacodyl (Dulcolax Supp) 10 mg DAILY PRN RECTAL SEVERE CONSITIPATION; Start at 17:30 Lactulose (Lactulose Liq) 30 ml DAILY PRN PO SEVERE CONSITIPATION; Start at 17:30 Piperacillin Sod/ Tazobactam Sod 50 ml @ 100 mls/hr Q6H IV Last administered on 05/29/17at 05:27; Start 05/29/17 at 00:00; Stop 05/29/17 at 09:49; Status DC Cyclosporine (SandIMMUNE) 50 mg BID PO Last administered on 05/29/17at 10:18; Start 05/28/17 at 21:00; Stop 05/29/17 at 16:22; Status DC Mycophenolate Mofetil (Cellcept) 500 mg BID PO Last administered on 06/03/17at 09:00; Start 05/28/17 at 21:00 Prednisone (Deltasone) 10 mg HS PO Last administered on 05/29/17at 21:33; Start 05/28/17 at 21:00; Stop 05/30/17 at 15:31; Status DC Atenolol (Tenormin) 50 mg HS PO ; Start 05/28/17 at 21:00; Stop 05/28/17 at 21: 00; Status DC Potassium Chloride (KCl) 20 meq ONCE ONCE PO Last administered on 05/28/17at 23 :14; Start 05/28/17 at 20:15; Stop 05/28/17 at 20:16; Status DC Potassium Chloride (KCl) 40 meq ONCE ONCE PO Last administered on 05/29/17at 11 :27; Start 05/29/17 at 09:30; Stop 05/29/17 at 09:31; Status DC Potassium Chloride 100 ml @ 50 mls/hr BOLUS ONCE IV Last administered on 05/29at 11:27; Start 05/29/17 at 09:30; Stop 05/29/17 at 11:29; Status DC Heparin Sodium (Porcine) (Heparin Inj) 5,000 units Q12HR SQ Last administered on 05/30/17at 08:00; Start 05/29/17 at 21:00; Status Future Hold Piperacillin Sod/ Tazobactam Sod 50 ml @ 100 mls/hr Q8H IV Last administered on 05/31/17at 05:00; Start 05/29/17 at 13:00; Stop 05/31/17 at 15:14; Status DC Potassium Chloride 100 ml @ 50 mls/hr Q2H IV Last administered on 05/29/17at 16 :00; Start 05/29/17 at 14:00; Stop 05/29/17 at 17:59; Status DC Cyclosporine (SandIMMUNE) 75 mg DAILY PO Last administered on 06/03/17at 08:28; Start 05/30/17 at 09:00 Cyclosporine (SandIMMUNE) 50 mg HS PO Last administered on 06/02/17 20:23; Start 05/29/17 at 21:00 Methylprednisolone Sodium Succinate (SoluMEDROL INJ) 60 mg DAILY IV PUSH Last administered on 06/02/17 08:11; Start 05/30/17 at 15:30; Stop 06/02/17 at 15:41 ; Status DC Clonidine (Catapres) 0.1 mg Q12HR PO Last administered on 06/03/17at 08:27; Start 05/30/17 at 21:00 Methylprednisolone Sodium Succinate (SoluMEDROL INJ) 60 mg ONCE IV ; Start 05/30 at 15:45; Stop 05/30/17 at 15:46; Status DC Acetaminophen (Tylenol) 650 mg ONCE ONCE PO Last administered on 05/31/17at 10: 35; Start 05/31/17 at 10:30; Stop 05/31/17 at 10:31; Status DC Amlodipine Besylate (Norvasc) 5 mg DAILY PO Last administered on 06/03/17at 08: 27; Start 05/31/17 at 10:30 Lidocaine/ Epinephrine (Xylocaine-Epi 1%-1:100,000 Inj) 50 ml STK-MED ONCE .ROUTE Last administered on 05/31/17at 12:35; Start 05/31/17 at 12:35; Stop at 12:36; Status DC Midazolam HCl (Versed Inj) 2 mg STK-MED ONCE .ROUTE ; Start 05/31/17 at 12:53; Stop 05/31/17 at 12:54; Status DC Fentanyl Citrate (fentaNYL INJ) 250 mcg STK-MED ONCE .ROUTE ; Start 05/31/17 at 12:53; Stop 05/31/17 at 12:54; Status DC Acetaminophen/ Butalbital/ Caffeine (Fioricet 325-50-40) 1 tab Q6H PRN PO headache; Start 05/31/17 at 13:45 Acetaminophen/ Hydrocodone Bitart ([place] 10-325 Mg) 1 tab ONCE ONCE PO Last administered on 05/31/17at 14:57; Start 05/31/17 at 14:45; Stop 05/31/17 at 14:46 ; Status DC Sodium Chloride 1,000 ml @ 999 mls/hr Q1H1M ONCE IV ; Start 05/31/17 at 19:15; Stop 05/31/17 at 20:15; Status DC Sodium Chloride 500 ml @ 500 mls/hr Q1H PRN IV IF FIRST BOLUS NOT WORK; Start 05/31/17 at 20:30; Stop 05/31/17 at 23:00; Status DC Sodium Chloride 1,000 ml @ 120 mls/hr Q8H20M PRN IV IF WORKS; Start 05/31/17 at 20:30; Stop 06/02/17 at 14:37; Status DC Fentanyl Citrate (fentaNYL INJ) 100 mcg STK-MED ONCE .ROUTE Last administered on 05/31/17at 20:10; Start 05/31/17 at 19:35; Stop 05/31/17 at 19:36; Status DC Midazolam HCl (Versed Inj) 2 mg STK-MED ONCE .ROUTE Last administered on at 20:10; Start 05/31/17 at 19:35; Stop 05/31/17 at 19:36; Status DC Fentanyl Citrate (fentaNYL INJ) 100 mcg STK-MED ONCE .ROUTE ; Start 05/31/17 at 20:01; Stop 05/31/17 at 20:02; Status DC Midazolam HCl (Versed Inj) 2 mg STK-MED ONCE .ROUTE ; Start 05/31/17 at 20:01; Stop 05/31/17 at 20:02; Status DC Sodium Chloride 1,000 ml @ 100 mls/hr Q10H IV ; Start 05/31/17 at 20:29; Stop 06/01/17 at 06:28; Status DC Oxycodone/ Acetaminophen (Percocet 5-325 Mg) 1 tab Q4H PRN PO Pain not relieved by Tylenol Last administered on 06/02/17at 11:05; Start 05/31/17 at 20: 30; Stop 06/02/17 at 14:46; Status DC Iodixanol (VISIPAQUE 320 INJ (Rad Spec)) 30 ml STK-MED ONCE I-ARTERIAL Last administered on 05/31/17at 20:42; Start 05/31/17 at 20:42; Stop 05/31/17 at 20:43 ; Status DC Potassium Chloride/Sodium Chloride 1,000 ml @ 50 mls/hr Q20H IV Last administered on 06/02/17at 15:56; Start 06/02/17 at 14:45; Stop 06/03/17 at 09:31 ; Status DC Potassium Chloride (KCl) 30 meq ONCE ONCE PO Last administered on 06/02/17at 15 :55; Start 06/02/17 at 14:45; Stop 06/02/17 at 14:46; Status DC Acetaminophen/ Hydrocodone Bitart ([place] 5-325 Mg) 1 tab Q4H PRN PO PAIN SCALE 3 TO 5; Start 06/02/17 at 14:45 Acetaminophen/ Hydrocodone Bitart ([place] 7.5-325 Mg) 1 tab Q4H PRN PO PAIN SCALE 6 TO 10 Last administered on 06/03/17at 04:25; Start 06/02/17 at 14:45 Acetaminophen (Tylenol) 500 mg Q4H PRN PO PAIN SCALE 1 TO 2 or FEVER; Start at 14:45 Prednisone (Deltasone) 10 mg DAILY PO Last administered on 06/03/17at 08:27; Start 06/03/17 at 09:00; Stop 06/03/17 at 10:50; Status DC Magnesium Oxide (Mag-Ox) 400 mg ONCE ONCE PO Last administered on 06/03/17at 10 :57; Start 06/03/17 at 09:30; Stop 06/03/17 at 10:15; Status DC Prednisone (Deltasone) 5 mg DAILY PO ; Start 06/04/17 at 09:00 A/P Problem List: (1) Acute renal failure ICD Code: N17.9 - Acute renal failure Status: Acute (2) UTI (urinary tract infection) ICD Code: N39.0 - Urinary tract infection, site not specified Status: Acute (3) Nausea vomiting and diarrhea ICD Code: R11.2 - Nausea with vomiting, unspecified; R19.7 - Diarrhea, unspecified Status: Acute Assessment and Plan 1. Acute renal failure superimposed on chronic kidney disease stage III: Patient has history of renal transplant in 1989. Appreciate nephrology recommendations. Status post renal biopsy. Continue cyclosporine, mycophenolate. Continue gentle IV fluid hydration. Avoid nephrotoxins. Continue steroids. 2. Postbiopsy hemorrhage: Appreciate interventional radiology management. Monitor H&H. 3. Intractable nausea/vomiting/diarrhea: Likely secondary to gastroenteritis, UTI. Stool studies negative including C. difficile. Continue gentle IV fluid hydration. Continue anti-emetics as needed. 4. Generalized weakness, fall: Likely multifactorial with dehydration, acute renal failure, UTI. Continue supportive care, physical therapy. PT and OT 5. Hypertension: Continue atenolol. Lisinopril on hold secondary to acute renal failure. Continue amlodipine. 6. Hypokalemia: Add potassium to IV fluids. Recheck labs in the morning. Change in fluids around due to hyperkalemia 7. DVT prophylaxis: SCDs. Avoid chemical prophylaxis secondary to postbiopsy hemorrhage. Discharge Planning Pending nephrology clearance Krunal Marx DO Jun 03, 2017 11:39
[2017-06-03] MEDS ORDERED: WHEE1EAC (11:41)
[2017-06-03] MEDS ORDERED: cloNIDine HCL 0.1 MG TAB PO PRN (11:45)
[2017-06-03] MEDS: MAGNESIUM SULFATE 1 GM PREMIX 100 ML IV SCH ×2 (12:50→14:22)
[2017-06-03] MEDS: MAGNESIUM OXIDE 400 MG TAB PO SCH (20:18)
[2017-06-03] MEDS ORDERED: ATORVASTATIN 10 MG TAB PO SCH (21:00)
[2017-06-04 00:26] VITALS: BP 118/64; PULSE 61; RESP 17; TEMP 97.7; O2SAT 98
[2017-06-04 05:41] VITALS: BP 116/81; PULSE 58; RESP 17; TEMP 97; O2SAT 99
[2017-06-04 08:00] VITALS: BP 127/75; PULSE 60; RESP 18; TEMP 96.8; O2SAT 99
[2017-06-04] MEDS: INSULIN ASPART SUPPLEMENTAL SCALE SQ SCH ×2 (08:00→12:41)
[2017-06-04] MEDS ORDERED: predniSONE 5 MG TAB PO SCH (09:00)
[2017-06-04 09:32] LABS: AUTOMATED NEUTROPHIL # 2.7 TH/MM3 (1.8-7.7); BASOPHIL % 0.1 % (0.0-2.0); EOSINOPHIL % 0.2 % (0.0-4.0); HEMATOCRIT 32.4 % (35.0-46.0); HEMOGLOBIN 10.9 GM/DL (11.6-15.3); LYMPHOCYTE # 1.7 TH/MM3 (1.0-4.8); MEAN CELL VOLUME 89.4 FL (80.0-100.0); MEAN CORPUSCULAR HEMOGLOBIN 30.2 PG (27.0-34.0); MEAN CORPUSCULAR HGB CONC 33.8 % (32.0-36.0); MEAN PLATELET VOLUME 9.2 FL (7.0-11.0); MONO % 9.4 % (0.0-8.0); MONOCYTE # 0.5 TH/MM3 (0-0.9); NEUT % 55.3 % (16.0-70.0); PLATELET COUNT 212 TH/MM3 (150-450); RED BLOOD COUNT 3.62 MIL/MM3 (4.00-5.30); RED CELL DISTRIBUTION WIDTH 15.5 % (11.6-17.2)
[2017-06-04] MEDS: MYCOPHENOLATE MOFETIL 500 MG TAB PO SCH (09:48)
[2017-06-04] MEDS: MAGNESIUM OXIDE 400 MG TAB PO SCH (09:49)
[2017-06-04] MEDS: amLODIPine BESYLATE 5 MG TAB PO SCH (09:49)
[2017-06-04] MEDS: cycloSPORINE 25 MG CAP PO SCH (09:49)
[2017-06-04] MEDS: SODIUM CHLORIDE 0.9% FLUSH 10 ML FLUSH IV FLUSH SCH (09:50)
[2017-06-04] MEDS: cloNIDine HCL 0.1 MG TAB PO SCH (09:50)
[2017-06-04 10:05] LABS: ALBUMIN 2.4 GM/DL (3.4-5.0); ALT (GPT) 66 U/L (10-53); AST (GOT) 90 U/L (15-37); BICARBONATE 23.2 MEQ/L (21.0-32.0); BLOOD UREA NITROGEN 24 MG/DL (7-18); CHLORIDE 109 MEQ/L (98-107); CREATININE 1.32 MG/DL (0.50-1.00); GLOMERULAR FILTRATION RATE 43 ML/MIN (>89); GLUCOSE,RANDOM 75 MG/DL (74-106); MAGNESIUM 1.7 MG/DL (1.5-2.5); SODIUM (NA) 141 MEQ/L (136-145)
[2017-06-04 10:07] LABS: ALBUMIN 2.4 GM/DL (3.4-5.0); BICARBONATE 23.7 MEQ/L (21.0-32.0); CALCIUM 7.9 MG/DL (8.5-10.1); CREATININE 1.33 MG/DL (0.50-1.00); PHOSPHORUS 2.1 MG/DL (2.5-4.9)
[2017-06-04 10:08] LABS: ALKALINE PHOSPHATASE 79 U/L (45-117); FREE T4 0.69 NG/DL (0.76-1.46); TOTAL BILIRUBIN ADULT 1.2 MG/DL (0.2-1.0); TOTAL PROTEIN 5.4 GM/DL (6.4-8.2)
--- NOTE | 2017-06-04 10:22 | HHI.NPPN ---
Subjective Renal Failure: Chronic, Acute Interval History Resting. Renal function is better. Reporting diarrhea. (Steff Bates) Review of Systems General Constitutional: Fatigue (Steff Bates) Gastrointestinal Gastrointestinal: Diarrhea (Steff Bates) Musculoskeletal MS Remarks RLQ pain and right groin pain s/p biopsy with bleeding intervention post procedure (Steff Bates) Neuro Neuro: Headache (Steff Bates) Objective Data Data Vital Signs Date Time Temp Pulse Resp B/P (MAP) Pulse Ox O2 Delivery O2 Flow Rate FiO2 06/04/17 08:00 96.8 60 18 127/75 (92) 99 06/04/17 05:41 97.0 58 17 116/81 (93) 99 06/04/17 00:26 97.7 61 17 118/64 (82) 98 06/03/17 21:30 97.0 58 17 125/79 (94) 99 06/03/17 17:00 96.5 62 19 98/53 (68) 98 06/03/17 12:00 98.2 68 20 139/77 (97) 98 (Steff Bates) -: 06/04/17 0900 06/04/17 0900 Imaging Last Impressions Renal Biopsy CT 05/31/17 0000 Signed Impressions: Service Date/Time: Wednesday, May 31, 2017 12:57 - CONCLUSION: Successful CT guided biopsy of transplanted kidney in the right lower quadrant. Ayo Arthur MD Abdomen/Pelvis CT 05/31/17 0000 Signed Impressions: Service Date/Time: Wednesday, May 31, 2017 17:55 - CONCLUSION: 1. Large right-sided perinephric hemorrhage status post right renal biopsy of a transplant kidney. Mild hydronephrosis of the transplanted right kidney. There are renal cysts within the transplant kidney. Findings discussed with Dr. Arthur. Neville Townsend MD Renal Ultrasound 05/28/17 0000 Signed Impressions: Service Date/Time: Sunday, May 28, 2017 21:19 - CONCLUSION: The renal pelvis is slightly more prominent than on prior ultrasound examinations however there is no definite evidence of hydronephrosis. Hemodynamic parameters are within normal limits. Denton Cuevas MD (Steff Bates) Physical Exam General Appearance: Well Developed, No Acute Distress, Comfortable, Sleeping (Steff Bates) Ears & Nose Ears & Nose Exam: Tympanic Membranes Normal (Steff Bates) Throat Throat Exam: Oral Mucosa [place] & Moist (Steff Bates) Pulmonary Resp Exam: Clear Bilaterally, Breath Sounds Equal, Decreased Bases (Steff Bates) Cardiology CV Exam: Regular, Normal Sinus Rhythm (Steff Bates) Gastrointestinal/Abdomen GI Exam: Soft, Non-Tender GI Remarks obese, RLQ transplanted organ not palpable, non tender (Steff Bates) Musculoskeletal MS Exam: Joints Intact, Normal Tone (Steff Bates) Integumentary Skin Exam: Warm, Dry, Intact Skin Remarks scaly areas over most of her skin. Some areas are bleeding from being scratched. Scaly raised plaques. (Steff Bates) Extremeties Extremities Exam: No Edema, Pedal Pulses Palpable (Steff Bates) Neurologic Neuro Exam: Alert, Awake, Oriented, Speech Clear, Moving All Extremities (Steff Bates) Psychiatric Psych Exam: Appropriate Responses (Steff Bates) Assessment/Plan Discussed Condition With: Patient Assessment Summary: SHELTON/Acute Renal Failure, Acute Tubular Necrosis, Hypertension, Transplant Kidney Status Problem List: (1) Acute renal failure ICD Codes: N17.9 - Acute renal failure Status: Acute Plan: Her baseline prior to this year was 1.1-1.2 She has had multiple episodes of renal failure this year s/p renal biopsy, SHELTON due to ATN Renal function is improving She is non oliguric Replace K orally stable for discharge. We have appt with her June 10, labs ordered (2) History of kidney transplant ICD Codes: Z94.0 - History of kidney transplant Status: Acute Plan: Continue rejection regimen (Cellcept and Cyclosporine) Resume Prednisone, home dose is 5 mg daily Tacrolimus level was low, dosage increased, repeat level in AM BK virus and CMV negative (3) Hypokalemia ICD Codes: E87.6 - Hypokalemia Status: Acute Plan: replace PO prior to discharge (4) UTI (urinary tract infection) ICD Codes: N39.0 - Urinary tract infection, site not specified Status: Acute Plan: Off zosyn, monitor clinically (5) Hypertension ICD Codes: I10 - Essential (primary) hypertension Status: Resolved Plan: On Clonidine and amlodipine (dose increased) (6) Nausea vomiting and diarrhea ICD Codes: R11.2 - Nausea with vomiting, unspecified; R19.7 - Diarrhea, unspecified Status: Acute Plan: continue antiemetics , may have been due to renal failure diarrhea persists, C diff negative. Consider Imodium Plan She need updated list of medications (and changes) for discharge. (Steff Bates) Plan patient was seen and examined. Agree with above assessment and plan. She is cleared for discharge from renal standpoint. I will see her next week in CKD clinic. (Damon Temple MD) Steff Bates Jun 04, 2017 10:22 Damon Temple MD Jun 04, 2017 15:35
[2017-06-04] MEDS ORDERED: POTASSIUM CHLORIDE 10 MEQ CONTROLLED RELEASE TAB PO ONE (11:15)
[2017-06-04 12:00] VITALS: BP 105/53; PULSE 65; RESP 18; TEMP 97.1; O2SAT 98
[2017-06-04] MEDS ORDERED: HYDR-3580 PO (14:26)
--- NOTE | 2017-06-04 14:27 | HHI.DCPOC ---
Discharge Care Plan Diagnosis: (1) Acute on chronic kidney disease, stage 3 (2) Hematoma Goals to Promote Your Health * To prevent worsening of your condition and complications * To maintain your health at the optimal level Directions to Meet Your Goals Take your medications as prescribed Follow your dietary instruction Follow activity as directed Keep your appointments as scheduled Take your immunizations and boosters as scheduled If your symptoms worsen call your PCP, if no PCP go to Urgent Care Center or Emergency Room Smoking is Dangerous to Your Health. Avoid second hand smoke Call the 24-hour hour crisis hotline for domestic abuse at Reinaldo Fuller MD Jun 04, 2017 14:27
[2017-06-04] MEDS ORDERED: CLON.1 PO (14:31)
[2017-06-04] MEDS ORDERED: AMLO5 PO (14:31)
--- NOTE | 2017-06-04 14:32 | HHI.FF ---
Face to Face Verification Diagnosis: (1) Renal transplant recipient (2) Acute on chronic kidney disease, stage 3 Physical Therapy Order: Evaluate and Treat I have seen patient Mercy Pena on 06/04/17. My clinical findings support the need for the requested home health care services because: Med compliance is questionable Limited ability to care for self I certify that my clinical findings support that this patient is homebound because: Unsteady gait/balance Reinaldo Fuller MD Jun 04, 2017 14:32
[2017-06-04] MEDS ORDERED: SAND25 PO ×2 (14:53)
[2017-06-04] MEDS ORDERED: PRED5TAB PO (14:53)
[2017-06-04] MEDS: ACETAMINOPHEN/HYDROcodone 325 MG/7.5 MG TAB PO PRN (15:10)
[2017-06-04] MEDS ORDERED: GLIP5TAB8 PO (15:23)
--- NOTE | 2017-06-04 16:20 | HHI.FF ---
Face to Face Verification Diagnosis: (1) Renal transplant recipient (2) Acute on chronic kidney disease, stage 3 (3) Nausea vomiting and diarrhea Home Health Nursing Order: Medical education Signs/symptoms of disease process Medication education-adverse effect Nursing assessment with vital signs I have seen patient Mercy Pena on 06/04/17. My clinical findings support the need for the requested home health care services because: Limited ability to care for self I certify that my clinical findings support that this patient is homebound because: Unsteady gait/balance Reinaldo Fuller MD Jun 04, 2017 16:20
[2017-06-05 20:53] LABS: HEMOGLOBIN A1C 4.8 % (4.3-6.0)
--- NOTE | 2017-06-06 11:17 | RADRPT ---
EXAM DATE/TIME: 05/31/2017 19:21 [facility] COMPARISON: No previous studies available for comparison. INDICATIONS : Patient with a history of right renal hemorrhage, post biopsy. MEDICAL HISTORY : Renal disease HTN CAD SURGICAL HISTORY : Right renal transplant ENCOUNTER: Initial ACUITY: 1 day PAIN SCORE: 6/10 LOCATION: Right abdomen FLUORO TIME: 6.0 minutes IMAGE SERIES: 11 ACCESS SITE: Right Femoral artery SEDATION TIME: 30 minutes CONTRAST: 1.) 30 cc Visipaque (iodixanol) MEDICATION(S): 1.) 2 mg midazolam (Versed) IV 2.) 100 mcg fentanyl (Sublimaze) IV DEVICE(S): 1.) Right common femoral artery 6FR Angio-Seal PROCEDURE : 1. Ultrasound-guided puncture of the access site. 2. Angiography of the access site prior to closure device. 3. Conscious sedation with continuous EKG and Oximetry monitoring. 4. Percutaneous closure of the access site. 5. Angiography of the pelvis 6. Angiography of the renal transplant off the right internal iliac artery The risks, benefits and alternatives to the procedure were explained and verbal and written consent w as obtained. The site was prepped in sterile fashion. Full sterile technique was used, including ca p, mask, sterile gloves and gown and a large sterile sheet. Hand hygiene and 2% chlorhexidine and/or betadine/alcohol prep was utilized per protocol for cutaneous antisepsis. Sterile gel and sterile p robe cover were utilized for ultrasound guidance. The skin and subcutaneous tissues were infiltrated with local anesthetic solution. With ultrasound and fluoroscopic guidance the selected artery was punctured and a vascular sheath was placed. Angiography of the common femoral artery was performed for evaluation prior to percutaneous closure device placement. A Berenstein catheter was used to gain access to the origin of the right renal artery can't transplan t. No active sites of extravasation are identified. There are simple cysts in the transplant kidney t he largest measuring 2 cm. The renal vein is patent. There is a convex avascular filling defect invol ving the superior aspect of the transplant compatible with perirenal hematoma. No acute areas of extr avasation are identified the Hemostasis was obtained with the prescribed medicated closure device. Conscious sedation was perform ed with the prescribed dosages and duration as above in the presence of an independent trained radiol ogy nurse to assist in the monitoring of the patient. EKG and oximetry remained stable throughout th e procedure. CONCLUSION: 1. No acute areas of hemorrhage are identified. David Juares MD on June 06, 2017 at 8:59 Board Certified Radiologist. This report was verified electronically.
--- NOTE | 2017-06-06 14:31 | RADRPT ---
EXAM DATE/TIME: 05/31/2017 19:29 [place] COMPARISON: No previous studies available for comparison. INDICATIONS : Patient with a history of right renal hemorrhage, post biopsy MEDICAL HISTORY : Renal disease SURGICAL HISTORY : right renal transplant ENCOUNTER: Initial ACUITY: 1 day PAIN SCORE: 6/10 LOCATION: Right lower quadrant IMAGE SERIES: 1 ACCESS: Right basilic vein DEVICE(S): 1.) 3/4 Indian Dilator PROCEDURE : 1. Ultrasound guided venous access. The risks, benefits and alternatives to the procedure were explained and verbal and written consent w as obtained. The site was prepped in sterile fashion. Full sterile technique was used, including ca p, mask, sterile gloves and gown and a large sterile sheet. Hand hygiene and 2% chlorhexidine and/or betadine/alcohol prep was utilized per protocol for cutaneous antisepsis. Sterile gel and sterile p robe cover were utilized for ultrasound guidance. The skin and subcutaneous tissues were infiltrate d with local anesthetic solution. With ultrasound guidance the prescribed vein was punctured for venous access. A 4 Indian dilator was placed and was flushed and locked with heparin. The patient tolerated procedure well and there were n o complications. CONCLUSION: 1. Uncomplicated venous access David Juares MD on June 06, 2017 at 11:37 Board Certified Radiologist. This report was verified electronically.
== END 2017-06-04 16:20 | disposition home health service (06) | DRG 663 ==
LOC: NEPC 14:58 → NEDA 17:31 → OBSVTOIN 17:34 → NEPGCP 19:28 → N06B 05-31 19:21 → HOCA 06-03 16:50
PROVIDERS: ADMIT Hospitalist; ATTEND Hospitalist
PROC: 0W3R3ZZ Control Bleeding in Genitourinary Tract, Percutaneous Approach (ICD-10-PCS; principal; 2017-05-28)
PROC: 0TB03ZX Excision of Right Kidney, Percutaneous Approach, Diagnostic (ICD-10-PCS; 2017-05-28)
PROC: B41FYZZ Fluoroscopy of Right Lower Extremity Arteries using Other Contrast (ICD-10-PCS; 2017-05-31)
PROC: B416YZZ Fluoroscopy of Right Renal Artery using Other Contrast (ICD-10-PCS; 2017-05-31)
DX: N17.0 Acute kidney failure with tubular necrosis (principal); B37.49 Other urogenital candidiasis; K31.84 Gastroparesis; E11.22 Type 2 diabetes mellitus with diabetic chronic kidney disease; E11.43 Type 2 diabetes mellitus with diabetic autonomic (poly)neuropathy; M32.9 Systemic lupus erythematosus, unspecified; Z94.0 Kidney transplant status; Z99.81 Dependence on supplemental oxygen; N99.820 Postprocedural hemorrhage of a genitourinary system organ or structure following a genitourinary system procedure; I12.9 Hypertensive chronic kidney disease with stage 1 through stage 4 chronic kidney disease, or unspecified chronic kidney disease; N18.3 Chronic kidney disease, stage 3 (moderate); E87.6 Hypokalemia; K21.9 Gastro-esophageal reflux disease without esophagitis; E86.0 Dehydration; R29.6 Repeated falls; E78.5 Hyperlipidemia, unspecified; K52.9 Noninfective gastroenteritis and colitis, unspecified; I25.10 Atherosclerotic heart disease of native coronary artery without angina pectoris; E87.5 Hyperkalemia; J44.9 Chronic obstructive pulmonary disease, unspecified; G89.29 Other chronic pain; M54.9 Dorsalgia, unspecified; M19.90 Unspecified osteoarthritis, unspecified site; F32.9 Major depressive disorder, single episode, unspecified; F41.9 Anxiety disorder, unspecified; Z82.49 Family history of ischemic heart disease and other diseases of the circulatory system; Z85.820 Personal history of malignant melanoma of skin; Z87.891 Personal history of nicotine dependence; Z88.1 Allergy status to other antibiotic agents
CPT/HCPCS: 36251; 36410; 50200; 74176; 76776; 76937; 77012; 80048; 80053; 80069; 80158; 81001; 82570; 82948; 83036; 83690; 83735; 84100; 84132; 84155; 84300; 84439; 84443; 85007; 85014; 85018; 85025; 85027; 85610; 85730; 86850; 86900; 86901; 86920; 87040; 87086; 87328; 87329; 87493; 87497; 87506; 87799; 93005; 94664; 96360; 99152; 99153; C1760; C1769; C1887; C1894; G0269; J1644; J1815; J2250; J2405; J2543; J2930; J3010; J3475; J3480; J7030; J7512; J7515; J7517; Q9967